=== PATIENT | male | born 1950 | race Caucasian/White ===

== ENCOUNTER 2017-01-24 12:14 | Inpatient (IN) | payer MEDICAID ==
[~2017-01-24] VITALS: Ht 182.9 cm; Wt 86.4 kg
[2017-01-24 13:09] VITALS: Ht 182.9 cm; Wt 86.4 kg
--- NOTE | 2017-01-24 13:58 | ERA ---
ER Documentation Chief Complaint Date/Time DATE: 01/24/17 TIME: 13:50 Chief Complaint HERE FOR ADMIT PER DR. CAROLINA FOR SKIN GRAFTS ON JENNIFER ANKLES HPI Patient is a 66-year-old diabetic male with history of chronic ulcers to bilateral legs who presents to the ER with 2 weeks of gradual onset, constant, progressive increased pain to bilateral legs. He denies fever, vomiting, redness. He describes chronic drainage from the wounds. He has been followed by Dr. Carolina, who saw the patient in clinic today and sent him to the ER for admission for skin graft. The patient has had 2 prior surgeries for skin grafts. Patient denies history of CHF or cirrhosis. ROS All systems reviewed and are negative except as per history of present illness. Allergies Allergies: Coded Allergies: No Known Allergy (Unverified , 01/24/17) PMhx/Soc Past medical history: Diabetes mellitus type 2, chronic leg ulcers Past surgical history: Skin grafts to bilateral ankles 2 Social history: Prior alcohol use, last use 1 month ago, denies to FmHx Noncontributory Physical Exam Vitals Vital Signs Date Time Temp Pulse Resp B/P Pulse Ox O2 Delivery O2 Flow Rate FiO2 01/24/17 13:09 96.7 57 16 119/62 96 Physical Exam Const: Alert, no acute distress Head: Atraumatic Eyes: Normal Conjunctiva, No icterus, mild pallor ENT: Normal External Ears, Nose and Mouth. Mucous membranes moist Neck: Full range of motion..~ No meningismus. No JVD Resp: Clear to auscultation bilaterally, No wheezes, no rales Cardio: Regular rate and rhythm, no murmurs Abd: Soft, non tender, Mild distention, no rebound, no guarding Skin: No petechiae or rashes Back: No midline or flank tenderness Ext: No cyanosis. Pitting edema to upper thighs bilaterally, 3+. Multiple skin ulcers with exudative tissue and serous discharge. No erythema, no foul smell. 2 second cap refill all digits bilaterally. Neur: Awake and alert, , Cranial nerves II through XII intact bilaterally, strength and sensation for 4 extremes Psych: Normal Mood and Affect Result Diagram: 01/24/17 1430 01/24/17 1430 Results 24 hrs Laboratory Tests Test 01/24/17 14:30 01/24/17 15:00 White Blood Count 8.610^3/ul Red Blood Count 2.7810^6/ul Hemoglobin 7.4g/dl Hematocrit 23.7% Mean Corpuscular Volume 85.3fl Mean Corpuscular Hemoglobin 26.6pg Mean Corpuscular Hemoglobin Concent 31.2g/dl Red Cell Distribution Width 18.2% Platelet Count 05327^3/UL Mean Platelet Volume 10.1fl Neutrophils % 72.6% Lymphocytes % 18.3% Monocytes % 6.7% Eosinophils % 1.5% Basophils % 0.5% Nucleated Red Blood Cells % 0.0/100WBC Neutrophils # 6.210^3/ul Lymphocytes # 1.610^3/ul Monocytes # 0.610^3/ul Eosinophils # 0.110^3/ul Basophils # 0.010^3/ul Nucleated Red Blood Cells # 0.010^3/ul Prothrombin Time 14.4Sec Prothrombin Time Ratio 1.1 INR International Normalized Ratio 1.12 Activated Partial Thromboplast Time 39.4Sec Sodium Level 134mmol/L Potassium Level 4.6mmol/L Chloride Level 105mmol/L Carbon Dioxide Level 23mmol/L Anion Gap 11 Blood Urea Nitrogen 30mg/dl Creatinine 1.73mg/dl Glucose Level 251mg/dl Calcium Level 7.8mg/dl Total Bilirubin 0.4mg/dl Direct Bilirubin 0.00mg/dl Indirect Bilirubin 0.4mg/dl Aspartate Amino Transf (AST/SGOT) 16IU/L Alanine Aminotransferase (ALT/SGPT) 28IU/L Alkaline Phosphatase 257IU/L B-Type Natriuretic Peptide 8880PG/ML Total Protein 6.3g/dl Albumin 2.7g/dl Globulin 3.60g/dl Albumin/Globulin Ratio 0.75 Bedside Urine pH (LAB) 6.5 Bedside Urine Protein (LAB) 1+ Bedside Urine Glucose (UA) Negative Bedside Urine Ketones (LAB) Negative Bedside Urine Blood Negative Bedside Urine Nitrite (LAB) Negative Bedside Urine Leukocyte Esterase (L Negative Current Medications Medications (Trade) Dose Ordered Sig/Josy Route PRN Reason Start Time Stop Time Status Last Admin Dose Admin Vancomycin HCl 250 ml @ 125 mls/hr ONCE IVPB 01/24/17 15:00 01/24/17 16:59 Piperacillin Sod/ Tazobactam Sod (Zosyn 3.375gm/ 100 ml (Pmx)) 100 ml @ 200 mls/hr ONCE ONCE IVPB 01/24/17 15:00 01/24/17 15:29 DC 01/24/17 15:20 Acetaminophen/ Hydrocodone Bitart ([place] (10)) 1 tab ONCE ONCE PO 01/24/17 15:00 01/24/17 15:01 DC 01/24/17 15:20 Ondansetron HCl (Zofran Inj) 4 mg BRIDGE ORDER PRN IV NAUSEA AND/OR VOMITING 01/24/17 16:00 01/25/17 15:59 Acetaminophen (Tylenol Tab) 650 mg ER BRIDGE PRN PO MILD PAIN/FEVER 01/24/17 16:00 01/25/17 15:59 Furosemide (Lasix) 20 mg ONCE ONCE IV 01/24/17 16:00 01/24/17 16:01 Procedures/MDM Time 1:57 PM: Discussed with Dr. Carolina, who states that the patient appears to have chronic infection to bilateral legs and has deep ulcers to the left leg extending to the Achilles tendon. These have not been healing adequately. The patient does not have known history of CHF or ascites, but does not have regular medical care. Requests broad-spectrum antibiotics, medical workup, and admission for planned debridement and skin grafts. MDM: Patient is a 66-year-old male with chronic bilateral leg ulcers, left greater than right with extension to Achilles tendon. Patient was seen by Dr. Carolina in clinic today, and there was concern for cellulitis. The patient is diabetic, does not have signs of necrotizing infection or sepsis. The patient does not have a PMD and has not had prior medical workup, but has evidence of anasarca on exam. He has hypoalbuminemia suggestive of underlying cirrhosis, and his exam is suggestive of ascites. He also has an elevated BNP suggestive of CHF, and his chest x-ray shows pleural effusions with cardiomegaly. Patient has not had any chest pain or shortness of breath. He has evidence of anemia, but denies dark or bloody stools and has stable vital signs. He was given broad-spectrum antibiotics and gentle diuresis. He has evidence of underlying renal impairment. He will need admission for further medical workup, and will be scheduled for surgical debridement of wounds and possible skin graft. Departure Diagnosis: Primary Impression: Cellulitis Qualified Code: L03.119 - Cellulitis of lower extremity, unspecified laterality Additional Impressions: Chronic ulcer of leg Qualified Code: L97.909 - Chronic ulcer of lower extremity, unspecified laterality, unspecified ulcer stage Anasarca CHF (congestive heart failure) Qualified Code: I50.9 - Congestive heart failure, unspecified congestive heart failure chronicity, unspecified congestive heart failure type Hypoalbuminemia Anemia Qualified Code: D64.9 - Anemia, unspecified type Condition: BRIDGET Us MD Jan 24, 2017 13:58
[2017-01-24] MEDS ORDERED: HYDROCODONE/APAP (10/325) TAB PO ONE (15:00)
[2017-01-24] MEDS ORDERED: VANCOMYCIN 1 GM (PMX) 250 ML IVPB SCH (15:00)
[2017-01-24] MEDS ORDERED: PIPER-TAZO 3.375 GM IV (PMX) 100 ML IVPB ONE (15:00)
--- NOTE | 2017-01-24 15:39 | RADRPT ---
PROCEDURE: Chest x-ray CLINICAL INDICATION: Shortness of breath TECHNIQUE: Chest single view COMPARISON: None FINDINGS: There is mild cardiomegaly. Mild interstitial vascular congestion is seen with small bilateral pleur al effusions right greater than left. IMPRESSION: Cardiomegaly with mild interstitial CHF and small bilateral pleural effusions right greater than lef t RPTAT: HH .Tin Gudino MD, Date Time Electronically viewed and signed by .Tin Gudino MD, on 01/24/2017 15:39 .W/
[2017-01-24] MEDS ORDERED: ACETAMINOPHEN 325 MG TAB PO PRN (16:00)
[2017-01-24] MEDS ORDERED: FUROSEMIDE 20 MG INJ IV ONE (16:00)
[2017-01-24] MEDS ORDERED: ONDANSETRON 4 MG INJ IV PRN ×2 (16:00→19:00)
[2017-01-24 16:04] VITALS: TEMP 97.7
[2017-01-24 18:00] VITALS: BP 152/66; PULSE 58; RESP 16
[2017-01-24 18:01] VITALS: BP 152/66; RESP 22
--- NOTE | 2017-01-24 18:39 | HP ---
Date/Time of Note Date/Time of Note DATE: 01/24/17 TIME: 18:35 Assessment/Plan VTE Prophylaxis VTE Prophylaxis Intervention: heparin Assessment/Plan Chief Complaint/Hosp Course 1. Chronic skin ulcers Plan is for skin graft with Dr Romero Pain control 2. DM NISS PPx: Heparin Problems: HPI/ROS Admit Date/Time Admit Date/Time Jan 24, 2017 at 15:33 Hx of Present Illness Patient is a 66-year-old diabetic male with history of chronic ulcers to bilateral legs who presents with 2 weeks of increased pain to bilateral legs. He describes chronic drainage from the wounds. He has been followed by Dr. Romero, who saw the patient in clinic today and sent him to the ER for admission for skin graft. The patient has had 2 prior surgeries for skin grafts. Patient denies history of CHF or cirrhosis. ROS Constitutional: improved, no complaints Eyes: no complaints ENT: no complaints Respiratory: no complaints Cardiovascular: no complaints Gastrointestinal: no complaints Genitourinary: no complaints Musculoskeletal: no complaints Skin: skin lesions Neurologic: no complaints Endocrine: no complaints Lymphatic: no complaints Psychological: nl mood/affect, no complaints Immunologic: no complaints PMH/Family/Social Past Medical History Medical History: diabetes, other (Chronic skin ulcers) Past Surgical History Skin grafts to bilateral ankles 2 Family History Significant Family History: no pertinent family hx Social History Alcohol Use: occasionally Smoking Status: Never smoker Exam/Review of Systems Vital Signs Vitals Vital Signs Date Time Temp Pulse Resp B/P Pulse Ox O2 Delivery O2 Flow Rate FiO2 01/24/17 18:01 97.5 60 22 152/66 98 01/24/17 18:00 Room Air Exam Constitutional: alert, oriented Respiratory: clear to auscultation Cardiovascular: regular rate and rhythm Gastrointestinal: soft, No distended Musculoskeletal: No nl extremities to inspection Labs Result Diagram: 01/24/17 1430 01/24/17 1430 SELINA BAINS Jan 24, 2017 18:39
[2017-01-24] MEDS ORDERED: GLUCOSE GEL 15 GRAM TUBE PO PRN ×2 (19:00)
[2017-01-24] MEDS ORDERED: NACL 0.9% 3 ML SYG IV SCH (19:00)
[2017-01-24] MEDS ORDERED: DEXTROSE 50% 50 ML SYRINGE IV PRN ×2 (19:00)
[2017-01-24] MEDS ORDERED: GLUCOSE GEL 15 GRAM TUBE BUCCAL PRN (19:00)
[2017-01-24] MEDS ORDERED: DOCUSATE SODIUM 100 MG CAP PO PRN (19:00)
[2017-01-24] MEDS ORDERED: HYDROCODONE/APAP (5/325) TAB PO PRN (19:00)
[2017-01-24] MEDS ORDERED: GLUCAGON 1 MG INJ IM PRN (19:00)
[2017-01-24 20:05] VITALS: BP 123/73; RESP 18
[2017-01-24 20:06] VITALS: BP 123/73; RESP 20
[2017-01-24] MEDS: HEPARIN 5,000 UNIT/0.5 ML VIAL SC SCH (20:21)
[2017-01-24] MEDS: INSULIN ASPART [NOVOLOG] 3 ML PEN SC SCH (20:52)
--- NOTE | 2017-01-24 21:57 | RADRPT ---
PROCEDURE: US right upper quadrant abdomen. CLINICAL INDICATION: Abnormal liver function tests TECHNIQUE: Multiple real-time images were acquired of the patient's right upper quadrant abdomen utilizing a high resolution transducer. COMPARISON: None FINDINGS: The liver demonstrates slight coarsened echotexture, nodularity, increased echogenicity and increas ed size measuring 20.2 cm without focal lesions. Slight nodular border. Patent portal vein. Normal g allbladder without gallstones, pericholecystic fluid or gallbladder wall thickening. No intrahepatic or extrahepatic biliary dilatation. The common bile duct measures 3.6 mm in maximal dimension. Th e visualized portions of the pancreas are normal. The right kidney is normal size with normal echoge nicity and morphology. The right kidney measures 10.3 cm. No hydronephrosis or perinephric fluid c ollections. There are no areas of increased echogenicity to suggest nephrolithiasis. Normal caliber aorta and IVC. No peritoneal free fluid. IMPRESSION: Enlarged liver with increased echogenicity, coarsened echotexture and slight nodularity consistent w ith hepatocellular disease. RPTAT:AAJJ Physician Jagruti Date Time Electronically viewed and signed by Physician Jagruti on 01/24/2017 21:57 /
[2017-01-24] MEDS: ZOLPIDEM 5 MG TAB PO PRN (23:49)
[2017-01-25] VITALS (8 sets, daily range): BP systolic 125–151; BP diastolic 62–138; PULSE 60–64; RESP 15–20
[2017-01-25] MEDS ORDERED: ACCU-CHEK XX SCH (02:00)
[2017-01-25] MEDS: ACCU-CHEK XX SCH (02:00)
[2017-01-25] MEDS: HYDROCODONE/APAP (5/325) TAB PO PRN ×3 (05:18→21:55)
[2017-01-25] MEDS: INSULIN ASPART [NOVOLOG] 3 ML PEN SC SCH ×7 (07:35→21:00)
[2017-01-25] MEDS: INSULIN GLARGINE [LANtus] 3 ML PEN SC SCH (08:00)
[2017-01-25] MEDS: HEPARIN 5,000 UNIT/0.5 ML VIAL SC SCH ×2 (08:09→20:50)
--- NOTE | 2017-01-25 12:03 | HPN ---
Date/Time of Note Date/Time of Note DATE: 01/25/17 TIME: 12:03 Interval H&P Admission Note Pt. seen H&P reviewed: No system changes ASHLEY CAROLINA MD Jan 25, 2017 12:03
--- NOTE | 2017-01-25 15:36 | PN ---
Date/Time of Note Date/Time of Note DATE: 01/25/17 TIME: 15:35 Assessment/Plan VTE Prophylaxis VTE Prophylaxis Intervention: heparin Lines/Catheters IV C[facility] Type [facility]from [facility] [place] Urinary Cath still in place: No Assessment/Plan Chief Complaint/Hosp Course 1. Chronic skin ulcers Plan is for skin graft with Dr Romero Pain control 2. DM NISS 3. Early cirrhosis Hepatitis panel negative PPx: Heparin Problems: Subjective 24 Hr Interval Summary Constitutional: no complaints Exam/Review of Systems Vital Signs Vitals Vital Signs Date Time Temp Pulse Resp B/P Pulse Ox O2 Delivery O2 Flow Rate FiO2 01/25/17 14:00 98.2 60 18 125/62 95 01/24/17 18:00 Room Air Intake and Output 01/24/17 01/24/17 01/25/17 14:59 22:59 06:59 Intake Total 350 ml 500 ml Output Total 600 ml Balance 350 ml -100 ml Exam Constitutional: alert, oriented Respiratory: clear to auscultation Cardiovascular: regular rate and rhythm Gastrointestinal: soft, No distended Extremities: edema Results Result Diagram: 01/25/17 0454 01/25/17 0454 Results 24 hrs Laboratory Tests Test 01/24/17 20:48 01/25/17 02:06 01/25/17 04:54 01/25/17 07:46 Bedside Glucose 212 228 H 182 White Blood Count 7.1 Red Blood Count 2.66 L Hemoglobin 7.0 L Hematocrit 22.6 L Mean Corpuscular Volume 85.0 Mean Corpuscular Hemoglobin 26.3 L Mean Corpuscular Hemoglobin Concent 31.0 L Red Cell Distribution Width 18.1 H Platelet Count 281 Mean Platelet Volume 10.0 Neutrophils % 66.8 Lymphocytes % 21.6 Monocytes % 7.5 Eosinophils % 3.1 Basophils % 0.7 Nucleated Red Blood Cells % 0.0 Neutrophils # 4.7 Lymphocytes # 1.5 Monocytes # 0.5 Eosinophils # 0.2 Basophils # 0.1 Nucleated Red Blood Cells # 0.0 Sodium Level 133 L Potassium Level 4.2 Chloride Level 107 Carbon Dioxide Level 22 Anion Gap 8 Blood Urea Nitrogen 30 H Creatinine 1.73 H Glucose Level 195 Hemoglobin A1c 8.0 H Calcium Level 8.1 L Phosphorus Level 4.0 Magnesium Level 1.9 Total Bilirubin 0.3 Direct Bilirubin 0.00 Indirect Bilirubin 0.3 Aspartate Amino Transf (AST/SGOT) 16 Alanine Aminotransferase (ALT/SGPT) 26 Alkaline Phosphatase 255 H Total Protein 6.2 Albumin 2.4 L Globulin 3.80 H Albumin/Globulin Ratio 0.63 Hepatitis B Surface Antigen NEGATIVE Hepatitis B Core Total Antibody NEGATIVE Hepatitis C Antibody NEGATIVE Test 01/25/17 11:51 Bedside Glucose 148 Medications Medications Current Medications Ondansetron HCl (Zofran Inj) 4 mg Q6H PRN IV NAUSEA AND/OR VOMITING; Start 01/24/17 at 19:00 Acetaminophen (Tylenol Tab) 650 mg Q6H PRN PO PAIN LEVEL 1-3 OR FEVER; Start 01/24/17 at 19:00 Morphine Sulfate (morphine) 2 mg Q4H PRN IV SEVERE PAIN LEVEL 7-10; Start 01/24 at 19:00 Docusate Sodium (Colace) 100 mg Q12H PRN PO CONSTIPATION; Start 01/24/17 at 19: 00 Zolpidem Tartrate (Ambien) 5 mg QHS PRN PO SLEEP Last administered on 23:49; Admin Dose 5 MG; Start 01/24/17 at 19:00 Heparin Sodium (Porcine) (Heparin (5000 Units/0.5 ml)) 5,000 unit Q12 SC Last administered on 01/24/17 20:21; Admin Dose 5,000 UNIT; Start 01/24/17 at 21:00 Insulin Glargine (Lantus) 17 unit DAILY@08 SC ; Start 01/25/17 at 08:00 Diagnostic Test (Pha) (Accu-Chek) 1 ea 02 XX ; Start 01/25/17 at 02:00 Miscellaneous Information 1 ea NOTE XX ; Start 01/24/17 at 19:00 Glucose (Glutose) 15 gm Q15M PRN PO DECREASED GLUCOSE; Start 01/24/17 at 19:00 Glucose (Glutose) 22.5 gm Q15M PRN PO DECREASED GLUCOSE; Start 01/24/17 at 19: 00 Dextrose (D50w Syringe) 25 ml Q15M PRN IV DECREASED GLUCOSE; Start 01/24/17 at 19:00 Dextrose (D50w Syringe) 50 ml Q15M PRN IV DECREASED GLUCOSE; Start 01/24/17 at 19:00 Glucagon (Glucagen) 1 mg Q15M PRN IM DECREASED GLUCOSE; Start 01/24/17 at 19:00 Glucose (Glutose) 15 gm Q15M PRN BUCCAL DECREASED GLUCOSE; Start 01/24/17 at 19 :00 Acetaminophen/ Hydrocodone Bitart ([place] (5/325)) 1 tab Q4H PRN PO MODERATE PAIN LEVEL 4-6 Last administered on 01/25/17 10:08; Admin Dose 1 TAB; Start 01/24/17 at 23:00 SELINA BAINS Jan 25, 2017 15:36
[2017-01-25] MEDS ORDERED: LIDOCAINE 2% (SDV) 5 ML INJ ONE (16:31)
[2017-01-25] MEDS ORDERED: PROPOFOL 100 ML ONE (16:31)
[2017-01-25] MEDS ORDERED: FENTAnyl 50 MCG/ML VIAL ONE (16:31)
[2017-01-25] MEDS ORDERED: MIDAZOLAM 1 MG/ML 2 ML INJ ONE (16:31)
[2017-01-25] MEDS ORDERED: EPINEPHrine 1 MG/ML 30 ML INJ ONE (16:51)
--- NOTE | 2017-01-25 17:51 | QN ---
Documentation Comment RENAL A/P CKD ANEMIA PVD PLAN PER ORDER ELHAM ANGELES MD Jan 25, 2017 17:51
--- NOTE | 2017-01-25 17:51 | QN ---
Documentation Comment RENAL A/P CKD ANEMIA PVD PLAN PER ORDER ELHAM ANGELES MD Jan 25, 2017 17:51
--- NOTE | 2017-01-25 17:51 | QN ---
Documentation Comment RENAL A/P CKD ANEMIA PVD PLAN PER ORDER ELHAM ANGELES MD Jan 25, 2017 17:51
--- NOTE | 2017-01-25 17:52 | SIPON ---
Date/Time of Note Date/Time of Note DATE: 01/25/17 TIME: 17:50 Operative Report Preoperative Diagnosis BILATERAL LOWER EXTREMITY NECROTIC WOUNDS Postoperative Diagnosis SAME Operation/Procedure Performed BILATERAL LOWER EXTREMITY DEBRIDEMENTS AND APPLICATION OF ACELL GRAFTS Surgeon see signature line physician assistant surgery NONE Anesthesia: moderate sedation Estimated blood loss: 10 - 50 ml's Transfusion Required 1 UNIT PRBC Specimen NONE Grafts/Implants none Complications none ASHLEY CAROLINA MD Jan 25, 2017 17:52
--- NOTE | 2017-01-25 17:52 | SIPON ---
Date/Time of Note Date/Time of Note DATE: 01/25/17 TIME: 17:50 Operative Report Preoperative Diagnosis BILATERAL LOWER EXTREMITY NECROTIC WOUNDS Postoperative Diagnosis SAME Operation/Procedure Performed BILATERAL LOWER EXTREMITY DEBRIDEMENTS AND APPLICATION OF ACELL GRAFTS Surgeon see signature line senior court office assistant NONE Anesthesia: moderate sedation Estimated blood loss: 10 - 50 ml's Transfusion Required 1 UNIT PRBC Specimen NONE Grafts/Implants none Complications none ASHLEY CAROLINA MD Jan 25, 2017 17:52
--- NOTE | 2017-01-25 17:52 | SIPON ---
Date/Time of Note Date/Time of Note DATE: 01/25/17 TIME: 17:50 Operative Report Preoperative Diagnosis BILATERAL LOWER EXTREMITY NECROTIC WOUNDS Postoperative Diagnosis SAME Operation/Procedure Performed BILATERAL LOWER EXTREMITY DEBRIDEMENTS AND APPLICATION OF ACELL GRAFTS Surgeon see signature line assistant manager retail NONE Anesthesia: moderate sedation Estimated blood loss: 10 - 50 ml's Transfusion Required 1 UNIT PRBC Specimen NONE Grafts/Implants none Complications none ASHLEY CAROLINA MD Jan 25, 2017 17:52
[2017-01-25] MEDS ORDERED: OXYCODONE/ACETAMINOPHEN (5/325) TAB PO PRN ×2 (18:30)
[2017-01-25] MEDS ORDERED: HYDROmorphONE (0.2 MG/ML) 10ML SYG IV PRN ×3 (18:30)
[2017-01-25] MEDS ORDERED: INSULIN ASPART [NOVOLOG] 3 ML PEN SC ONE (18:30)
[2017-01-26] MEDS: ACCU-CHEK XX SCH (02:00)
[2017-01-26 02:05] VITALS: BP 157/77; RESP 19
[2017-01-26] MEDS: HYDROCODONE/APAP (5/325) TAB PO PRN ×2 (04:34→15:47)
[2017-01-26] MEDS: INSULIN ASPART [NOVOLOG] 3 ML PEN SC SCH ×7 (08:07→20:58)
[2017-01-26 08:08] VITALS: BP 145/80; RESP 16
[2017-01-26] MEDS: INSULIN GLARGINE [LANtus] 3 ML PEN SC SCH (08:09)
--- NOTE | 2017-01-26 08:25 | OPR ---
Date/Time of Note Date/Time of Note DATE: 01/26/17 TIME: 08:21 Operative Report Free Text/Dictation DATE OF OPERATION: 01/26/2017 SURGEON: Jesus Carolina MD PREOPERATIVE DIAGNOSIS: Left lower extremity gangrene POSTOPERATIVE DIAGNOSIS: Same ANESTHESIA: LOCAL ESTIMATED BLOOD LOSS: Minimal. COMPLICATIONS: None. INDICATIONS: This is a 66-year-old male whom is noncompliant with diabetes and presented with bilateral lower extremity diabetic foot ulcers and infection. The patient had presented to outside hospital with history of 3-4weeks of bilateral lower extremity swelling, redness, pain, maggots and foul smelling odor from bilateral lower legs and left heel. 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 Subsequently, the patient has undergone multiple debridements in order try to preserve her limb. Multiple debridements of muscle, ligament, tendon, bone, skin, and subcutaneous tissue and application ACell grafts in order to enhance granulation tissue development and eventual limb salvage and grafting for wound closure. The patient has been discussed about the risks, benefits, and alternatives including but not limited to bleeding, worsening infection, limb loss, nerve injury, infection, , stroke, myocardial infarction, and multiple debridements in the near future and she has agreed to proceed. OPERATION PERFORMED: 1. Excisional sharp debridement of the left lower extremity involving skin, subcutaneous tissue, muscle, ligament, and tendon. Wound measuring 40 x 28 x 1cm cm in the greatest dimensions. 2. Application of 3 grams of xenograft MicroMatrix powder over the area of the right lower leg. 3. Application of one [id number] two layer xenograft sheets measuring 4. Application of one 7x10cm two layer xenograft sheets measuring DESCRIPTION OF PROCEDURE: The patient was brought into the operating room table , placed in supine position. The normal bony prominences were padded. The anesthesia team had placed appropriate lines and anesthesia was induced. The patient tolerated procedure well and appropriate site was marked and confirmed. The patient's left lower extremity was then prepped and draped in usual standard sterile fashion. Preoperative antibiotics were given prior to skin incision. Using sharp scissors and a curette, excisional debridement of all necrotic tissue involving skin, subcutaneous tissue, ligament, tendon, and muscle was performed. The patient has good surrounding developing on the edges with some necrotic fibrinous tissue which were all removed. The patient's previous MicroMatrix and 2-layer wound sheets of xenografts had been mostly taken appropriately and adequate granulation tissue has developed. We debrided further hypergranulation tissue with VersaJet device. We then applied 1 gram of xenograft MicroMatrix powder to repair and replace lost and damaged tissues. Further debrided the lateral heel area with sharp curette and sharp scissors. Once this aspect was completed, we went ahead and placed two-layer xenograft sheets over all the exposed areas of the lower leg to repair and replace lost and damaged tissues. Adaptic was applied circumferentially followed by Surgilube. This was followed with moist dressing, Telfa, 4 x 4, and Kerlix dressing. The patient tolerated procedure well and was taken to the postanesthesia care unit in stable condition. Our plan will be to revisit the wound again in one two weeks Preoperative Diagnosis bilateral lower extremity gas gangrene Postoperative Diagnosis same Surgeon see signature line Airplane Captain none Anesthesia Type: moderate sedation Estimated Blood Loss: minimal Transfusion none Specimen none Grafts/Implants none Complications none Pt Condition Post Procedure: stable Disposition: PACU Procedure Description as above JESUS CAROLINA MD Jan 26, 2017 08:25
[2017-01-26] MEDS: HEPARIN 5,000 UNIT/0.5 ML VIAL SC SCH ×2 (09:24→21:03)
[2017-01-26 14:00] VITALS: BP 130/75; RESP 18
[2017-01-26] MEDS: FUROSEMIDE 20 MG INJ IV SCH (17:33)
--- NOTE | 2017-01-26 19:13 | PN ---
Date/Time of Note Date/Time of Note DATE: 01/26/17 TIME: 19:12 Assessment/Plan VTE Prophylaxis VTE Prophylaxis Intervention: heparin Lines/Catheters IV Catheter Type (from Nrsg): Peripheral IV Urinary Cath still in place: No Assessment/Plan Chief Complaint/Hosp Course 1. Chronic skin ulcers Plan is for BKA with Dr Romero, preop clearance with Dr. Lagunas of cardiology Pain control 2. DM NISS 3. Early cirrhosis Hepatitis panel negative PPx: Heparin Problems: Subjective 24 Hr Interval Summary Constitutional: no complaints Exam/Review of Systems Vital Signs Vitals Vital Signs Date Time Temp Pulse Resp B/P Pulse Ox O2 Delivery O2 Flow Rate FiO2 01/26/17 14:00 98.5 61 18 130/75 95 01/25/17 18:50 Room Air Intake and Output 01/25/17 01/25/17 01/26/17 15:00 23:00 07:00 Intake Total 300 ml 150 ml Output Total 25 ml 1000 ml Balance 275 ml -850 ml Exam Constitutional: alert Respiratory: clear to auscultation Cardiovascular: regular rate and rhythm Gastrointestinal: soft, No distended Musculoskeletal: No nl extremities to inspection Results Result Diagram: 01/26/17 0450 01/26/17 0450 Results 24 hrs Laboratory Tests Test 01/25/17 20:34 01/26/17 04:50 01/26/17 05:35 01/26/17 08:01 Bedside Glucose 138 153 White Blood Count 7.5 Red Blood Count 2.89 L Hemoglobin 7.6 L Hematocrit 24.6 L Mean Corpuscular Volume 85.1 Mean Corpuscular Hemoglobin 26.3 L Mean Corpuscular Hemoglobin Concent 30.9 L Red Cell Distribution Width 17.8 H Platelet Count 297 Mean Platelet Volume 10.2 Neutrophils % 70.0 Lymphocytes % 17.4 Monocytes % 8.3 Eosinophils % 3.3 Basophils % 0.7 Nucleated Red Blood Cells % 0.0 Neutrophils # 5.3 Lymphocytes # 1.3 Monocytes # 0.6 Eosinophils # 0.3 Basophils # 0.1 Nucleated Red Blood Cells # 0.0 Sodium Level 136 Potassium Level 4.5 Chloride Level 109 Carbon Dioxide Level 23 Anion Gap 9 Blood Urea Nitrogen 27 H Creatinine 1.68 H Glucose Level 154 Calcium Level 7.9 L Lab Scanned Report BLOOD TRANSFUSION Test 01/26/17 12:15 01/26/17 17:31 Bedside Glucose 159 136 Medications Medications Current Medications Ondansetron HCl (Zofran Inj) 4 mg Q6H PRN IV NAUSEA AND/OR VOMITING; Start 01/24/17 at 19:00 Acetaminophen (Tylenol Tab) 650 mg Q6H PRN PO PAIN LEVEL 1-3 OR FEVER; Start 01/24/17 at 19:00 Morphine Sulfate (morphine) 2 mg Q4H PRN IV SEVERE PAIN LEVEL 7-10; Start 01/24 at 19:00 Docusate Sodium (Colace) 100 mg Q12H PRN PO CONSTIPATION; Start 01/24/17 at 19: 00 Zolpidem Tartrate (Ambien) 5 mg QHS PRN PO SLEEP Last administered on 23:49; Admin Dose 5 MG; Start 01/24/17 at 19:00 Heparin Sodium (Porcine) (Heparin (5000 Units/0.5 ml)) 5,000 unit Q12 SC Last administered on 01/26/17 09:24; Admin Dose 5,000 UNIT; Start 01/24/17 at 21:00 Insulin Glargine (Lantus) 17 unit DAILY@08 SC Last administered on 01/26/17 08:09; Admin Dose 17 UNIT; Start 01/25/17 at 08:00 Diagnostic Test (Pha) (Accu-Chek) 1 ea 02 XX ; Start 01/25/17 at 02:00 Miscellaneous Information 1 ea NOTE XX ; Start 01/24/17 at 19:00 Glucose (Glutose) 15 gm Q15M PRN PO DECREASED GLUCOSE; Start 01/24/17 at 19:00 Glucose (Glutose) 22.5 gm Q15M PRN PO DECREASED GLUCOSE; Start 01/24/17 at 19: 00 Dextrose (D50w Syringe) 25 ml Q15M PRN IV DECREASED GLUCOSE; Start 01/24/17 at 19:00 Dextrose (D50w Syringe) 50 ml Q15M PRN IV DECREASED GLUCOSE; Start 01/24/17 at 19:00 Glucagon (Glucagen) 1 mg Q15M PRN IM DECREASED GLUCOSE; Start 01/24/17 at 19:00 Glucose (Glutose) 15 gm Q15M PRN BUCCAL DECREASED GLUCOSE; Start 01/24/17 at 19 :00 Acetaminophen/ Hydrocodone Bitart ([place] (5/325)) 1 tab Q4H PRN PO MODERATE PAIN LEVEL 4-6 Last administered on 01/26/17t 15:47; Admin Dose 1 TAB; Start 01/24/17 at 23:00 SELINA BAINS Jan 26, 2017 19:13
--- NOTE | 2017-01-26 19:52 | RADRPT ---
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 Location: 2237- Ref. Physician: SELINA BAINS Quality: Adequate Procedures: Transthoracic echocardiogram with complete 2D, M-Mode, and doppler examination. Indications: Pre-op. 2D/M Mode Doppler Measurement Value Normal Ranges Measurement Value Normal Ranges LVIDd 2D 5.5 3.5 - 5.6 cm AV Peak Mahamed 1.9 m/sec LVIDs 2D 3.7 2.1 - 4.1 cm AV Peak PG 14.5 mmHg LVPWd 2D 1.3 0.6 - 1.1 cm AI Peak PG 66.8 mmHg IVSd 2D 1.3 0.6 - 1.1 cm AI Peak Mahamed 4.1 m/sec AoR Diam 2D 2.7 2.0 - 3.7 cm AI PHT 705.4 msec EDV 2D 148.7 cm3 LVOT Peak Mahamed 0.9 m/sec ESV 2D 51.9 cm3 LVOT Peak PG 3.6 mmHg LA Dimen 2D 4.9 2.3 - 4.0 cm MV E Peak Mahamed 1.5 m/sec MV A Peak Mahamed 0.7 m/sec MV E/A 2.1 MV Decel Time 126 msec MV Decel [place] 12 MV E/A 2.1 TR Peak Mahamed 3.8 m/sec TR Peak PG 57.0 mmHg RVSP 72.0 mmHg Findings Left Ventricle: Lower limits of normal systolic function. Mild concentric left ventricular hypertrophy. Mild left ventricular systolic dysfunction. Ejection fraction is visually estimated at 50 %. Abnormal Diastolic Function. These segments of the LV are hypokinetic apex. Right Ventricle: Normal right ventricular size. Normal right ventricular systolic function. Left Atrium: There is moderate enlargement of left atrium. Right Atrium: The right atrium is normal in size. Mitral Valve: Mild mitral leaflet calcification. Mild mitral annular calcification. Moderate to severe mitral valve regurgitation. Aortic Valve: Aortic sclerosis without stenosis. Mild aortic valve regurgitation. Tricuspid Valve: Normal appearance of the tricuspid valve. Estimated peak PA systolic pressure 72 mmHg. There is mild to moderate tricuspid regurgitation. Pulmonic Valve: Pulmonic valve not well visualized. There is mild to moderate pulmonic regurgitation. Pericardium: Normal pericardium with no significant pericardial effusion. Aorta: Normal aortic root. IVC: Dilated IVC without respiratory collapse consistent with elevated right atrial pressure. Conclusions 1.Lower limits of normal systolic function. Mild concentric left ventricular hypertrophy. Mild left ventricular systolic dysfunction. Ejection fraction is visually estimated at 50 %. Abnormal Diastolic Function. These segments of the LV are hypokinetic apex. 2.There is moderate enlargement of left atrium. 3.Mild mitral leaflet calcification. Mild mitral annular calcification. Moderate to severe mitral valve regurgitation. 4.Aortic sclerosis without stenosis. Mild aortic valve regurgitation. 5.Normal appearance of the tricuspid valve. Estimated peak PA systolic pressure 72 mmHg. There is mild to moderate tricuspid regurgitation. 6.Pulmonic valve not well visualized. There is mild to moderate pulmonic regurgitation. Electronically Signed By: Claritza Lagunas 26-Jan-2017 19:51:52 -0700 Patient Name: CLARITZA BERNAL Study Date: 26-Jan-2017 [id number]
--- NOTE | 2017-01-26 19:52 | RADRPT ---
Echocardiogram Report Patient Name: CLARITZA BERNAL Gender: Male Date: 1950 Study Date: 26-Jan-2017 Pile Trimmer: Yesica [facility] Location: 2237- Ref. Physician: SELINA BAINS Quality: Adequate Procedures: Transthoracic echocardiogram with complete 2D, M-Mode, and doppler examination. Indications: Pre-op. 2D/M Mode Doppler Measurement Value Normal Ranges Measurement Value Normal Ranges LVIDd 2D 5.5 3.5 - 5.6 cm AV Peak Mahamed 1.9 m/sec LVIDs 2D 3.7 2.1 - 4.1 cm AV Peak PG 14.5 mmHg LVPWd 2D 1.3 0.6 - 1.1 cm AI Peak PG 66.8 mmHg IVSd 2D 1.3 0.6 - 1.1 cm AI Peak Mahamed 4.1 m/sec AoR Diam 2D 2.7 2.0 - 3.7 cm AI PHT 705.4 msec EDV 2D 148.7 cm3 LVOT Peak Mahamed 0.9 m/sec ESV 2D 51.9 cm3 LVOT Peak PG 3.6 mmHg LA Dimen 2D 4.9 2.3 - 4.0 cm MV E Peak Mahamed 1.5 m/sec MV A Peak Mahamed 0.7 m/sec MV E/A 2.1 MV Decel Time 126 msec MV Decel [place] 12 MV E/A 2.1 TR Peak Mahamed 3.8 m/sec TR Peak PG 57.0 mmHg RVSP 72.0 mmHg Findings Left Ventricle: Lower limits of normal systolic function. Mild concentric left ventricular hypertrophy. Mild left ventricular systolic dysfunction. Ejection fraction is visually estimated at 50 %. Abnormal Diastolic Function. These segments of the LV are hypokinetic apex. Right Ventricle: Normal right ventricular size. Normal right ventricular systolic function. Left Atrium: There is moderate enlargement of left atrium. Right Atrium: The right atrium is normal in size. Mitral Valve: Mild mitral leaflet calcification. Mild mitral annular calcification. Moderate to severe mitral valve regurgitation. Aortic Valve: Aortic sclerosis without stenosis. Mild aortic valve regurgitation. Tricuspid Valve: Normal appearance of the tricuspid valve. Estimated peak PA systolic pressure 72 mmHg. There is mild to moderate tricuspid regurgitation. Pulmonic Valve: Pulmonic valve not well visualized. There is mild to moderate pulmonic regurgitation. Pericardium: Normal pericardium with no significant pericardial effusion. Aorta: Normal aortic root. IVC: Dilated IVC without respiratory collapse consistent with elevated right atrial pressure. Conclusions 1.Lower limits of normal systolic function. Mild concentric left ventricular hypertrophy. Mild left ventricular systolic dysfunction. Ejection fraction is visually estimated at 50 %. Abnormal Diastolic Function. These segments of the LV are hypokinetic apex. 2.There is moderate enlargement of left atrium. 3.Mild mitral leaflet calcification. Mild mitral annular calcification. Moderate to severe mitral valve regurgitation. 4.Aortic sclerosis without stenosis. Mild aortic valve regurgitation. 5.Normal appearance of the tricuspid valve. Estimated peak PA systolic pressure 72 mmHg. There is mild to moderate tricuspid regurgitation. 6.Pulmonic valve not well visualized. There is mild to moderate pulmonic regurgitation. Electronically Signed By: Claritza Lagunas 26-Jan-2017 19:51:52 -0700 Patient Name: CLARITZA BERNAL Study Date: 26-Jan-2017 [id number]
--- NOTE | 2017-01-26 19:52 | RADRPT ---
Echocardiogram Report Patient Name: CLARITZA BERNAL Gender: Male Date: 1950 Study Date: 26-Jan-2017 Rail Switchman: Yesica [facility] Location: 2237- Ref. Physician: SELINA BAINS Quality: Adequate Procedures: Transthoracic echocardiogram with complete 2D, M-Mode, and doppler examination. Indications: Pre-op. 2D/M Mode Doppler Measurement Value Normal Ranges Measurement Value Normal Ranges LVIDd 2D 5.5 3.5 - 5.6 cm AV Peak Mahamed 1.9 m/sec LVIDs 2D 3.7 2.1 - 4.1 cm AV Peak PG 14.5 mmHg LVPWd 2D 1.3 0.6 - 1.1 cm AI Peak PG 66.8 mmHg IVSd 2D 1.3 0.6 - 1.1 cm AI Peak Mahamed 4.1 m/sec AoR Diam 2D 2.7 2.0 - 3.7 cm AI PHT 705.4 msec EDV 2D 148.7 cm3 LVOT Peak Mahamed 0.9 m/sec ESV 2D 51.9 cm3 LVOT Peak PG 3.6 mmHg LA Dimen 2D 4.9 2.3 - 4.0 cm MV E Peak Mahamed 1.5 m/sec MV A Peak Mahamed 0.7 m/sec MV E/A 2.1 MV Decel Time 126 msec MV Decel [place] 12 MV E/A 2.1 TR Peak Mahamed 3.8 m/sec TR Peak PG 57.0 mmHg RVSP 72.0 mmHg Findings Left Ventricle: Lower limits of normal systolic function. Mild concentric left ventricular hypertrophy. Mild left ventricular systolic dysfunction. Ejection fraction is visually estimated at 50 %. Abnormal Diastolic Function. These segments of the LV are hypokinetic apex. Right Ventricle: Normal right ventricular size. Normal right ventricular systolic function. Left Atrium: There is moderate enlargement of left atrium. Right Atrium: The right atrium is normal in size. Mitral Valve: Mild mitral leaflet calcification. Mild mitral annular calcification. Moderate to severe mitral valve regurgitation. Aortic Valve: Aortic sclerosis without stenosis. Mild aortic valve regurgitation. Tricuspid Valve: Normal appearance of the tricuspid valve. Estimated peak PA systolic pressure 72 mmHg. There is mild to moderate tricuspid regurgitation. Pulmonic Valve: Pulmonic valve not well visualized. There is mild to moderate pulmonic regurgitation. Pericardium: Normal pericardium with no significant pericardial effusion. Aorta: Normal aortic root. IVC: Dilated IVC without respiratory collapse consistent with elevated right atrial pressure. Conclusions 1.Lower limits of normal systolic function. Mild concentric left ventricular hypertrophy. Mild left ventricular systolic dysfunction. Ejection fraction is visually estimated at 50 %. Abnormal Diastolic Function. These segments of the LV are hypokinetic apex. 2.There is moderate enlargement of left atrium. 3.Mild mitral leaflet calcification. Mild mitral annular calcification. Moderate to severe mitral valve regurgitation. 4.Aortic sclerosis without stenosis. Mild aortic valve regurgitation. 5.Normal appearance of the tricuspid valve. Estimated peak PA systolic pressure 72 mmHg. There is mild to moderate tricuspid regurgitation. 6.Pulmonic valve not well visualized. There is mild to moderate pulmonic regurgitation. Electronically Signed By: Claritza Lagunas 26-Jan-2017 19:51:52 -0700 Patient Name: CLARITZA BERNAL Study Date: 26-Jan-2017 [id number]
--- NOTE | 2017-01-26 20:01 | CONS ---
Date/Time of Note Date/Time of Note DATE: 01/26/17 TIME: 19:59 Assessment/Plan Assessment/Plan Chief Complaint/Hosp Course POSS CKD DM PUL EDEMA LEG EDEMA S/P LEG SURGERY PLAN UR LYTES UR PROTEIN DIURETIC Problems: Consultation Date/Type/Reason Admit Date/Time Jan 24, 2017 at 15:33 Initial Consult Date [id number] HR Interval Summary Constitutional: improved Exam/Review of Systems Vital Signs Vitals Vital Signs Date Time Temp Pulse Resp B/P Pulse Ox O2 Delivery O2 Flow Rate FiO2 01/26/17 14:00 98.5 61 18 130/75 95 01/25/17 18:50 Room Air Intake and Output 01/25/17 01/25/17 01/26/17 15:00 23:00 07:00 Intake Total 300 ml 150 ml Output Total 25 ml 1000 ml Balance 275 ml -850 ml Exam Neck: supple Respiratory: diminished breath sounds Cardiovascular: regular rate and rhythm Gastrointestinal: bowel sounds (+), soft Extremities: edema (+) Results Result Diagram: 01/26/17 0450 01/26/17 0450 Results 24 hrs Laboratory Tests Test 01/25/17 20:34 01/26/17 04:50 01/26/17 05:35 01/26/17 08:01 Bedside Glucose 138 153 White Blood Count 7.5 Red Blood Count 2.89 L Hemoglobin 7.6 L Hematocrit 24.6 L Mean Corpuscular Volume 85.1 Mean Corpuscular Hemoglobin 26.3 L Mean Corpuscular Hemoglobin Concent 30.9 L Red Cell Distribution Width 17.8 H Platelet Count 297 Mean Platelet Volume 10.2 Neutrophils % 70.0 Lymphocytes % 17.4 Monocytes % 8.3 Eosinophils % 3.3 Basophils % 0.7 Nucleated Red Blood Cells % 0.0 Neutrophils # 5.3 Lymphocytes # 1.3 Monocytes # 0.6 Eosinophils # 0.3 Basophils # 0.1 Nucleated Red Blood Cells # 0.0 Sodium Level 136 Potassium Level 4.5 Chloride Level 109 Carbon Dioxide Level 23 Anion Gap 9 Blood Urea Nitrogen 27 H Creatinine 1.68 H Glucose Level 154 Calcium Level 7.9 L Lab Scanned Report BLOOD TRANSFUSION Test 01/26/17 12:15 01/26/17 17:31 01/26/17 18:48 Bedside Glucose 159 136 Troponin I < 0.012 Medications Medications Current Medications Ondansetron HCl (Zofran Inj) 4 mg Q6H PRN IV NAUSEA AND/OR VOMITING; Start 01/24/17 at 19:00 Acetaminophen (Tylenol Tab) 650 mg Q6H PRN PO PAIN LEVEL 1-3 OR FEVER; Start 01/24/17 at 19:00 Morphine Sulfate (morphine) 2 mg Q4H PRN IV SEVERE PAIN LEVEL 7-10; Start 01/24 at 19:00 Docusate Sodium (Colace) 100 mg Q12H PRN PO CONSTIPATION; Start 01/24/17 at 19: 00 Zolpidem Tartrate (Ambien) 5 mg QHS PRN PO SLEEP Last administered on 23:49; Admin Dose 5 MG; Start 01/24/17 at 19:00 Heparin Sodium (Porcine) (Heparin (5000 Units/0.5 ml)) 5,000 unit Q12 SC Last administered on 01/26/17 09:24; Admin Dose 5,000 UNIT; Start 01/24/17 at 21:00 Insulin Glargine (Lantus) 17 unit DAILY@08 SC Last administered on 01/26/17 08:09; Admin Dose 17 UNIT; Start 01/25/17 at 08:00 Diagnostic Test (Pha) (Accu-Chek) 1 ea 02 XX ; Start 01/25/17 at 02:00 Miscellaneous Information 1 ea NOTE XX ; Start 01/24/17 at 19:00 Glucose (Glutose) 15 gm Q15M PRN PO DECREASED GLUCOSE; Start 01/24/17 at 19:00 Glucose (Glutose) 22.5 gm Q15M PRN PO DECREASED GLUCOSE; Start 01/24/17 at 19: 00 Dextrose (D50w Syringe) 25 ml Q15M PRN IV DECREASED GLUCOSE; Start 01/24/17 at 19:00 Dextrose (D50w Syringe) 50 ml Q15M PRN IV DECREASED GLUCOSE; Start 01/24/17 at 19:00 Glucagon (Glucagen) 1 mg Q15M PRN IM DECREASED GLUCOSE; Start 01/24/17 at 19:00 Glucose (Glutose) 15 gm Q15M PRN BUCCAL DECREASED GLUCOSE; Start 01/24/17 at 19 :00 Acetaminophen/ Hydrocodone Bitart ([place] (5/325)) 1 tab Q4H PRN PO MODERATE PAIN LEVEL 4-6 Last administered on 01/26/17t 15:47; Admin Dose 1 TAB; Start 01/24/17 at 23:00 ELHAM ANGELES MD Jan 26, 2017 20:01
[2017-01-26 20:07] VITALS: BP 141/73; RESP 19
[2017-01-27] VITALS (8 sets, daily range): BP systolic 156–177; BP diastolic 61–90; PULSE 75–87; RESP 18–20
[2017-01-27] MEDS: HYDROCODONE/APAP (5/325) TAB PO PRN ×3 (00:12→17:24)
[2017-01-27] MEDS: ZOLPIDEM 5 MG TAB PO PRN (00:13)
[2017-01-27] MEDS: ACCU-CHEK XX SCH (02:00)
[2017-01-27] MEDS: FUROSEMIDE 20 MG INJ IV SCH ×2 (05:31→17:26)
--- NOTE | 2017-01-27 07:42 | CONS ---
DATE OF ADMISSION: 01/24/2017 DATE OF CONSULTATION: 01/26/2017 REASON FOR CONSULTATION: Preoperative evaluation. REQUESTING PHYSICIAN: Dr. Stephen Messer from the hospitalist service. HISTORY OF PRESENT ILLNESS: Mr. Perez is a 66-year-old male with a history of lower extremity nonhealing ulcerations, diabetes mellitus who was initially seen in wound care clinic and then ER for further evaluation. Initially upon arrival, temperature of 96.7, blood pressure 119/60, pulse 57, respirations 16, saturating 96%. The patient's labs revealed a sodium of 134, potassium 4.6, creatinine 1.73, BUN 30, AST 16, ALT 20. BNP of 8880, alkaline phosphatase of 257. INR 1.1. White blood count 7.5, hemoglobin 7.6, platelet count 297. UA negative. The patient underwent a chest x-ray revealing cardiomegaly with interstitial CHF and small bilateral effusions, right greater than left, abdominal ultrasound revealing enlarged liver with increased echogenicity, course echotexture, slight nausea, consistent with hepatobiliary disease. The patient has subsequently been admitted where he has been initiated on insulin and getting local wound care. The patient initially was taken to the OR this morning and underwent excisional debridement of the left lower extremity with the xenograft placed. At this time, the patient denies chest pain, shortness of breath. PAST MEDICAL HISTORY: As above in HPI. MEDICATIONS CURRENTLY IN HOSPITAL: 1. Insulin. 2. Tylenol. 3. Zofran 4. Morphine. ALLERGIES: NO KNOWN DRUG ALLERGIES. SOCIAL HISTORY: No tobacco, social ETOH, occasional marijuana intake. FAMILY HISTORY: No history of sudden cardiac or early CAD. REVIEW OF SYSTEMS: As above in HPI. CONSTITUTIONAL: No fevers, chills. PULMONARY: No current shortness of breath. CARDIOVASCULAR: No current chest pain. GASTROINTESTINAL: No vomiting. GENITOURINARY: Renal failure. PSYCHIATRIC: No documented psychiatric history. NEUROLOGIC: No documented CVA. ENDOCRINE: Diabetes mellitus. PHYSICAL EXAMINATION: VITAL SIGNS: Temperature 98.1, blood pressure most recently 130/75, pulse 60, respirations 18, saturating 95%. GENERAL: The patient is alert, awake, in no acute distress. NECK: JVP approximately 9 cm water. CHEST: Fair air movement throughout. HEART: Regular rate and rhythm. Normal S1, S2, I/ systolic murmur. ABDOMEN: Positive bowel sounds, soft. EXTREMITIES: Covered by dressing, wound is weeping. LABORATORY DATA: As above in HPI, most recently from today, sodium 136, potassium 4.5, creatinine 1.68, BUN 27. White blood cell count 7.5, hemoglobin 7.6, platelet count 297. IMAGING STUDIES: As above in HPI. No further imaging studies for my review at this time. ECG: No electrocardiograms for my review at this time. IMPRESSION: 1. Congestive heart failure by chest x-ray, question systolic and diastolic, likely acute on chronic. 2. Hypertension, under reasonable control. 3. Preoperative. The patient at this time has tolerated lower extremity debridement, unclear whether other surgery may be required. 4. Anemia. 5. Nonhealing lower extremity ulcerations. 6. Diabetes mellitus. RECOMMENDATIONS: 1. At this time, would check serial EKGs, thus an EKG now, EKG in the morning, EKG for any complaints of chest pain. 2. We will send troponins q.6h. x3 3. We will follow the patient's 2D echo in order for assessment of ejection fraction, wall motion and any major abnormalities. 4. Would initiate the patient on gentle Lasix diuresis given has significantly elevated BNP as well as congestive heart failure with chest x-ray and signs of volume overload. 5. Follow the patient's blood pressure closely, currently off of antihypertensives. We will check a fasting lipid panel for general risk stratification and initiate lipid-lowering medication as necessary. 6. Continue the patient's local wound care and ongoing vascular surgery followup and care. Thank you for allowing me to take part in the care of this patient. I will continue to follow along very closely with you. Further recommendations will be made as the patient progresses through his inpatient hospital clinical course. Dictated By: CLARITZA GOEL/RAMON Conf#: [id number] DID#: [id number] REMI
[2017-01-27] MEDS: INSULIN ASPART [NOVOLOG] 3 ML PEN SC SCH ×7 (08:00→20:45)
[2017-01-27] MEDS: INSULIN GLARGINE [LANtus] 3 ML PEN SC SCH (08:13)
[2017-01-27] MEDS: HEPARIN 5,000 UNIT/0.5 ML VIAL SC SCH ×2 (08:14→20:45)
--- NOTE | 2017-01-27 08:54 | CONS ---
DATE OF ADMISSION: 01/24/2017 DATE OF CONSULTATION: Thank you, Dr. Messer, for kindly asking me to see this patient in nephrology consultation. HISTORY OF PRESENT ILLNESS: The patient is a 66-year-old male who has a history of chronic skin [facility] er. The patient admitted also has diabetes mellitus, admitted for skin graft. The patient noted to have electrolyte imbalance and nephrology consultation requested. The patient's hemoglobin of 7.6, BUN of 31.73 noted. PAST MEDICAL HISTORY: Chronic skin ulcer, diabetes mellitus. ALLERGY HISTORY: NEGATIVE. FAMILY HISTORY: Denies. SOCIAL HISTORY: Denies. MEDICATION HISTORY: Listed as: 1. Ambien. 2. Oxycodone. 3. Zofran. 4. The patient is on insulin. The patient is on sliding scale. 4. Heparin. 6. Glucose. 7. Lasix 50 b.i.d. REVIEW OF SYSTEMS: HEENT: Unremarkable. RESPIRATORY: Unremarkable. CARDIOVASCULAR: Unremarkable. ABDOMEN: Unremarkable. EXTREMITIES: No swelling. CENTRAL NERVOUS SYSTEM: Unremarkable. PHYSICAL EXAMINATION: GENERAL: The patient is awake, alert. VITAL SIGNS: Pulse 65, blood pressure 140/79. HEAD: Atraumatic, normocephalic. Pupils equal, reactive to light. NECK: Supple. No JVD. LUNGS: Clear. CARDIOVASCULAR: S1, S2 are normal. ABDOMEN: Soft, nontender. Bowel sounds present. EXTREMITIES: Edema noted and dressing noted in both lower extremities. CENTRAL NERVOUS SYSTEM: The patient is awake, alert, moving both upper and lower extremities. LABORATORY DATA: Chest x-ray: Cardiomegaly, mild interstitial CHF and small bilateral pleural effu sions, right greater than left. Ultrasound of the abdomen shows unremarkable increased echogenicity . The patient has a right kidney normal size and noted to have 10.3 cm. IMPRESSION: 1. Patient has possible underlying chronic kidney disease. 2. Chronic kidney disease, possibly due to chronic lower extremity lymphedema and cellulitis. 3. Other diagnoses include the patient has hypertension, anemia. The patient has underlying possib le diabetic nephropathy. The patient has pulmonary edema and leg edema, abnormal LFT. Skin wound. PLAN: To obtain urine sodium and creatinine, urine albumin creatinine ratio, hemoglobin A1c is not done. The patient will also benefit from diuretic. Orders were done. Dictated By: ELHAM ABAD/RAMON Conf#: [id number] [facility]#: [id number]
[2017-01-27] MEDS: morphine 2 MG INJ IV PRN ×2 (11:51→19:58)
--- NOTE | 2017-01-27 13:29 | PN ---
Date/Time of Note Date/Time of Note DATE: 01/27/17 TIME: 13:17 Assessment/Plan Lines/Catheters IV Catheter Type (from [facility]): Saline Lock Little in Place (from [facility]): No Assessment/Plan Chief Complaint/Hosp Course Bilateral lower extremity atherosclerosis and gangrene: It seems the patients noncompliance of diabetes and poor hygiene presents with bilateral lower extremity diabetic foot ulcers and severe gangrene infection. He had presented to outside hospital with history of 3-4weeks of bilateral lower extremity swelling, redness, pain, maggots and foul smelling odor from bilateral lower legs and left heel. 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 Subsequently, the patient has undergone multiple debridements in order try to preserve her limb. -S/P Multiple debridements of muscle, ligament, tendon, bone, skin, and subcutaneous tissue and application ACell grafts in order to enhance granulation tissue development and eventual limb salvage and grafting for wound closure. -Unfortunately, the patients left achilles tendon was completely necrotic and cannot be preserved. We were able to clean the wounds and preserved the posterior muscle compartments that will serve as a flap coverage as he would require below knee amputation. -Will need to allow time to settle down his lower extremity edema -Also will await cardiac clearance for surgery -Optimize vascular status (BP meds, sugar control, cholesterol, diet, antiplatelets) -Discussed plan, findings and management with the patient and he understands and agreed to proceed -Thank you for allowing us to partake in the care of your patient, please call with any questions Problems: Subjective 24 Hr Interval Summary no new vascular events overnight Exam/Review of Systems Vital Signs Vitals Vital Signs Date Time Temp Pulse Resp B/P Pulse Ox O2 Delivery O2 Flow Rate FiO2 01/27/17 09:15 75 156/72 01/27/17 08:12 98.8 20 94 01/25/17 18:50 Room Air Intake and Output 01/26/17 01/26/17 01/27/17 15:00 23:00 07:00 Intake Total 1260 ml 350 ml Output Total 500 ml Balance 760 ml 350 ml Exam Free Text/Dictation no new vascular events overnight Results Result Diagram: 01/27/17 0549 01/27/17 0549 ASHLEY CAROLINA MD Jan 27, 2017 13:29
--- NOTE | 2017-01-27 15:12 | PN ---
Date/Time of Note Date/Time of Note DATE: 01/27/17 TIME: 15:11 Assessment/Plan VTE Prophylaxis VTE Prophylaxis Intervention: heparin Lines/Catheters IV Catheter Type (from Nrs): Saline Lock Urinary Cath still in place: No Assessment/Plan Chief Complaint/Hosp Course 1. Chronic skin ulcers Plan is for BKA with Dr Romero, preop clearance with Dr. Lagunas of cardiology Echo shows an EF of 50% Pain control 2. DM NISS 3. Early cirrhosis Hepatitis panel negative PPx: Heparin Problems: Subjective 24 Hr Interval Summary Constitutional: no complaints Exam/Review of Systems Vital Signs Vitals Vital Signs Date Time Temp Pulse Resp B/P Pulse Ox O2 Delivery O2 Flow Rate FiO2 01/27/17 09:15 75 156/72 01/27/17 08:12 98.8 20 94 01/25/17 18:50 Room Air Intake and Output 01/26/17 01/26/17 01/27/17 15:00 23:00 07:00 Intake Total 1260 ml 350 ml Output Total 500 ml Balance 760 ml 350 ml Exam Constitutional: alert, oriented Respiratory: clear to auscultation Cardiovascular: regular rate and rhythm Gastrointestinal: soft, No distended Musculoskeletal: No nl extremities to inspection Results Result Diagram: 01/27/17 0549 01/27/17 0549 Results 24 hrs Laboratory Tests Test 01/26/17 17:31 01/26/17 18:48 01/26/17 20:57 01/27/17 00:51 Bedside Glucose 136 150 Troponin I < 0.012 0.013 Test 01/27/17 05:27 01/27/17 05:49 01/27/17 07:55 01/27/17 11:44 Urine Random Creatinine 50.17 Urine Random Sodium 97 H Urine Protein/Creatinine Ratio 0.43 Urine Total Protein 22.0 H White Blood Count 7.7 Red Blood Count 2.98 L Hemoglobin 7.5 L Hematocrit 25.1 L Mean Corpuscular Volume 84.2 Mean Corpuscular Hemoglobin 25.2 L Mean Corpuscular Hemoglobin Concent 29.9 L Red Cell Distribution Width 18.2 H Platelet Count 330 Mean Platelet Volume 10.1 Neutrophils % 59.6 Lymphocytes % 27.3 Monocytes % 9.5 Eosinophils % 2.7 Basophils % 0.5 Nucleated Red Blood Cells % 0.0 Neutrophils # 4.6 Lymphocytes # 2.1 Monocytes # 0.7 Eosinophils # 0.2 Basophils # 0.0 Nucleated Red Blood Cells # 0.0 Sodium Level 136 Potassium Level 4.4 Chloride Level 108 Carbon Dioxide Level 22 Anion Gap 10 Blood Urea Nitrogen 25 H Creatinine 1.59 H Glucose Level 101 # Calcium Level 8.0 L Triglycerides Level 63 Cholesterol Level 129 LDL Cholesterol, Calculated 87 HDL Cholesterol 29 L Cholesterol/HDL Ratio 4.4 Bedside Glucose 109 153 Medications Medications Current Medications Ondansetron HCl (Zofran Inj) 4 mg Q6H PRN IV NAUSEA AND/OR VOMITING; Start 01/24/17 at 19:00 Acetaminophen (Tylenol Tab) 650 mg Q6H PRN PO PAIN LEVEL 1-3 OR FEVER; Start 01/24/17 at 19:00 Morphine Sulfate (morphine) 2 mg Q4H PRN IV SEVERE PAIN LEVEL 7-10 Last administered on 01/27/17 11:51; Admin Dose 2 MG; Start 01/24/17 at 19:00 Docusate Sodium (Colace) 100 mg Q12H PRN PO CONSTIPATION; Start 01/24/17 at 19: 00 Zolpidem Tartrate (Ambien) 5 mg QHS PRN PO SLEEP Last administered on 00:13; Admin Dose 5 MG; Start 01/24/17 at 19:00 Heparin Sodium (Porcine) (Heparin (5000 Units/0.5 ml)) 5,000 unit Q12 SC Last administered on 01/27/17 08:14; Admin Dose 5,000 UNIT; Start 01/24/17 at 21:00 Insulin Glargine (Lantus) 17 unit DAILY@08 SC Last administered on 01/27/17 08:13; Admin Dose 17 UNIT; Start 01/25/17 at 08:00 Diagnostic Test (Pha) (Accu-Chek) 1 ea 02 XX ; Start 01/25/17 at 02:00 Miscellaneous Information 1 ea NOTE XX ; Start 01/24/17 at 19:00 Glucose (Glutose) 15 gm Q15M PRN PO DECREASED GLUCOSE; Start 01/24/17 at 19:00 Glucose (Glutose) 22.5 gm Q15M PRN PO DECREASED GLUCOSE; Start 01/24/17 at 19: 00 Dextrose (D50w Syringe) 25 ml Q15M PRN IV DECREASED GLUCOSE; Start 01/24/17 at 19:00 Dextrose (D50w Syringe) 50 ml Q15M PRN IV DECREASED GLUCOSE; Start 01/24/17 at 19:00 Glucagon (Glucagen) 1 mg Q15M PRN IM DECREASED GLUCOSE; Start 01/24/17 at 19:00 Glucose (Glutose) 15 gm Q15M PRN BUCCAL DECREASED GLUCOSE; Start 01/24/17 at 19 :00 Acetaminophen/ Hydrocodone Bitart ([place] (5/325)) 1 tab Q4H PRN PO MODERATE PAIN LEVEL 4-6 Last administered on 01/27/17 08:15; Admin Dose 1 TAB; Start 01/24/17 at 23:00 SELINA BAINS Jan 27, 2017 15:12
--- NOTE | 2017-01-27 17:58 | CONS ---
Date/Time of Note Date/Time of Note DATE: 01/27/17 TIME: 17:56 Assessment/Plan Assessment/Plan Chief Complaint/Hosp Course 1. Patient has possible underlying chronic kidney disease. 2. Chronic kidney disease, possibly due to chronic lower extremity lymphedema and cellulitis. 3. Other diagnoses include the patient has hypertension, anemia. The patient has underlying possible diabetic nephropathy. The patient has pulmonary edema and leg edema, abnormal LFT. Skin wound. PLAN BP MEDS Problems: Consultation Date/Type/Reason Admit Date/Time Jan 24, 2017 at 15:33 Initial Consult Date [id number] 24 HR Interval Summary Constitutional: no complaints Exam/Review of Systems Vital Signs Vitals Vital Signs Date Time Temp Pulse Resp B/P Pulse Ox O2 Delivery O2 Flow Rate FiO2 01/27/17 14:10 98.7 78 20 159/61 96 01/25/17 18:50 Room Air Intake and Output 01/26/17 01/26/17 01/27/17 15:00 23:00 07:00 Intake Total 1260 ml 350 ml Output Total 500 ml Balance 760 ml 350 ml Exam Cardiovascular: regular rate and rhythm Gastrointestinal: bowel sounds (+), soft Extremities: edema (+) Results Result Diagram: 01/27/17 0549 01/27/17 0549 Results 24 hrs Laboratory Tests Test 01/26/17 18:48 01/26/17 20:57 01/27/17 00:51 01/27/17 05:27 Troponin I < 0.012 0.013 Bedside Glucose 150 Urine Random Creatinine 50.17 Urine Random Sodium 97 H Urine Protein/Creatinine Ratio 0.43 Urine Total Protein 22.0 H Test 01/27/17 05:49 01/27/17 07:55 01/27/17 11:44 01/27/17 17:09 White Blood Count 7.7 Red Blood Count 2.98 L Hemoglobin 7.5 L Hematocrit 25.1 L Mean Corpuscular Volume 84.2 Mean Corpuscular Hemoglobin 25.2 L Mean Corpuscular Hemoglobin Concent 29.9 L Red Cell Distribution Width 18.2 H Platelet Count 330 Mean Platelet Volume 10.1 Neutrophils % 59.6 Lymphocytes % 27.3 Monocytes % 9.5 Eosinophils % 2.7 Basophils % 0.5 Nucleated Red Blood Cells % 0.0 Neutrophils # 4.6 Lymphocytes # 2.1 Monocytes # 0.7 Eosinophils # 0.2 Basophils # 0.0 Nucleated Red Blood Cells # 0.0 Sodium Level 136 Potassium Level 4.4 Chloride Level 108 Carbon Dioxide Level 22 Anion Gap 10 Blood Urea Nitrogen 25 H Creatinine 1.59 H Glucose Level 101 # Calcium Level 8.0 L Triglycerides Level 63 Cholesterol Level 129 LDL Cholesterol, Calculated 87 HDL Cholesterol 29 L Cholesterol/HDL Ratio 4.4 Bedside Glucose 109 153 189 Medications Medications Current Medications Ondansetron HCl (Zofran Inj) 4 mg Q6H PRN IV NAUSEA AND/OR VOMITING; Start 01/24/17 at 19:00 Acetaminophen (Tylenol Tab) 650 mg Q6H PRN PO PAIN LEVEL 1-3 OR FEVER; Start 01/24/17 at 19:00 Morphine Sulfate (morphine) 2 mg Q4H PRN IV SEVERE PAIN LEVEL 7-10 Last administered on 01/27/17 11:51; Admin Dose 2 MG; Start 01/24/17 at 19:00 Docusate Sodium (Colace) 100 mg Q12H PRN PO CONSTIPATION; Start 01/24/17 at 19: 00 Zolpidem Tartrate (Ambien) 5 mg QHS PRN PO SLEEP Last administered on 00:13; Admin Dose 5 MG; Start 01/24/17 at 19:00 Heparin Sodium (Porcine) (Heparin (5000 Units/0.5 ml)) 5,000 unit Q12 SC Last administered on 01/27/17 08:14; Admin Dose 5,000 UNIT; Start 01/24/17 at 21:00 Insulin Glargine (Lantus) 17 unit DAILY@08 SC Last administered on 01/27/17 08:13; Admin Dose 17 UNIT; Start 01/25/17 at 08:00 Diagnostic Test (Pha) (Accu-Chek) 1 ea 02 XX ; Start 01/25/17 at 02:00 Miscellaneous Information 1 ea NOTE XX ; Start 01/24/17 at 19:00 Glucose (Glutose) 15 gm Q15M PRN PO DECREASED GLUCOSE; Start 01/24/17 at 19:00 Glucose (Glutose) 22.5 gm Q15M PRN PO DECREASED GLUCOSE; Start 01/24/17 at 19: 00 Dextrose (D50w Syringe) 25 ml Q15M PRN IV DECREASED GLUCOSE; Start 01/24/17 at 19:00 Dextrose (D50w Syringe) 50 ml Q15M PRN IV DECREASED GLUCOSE; Start 01/24/17 at 19:00 Glucagon (Glucagen) 1 mg Q15M PRN IM DECREASED GLUCOSE; Start 01/24/17 at 19:00 Glucose (Glutose) 15 gm Q15M PRN BUCCAL DECREASED GLUCOSE; Start 01/24/17 at 19 :00 Acetaminophen/ Hydrocodone Bitart ([place] (5/325)) 1 tab Q4H PRN PO MODERATE PAIN LEVEL 4-6 Last administered on 01/27/17t 17:24; Admin Dose 1 TAB; Start 01/24/17 at 23:00 ELHAM ANGELES MD Jan 27, 2017 17:58
--- NOTE | 2017-01-27 17:59 | CONS ---
Date/Time of Note Date/Time of Note DATE: 01/27/17 TIME: 17:54 Assessment/Plan Assessment/Plan Chief Complaint/Hosp Course IMPRESSION: 1. Congestive heart failure by chest x-ray, diastolic, likely acute on chronic by most recent echo 2. Hypertension, under reasonable control. 3. Preoperative. The patient at this time has tolerated lower extremity debridement, unclear whether other surgery may be required. 4. Anemia. 5. Nonhealing lower extremity ulcerations. 6. Diabetes mellitus. 7. 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 Recc: -serial ecg's -start afterload reduction with hydralazine in lieu of acei given renal failure and BB -Lasix diuresis -local wound care -Follow BS clsoely with adjustment of insulin therapy as necessary Problems: Consultation Date/Type/Reason Admit Date/Time Jan 24, 2017 at 15:33 Initial Consult Date 01/26/2017 Type of Consultation: cardiology Reason for Consultation CHF Referring Provider: SELINA BAINS Exam/Review of Systems Vital Signs Vitals Vital Signs Date Time Temp Pulse Resp B/P Pulse Ox O2 Delivery O2 Flow Rate FiO2 01/27/17 14:10 98.7 78 20 159/61 96 01/25/17 18:50 Room Air Intake and Output 01/26/17 01/26/17 01/27/17 15:00 23:00 07:00 Intake Total 1260 ml 350 ml Output Total 500 ml Balance 760 ml 350 ml Exam Review of Systems: CONSTITUTIONAL: No fevers, chills. PULMONARY: No sob CARDIOVASCULAR: No chest pain/palpitations GASTROINTESTINAL: No nausea/vomiting. GENITOURINARY: No hematuria/dysuria. MUSCULOSKELETAL: mild pain in legs PSYCHIATRIC: The patient denies depression. NEUROLOGIC: No weakness Constitutional: alert, oriented Psych: no complaints Head: normocephalic ENMT: mucosa pink and moist Neck: jvd (9 cm water), supple Respiratory: diminished breath sounds (at bases/B) Cardiovascular: regular rate and rhythm Gastrointestinal: non-tender, soft Musculoskeletal: muscle weakness (generalized mild) Extremities: pitting pedal edema (bilateral with Le extremities covered by dressing s/p bilateral surgery) Neurological: other (No focal deficits) Results Result Diagram: 01/27/17 0549 01/27/17 0549 Results 24 hrs Laboratory Tests Test 01/26/17 18:48 01/26/17 20:57 01/27/17 00:51 01/27/17 05:27 Troponin I < 0.012 0.013 Bedside Glucose 150 Urine Random Creatinine 50.17 Urine Random Sodium 97 H Urine Protein/Creatinine Ratio 0.43 Urine Total Protein 22.0 H Test 01/27/17 05:49 01/27/17 07:55 01/27/17 11:44 01/27/17 17:09 White Blood Count 7.7 Red Blood Count 2.98 L Hemoglobin 7.5 L Hematocrit 25.1 L Mean Corpuscular Volume 84.2 Mean Corpuscular Hemoglobin 25.2 L Mean Corpuscular Hemoglobin Concent 29.9 L Red Cell Distribution Width 18.2 H Platelet Count 330 Mean Platelet Volume 10.1 Neutrophils % 59.6 Lymphocytes % 27.3 Monocytes % 9.5 Eosinophils % 2.7 Basophils % 0.5 Nucleated Red Blood Cells % 0.0 Neutrophils # 4.6 Lymphocytes # 2.1 Monocytes # 0.7 Eosinophils # 0.2 Basophils # 0.0 Nucleated Red Blood Cells # 0.0 Sodium Level 136 Potassium Level 4.4 Chloride Level 108 Carbon Dioxide Level 22 Anion Gap 10 Blood Urea Nitrogen 25 H Creatinine 1.59 H Glucose Level 101 # Calcium Level 8.0 L Triglycerides Level 63 Cholesterol Level 129 LDL Cholesterol, Calculated 87 HDL Cholesterol 29 L Cholesterol/HDL Ratio 4.4 Bedside Glucose 109 153 189 Medications Medications Current Medications Ondansetron HCl (Zofran Inj) 4 mg Q6H PRN IV NAUSEA AND/OR VOMITING; Start 01/24/17 at 19:00 Acetaminophen (Tylenol Tab) 650 mg Q6H PRN PO PAIN LEVEL 1-3 OR FEVER; Start 01/24/17 at 19:00 Morphine Sulfate (morphine) 2 mg Q4H PRN IV SEVERE PAIN LEVEL 7-10 Last administered on 01/27/17 11:51; Admin Dose 2 MG; Start 01/24/17 at 19:00 Docusate Sodium (Colace) 100 mg Q12H PRN PO CONSTIPATION; Start 01/24/17 at 19: 00 Zolpidem Tartrate (Ambien) 5 mg QHS PRN PO SLEEP Last administered on 00:13; Admin Dose 5 MG; Start 01/24/17 at 19:00 Heparin Sodium (Porcine) (Heparin (5000 Units/0.5 ml)) 5,000 unit Q12 SC Last administered on 01/27/17 08:14; Admin Dose 5,000 UNIT; Start 01/24/17 at 21:00 Insulin Glargine (Lantus) 17 unit DAILY@08 SC Last administered on 01/27/17 08:13; Admin Dose 17 UNIT; Start 01/25/17 at 08:00 Diagnostic Test (Pha) (Accu-Chek) 1 ea 02 XX ; Start 01/25/17 at 02:00 Miscellaneous Information 1 ea NOTE XX ; Start 01/24/17 at 19:00 Glucose (Glutose) 15 gm Q15M PRN PO DECREASED GLUCOSE; Start 01/24/17 at 19:00 Glucose (Glutose) 22.5 gm Q15M PRN PO DECREASED GLUCOSE; Start 01/24/17 at 19: 00 Dextrose (D50w Syringe) 25 ml Q15M PRN IV DECREASED GLUCOSE; Start 01/24/17 at 19:00 Dextrose (D50w Syringe) 50 ml Q15M PRN IV DECREASED GLUCOSE; Start 01/24/17 at 19:00 Glucagon (Glucagen) 1 mg Q15M PRN IM DECREASED GLUCOSE; Start 01/24/17 at 19:00 Glucose (Glutose) 15 gm Q15M PRN BUCCAL DECREASED GLUCOSE; Start 01/24/17 at 19 :00 Acetaminophen/ Hydrocodone Bitart ([place] (5/325)) 1 tab Q4H PRN PO MODERATE PAIN LEVEL 4-6 Last administered on 01/27/17 17:24; Admin Dose 1 TAB; Start 01/24/17 at 23:00 CLARITZA FLORES Jan 27, 2017 17:59
[2017-01-27] MEDS: ACETAMINOPHEN 325 MG TAB PO PRN (19:59)
[2017-01-27] MEDS: METOPROLOL 25 MG TAB PO SCH (20:50)
[2017-01-28] VITALS (7 sets, daily range): BP systolic 145–181; BP diastolic 80–96; PULSE 82–89; RESP 16–19
[2017-01-28] MEDS: ACCU-CHEK XX SCH (02:00)
[2017-01-28] MEDS: ACETAMINOPHEN 325 MG TAB PO PRN (05:34)
[2017-01-28] MEDS: HYDROCODONE/APAP (5/325) TAB PO PRN ×4 (05:35→20:52)
[2017-01-28] MEDS: FUROSEMIDE 20 MG INJ IV SCH (05:35)
[2017-01-28] MEDS: METOPROLOL 25 MG TAB PO SCH ×2 (08:18→20:41)
[2017-01-28] MEDS: INSULIN GLARGINE [LANtus] 3 ML PEN SC SCH (08:22)
[2017-01-28] MEDS: INSULIN ASPART [NOVOLOG] 3 ML PEN SC SCH ×7 (08:23→20:50)
[2017-01-28] MEDS: HEPARIN 5,000 UNIT/0.5 ML VIAL SC SCH ×2 (08:24→20:48)
[2017-01-28] MEDS ORDERED: VALSARTAN 80 MG TAB PO SCH (09:00)
--- NOTE | 2017-01-28 14:02 | PN ---
Date/Time of Note Date/Time of Note DATE: 01/28/17 TIME: 14:02 Assessment/Plan VTE Prophylaxis VTE Prophylaxis Intervention: heparin Lines/Catheters IV Catheter Type (from Nrsg): Saline Lock Urinary Cath still in place: No Assessment/Plan Chief Complaint/Hosp Course 1. Chronic skin ulcers Plan is for BKA with Dr Romero, preop clearance with Dr. Lagunas of cardiology Echo shows an EF of 50% Pain control 2. DM NISS 3. Early cirrhosis Hepatitis panel negative PPx: Heparin Problems: Subjective 24 Hr Interval Summary Constitutional: no complaints Exam/Review of Systems Vital Signs Vitals Vital Signs Date Time Temp Pulse Resp B/P Pulse Ox O2 Delivery O2 Flow Rate FiO2 01/28/17 07:37 98.8 79 19 150/81 93 01/28/17 05:34 Room Air Intake and Output 01/27/17 01/27/17 01/28/17 15:00 23:00 07:00 Intake Total 930 ml 480 ml Output Total 1820 ml 1050 ml Balance -890 ml -570 ml Exam Constitutional: alert, oriented Respiratory: clear to auscultation Cardiovascular: regular rate and rhythm Gastrointestinal: soft, No distended Musculoskeletal: No nl extremities to inspection Results Result Diagram: 01/27/17 0549 01/28/17 0432 Results 24 hrs Laboratory Tests Test 01/27/17 17:09 01/27/17 20:14 01/28/17 02:08 01/28/17 04:32 Bedside Glucose 189 231 H 169 Sodium Level 135 Potassium Level 4.2 Chloride Level 105 Carbon Dioxide Level 24 Anion Gap 10 Blood Urea Nitrogen 25 H Creatinine 1.57 H Glucose Level 174 Calcium Level 8.5 Test 01/28/17 07:54 01/28/17 11:58 Bedside Glucose 182 146 Medications Medications Current Medications Ondansetron HCl (Zofran Inj) 4 mg Q6H PRN IV NAUSEA AND/OR VOMITING; Start 01/24/17 at 19:00 Acetaminophen (Tylenol Tab) 650 mg Q6H PRN PO PAIN LEVEL 1-3 OR FEVER Last administered on 01/28/17 05:34; Admin Dose 650 MG; Start 01/24/17 at 19:00 Morphine Sulfate (morphine) 2 mg Q4H PRN IV SEVERE PAIN LEVEL 7-10 Last administered on 01/27/17 19:58; Admin Dose 2 MG; Start 01/24/17 at 19:00 Docusate Sodium (Colace) 100 mg Q12H PRN PO CONSTIPATION; Start 01/24/17 at 19: 00 Zolpidem Tartrate (Ambien) 5 mg QHS PRN PO SLEEP Last administered on 00:13; Admin Dose 5 MG; Start 01/24/17 at 19:00 Heparin Sodium (Porcine) (Heparin (5000 Units/0.5 ml)) 5,000 unit Q12 SC Last administered on 01/28/17 08:24; Admin Dose 5,000 UNIT; Start 01/24/17 at 21:00 Insulin Glargine (Lantus) 17 unit DAILY@08 SC Last administered on 01/28/17 08:22; Admin Dose 17 UNIT; Start 01/25/17 at 08:00 Diagnostic Test (Pha) (Accu-Chek) 1 ea 02 XX ; Start 01/25/17 at 02:00 Miscellaneous Information 1 ea NOTE XX ; Start 01/24/17 at 19:00 Glucose (Glutose) 15 gm Q15M PRN PO DECREASED GLUCOSE; Start 01/24/17 at 19:00 Glucose (Glutose) 22.5 gm Q15M PRN PO DECREASED GLUCOSE; Start 01/24/17 at 19: 00 Dextrose (D50w Syringe) 25 ml Q15M PRN IV DECREASED GLUCOSE; Start 01/24/17 at 19:00 Dextrose (D50w Syringe) 50 ml Q15M PRN IV DECREASED GLUCOSE; Start 01/24/17 at 19:00 Glucagon (Glucagen) 1 mg Q15M PRN IM DECREASED GLUCOSE; Start 01/24/17 at 19:00 Glucose (Glutose) 15 gm Q15M PRN BUCCAL DECREASED GLUCOSE; Start 01/24/17 at 19 :00 Acetaminophen/ Hydrocodone Bitart ([place] (5/325)) 1 tab Q4H PRN PO MODERATE PAIN LEVEL 4-6 Last administered on 01/28/17 10:02; Admin Dose 1 TAB; Start 01/24/17 at 23:00 Valsartan (Diovan) 40 mg DAILY PO Last administered on 01/28/17 08:18; Admin Dose 40 MG; Start 01/28/17 at 09:00 Hydralazine HCl (Apresoline) 25 mg TID PO Last administered on 01/28/17 12:38 ; Admin Dose 25 MG; Start 01/27/17 at 21:00 Metoprolol Tartrate (Lopressor) 25 mg BID PO Last administered on 01/28/17 08 :18; Admin Dose 25 MG; Start 01/27/17 at 21:00 Clonidine (Catapres) 0.1 mg Q6H PRN PO SBP>170; Start 01/27/17 at 18:00 SELINA BAINS Jan 28, 2017 14:02
--- NOTE | 2017-01-28 16:03 | RADRPT ---
Vent Rate: 72 bpm RR Interval: 0 msec [place] Interval: 236 msec QRS Duration: 114 msec QT Interval: 428 msec QTC Interval: 468 msec P-R-T [place]: 67 - -16 - 110 degrees Sinus rhythm with 1st degree AV block Possible Anterior infarct , age undetermined nonspeicific ST abnormality Abnormal ECG Electronically Signed By: Bennett Guerrier [id number]
--- NOTE | 2017-01-28 16:03 | RADRPT ---
Vent Rate: 72 bpm RR Interval: 0 msec [place] Interval: 236 msec QRS Duration: 114 msec QT Interval: 428 msec QTC Interval: 468 msec P-R-T [place]: 67 - -16 - 110 degrees Sinus rhythm with 1st degree AV block Possible Anterior infarct , age undetermined nonspeicific ST abnormality Abnormal ECG Electronically Signed By: Bennett Guerrier [id number]
--- NOTE | 2017-01-28 16:03 | RADRPT ---
Vent Rate: 72 bpm RR Interval: 0 msec [place] Interval: 236 msec QRS Duration: 114 msec QT Interval: 428 msec QTC Interval: 468 msec P-R-T [place]: 67 - -16 - 110 degrees Sinus rhythm with 1st degree AV block Possible Anterior infarct , age undetermined nonspeicific ST abnormality Abnormal ECG Electronically Signed By: Bennett Guerrier [id number]
--- NOTE | 2017-01-28 16:04 | CONS ---
Date/Time of Note Date/Time of Note DATE: 01/28/17 TIME: 15:58 Assessment/Plan Assessment/Plan Chief Complaint/Hosp Course 1. Patient has possible underlying chronic kidney disease. 2. Chronic kidney disease, possibly due to chronic lower extremity lymphedema and cellulitis. 3. Other diagnoses include the patient has hypertension, anemia. 4 The patient has underlying possible diabetic nephropathy. 5 The patient has pulmonary edema and leg edema, 6 abnormal LFT. 7 Skin wound. PLAN BP MEDS diuretic Problems: Consultation Date/Type/Reason Admit Date/Time Jan 24, 2017 at 15:33 Initial Consult Date [id number] Referring Provider: SELINA BAINS 24 HR Interval Summary Constitutional: other (resting,no distress) Exam/Review of Systems Vital Signs Vitals Vital Signs Date Time Temp Pulse Resp B/P Pulse Ox O2 Delivery O2 Flow Rate FiO2 01/28/17 14:31 98.3 78 19 159/86 01/28/17 07:37 93 01/28/17 05:34 Room Air Intake and Output 01/27/17 01/27/17 01/28/17 15:00 23:00 07:00 Intake Total 930 ml 480 ml Output Total 1820 ml 1050 ml Balance -890 ml -570 ml Exam Neck: supple Respiratory: clear to auscultation Cardiovascular: regular rate and rhythm Gastrointestinal: bowel sounds (+), soft Extremities: edema (+) Results Result Diagram: 01/27/17 0549 01/28/17 0432 Results 24 hrs Laboratory Tests Test 01/27/17 17:09 01/27/17 20:14 01/28/17 02:08 01/28/17 04:32 Bedside Glucose 189 231 H 169 Sodium Level 135 Potassium Level 4.2 Chloride Level 105 Carbon Dioxide Level 24 Anion Gap 10 Blood Urea Nitrogen 25 H Creatinine 1.57 H Glucose Level 174 Calcium Level 8.5 Test 01/28/17 07:54 01/28/17 11:58 Bedside Glucose 182 146 Medications Medications Current Medications Ondansetron HCl (Zofran Inj) 4 mg Q6H PRN IV NAUSEA AND/OR VOMITING; Start 01/24/17 at 19:00 Acetaminophen (Tylenol Tab) 650 mg Q6H PRN PO PAIN LEVEL 1-3 OR FEVER Last administered on 01/28/17t 05:34; Admin Dose 650 MG; Start 01/24/17 at 19:00 Morphine Sulfate (morphine) 2 mg Q4H PRN IV SEVERE PAIN LEVEL 7-10 Last administered on 01/27/17 19:58; Admin Dose 2 MG; Start 01/24/17 at 19:00 Docusate Sodium (Colace) 100 mg Q12H PRN PO CONSTIPATION; Start 01/24/17 at 19: 00 Zolpidem Tartrate (Ambien) 5 mg QHS PRN PO SLEEP Last administered on 00:13; Admin Dose 5 MG; Start 01/24/17 at 19:00 Heparin Sodium (Porcine) (Heparin (5000 Units/0.5 ml)) 5,000 unit Q12 SC Last administered on 01/28/17 08:24; Admin Dose 5,000 UNIT; Start 01/24/17 at 21:00 Insulin Glargine (Lantus) 17 unit DAILY@08 SC Last administered on 01/28/17 08:22; Admin Dose 17 UNIT; Start 01/25/17 at 08:00 Diagnostic Test (Pha) (Accu-Chek) 1 ea 02 XX ; Start 01/25/17 at 02:00 Miscellaneous Information 1 ea NOTE XX ; Start 01/24/17 at 19:00 Glucose (Glutose) 15 gm Q15M PRN PO DECREASED GLUCOSE; Start 01/24/17 at 19:00 Glucose (Glutose) 22.5 gm Q15M PRN PO DECREASED GLUCOSE; Start 01/24/17 at 19: 00 Dextrose (D50w Syringe) 25 ml Q15M PRN IV DECREASED GLUCOSE; Start 01/24/17 at 19:00 Dextrose (D50w Syringe) 50 ml Q15M PRN IV DECREASED GLUCOSE; Start 01/24/17 at 19:00 Glucagon (Glucagen) 1 mg Q15M PRN IM DECREASED GLUCOSE; Start 01/24/17 at 19:00 Glucose (Glutose) 15 gm Q15M PRN BUCCAL DECREASED GLUCOSE; Start 01/24/17 at 19 :00 Acetaminophen/ Hydrocodone Bitart ([place] (5/325)) 1 tab Q4H PRN PO MODERATE PAIN LEVEL 4-6 Last administered on 01/28/17 14:17; Admin Dose 1 TAB; Start 01/24/17 at 23:00 Hydralazine HCl (Apresoline) 25 mg TID PO Last administered on 01/28/17 12:38 ; Admin Dose 25 MG; Start 01/27/17 at 21:00 Metoprolol Tartrate (Lopressor) 25 mg BID PO Last administered on 01/28/17 08 :18; Admin Dose 25 MG; Start 01/27/17 at 21:00 Clonidine (Catapres) 0.1 mg Q6H PRN PO SBP>170; Start 01/27/17 at 18:00 Valsartan (Diovan) 80 mg DAILY PO ; Start 01/29/17 at 09:00; Status ELHAM CORCORAN MD Jan 28, 2017 16:03
--- NOTE | 2017-01-28 17:38 | CONS ---
Date/Time of Note Date/Time of Note DATE: 01/28/17 TIME: 17:36 Assessment/Plan Assessment/Plan Chief Complaint/Hosp Course IMPRESSION: 1. Congestive heart failure by chest x-ray, diastolic, likely acute on chronic by most recent echo 2. Hypertension, under reasonable control. 3. Preoperative. The patient at this time has tolerated lower extremity debridement, unclear whether other surgery may be required. 4. Anemia. 5. Nonhealing lower extremity ulcerations. 6. Diabetes mellitus. 7. MR-mod-sev Recc: -serial ecg's -INcrease hydralazine afterload reduction in lieu of acei given renal failure and continue BB -Lasix diuresis but jim increse dose -local wound care -Follow BS closely with adjustment of insulin therapy as necessary Problems: Consultation Date/Type/Reason Admit Date/Time Jan 24, 2017 at 15:33 Initial Consult Date 01/26/2017 Type of Consultation: cardiology Reason for Consultation CHF/HTN Referring Provider: SELINA BAINS Exam/Review of Systems Vital Signs Vitals Vital Signs Date Time Temp Pulse Resp B/P Pulse Ox O2 Delivery O2 Flow Rate FiO2 01/28/17 14:31 98.3 78 19 159/86 01/28/17 07:37 93 01/28/17 05:34 Room Air Intake and Output 01/27/17 01/27/17 01/28/17 15:00 23:00 07:00 Intake Total 930 ml 480 ml Output Total 1820 ml 1050 ml Balance -890 ml -570 ml Exam Review of Systems: CONSTITUTIONAL: No fevers, chills. PULMONARY: No sob CARDIOVASCULAR: No chest pain/palpitations GASTROINTESTINAL: No nausea/vomiting. GENITOURINARY: No hematuria/dysuria. MUSCULOSKELETAL: No myagias/arthalgias. PSYCHIATRIC: The patient denies depression. NEUROLOGIC: No weakness Constitutional: alert Psych: no complaints Head: normocephalic ENMT: mucosa pink and moist Neck: jvd (9 cm water), supple Respiratory: diminished breath sounds (at bases) Cardiovascular: regular rate and rhythm Gastrointestinal: non-tender, soft Musculoskeletal: muscle tone (normal) Extremities: pitting pedal edema (BIlateral s/p debridement and skin grafting) Results Result Diagram: 01/27/17 0549 01/28/17 0432 Results 24 hrs Laboratory Tests Test 01/27/17 20:14 01/28/17 02:08 01/28/17 04:32 01/28/17 07:54 Bedside Glucose 231 H 169 182 Sodium Level 135 Potassium Level 4.2 Chloride Level 105 Carbon Dioxide Level 24 Anion Gap 10 Blood Urea Nitrogen 25 H Creatinine 1.57 H Glucose Level 174 Calcium Level 8.5 Test 01/28/17 11:58 01/28/17 16:57 Bedside Glucose 146 107 Medications Medications Current Medications Ondansetron HCl (Zofran Inj) 4 mg Q6H PRN IV NAUSEA AND/OR VOMITING; Start 01/24/17 at 19:00 Acetaminophen (Tylenol Tab) 650 mg Q6H PRN PO PAIN LEVEL 1-3 OR FEVER Last administered on 01/28/17 05:34; Admin Dose 650 MG; Start 01/24/17 at 19:00 Morphine Sulfate (morphine) 2 mg Q4H PRN IV SEVERE PAIN LEVEL 7-10 Last administered on 01/27/17 19:58; Admin Dose 2 MG; Start 01/24/17 at 19:00 Docusate Sodium (Colace) 100 mg Q12H PRN PO CONSTIPATION; Start 01/24/17 at 19: 00 Zolpidem Tartrate (Ambien) 5 mg QHS PRN PO SLEEP Last administered on 00:13; Admin Dose 5 MG; Start 01/24/17 at 19:00 Heparin Sodium (Porcine) (Heparin (5000 Units/0.5 ml)) 5,000 unit Q12 SC Last administered on 01/28/17 08:24; Admin Dose 5,000 UNIT; Start 01/24/17 at 21:00 Insulin Glargine (Lantus) 17 unit DAILY@08 SC Last administered on 01/28/17 08:22; Admin Dose 17 UNIT; Start 01/25/17 at 08:00 Diagnostic Test (Pha) (Accu-Chek) 1 ea 02 XX ; Start 01/25/17 at 02:00 Miscellaneous Information 1 ea NOTE XX ; Start 01/24/17 at 19:00 Glucose (Glutose) 15 gm Q15M PRN PO DECREASED GLUCOSE; Start 01/24/17 at 19:00 Glucose (Glutose) 22.5 gm Q15M PRN PO DECREASED GLUCOSE; Start 01/24/17 at 19: 00 Dextrose (D50w Syringe) 25 ml Q15M PRN IV DECREASED GLUCOSE; Start 01/24/17 at 19:00 Dextrose (D50w Syringe) 50 ml Q15M PRN IV DECREASED GLUCOSE; Start 01/24/17 at 19:00 Glucagon (Glucagen) 1 mg Q15M PRN IM DECREASED GLUCOSE; Start 01/24/17 at 19:00 Glucose (Glutose) 15 gm Q15M PRN BUCCAL DECREASED GLUCOSE; Start 01/24/17 at 19 :00 Acetaminophen/ Hydrocodone Bitart ([place] (5/325)) 1 tab Q4H PRN PO MODERATE PAIN LEVEL 4-6 Last administered on 01/28/17 14:17; Admin Dose 1 TAB; Start 01/24/17 at 23:00 Hydralazine HCl (Apresoline) 25 mg TID PO Last administered on 01/28/17 12:38 ; Admin Dose 25 MG; Start 01/27/17 at 21:00 Metoprolol Tartrate (Lopressor) 25 mg BID PO Last administered on 01/28/17 08 :18; Admin Dose 25 MG; Start 01/27/17 at 21:00 Clonidine (Catapres) 0.1 mg Q6H PRN PO SBP>170; Start 01/27/17 at 18:00 Valsartan (Diovan) 80 mg DAILY PO ; Start 01/29/17 at 09:00 CLARITZA FLORES Jan 28, 2017 17:38
[2017-01-28] MEDS: FUROSEMIDE 40 MG INJ IV SCH (17:54)
[2017-01-29] MEDS: ACETAMINOPHEN 325 MG TAB PO PRN (01:48)
[2017-01-29] MEDS: ACCU-CHEK XX SCH (01:51)
[2017-01-29 01:57] VITALS: BP 152/87; RESP 20
[2017-01-29] MEDS: HYDROCODONE/APAP (5/325) TAB PO PRN ×4 (03:08→17:35)
[2017-01-29] MEDS: FUROSEMIDE 40 MG INJ IV SCH ×2 (05:24→17:15)
[2017-01-29 07:40] VITALS: BP 141/72; RESP 18
[2017-01-29] MEDS: INSULIN ASPART [NOVOLOG] 3 ML PEN SC SCH ×7 (08:00→20:38)
[2017-01-29] MEDS: INSULIN GLARGINE [LANtus] 3 ML PEN SC SCH (08:01)
[2017-01-29] MEDS: METOPROLOL 25 MG TAB PO SCH ×2 (08:02→20:33)
[2017-01-29] MEDS: HEPARIN 5,000 UNIT/0.5 ML VIAL SC SCH ×2 (08:02→20:34)
[2017-01-29] MEDS: VALSARTAN 80 MG TAB PO SCH (08:46)
--- NOTE | 2017-01-29 13:01 | CONS ---
Date/Time of Note Date/Time of Note DATE: 01/29/17 TIME: 12:59 Assessment/Plan Assessment/Plan Additional Assessment/Plan 1. Congestive heart failure by chest x-ray, diastolic, likely acute on chronic by most recent echo - responding well, better now 2. Hypertension, under reasonable control- will adjust Rxas needed 3. Preoperative. The patient at this time has tolerated lower extremity debridement, unclear whether other surgery may be required. Defer to surgical team 4. Anemia- H/H stable -no bleed 5. Nonhealing lower extremity ulcerations. 6. Diabetes mellitus. 7. MR-mod-sev - no intervention planned - keep euvolemic. Consultation Date/Type/Reason Admit Date/Time Jan 24, 2017 at 15:33 Initial Consult Date Type of Consultation: cardiology Referring Provider: SELINA BAINS 24 HR Interval Summary Free Text/Dictation CHF - likely acute on chronic by most recent echo - responding well, better now ROS: No fever, no chills, no nausea, no vomiting, no diarrhea/constipation No recent weight changes No chest pain, no PND, no orthopnea, improved SOB No dizziness, blurred vision No thirst, no heat or cold intolerance Exam/Review of Systems Vital Signs Vitals Vital Signs Date Time Temp Pulse Resp B/P Pulse Ox O2 Delivery O2 Flow Rate FiO2 01/29/17 07:40 98.5 71 18 141/72 93 01/28/17 21:30 Room Air Intake and Output 01/28/17 01/28/17 01/29/17 15:00 23:00 07:00 Intake Total 1400 ml 430 ml Output Total 1100 ml 640 ml Balance 300 ml -210 ml Exam General: WN/WD/NAD, AOx 3 HEENT: Unicetric/atraumatic/EOMI (follow commands) NECK: JVD elevated, no thyromegaly Lymph: no lymphadenopathy HEART: regular with no S3, II/ systolic murmur at apex LUNGS: Coarse sounds ABD: soft, NT, ND, +BS : Intact Neuro: non focal SKIN: chronic changes EXT: trace edema, PAD Results Result Diagram: 01/27/17 0549 01/29/17 0429 Results 24 hrs Laboratory Tests Test 01/28/17 16:57 01/28/17 20:46 01/29/17 04:29 01/29/17 07:57 Bedside Glucose 107 105 129 Sodium Level 135 Potassium Level 3.9 Chloride Level 104 Carbon Dioxide Level 24 Anion Gap 11 Blood Urea Nitrogen 25 H Creatinine 1.61 H Glucose Level 134 # Calcium Level 7.8 L Test 01/29/17 12:06 Bedside Glucose 142 Medications Medications Current Medications Ondansetron HCl (Zofran Inj) 4 mg Q6H PRN IV NAUSEA AND/OR VOMITING; Start 01/24/17 at 19:00 Acetaminophen (Tylenol Tab) 650 mg Q6H PRN PO PAIN LEVEL 1-3 OR FEVER Last administered on 01/29/17 01:48; Admin Dose 650 MG; Start 01/24/17 at 19:00 Morphine Sulfate (morphine) 2 mg Q4H PRN IV SEVERE PAIN LEVEL 7-10 Last administered on 01/27/17 19:58; Admin Dose 2 MG; Start 01/24/17 at 19:00 Docusate Sodium (Colace) 100 mg Q12H PRN PO CONSTIPATION; Start 01/24/17 at 19: 00 Zolpidem Tartrate (Ambien) 5 mg QHS PRN PO SLEEP Last administered on 00:13; Admin Dose 5 MG; Start 01/24/17 at 19:00 Heparin Sodium (Porcine) (Heparin (5000 Units/0.5 ml)) 5,000 unit Q12 SC Last administered on 01/29/17 08:02; Admin Dose 5,000 UNIT; Start 01/24/17 at 21:00 Insulin Glargine (Lantus) 17 unit DAILY@08 SC Last administered on 01/29/17 08:01; Admin Dose 17 UNIT; Start 01/25/17 at 08:00 Diagnostic Test (Pha) (Accu-Chek) 1 ea 02 XX ; Start 01/25/17 at 02:00 Miscellaneous Information 1 ea NOTE XX ; Start 01/24/17 at 19:00 Glucose (Glutose) 15 gm Q15M PRN PO DECREASED GLUCOSE; Start 01/24/17 at 19:00 Glucose (Glutose) 22.5 gm Q15M PRN PO DECREASED GLUCOSE; Start 01/24/17 at 19: 00 Dextrose (D50w Syringe) 25 ml Q15M PRN IV DECREASED GLUCOSE; Start 01/24/17 at 19:00 Dextrose (D50w Syringe) 50 ml Q15M PRN IV DECREASED GLUCOSE; Start 01/24/17 at 19:00 Glucagon (Glucagen) 1 mg Q15M PRN IM DECREASED GLUCOSE; Start 01/24/17 at 19:00 Glucose (Glutose) 15 gm Q15M PRN BUCCAL DECREASED GLUCOSE; Start 01/24/17 at 19 :00 Acetaminophen/ Hydrocodone Bitart ([place] (5/325)) 1 tab Q4H PRN PO MODERATE PAIN LEVEL 4-6 Last administered on 01/29/17 07:58; Admin Dose 1 TAB; Start 01/24/17 at 23:00 Metoprolol Tartrate (Lopressor) 25 mg BID PO Last administered on 01/29/17 08 :02; Admin Dose 25 MG; Start 01/27/17 at 21:00 Clonidine (Catapres) 0.1 mg Q6H PRN PO SBP>170; Start 01/27/17 at 18:00 Valsartan (Diovan) 80 mg DAILY PO Last administered on 01/29/17 08:46; Admin Dose 80 MG; Start 01/29/17 at 09:00 Hydralazine HCl (Apresoline) 50 mg TID PO Last administered on 01/29/17 08:01 ; Admin Dose 50 MG; Start 01/28/17 at 21:00 GISEL WELLS MD Jan 29, 2017 13:01
--- NOTE | 2017-01-29 14:03 | PN ---
Date/Time of Note Date/Time of Note DATE: 01/29/17 TIME: 14:02 Assessment/Plan VTE Prophylaxis VTE Prophylaxis Intervention: heparin Lines/Catheters IV Catheter Type (from Nrsg): Saline Lock Urinary Cath still in place: No Assessment/Plan Chief Complaint/Hosp Course 1. Chronic skin ulcers Plan is for BKA with Dr Romero, preop clearance with Dr. Lagunas of cardiology Echo shows an EF of 50% Pain control 2. DM NISS 3. Early cirrhosis Hepatitis panel negative 4. CKD Nephrology consultation appreciated PPx: Heparin Problems: Subjective 24 Hr Interval Summary Constitutional: no complaints Exam/Review of Systems Vital Signs Vitals Vital Signs Date Time Temp Pulse Resp B/P Pulse Ox O2 Delivery O2 Flow Rate FiO2 01/29/17 07:40 98.5 71 18 141/72 93 01/28/17 21:30 Room Air Intake and Output 01/28/17 01/28/17 01/29/17 15:00 23:00 07:00 Intake Total 1400 ml 430 ml Output Total 1100 ml 640 ml Balance 300 ml -210 ml Exam Constitutional: alert, oriented Respiratory: clear to auscultation Cardiovascular: regular rate and rhythm Gastrointestinal: soft, No distended Musculoskeletal: No nl extremities to inspection Results Result Diagram: 01/27/17 0549 01/29/17 0429 Results 24 hrs Laboratory Tests Test 01/28/17 16:57 01/28/17 20:46 01/29/17 04:29 01/29/17 07:57 Bedside Glucose 107 105 129 Sodium Level 135 Potassium Level 3.9 Chloride Level 104 Carbon Dioxide Level 24 Anion Gap 11 Blood Urea Nitrogen 25 H Creatinine 1.61 H Glucose Level 134 # Calcium Level 7.8 L Test 01/29/17 12:06 Bedside Glucose 142 Medications Medications Current Medications Ondansetron HCl (Zofran Inj) 4 mg Q6H PRN IV NAUSEA AND/OR VOMITING; Start 01/24/17 at 19:00 Acetaminophen (Tylenol Tab) 650 mg Q6H PRN PO PAIN LEVEL 1-3 OR FEVER Last administered on 01/29/17 01:48; Admin Dose 650 MG; Start 01/24/17 at 19:00 Morphine Sulfate (morphine) 2 mg Q4H PRN IV SEVERE PAIN LEVEL 7-10 Last administered on 01/27/17 19:58; Admin Dose 2 MG; Start 01/24/17 at 19:00 Docusate Sodium (Colace) 100 mg Q12H PRN PO CONSTIPATION; Start 01/24/17 at 19: 00 Zolpidem Tartrate (Ambien) 5 mg QHS PRN PO SLEEP Last administered on 00:13; Admin Dose 5 MG; Start 01/24/17 at 19:00 Heparin Sodium (Porcine) (Heparin (5000 Units/0.5 ml)) 5,000 unit Q12 SC Last administered on 01/29/17 08:02; Admin Dose 5,000 UNIT; Start 01/24/17 at 21:00 Insulin Glargine (Lantus) 17 unit DAILY@08 SC Last administered on 01/29/17 08:01; Admin Dose 17 UNIT; Start 01/25/17 at 08:00 Diagnostic Test (Pha) (Accu-Chek) 1 ea 02 XX ; Start 01/25/17 at 02:00 Miscellaneous Information 1 ea NOTE XX ; Start 01/24/17 at 19:00 Glucose (Glutose) 15 gm Q15M PRN PO DECREASED GLUCOSE; Start 01/24/17 at 19:00 Glucose (Glutose) 22.5 gm Q15M PRN PO DECREASED GLUCOSE; Start 01/24/17 at 19: 00 Dextrose (D50w Syringe) 25 ml Q15M PRN IV DECREASED GLUCOSE; Start 01/24/17 at 19:00 Dextrose (D50w Syringe) 50 ml Q15M PRN IV DECREASED GLUCOSE; Start 01/24/17 at 19:00 Glucagon (Glucagen) 1 mg Q15M PRN IM DECREASED GLUCOSE; Start 01/24/17 at 19:00 Glucose (Glutose) 15 gm Q15M PRN BUCCAL DECREASED GLUCOSE; Start 01/24/17 at 19 :00 Acetaminophen/ Hydrocodone Bitart ([place] (5/325)) 1 tab Q4H PRN PO MODERATE PAIN LEVEL 4-6 Last administered on 01/29/17 13:29; Admin Dose 1 TAB; Start 01/24/17 at 23:00 Metoprolol Tartrate (Lopressor) 25 mg BID PO Last administered on 01/29/17 08 :02; Admin Dose 25 MG; Start 01/27/17 at 21:00 Clonidine (Catapres) 0.1 mg Q6H PRN PO SBP>170; Start 01/27/17 at 18:00 Valsartan (Diovan) 80 mg DAILY PO Last administered on 01/29/17 08:46; Admin Dose 80 MG; Start 01/29/17 at 09:00 Hydralazine HCl (Apresoline) 50 mg TID PO Last administered on 01/29/17 13:29 ; Admin Dose 50 MG; Start 01/28/17 at 21:00 SELINA BAINS Jan 29, 2017 14:03
[2017-01-29 14:45] VITALS: BP 150/75; RESP 18
[2017-01-29] MEDS: morphine 2 MG INJ IV PRN ×2 (15:36→20:31)
--- NOTE | 2017-01-29 15:40 | CONS ---
Date/Time of Note Date/Time of Note DATE: 01/29/17 TIME: 15:39 Assessment/Plan Assessment/Plan Chief Complaint/Hosp Course 1. Patient has possible underlying chronic kidney disease. 2. Chronic kidney disease, possibly due to chronic lower extremity lymphedema and cellulitis. 3. Other diagnoses include the patient has hypertension, anemia. 4 The patient has underlying possible diabetic nephropathy. 5 The patient has pulmonary edema and leg edema, 6 abnormal LFT. 7 Skin wound. PLAN BP MEDS diuretic CK LABS Problems: Consultation Date/Type/Reason Admit Date/Time Jan 24, 2017 at 15:33 Initial Consult Date [id number] Referring Provider: SELINA BAINS 24 HR Interval Summary Constitutional: no complaints Exam/Review of Systems Vital Signs Vitals Vital Signs Date Time Temp Pulse Resp B/P Pulse Ox O2 Delivery O2 Flow Rate FiO2 01/29/17 14:45 98.6 75 18 150/75 95 01/28/17 21:30 Room Air Intake and Output 01/28/17 01/28/17 01/29/17 15:00 23:00 07:00 Intake Total 1400 ml 430 ml Output Total 1100 ml 640 ml Balance 300 ml -210 ml Exam Respiratory: clear to auscultation Cardiovascular: regular rate and rhythm Gastrointestinal: soft Extremities: edema (+) Results Result Diagram: 01/27/17 0549 01/29/17 0429 Results 24 hrs Laboratory Tests Test 01/28/17 16:57 01/28/17 20:46 01/29/17 04:29 01/29/17 07:57 Bedside Glucose 107 105 129 Sodium Level 135 Potassium Level 3.9 Chloride Level 104 Carbon Dioxide Level 24 Anion Gap 11 Blood Urea Nitrogen 25 H Creatinine 1.61 H Glucose Level 134 # Calcium Level 7.8 L Test 01/29/17 12:06 Bedside Glucose 142 Medications Medications Current Medications Ondansetron HCl (Zofran Inj) 4 mg Q6H PRN IV NAUSEA AND/OR VOMITING; Start 01/24/17 at 19:00 Acetaminophen (Tylenol Tab) 650 mg Q6H PRN PO PAIN LEVEL 1-3 OR FEVER Last administered on 01/29/17 01:48; Admin Dose 650 MG; Start 01/24/17 at 19:00 Morphine Sulfate (morphine) 2 mg Q4H PRN IV SEVERE PAIN LEVEL 7-10 Last administered on 01/29/17 15:36; Admin Dose 2 MG; Start 01/24/17 at 19:00 Docusate Sodium (Colace) 100 mg Q12H PRN PO CONSTIPATION; Start 01/24/17 at 19: 00 Zolpidem Tartrate (Ambien) 5 mg QHS PRN PO SLEEP Last administered on 00:13; Admin Dose 5 MG; Start 01/24/17 at 19:00 Heparin Sodium (Porcine) (Heparin (5000 Units/0.5 ml)) 5,000 unit Q12 SC Last administered on 01/29/17 08:02; Admin Dose 5,000 UNIT; Start 01/24/17 at 21:00 Insulin Glargine (Lantus) 17 unit DAILY@08 SC Last administered on 01/29/17 08:01; Admin Dose 17 UNIT; Start 01/25/17 at 08:00 Diagnostic Test (Pha) (Accu-Chek) 1 ea 02 XX ; Start 01/25/17 at 02:00 Miscellaneous Information 1 ea NOTE XX ; Start 01/24/17 at 19:00 Glucose (Glutose) 15 gm Q15M PRN PO DECREASED GLUCOSE; Start 01/24/17 at 19:00 Glucose (Glutose) 22.5 gm Q15M PRN PO DECREASED GLUCOSE; Start 01/24/17 at 19: 00 Dextrose (D50w Syringe) 25 ml Q15M PRN IV DECREASED GLUCOSE; Start 01/24/17 at 19:00 Dextrose (D50w Syringe) 50 ml Q15M PRN IV DECREASED GLUCOSE; Start 01/24/17 at 19:00 Glucagon (Glucagen) 1 mg Q15M PRN IM DECREASED GLUCOSE; Start 01/24/17 at 19:00 Glucose (Glutose) 15 gm Q15M PRN BUCCAL DECREASED GLUCOSE; Start 01/24/17 at 19 :00 Acetaminophen/ Hydrocodone Bitart ([place] (5/325)) 1 tab Q4H PRN PO MODERATE PAIN LEVEL 4-6 Last administered on 01/29/17 13:29; Admin Dose 1 TAB; Start 01/24/17 at 23:00 Metoprolol Tartrate (Lopressor) 25 mg BID PO Last administered on 01/29/17 08 :02; Admin Dose 25 MG; Start 01/27/17 at 21:00 Clonidine (Catapres) 0.1 mg Q6H PRN PO SBP>170; Start 01/27/17 at 18:00 Valsartan (Diovan) 80 mg DAILY PO Last administered on 01/29/17 08:46; Admin Dose 80 MG; Start 01/29/17 at 09:00 Hydralazine HCl (Apresoline) 50 mg TID PO Last administered on 01/29/17 13:29 ; Admin Dose 50 MG; Start 01/28/17 at 21:00 ELHAM ANGELES MD Jan 29, 2017 15:40
[2017-01-29 20:27] VITALS: BP 134/68; RESP 19
[2017-01-30] MEDS: ACCU-CHEK XX SCH (02:00)
[2017-01-30] MEDS: HYDROCODONE/APAP (5/325) TAB PO PRN ×5 (02:04→23:03)
[2017-01-30 02:30] VITALS: BP 143/75; RESP 19
[2017-01-30] MEDS: FUROSEMIDE 40 MG INJ IV SCH ×2 (06:01→18:32)
[2017-01-30 07:45] VITALS: BP 147/79; RESP 17
[2017-01-30] MEDS: INSULIN ASPART [NOVOLOG] 3 ML PEN SC SCH ×7 (08:00→20:35)
[2017-01-30] MEDS: INSULIN GLARGINE [LANtus] 3 ML PEN SC SCH (08:20)
[2017-01-30] MEDS: HEPARIN 5,000 UNIT/0.5 ML VIAL SC SCH ×2 (08:21→20:33)
[2017-01-30] MEDS: VALSARTAN 80 MG TAB PO SCH (08:23)
[2017-01-30] MEDS: METOPROLOL 25 MG TAB PO SCH ×2 (08:23→20:27)
[2017-01-30] MEDS: morphine 2 MG INJ IV PRN ×2 (09:47→20:26)
--- NOTE | 2017-01-30 13:23 | CONS ---
Date/Time of Note Date/Time of Note DATE: 01/30/17 TIME: 13:21 Assessment/Plan Assessment/Plan Additional Assessment/Plan 1. Congestive heart failure by chest x-ray, diastolic, likely acute on chronic by most recent echo - responding well, better now - con't to improve now 2. Hypertension, under reasonable control- will adjust Rx as needed - BP improved 3. Preoperative. The patient at this time has tolerated lower extremity debridement, unclear whether other surgery may be required. Defer to surgical team 4. Anemia- H/H stable -no bleed 5. Nonhealing lower extremity ulcerations. 6. Diabetes mellitus. 7. MR-mod-sev - no intervention planned - keep euvolemic. Consultation Date/Type/Reason Admit Date/Time Jan 24, 2017 at 15:33 Referring Provider: SELINA BAINS 24 HR Interval Summary Free Text/Dictation NO acute events - con't gentle diuresis ROS: No fever, no chills, no nausea, no vomiting, no diarrhea/constipation No recent weight changes No chest pain, no PND, no orthopnea No dizziness, blurred vision No thirst, no heat or cold intolerance Exam/Review of Systems Vital Signs Vitals Vital Signs Date Time Temp Pulse Resp B/P Pulse Ox O2 Delivery O2 Flow Rate FiO2 01/30/17 07:45 98.6 85 17 147/79 93 01/28/17 21:30 Room Air Intake and Output 01/29/17 01/29/17 01/30/17 15:00 23:00 07:00 Intake Total 640 ml 950 ml Output Total 1400 ml 1450 ml Balance -760 ml -500 ml Exam General: WN/WD/NAD, AOx 3 HEENT: Unicetric/atraumatic/EOMI (follows commands) NECK: JVD elevated, no thyromegaly Lymph: no lymphadenopathy HEART: regular with no S3, II/ systolic murmur at apex LUNGS: Coarse sounds ABD: soft, NT, ND, +BS : Intact Neuro: non focal SKIN: chronic changes EXT: trace edema Results Result Diagram: 01/27/17 0549 01/29/17 0429 Results 24 hrs Laboratory Tests Test 01/29/17 17:14 01/29/17 20:38 01/30/17 08:16 01/30/17 12:01 Bedside Glucose 141 87 109 119 Medications Medications Current Medications Ondansetron HCl (Zofran Inj) 4 mg Q6H PRN IV NAUSEA AND/OR VOMITING; Start 01/24/17 at 19:00 Acetaminophen (Tylenol Tab) 650 mg Q6H PRN PO PAIN LEVEL 1-3 OR FEVER Last administered on 01/29/17 01:48; Admin Dose 650 MG; Start 01/24/17 at 19:00 Morphine Sulfate (morphine) 2 mg Q4H PRN IV SEVERE PAIN LEVEL 7-10 Last administered on 01/30/17 09:47; Admin Dose 2 MG; Start 01/24/17 at 19:00 Docusate Sodium (Colace) 100 mg Q12H PRN PO CONSTIPATION; Start 01/24/17 at 19: 00 Zolpidem Tartrate (Ambien) 5 mg QHS PRN PO SLEEP Last administered on 00:13; Admin Dose 5 MG; Start 01/24/17 at 19:00 Heparin Sodium (Porcine) (Heparin (5000 Units/0.5 ml)) 5,000 unit Q12 SC Last administered on 01/30/17 08:21; Admin Dose 5,000 UNIT; Start 01/24/17 at 21:00 Insulin Glargine (Lantus) 17 unit DAILY@08 SC Last administered on 01/30/17 08:20; Admin Dose 17 UNIT; Start 01/25/17 at 08:00 Diagnostic Test (Pha) (Accu-Chek) 1 ea 02 XX ; Start 01/25/17 at 02:00 Miscellaneous Information 1 ea NOTE XX ; Start 01/24/17 at 19:00 Glucose (Glutose) 15 gm Q15M PRN PO DECREASED GLUCOSE; Start 01/24/17 at 19:00 Glucose (Glutose) 22.5 gm Q15M PRN PO DECREASED GLUCOSE; Start 01/24/17 at 19: 00 Dextrose (D50w Syringe) 25 ml Q15M PRN IV DECREASED GLUCOSE; Start 01/24/17 at 19:00 Dextrose (D50w Syringe) 50 ml Q15M PRN IV DECREASED GLUCOSE; Start 01/24/17 at 19:00 Glucagon (Glucagen) 1 mg Q15M PRN IM DECREASED GLUCOSE; Start 01/24/17 at 19:00 Glucose (Glutose) 15 gm Q15M PRN BUCCAL DECREASED GLUCOSE; Start 01/24/17 at 19 :00 Acetaminophen/ Hydrocodone Bitart ([place] (5/325)) 1 tab Q4H PRN PO MODERATE PAIN LEVEL 4-6 Last administered on 01/30/17 08:30; Admin Dose 1 TAB; Start 01/24/17 at 23:00 Metoprolol Tartrate (Lopressor) 25 mg BID PO Last administered on 01/30/17 08 :23; Admin Dose 25 MG; Start 01/27/17 at 21:00 Clonidine (Catapres) 0.1 mg Q6H PRN PO SBP>170; Start 01/27/17 at 18:00 Valsartan (Diovan) 80 mg DAILY PO Last administered on 01/30/17 08:23; Admin Dose 80 MG; Start 01/29/17 at 09:00 Hydralazine HCl (Apresoline) 50 mg TID PO Last administered on 01/30/17 08:22 ; Admin Dose 50 MG; Start 01/28/17 at 21:00 GISEL WELLS MD Jan 30, 2017 13:23
[2017-01-30] MEDS ORDERED: FUROSEMIDE 20 MG INJ IV SCH (13:30)
[2017-01-30 14:12] VITALS: BP 136/72; RESP 19
--- NOTE | 2017-01-30 14:57 | PN ---
Date/Time of Note Date/Time of Note DATE: 01/30/17 TIME: 14:55 Assessment/Plan Lines/Catheters IV Catheter Type (from [facility]): Saline Lock Little in Place (from [facility]): No Assessment/Plan Chief Complaint/Hosp Course Bilateral lower extremity atherosclerosis and gangrene: It seems the patients noncompliance of diabetes and poor hygiene presents with bilateral lower extremity diabetic foot ulcers and severe gangrene infection. He had presented to outside hospital with history of 3-4weeks of bilateral lower extremity swelling, redness, pain, maggots and foul smelling odor from bilateral lower legs and left heel. 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 Patient has undergone multiple debridements in order try to preserve his limb. -S/P Multiple debridements of muscle, ligament, tendon, bone, skin, and subcutaneous tissue and application ACell grafts in order to enhance granulation tissue development and eventual limb salvage and grafting for wound closure. -Unfortunately, the patients left achilles tendon was completely necrotic and cannot be preserved. We were able to clean the wounds and preserved the posterior muscle compartments that will serve as a flap coverage as he would require below knee amputation. -Will need to allow time to settle down his lower extremity edema -Cardiac evaluation appreciate -Optimize vascular status (BP meds, sugar control, cholesterol, diet, antiplatelets) -Discussed plan, findings and management with the patient and he understands and agreed to proceed -Thank you for allowing us to partake in the care of your patient, please call with any questions Problems: Subjective 24 Hr Interval Summary Constitutional: BM, flatus, improved, no complaints Exam/Review of Systems Vital Signs Vitals Vital Signs Date Time Temp Pulse Resp B/P Pulse Ox O2 Delivery O2 Flow Rate FiO2 01/30/17 14:12 99.0 73 19 136/72 97 01/28/17 21:30 Room Air Intake and Output 01/29/17 01/29/17 01/30/17 15:00 23:00 07:00 Intake Total 640 ml 950 ml Output Total 1400 ml 1450 ml Balance -760 ml -500 ml Exam Free Text/Dictation A&Ox3 CTAB S1S2 present soft NTND BS+ RLE: palpable femoral pulse, motor/sensory intact, cap refill 3 seconds, dressing intact and dry LLE: palpable femoral pulse, motor/sensory intact, cap refill 3 seconds, dressing intact and dry Results Result Diagram: 01/27/17 0549 01/29/17 0429 ASHLEY CAROLINA MD Jan 30, 2017 14:57
--- NOTE | 2017-01-30 18:33 | PN ---
Date/Time of Note Date/Time of Note DATE: 01/30/17 TIME: 18:33 Assessment/Plan VTE Prophylaxis VTE Prophylaxis Intervention: heparin Lines/Catheters IV Catheter Type (from Nrsg): [place] [facility] Urinary Cath still in place: No Assessment/Plan Chief Complaint/Hosp Course 1. Chronic skin ulcers Plan is for BKA with Dr Romero this coming week, preop clearance with Dr. Lagunas of cardiology appreciated Echo shows an EF of 50% Pain control 2. DM NISS 3. Early cirrhosis Hepatitis panel negative 4. CKD Nephrology consultation appreciated PPx: Heparin Problems: Subjective 24 Hr Interval Summary Constitutional: no complaints Exam/Review of Systems Vital Signs Vitals Vital Signs Date Time Temp Pulse Resp B/P Pulse Ox O2 Delivery O2 Flow Rate FiO2 01/30/17 14:12 99.0 73 19 136/72 97 01/28/17 21:30 Room Air Intake and Output 01/29/17 01/29/17 01/30/17 15:00 23:00 07:00 Intake Total 640 ml 950 ml Output Total 1400 ml 1450 ml Balance -760 ml -500 ml Exam Constitutional: alert Respiratory: clear to auscultation Cardiovascular: regular rate and rhythm Gastrointestinal: soft, No distended Musculoskeletal: No nl extremities to inspection Results Result Diagram: 01/27/17 0549 01/29/17 0429 Results 24 hrs Laboratory Tests Test 01/29/17 20:38 01/30/17 08:16 01/30/17 12:01 01/30/17 17:13 Bedside Glucose 87 109 119 138 Medications Medications Current Medications Ondansetron HCl (Zofran Inj) 4 mg Q6H PRN IV NAUSEA AND/OR VOMITING; Start 01/24/17 at 19:00 Acetaminophen (Tylenol Tab) 650 mg Q6H PRN PO PAIN LEVEL 1-3 OR FEVER Last administered on 01/29/17 01:48; Admin Dose 650 MG; Start 01/24/17 at 19:00 Morphine Sulfate (morphine) 2 mg Q4H PRN IV SEVERE PAIN LEVEL 7-10 Last administered on 01/30/17 09:47; Admin Dose 2 MG; Start 01/24/17 at 19:00 Docusate Sodium (Colace) 100 mg Q12H PRN PO CONSTIPATION; Start 01/24/17 at 19: 00 Zolpidem Tartrate (Ambien) 5 mg QHS PRN PO SLEEP Last administered on 00:13; Admin Dose 5 MG; Start 01/24/17 at 19:00 Heparin Sodium (Porcine) (Heparin (5000 Units/0.5 ml)) 5,000 unit Q12 SC Last administered on 01/30/17 08:21; Admin Dose 5,000 UNIT; Start 01/24/17 at 21:00 Insulin Glargine (Lantus) 17 unit DAILY@08 SC Last administered on 01/30/17 08:20; Admin Dose 17 UNIT; Start 01/25/17 at 08:00 Diagnostic Test (Pha) (Accu-Chek) 1 ea 02 XX ; Start 01/25/17 at 02:00 Miscellaneous Information 1 ea NOTE XX ; Start 01/24/17 at 19:00 Glucose (Glutose) 15 gm Q15M PRN PO DECREASED GLUCOSE; Start 01/24/17 at 19:00 Glucose (Glutose) 22.5 gm Q15M PRN PO DECREASED GLUCOSE; Start 01/24/17 at 19: 00 Dextrose (D50w Syringe) 25 ml Q15M PRN IV DECREASED GLUCOSE; Start 01/24/17 at 19:00 Dextrose (D50w Syringe) 50 ml Q15M PRN IV DECREASED GLUCOSE; Start 01/24/17 at 19:00 Glucagon (Glucagen) 1 mg Q15M PRN IM DECREASED GLUCOSE; Start 01/24/17 at 19:00 Glucose (Glutose) 15 gm Q15M PRN BUCCAL DECREASED GLUCOSE; Start 01/24/17 at 19 :00 Acetaminophen/ Hydrocodone Bitart ([place] (5/325)) 1 tab Q4H PRN PO MODERATE PAIN LEVEL 4-6 Last administered on 01/30/17 18:24; Admin Dose 1 TAB; Start 01/24/17 at 23:00 Metoprolol Tartrate (Lopressor) 25 mg BID PO Last administered on 01/30/17 08 :23; Admin Dose 25 MG; Start 01/27/17 at 21:00 Clonidine (Catapres) 0.1 mg Q6H PRN PO SBP>170; Start 01/27/17 at 18:00 Valsartan (Diovan) 80 mg DAILY PO Last administered on 01/30/17 08:23; Admin Dose 80 MG; Start 01/29/17 at 09:00 Hydralazine HCl (Apresoline) 50 mg TID PO Last administered on 01/30/17t 14:11 ; Admin Dose 50 MG; Start 01/28/17 at 21:00 SELINA BAINS Jan 30, 2017 18:33
--- NOTE | 2017-01-30 19:21 | CONS ---
Date/Time of Note Date/Time of Note DATE: 01/30/17 TIME: 19:20 Assessment/Plan Assessment/Plan Chief Complaint/Hosp Course 1. Patient has possible underlying chronic kidney disease. 2. Chronic kidney disease, possibly due to chronic lower extremity lymphedema and cellulitis. 3. Other diagnoses include the patient has hypertension, anemia. 4 The patient has underlying possible diabetic nephropathy. 5 The patient has pulmonary edema and leg edema, 6 abnormal LFT. 7 Skin wound. PLAN BP MEDS diuretic ELEVATE LEGS Problems: Consultation Date/Type/Reason Admit Date/Time Jan 24, 2017 at 15:33 Initial Consult Date [id number] Referring Provider: SELINA BAINS 24 HR Interval Summary Constitutional: no complaints Exam/Review of Systems Vital Signs Vitals Vital Signs Date Time Temp Pulse Resp B/P Pulse Ox O2 Delivery O2 Flow Rate FiO2 01/30/17 14:12 99.0 73 19 136/72 97 01/28/17 21:30 Room Air Intake and Output 01/29/17 01/29/17 01/30/17 15:00 23:00 07:00 Intake Total 640 ml 950 ml Output Total 1400 ml 1450 ml Balance -760 ml -500 ml Exam Neck: supple Respiratory: clear to auscultation Cardiovascular: regular rate and rhythm Gastrointestinal: soft Extremities: edema (+) Results Result Diagram: 01/27/17 0549 01/29/17 0429 Results 24 hrs Laboratory Tests Test 01/29/17 20:38 01/30/17 08:16 01/30/17 12:01 01/30/17 17:13 Bedside Glucose 87 109 119 138 Medications Medications Current Medications Ondansetron HCl (Zofran Inj) 4 mg Q6H PRN IV NAUSEA AND/OR VOMITING; Start 01/24/17 at 19:00 Acetaminophen (Tylenol Tab) 650 mg Q6H PRN PO PAIN LEVEL 1-3 OR FEVER Last administered on 01/29/17 01:48; Admin Dose 650 MG; Start 01/24/17 at 19:00 Morphine Sulfate (morphine) 2 mg Q4H PRN IV SEVERE PAIN LEVEL 7-10 Last administered on 01/30/17 09:47; Admin Dose 2 MG; Start 01/24/17 at 19:00 Docusate Sodium (Colace) 100 mg Q12H PRN PO CONSTIPATION; Start 01/24/17 at 19: 00 Zolpidem Tartrate (Ambien) 5 mg QHS PRN PO SLEEP Last administered on 00:13; Admin Dose 5 MG; Start 01/24/17 at 19:00 Heparin Sodium (Porcine) (Heparin (5000 Units/0.5 ml)) 5,000 unit Q12 SC Last administered on 01/30/17 08:21; Admin Dose 5,000 UNIT; Start 01/24/17 at 21:00 Insulin Glargine (Lantus) 17 unit DAILY@08 SC Last administered on 01/30/17 08:20; Admin Dose 17 UNIT; Start 01/25/17 at 08:00 Diagnostic Test (Pha) (Accu-Chek) 1 ea 02 XX ; Start 01/25/17 at 02:00 Miscellaneous Information 1 ea NOTE XX ; Start 01/24/17 at 19:00 Glucose (Glutose) 15 gm Q15M PRN PO DECREASED GLUCOSE; Start 01/24/17 at 19:00 Glucose (Glutose) 22.5 gm Q15M PRN PO DECREASED GLUCOSE; Start 01/24/17 at 19: 00 Dextrose (D50w Syringe) 25 ml Q15M PRN IV DECREASED GLUCOSE; Start 01/24/17 at 19:00 Dextrose (D50w Syringe) 50 ml Q15M PRN IV DECREASED GLUCOSE; Start 01/24/17 at 19:00 Glucagon (Glucagen) 1 mg Q15M PRN IM DECREASED GLUCOSE; Start 01/24/17 at 19:00 Glucose (Glutose) 15 gm Q15M PRN BUCCAL DECREASED GLUCOSE; Start 01/24/17 at 19 :00 Acetaminophen/ Hydrocodone Bitart ([place] (5/325)) 1 tab Q4H PRN PO MODERATE PAIN LEVEL 4-6 Last administered on 01/30/17 18:24; Admin Dose 1 TAB; Start 01/24/17 at 23:00 Metoprolol Tartrate (Lopressor) 25 mg BID PO Last administered on 01/30/17 08 :23; Admin Dose 25 MG; Start 01/27/17 at 21:00 Clonidine (Catapres) 0.1 mg Q6H PRN PO SBP>170; Start 01/27/17 at 18:00 Valsartan (Diovan) 80 mg DAILY PO Last administered on 01/30/17 08:23; Admin Dose 80 MG; Start 01/29/17 at 09:00 Hydralazine HCl (Apresoline) 50 mg TID PO Last administered on 01/30/17 14:11 ; Admin Dose 50 MG; Start 01/28/17 at 21:00 ELHAM ANGELES MD Jan 30, 2017 19:21
[2017-01-30 20:39] VITALS: BP 139/73; RESP 18
[2017-01-31] MEDS: morphine 2 MG INJ IV PRN ×2 (01:07→21:03)
[2017-01-31] MEDS: ACCU-CHEK XX SCH (02:00)
[2017-01-31 02:46] VITALS: BP 146/77; RESP 18
[2017-01-31] MEDS: HYDROCODONE/APAP (5/325) TAB PO PRN ×5 (04:54→21:50)
[2017-01-31] MEDS: FUROSEMIDE 40 MG INJ IV SCH (05:25)
[2017-01-31 07:27] VITALS: BP 147/78; RESP 18
[2017-01-31] MEDS: INSULIN ASPART [NOVOLOG] 3 ML PEN SC SCH ×7 (08:00→21:00)
[2017-01-31] MEDS: INSULIN GLARGINE [LANtus] 3 ML PEN SC SCH (08:43)
[2017-01-31] MEDS: HEPARIN 5,000 UNIT/0.5 ML VIAL SC SCH ×2 (08:43→21:08)
[2017-01-31] MEDS: METOPROLOL 25 MG TAB PO SCH ×2 (08:44→21:04)
[2017-01-31] MEDS: VALSARTAN 80 MG TAB PO SCH (08:45)
[2017-01-31 14:19] VITALS: BP 128/66; RESP 18
--- NOTE | 2017-01-31 16:14 | CONS ---
Date/Time of Note Date/Time of Note DATE: 01/31/17 TIME: 16:07 Assessment/Plan Assessment/Plan Chief Complaint/Hosp Course 66 y/o with # Patient has possible underlying chronic kidney disease with mild GAIL # chronic lower extremity lymphedema and cellulitis. # CHF likley diastolic # hypertension, anemia. # DM # Abnormal LFT # Skin wounds # Hypoalbunemia # Bilateral lower extremity atherosclerosis and gangrene Plan - Decrease iv lasix to 40 mg - Reasses Pul edema with Chest Xray - Plan for GAIL tmw - dm management per primary - Fluid restriction to 1.5 L - c/w Valsartan 80 and MTP - Avoid nephrotoxic agents Problems: Consultation Date/Type/Reason Admit Date/Time Jan 24, 2017 at 15:33 Initial Consult Date Referring Provider: SELINA BAINS 24 HR Interval Summary Free Text/Dictation UOP was 3300 yesterday, pt says urinating a lot more. Net negative 1800 ml Denies any chest pain/sob Exam/Review of Systems Vital Signs Vitals Vital Signs Date Time Temp Pulse Resp B/P Pulse Ox O2 Delivery O2 Flow Rate FiO2 01/31/17 14:19 97.9 70 18 128/66 98 01/28/17 21:30 Room Air Intake and Output 01/30/17 01/30/17 01/31/17 15:00 23:00 07:00 Intake Total 860 ml 560 ml Output Total 2200 ml 1100 ml Balance -1340 ml -540 ml Exam A&Ox3 CTAB S1S2 present soft NTND BS+ RLE: palpable femoral pulse, motor/sensory intact, cap refill 3 seconds, dressing intact and dry LLE: palpable femoral pulse, motor/sensory intact, cap refill 3 seconds, dressing intact and dry Results Result Diagram: 01/27/17 0549 01/31/17 0530 Results 24 hrs Laboratory Tests Test 01/30/17 17:13 01/30/17 20:23 01/31/17 05:30 01/31/17 08:30 Bedside Glucose 138 137 110 Sodium Level 134 L Potassium Level 3.5 Chloride Level 99 Carbon Dioxide Level 27 Anion Gap 12 Blood Urea Nitrogen 29 H Creatinine 1.81 H Glucose Level 92 Calcium Level 8.3 L Test 01/31/17 12:16 Bedside Glucose 151 Medications Medications Current Medications Ondansetron HCl (Zofran Inj) 4 mg Q6H PRN IV NAUSEA AND/OR VOMITING; Start 01/24/17 at 19:00 Acetaminophen (Tylenol Tab) 650 mg Q6H PRN PO PAIN LEVEL 1-3 OR FEVER Last administered on 01/29/17 01:48; Admin Dose 650 MG; Start 01/24/17 at 19:00 Morphine Sulfate (morphine) 2 mg Q4H PRN IV SEVERE PAIN LEVEL 7-10 Last administered on 01/31/17 01:07; Admin Dose 2 MG; Start 01/24/17 at 19:00 Docusate Sodium (Colace) 100 mg Q12H PRN PO CONSTIPATION; Start 01/24/17 at 19: 00 Zolpidem Tartrate (Ambien) 5 mg QHS PRN PO SLEEP Last administered on 00:13; Admin Dose 5 MG; Start 01/24/17 at 19:00 Heparin Sodium (Porcine) (Heparin (5000 Units/0.5 ml)) 5,000 unit Q12 SC Last administered on 01/31/17 08:43; Admin Dose 5,000 UNIT; Start 01/24/17 at 21:00 Insulin Glargine (Lantus) 17 unit DAILY@08 SC Last administered on 01/31/17 08:43; Admin Dose 17 UNIT; Start 01/25/17 at 08:00 Diagnostic Test (Pha) (Accu-Chek) 1 ea 02 XX ; Start 01/25/17 at 02:00 Miscellaneous Information 1 ea NOTE XX ; Start 01/24/17 at 19:00 Glucose (Glutose) 15 gm Q15M PRN PO DECREASED GLUCOSE; Start 01/24/17 at 19:00 Glucose (Glutose) 22.5 gm Q15M PRN PO DECREASED GLUCOSE; Start 01/24/17 at 19: 00 Dextrose (D50w Syringe) 25 ml Q15M PRN IV DECREASED GLUCOSE; Start 01/24/17 at 19:00 Dextrose (D50w Syringe) 50 ml Q15M PRN IV DECREASED GLUCOSE; Start 01/24/17 at 19:00 Glucagon (Glucagen) 1 mg Q15M PRN IM DECREASED GLUCOSE; Start 01/24/17 at 19:00 Glucose (Glutose) 15 gm Q15M PRN BUCCAL DECREASED GLUCOSE; Start 01/24/17 at 19 :00 Acetaminophen/ Hydrocodone Bitart ([place] (5/325)) 1 tab Q4H PRN PO MODERATE PAIN LEVEL 4-6 Last administered on 01/31/17 13:00; Admin Dose 1 TAB; Start 01/24/17 at 23:00 Metoprolol Tartrate (Lopressor) 25 mg BID PO Last administered on 01/31/17 08 :44; Admin Dose 25 MG; Start 01/27/17 at 21:00 Clonidine (Catapres) 0.1 mg Q6H PRN PO SBP>170; Start 01/27/17 at 18:00 Valsartan (Diovan) 80 mg DAILY PO Last administered on 01/31/17 08:45; Admin Dose 80 MG; Start 01/29/17 at 09:00 Hydralazine HCl (Apresoline) 50 mg TID PO Last administered on 01/31/17 13:54 ; Admin Dose 50 MG; Start 01/28/17 at 21:00 Furosemide (Lasix) 40 mg DAILY IV ; Start 02/01/17 at 09:00 LUIS ANTONIO WHITLOCK MD Jan 31, 2017 16:14
--- NOTE | 2017-01-31 17:03 | CONS ---
Date/Time of Note Date/Time of Note DATE: 01/31/17 TIME: 16:58 Assessment/Plan Assessment/Plan Chief Complaint/Hosp Course IMPRESSION: 1. Congestive heart failure by chest x-ray, diastolic, likely acute on chronic by most recent echo. EF 50% 2. Hypertension, under reasonable control. 3. Preoperative. The patient at this time has tolerated lower extremity debridement, unclear whether other surgery may be required.-negative trop x 3 4. Anemia. 5. Nonhealing lower extremity ulcerations. 6. Diabetes mellitus. 7. MR-mod-sev by echo this admit Recc: -serial ecg's -Continue current hydralazine/BB/diovan with reasonable BP control. -Continue Lasix diuresis which was decreased to daily/fluid restriction -local wound care -Follow BS closely with adjustment of insulin therapy as necessary Problems: Consultation Date/Type/Reason Admit Date/Time Jan 24, 2017 at 15:33 Initial Consult Date 01/26/2017 Type of Consultation: Cardiology Reason for Consultation CHF Referring Provider: ESLINA BAINS Exam/Review of Systems Vital Signs Vitals Vital Signs Date Time Temp Pulse Resp B/P Pulse Ox O2 Delivery O2 Flow Rate FiO2 01/31/17 14:19 97.9 70 18 128/66 98 01/28/17 21:30 Room Air Intake and Output 01/30/17 01/30/17 01/31/17 15:00 23:00 07:00 Intake Total 860 ml 560 ml Output Total 2200 ml 1100 ml Balance -1340 ml -540 ml Exam Review of Systems: CONSTITUTIONAL: No fevers, chills. PULMONARY: No sob CARDIOVASCULAR: No chest pain/palpitations GASTROINTESTINAL: No nausea/vomiting. GENITOURINARY: No hematuria/dysuria. MUSCULOSKELETAL: No myagias/arthalgias. PSYCHIATRIC: The patient denies depression. NEUROLOGIC: No weakness Constitutional: alert, oriented Psych: no complaints Head: normocephalic ENMT: mucosa pink and moist Neck: jvd (9-10 cm water), supple Respiratory: diminished breath sounds (at bases/B) Cardiovascular: regular rate and rhythm Gastrointestinal: non-tender, soft Musculoskeletal: muscle tone (normal) Extremities: pitting pedal edema (BIlateral with legs covered by dcressing s/p debridenment/skin graft) Neurological: other (No focal deficits) Results Result Diagram: 01/27/17 0549 01/31/17 0530 Results 24 hrs Laboratory Tests Test 01/30/17 17:13 01/30/17 20:23 01/31/17 05:30 01/31/17 08:30 Bedside Glucose 138 137 110 Sodium Level 134 L Potassium Level 3.5 Chloride Level 99 Carbon Dioxide Level 27 Anion Gap 12 Blood Urea Nitrogen 29 H Creatinine 1.81 H Glucose Level 92 Calcium Level 8.3 L Test 01/31/17 12:16 Bedside Glucose 151 Medications Medications Current Medications Ondansetron HCl (Zofran Inj) 4 mg Q6H PRN IV NAUSEA AND/OR VOMITING; Start 01/24/17 at 19:00 Acetaminophen (Tylenol Tab) 650 mg Q6H PRN PO PAIN LEVEL 1-3 OR FEVER Last administered on 01/29/17 01:48; Admin Dose 650 MG; Start 01/24/17 at 19:00 Morphine Sulfate (morphine) 2 mg Q4H PRN IV SEVERE PAIN LEVEL 7-10 Last administered on 01/31/17 01:07; Admin Dose 2 MG; Start 01/24/17 at 19:00 Docusate Sodium (Colace) 100 mg Q12H PRN PO CONSTIPATION; Start 01/24/17 at 19: 00 Zolpidem Tartrate (Ambien) 5 mg QHS PRN PO SLEEP Last administered on 00:13; Admin Dose 5 MG; Start 01/24/17 at 19:00 Heparin Sodium (Porcine) (Heparin (5000 Units/0.5 ml)) 5,000 unit Q12 SC Last administered on 01/31/17 08:43; Admin Dose 5,000 UNIT; Start 01/24/17 at 21:00 Insulin Glargine (Lantus) 17 unit DAILY@08 SC Last administered on 01/31/17 08:43; Admin Dose 17 UNIT; Start 01/25/17 at 08:00 Diagnostic Test (Pha) (Accu-Chek) 1 ea 02 XX ; Start 01/25/17 at 02:00 Miscellaneous Information 1 ea NOTE XX ; Start 01/24/17 at 19:00 Glucose (Glutose) 15 gm Q15M PRN PO DECREASED GLUCOSE; Start 01/24/17 at 19:00 Glucose (Glutose) 22.5 gm Q15M PRN PO DECREASED GLUCOSE; Start 01/24/17 at 19: 00 Dextrose (D50w Syringe) 25 ml Q15M PRN IV DECREASED GLUCOSE; Start 01/24/17 at 19:00 Dextrose (D50w Syringe) 50 ml Q15M PRN IV DECREASED GLUCOSE; Start 01/24/17 at 19:00 Glucagon (Glucagen) 1 mg Q15M PRN IM DECREASED GLUCOSE; Start 01/24/17 at 19:00 Glucose (Glutose) 15 gm Q15M PRN BUCCAL DECREASED GLUCOSE; Start 01/24/17 at 19 :00 Acetaminophen/ Hydrocodone Bitart ([place] (5/325)) 1 tab Q4H PRN PO MODERATE PAIN LEVEL 4-6 Last administered on 01/31/17 13:00; Admin Dose 1 TAB; Start 01/24/17 at 23:00 Metoprolol Tartrate (Lopressor) 25 mg BID PO Last administered on 01/31/17 08 :44; Admin Dose 25 MG; Start 01/27/17 at 21:00 Clonidine (Catapres) 0.1 mg Q6H PRN PO SBP>170; Start 01/27/17 at 18:00 Valsartan (Diovan) 80 mg DAILY PO Last administered on 01/31/17 08:45; Admin Dose 80 MG; Start 01/29/17 at 09:00 Hydralazine HCl (Apresoline) 50 mg TID PO Last administered on 01/31/17 13:54 ; Admin Dose 50 MG; Start 01/28/17 at 21:00 Furosemide (Lasix) 40 mg DAILY IV ; Start 02/01/17 at 09:00 CLARITZA FLORES Jan 31, 2017 17:03
[2017-01-31 20:37] VITALS: BP 147/80; RESP 18
[2017-01-31] MEDS: ZOLPIDEM 5 MG TAB PO PRN (21:17)
--- NOTE | 2017-01-31 23:23 | RADRPT ---
PROCEDURE: XR Chest. CLINICAL INDICATION: Shortness of breath TECHNIQUE: Single portable view of the chest was obtained COMPARISON: January 24, 2017 FINDINGS: The trachea is midline. The cardiac silhouette and pulmonary lady are mildly prominent. The lungs ar e clear. There are small bilateral pleural effusions. IMPRESSION: 1. Cardiomegaly and borderline central pulmonary vascular congestion. Small bilateral pleural effusi ons. No change since prior exam. RPTAT: AAPP Physician Ambrocio Date Time Electronically viewed and signed by Physician Ambrocio on 01/31/2017 23:23 IMMANUEL/
[2017-02-01] MEDS: ACCU-CHEK XX SCH (02:00)
[2017-02-01 02:23] VITALS: BP 157/86; RESP 18
[2017-02-01 07:20] VITALS: BP 148/71; RESP 18
[2017-02-01] MEDS: VALSARTAN 80 MG TAB PO SCH (08:08)
[2017-02-01] MEDS: HEPARIN 5,000 UNIT/0.5 ML VIAL SC SCH ×2 (08:08→21:48)
[2017-02-01] MEDS: METOPROLOL 25 MG TAB PO SCH ×2 (08:08→21:47)
[2017-02-01] MEDS: FUROSEMIDE 40 MG INJ IV SCH (08:10)
[2017-02-01] MEDS: INSULIN GLARGINE [LANtus] 3 ML PEN SC SCH (08:11)
[2017-02-01] MEDS: INSULIN ASPART [NOVOLOG] 3 ML PEN SC SCH ×7 (08:12→21:00)
[2017-02-01] MEDS ORDERED: DEXTROSE 5%-0.45% NACL 1,000 ML IV ONE (09:00)
--- NOTE | 2017-02-01 09:40 | CONS ---
Date/Time of Note Date/Time of Note DATE: 02/01/17 TIME: 09:39 Assessment/Plan Assessment/Plan Additional Assessment/Plan 1. Congestive heart failure by chest x-ray, diastolic, likely acute on chronic by most recent echo. EF 50% - con't to keep euvolemic. 2. Hypertension, under reasonable control - modest rx, will monitor. 3. Preoperative. The patient at this time has tolerated lower extremity debridement, unclear whether other surgery may be required.-negative trop x 3 4. Anemia- H/h stable, no bleeding noted. 5. Nonhealing lower extremity ulcerations - s/p debridement. 6. Diabetes mellitus. 7. MR-mod-sev by echo this admit Consultation Date/Type/Reason Admit Date/Time Jan 24, 2017 at 15:33 Type of Consultation: Cardiology Referring Provider: SELINA BAINS 24 HR Interval Summary Free Text/Dictation NO acute events - BP in good range. NO CP now. ROS: No fever, no chills, no nausea, no vomiting, no diarrhea/constipation No recent weight changes No chest pain, no PND, no orthopnea No dizziness, blurred vision No thirst, no heat or cold intolerance Exam/Review of Systems Vital Signs Vitals Vital Signs Date Time Temp Pulse Resp B/P Pulse Ox O2 Delivery O2 Flow Rate FiO2 02/01/17 07:20 99.4 63 18 148/71 97 01/28/17 21:30 Room Air Intake and Output 01/31/17 01/31/17 02/01/17 15:00 23:00 07:00 Intake Total 1200 ml 750 ml Output Total 1300 ml 450 ml Balance -100 ml 300 ml Exam General: WN/WD/NAD, AOx 3 HEENT: Unicetric/atraumatic/EOMI (follow commands) NECK: JVD elevated, no thyromegaly Lymph: no lymphadenopathy HEART: regular with no S3, II/ systolic murmur at apex LUNGS: Coarse sounds ABD: soft, NT, ND, +BS : Intact Neuro: non focal SKIN: chronic changes EXT: trace edema, pAD Results Result Diagram: 01/31/17 0530 Results 24 hrs Laboratory Tests Test 01/31/17 12:16 01/31/17 17:28 01/31/17 21:01 02/01/17 08:03 Bedside Glucose 151 137 101 164 Medications Medications Current Medications Ondansetron HCl (Zofran Inj) 4 mg Q6H PRN IV NAUSEA AND/OR VOMITING; Start 01/24/17 at 19:00 Acetaminophen (Tylenol Tab) 650 mg Q6H PRN PO PAIN LEVEL 1-3 OR FEVER Last administered on 01/29/17 01:48; Admin Dose 650 MG; Start 01/24/17 at 19:00 Morphine Sulfate (morphine) 2 mg Q4H PRN IV SEVERE PAIN LEVEL 7-10 Last administered on 01/31/17 21:03; Admin Dose 2 MG; Start 01/24/17 at 19:00 Docusate Sodium (Colace) 100 mg Q12H PRN PO CONSTIPATION; Start 01/24/17 at 19: 00 Zolpidem Tartrate (Ambien) 5 mg QHS PRN PO SLEEP Last administered on 21:17; Admin Dose 5 MG; Start 01/24/17 at 19:00 Heparin Sodium (Porcine) (Heparin (5000 Units/0.5 ml)) 5,000 unit Q12 SC Last administered on 01/31/17 21:08; Admin Dose 5,000 UNIT; Start 01/24/17 at 21:00 Insulin Glargine (Lantus) 17 unit DAILY@08 SC Last administered on 02/01/17 08:11; Admin Dose 17 UNIT; Start 01/25/17 at 08:00 Diagnostic Test (Pha) (Accu-Chek) 1 ea 02 XX ; Start 01/25/17 at 02:00 Miscellaneous Information 1 ea NOTE XX ; Start 01/24/17 at 19:00 Glucose (Glutose) 15 gm Q15M PRN PO DECREASED GLUCOSE; Start 01/24/17 at 19:00 Glucose (Glutose) 22.5 gm Q15M PRN PO DECREASED GLUCOSE; Start 01/24/17 at 19: 00 Dextrose (D50w Syringe) 25 ml Q15M PRN IV DECREASED GLUCOSE; Start 01/24/17 at 19:00 Dextrose (D50w Syringe) 50 ml Q15M PRN IV DECREASED GLUCOSE; Start 01/24/17 at 19:00 Glucagon (Glucagen) 1 mg Q15M PRN IM DECREASED GLUCOSE; Start 01/24/17 at 19:00 Glucose (Glutose) 15 gm Q15M PRN BUCCAL DECREASED GLUCOSE; Start 01/24/17 at 19 :00 Acetaminophen/ Hydrocodone Bitart ([place] (5/325)) 1 tab Q4H PRN PO MODERATE PAIN LEVEL 4-6 Last administered on 01/31/17 21:50; Admin Dose 1 TAB; Start 01/24/17 at 23:00 Metoprolol Tartrate (Lopressor) 25 mg BID PO Last administered on 02/01/17 08 :08; Admin Dose 25 MG; Start 01/27/17 at 21:00 Clonidine (Catapres) 0.1 mg Q6H PRN PO SBP>170; Start 01/27/17 at 18:00 Valsartan (Diovan) 80 mg DAILY PO Last administered on 02/01/17 08:08; Admin Dose 80 MG; Start 01/29/17 at 09:00 Hydralazine HCl (Apresoline) 50 mg TID PO Last administered on 02/01/17 08:08 ; Admin Dose 50 MG; Start 01/28/17 at 21:00 Furosemide 40 mg 40 mg DAILY IV Last administered on 02/01/17 08:10; Admin Dose 40 MG; Start 02/01/17 at 09:00 Dextrose/Sodium Chloride (D5-1/2ns) 1,000 ml @ 60 mls/hr [id number] ONCE IV Last administered on 02/01/17 08:10; Admin Dose 60 MLS/HR; Start 02/01/17 at 09:00 ; Stop 02/02/17 at 01:39 GISEL WELLS MD Feb 01, 2017 09:40
--- NOTE | 2017-02-01 12:01 | CONS ---
Date/Time of Note Date/Time of Note DATE: 02/01/17 TIME: 11:58 Assessment/Plan Assessment/Plan Chief Complaint/Hosp Course 66 y/o with # Patient has possible underlying chronic kidney disease with mild GAIL # chronic lower extremity lymphedema and cellulitis. # CHF likley diastolic # hypertension, anemia. # DM # Abnormal LFT # Skin wounds # Hypoalbunemia # Bilateral lower extremity atherosclerosis and gangrene Plan - c/w iv lasix to 40 mg, repeat Xray unchanged - Recheck labs today - Plan for GAIL today - dm management per primary - Fluid restriction to 1.5 L - c/w Valsartan 80 and MTP - Avoid nephrotoxic agents Problems: Consultation Date/Type/Reason Admit Date/Time Jan 24, 2017 at 15:33 Type of Consultation: Renal Referring Provider: SELINA BAINS 24 HR Interval Summary Free Text/Dictation AKA planned today Exam/Review of Systems Vital Signs Vitals Vital Signs Date Time Temp Pulse Resp B/P Pulse Ox O2 Delivery O2 Flow Rate FiO2 02/01/17 07:20 99.4 63 18 148/71 97 01/28/17 21:30 Room Air Intake and Output 01/31/17 01/31/17 02/01/17 15:00 23:00 07:00 Intake Total 1200 ml 750 ml Output Total 1300 ml 450 ml Balance -100 ml 300 ml Exam A&Ox3 CTAB S1S2 present soft NTND BS+ Extremities: pitting pedal edema (BIlateral with legs covered by dcressing s/p debridenment/skin graft) Neurological: other (No focal deficits) Results Result Diagram: 01/31/17 0530 Results 24 hrs Laboratory Tests Test 01/31/17 12:16 01/31/17 17:28 01/31/17 21:01 02/01/17 08:03 Bedside Glucose 151 137 101 164 Medications Medications Current Medications Ondansetron HCl (Zofran Inj) 4 mg Q6H PRN IV NAUSEA AND/OR VOMITING; Start 01/24/17 at 19:00 Acetaminophen (Tylenol Tab) 650 mg Q6H PRN PO PAIN LEVEL 1-3 OR FEVER Last administered on 01/29/17t 01:48; Admin Dose 650 MG; Start 01/24/17 at 19:00 Morphine Sulfate (morphine) 2 mg Q4H PRN IV SEVERE PAIN LEVEL 7-10 Last administered on 01/31/17 21:03; Admin Dose 2 MG; Start 01/24/17 at 19:00 Docusate Sodium (Colace) 100 mg Q12H PRN PO CONSTIPATION; Start 01/24/17 at 19: 00 Zolpidem Tartrate (Ambien) 5 mg QHS PRN PO SLEEP Last administered on 21:17; Admin Dose 5 MG; Start 01/24/17 at 19:00 Heparin Sodium (Porcine) (Heparin (5000 Units/0.5 ml)) 5,000 unit Q12 SC Last administered on 01/31/17 21:08; Admin Dose 5,000 UNIT; Start 01/24/17 at 21:00 Insulin Glargine (Lantus) 17 unit DAILY@08 SC Last administered on 02/01/17 08:11; Admin Dose 17 UNIT; Start 01/25/17 at 08:00 Diagnostic Test (Pha) (Accu-Chek) 1 ea 02 XX ; Start 01/25/17 at 02:00 Miscellaneous Information 1 ea NOTE XX ; Start 01/24/17 at 19:00 Glucose (Glutose) 15 gm Q15M PRN PO DECREASED GLUCOSE; Start 01/24/17 at 19:00 Glucose (Glutose) 22.5 gm Q15M PRN PO DECREASED GLUCOSE; Start 01/24/17 at 19: 00 Dextrose (D50w Syringe) 25 ml Q15M PRN IV DECREASED GLUCOSE; Start 01/24/17 at 19:00 Dextrose (D50w Syringe) 50 ml Q15M PRN IV DECREASED GLUCOSE; Start 01/24/17 at 19:00 Glucagon (Glucagen) 1 mg Q15M PRN IM DECREASED GLUCOSE; Start 01/24/17 at 19:00 Glucose (Glutose) 15 gm Q15M PRN BUCCAL DECREASED GLUCOSE; Start 01/24/17 at 19 :00 Acetaminophen/ Hydrocodone Bitart ([place] (5/325)) 1 tab Q4H PRN PO MODERATE PAIN LEVEL 4-6 Last administered on 01/31/17 21:50; Admin Dose 1 TAB; Start 01/24/17 at 23:00 Metoprolol Tartrate (Lopressor) 25 mg BID PO Last administered on 02/01/17 08 :08; Admin Dose 25 MG; Start 01/27/17 at 21:00 Clonidine (Catapres) 0.1 mg Q6H PRN PO SBP>170; Start 01/27/17 at 18:00 Valsartan (Diovan) 80 mg DAILY PO Last administered on 02/01/17 08:08; Admin Dose 80 MG; Start 01/29/17 at 09:00 Hydralazine HCl (Apresoline) 50 mg TID PO Last administered on 02/01/17 08:08 ; Admin Dose 50 MG; Start 01/28/17 at 21:00 Furosemide 40 mg 40 mg DAILY IV Last administered on 02/01/17 08:10; Admin Dose 40 MG; Start 02/01/17 at 09:00 Dextrose/Sodium Chloride (D5-1/2ns) 1,000 ml @ 60 mls/hr [id number] ONCE IV Last administered on 02/01/17 08:10; Admin Dose 60 MLS/HR; Start 02/01/17 at 09:00 ; Stop 02/02/17 at 01:39 LUIS ANTONIO WHITLOCK MD Feb 01, 2017 12:01
[2017-02-01] MEDS: morphine 2 MG INJ IV PRN ×2 (12:18→21:49)
[2017-02-01 14:05] VITALS: BP 143/86; RESP 18
--- NOTE | 2017-02-01 18:14 | PN ---
Date/Time of Note Date/Time of Note DATE: 02/01/17 TIME: 18:10 Assessment/Plan VTE Prophylaxis VTE Prophylaxis Intervention: LMWH Lines/Catheters IV Catheter Type (from Nrsg): Peripheral IV Urinary Cath still in place: No Assessment/Plan Chief Complaint/Hosp Course 66 yo male with CKD II, DMII, venous stasis, PVD who presetns with nonhealing foot ulcers and lymphedema Foot ulcers: - Plan for BKA per Dr Lee this week - Wound vac to R leg Acute decompensated diastolic CHF: - Diuretics per renal GAIL: - Trend creatinine, consider holding ARB DM - NISS - Basal bolus insulin Problems: Subjective 24 Hr Interval Summary Free Text/Dictation Still having a lot of pain in legs Awaiting OR Exam/Review of Systems Vital Signs Vitals Vital Signs Date Time Temp Pulse Resp B/P Pulse Ox O2 Delivery O2 Flow Rate FiO2 02/01/17 14:05 98.6 77 18 143/86 96 01/28/17 21:30 Room Air Intake and Output 01/31/17 01/31/17 02/01/17 15:00 23:00 07:00 Intake Total 1200 ml 750 ml Output Total 1300 ml 450 ml Balance -100 ml 300 ml Exam Constitutional: alert, oriented, well developed Psych: nl mood/affect, no complaints Head: atraumatic, normocephalic Eyes: EOMI, PERRL, nl conjunctiva, nl lids, nl sclera ENMT: nl external ears & nose, nl lips & teeth, nl nasal mucosa & septum Neck: non-tender, supple Respiratory: clear to auscultation, normal air movement Cardiovascular: nl pulses, regular rate and rhythm Gastrointestinal: nl liver, spleen, non-tender, soft Musculoskeletal: nl extremities to inspection, nl gait and stance Extremities: normal pulses Neurological: [employer]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 intact, nl mental status, nl speech, nl strength Skin: nl turgor, No rash or lesions Lymph: nl lymph nodes Results Result Diagram: 01/31/17 0530 Results 24 hrs Laboratory Tests Test 01/31/17 21:01 02/01/17 08:03 02/01/17 12:04 02/01/17 16:26 Bedside Glucose 101 164 220 129 Medications Medications Current Medications Ondansetron HCl (Zofran Inj) 4 mg Q6H PRN IV NAUSEA AND/OR VOMITING; Start 01/24/17 at 19:00 Acetaminophen (Tylenol Tab) 650 mg Q6H PRN PO PAIN LEVEL 1-3 OR FEVER Last administered on 01/29/17 01:48; Admin Dose 650 MG; Start 01/24/17 at 19:00 Morphine Sulfate (morphine) 2 mg Q4H PRN IV SEVERE PAIN LEVEL 7-10 Last administered on 02/01/17 12:18; Admin Dose 2 MG; Start 01/24/17 at 19:00 Docusate Sodium (Colace) 100 mg Q12H PRN PO CONSTIPATION; Start 01/24/17 at 19: 00 Zolpidem Tartrate (Ambien) 5 mg QHS PRN PO SLEEP Last administered on 21:17; Admin Dose 5 MG; Start 01/24/17 at 19:00 Heparin Sodium (Porcine) (Heparin (5000 Units/0.5 ml)) 5,000 unit Q12 SC Last administered on 01/31/17 21:08; Admin Dose 5,000 UNIT; Start 01/24/17 at 21:00 Insulin Glargine (Lantus) 17 unit DAILY@08 SC Last administered on 02/01/17 08:11; Admin Dose 17 UNIT; Start 01/25/17 at 08:00 Diagnostic Test (Pha) (Accu-Chek) 1 ea 02 XX ; Start 01/25/17 at 02:00 Miscellaneous Information 1 ea NOTE XX ; Start 01/24/17 at 19:00 Glucose (Glutose) 15 gm Q15M PRN PO DECREASED GLUCOSE; Start 01/24/17 at 19:00 Glucose (Glutose) 22.5 gm Q15M PRN PO DECREASED GLUCOSE; Start 01/24/17 at 19: 00 Dextrose (D50w Syringe) 25 ml Q15M PRN IV DECREASED GLUCOSE; Start 01/24/17 at 19:00 Dextrose (D50w Syringe) 50 ml Q15M PRN IV DECREASED GLUCOSE; Start 01/24/17 at 19:00 Glucagon (Glucagen) 1 mg Q15M PRN IM DECREASED GLUCOSE; Start 01/24/17 at 19:00 Glucose (Glutose) 15 gm Q15M PRN BUCCAL DECREASED GLUCOSE; Start 01/24/17 at 19 :00 Acetaminophen/ Hydrocodone Bitart ([place] (5/325)) 1 tab Q4H PRN PO MODERATE PAIN LEVEL 4-6 Last administered on 01/31/17 21:50; Admin Dose 1 TAB; Start 01/24/17 at 23:00 Metoprolol Tartrate (Lopressor) 25 mg BID PO Last administered on 02/01/17 08 :08; Admin Dose 25 MG; Start 01/27/17 at 21:00 Clonidine (Catapres) 0.1 mg Q6H PRN PO SBP>170; Start 01/27/17 at 18:00 Valsartan (Diovan) 80 mg DAILY PO Last administered on 02/01/17 08:08; Admin Dose 80 MG; Start 01/29/17 at 09:00 Hydralazine HCl (Apresoline) 50 mg TID PO Last administered on 02/01/17 08:08 ; Admin Dose 50 MG; Start 01/28/17 at 21:00 Furosemide (Lasix) 40 mg DAILY IV Last administered on 02/01/17 08:10; Admin Dose 40 MG; Start 02/01/17 at 09:00 BRIDGET STEPHENS MD Feb 01, 2017 18:14
[2017-02-01] MEDS: HYDROCODONE/APAP (5/325) TAB PO PRN (19:36)
--- NOTE | 2017-02-01 20:10 | PN ---
Date/Time of Note Date/Time of Note DATE: 02/01/17 TIME: 20:01 Assessment/Plan Lines/Catheters IV Catheter Type (from [facility]): Peripheral IV Little in Place (from [facility]): No Assessment/Plan Chief Complaint/Hosp Course -Bilateral lower extremity atherosclerosis and gangrene: It seems the patients noncompliance of diabetes and poor hygiene presents with bilateral lower extremity diabetic foot ulcers and severe gangrene infection. He had presented to outside hospital with history of 3-4weeks of bilateral lower extremity swelling, redness, pain, maggots and foul smelling odor from bilateral lower legs and left heel. 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 Patient has undergone multiple debridements in order try to preserve his limb. -S/P Multiple debridements of muscle, ligament, tendon, bone, skin, and subcutaneous tissue and application ACell grafts in order to enhance granulation tissue development and eventual limb salvage and grafting for wound closure. -Unfortunately, the patients left achilles tendon was completely necrotic and cannot be preserved. We were able to clean the wounds and preserved the posterior muscle compartments that will serve as a flap coverage as he would require below knee amputation. -Will need to allow time to settle down his lower extremity edema -Cardiac evaluation appreciate -Optimize vascular status (BP meds, sugar control, cholesterol, diet, antiplatelets) -Discussed plan, findings and management with the patient and he understands and agreed to proceed -Thank you for allowing us to partake in the care of your patient, please call with any questions Problems: Subjective 24 Hr Interval Summary no new events overnight Exam/Review of Systems Vital Signs Vitals Vital Signs Date Time Temp Pulse Resp B/P Pulse Ox O2 Delivery O2 Flow Rate FiO2 02/01/17 14:05 98.6 77 18 143/86 96 01/28/17 21:30 Room Air Intake and Output 01/31/17 01/31/17 02/01/17 15:00 23:00 07:00 Intake Total 1200 ml 750 ml Output Total 1300 ml 450 ml Balance -100 ml 300 ml Exam Free Text/Dictation A&Ox3 CTAB S1S2 present soft NTND BS+ RLE: palpable femoral pulse, motor/sensory intact, cap refill 3 seconds, dressing intact and dry, edema LLE: palpable femoral pulse, motor/sensory intact, cap refill 3 seconds, dressing intact and dry, edema Results Result Diagram: 01/31/17 0530 ASHLEY CAROLINA MD Feb 01, 2017 20:10
[2017-02-01 20:42] VITALS: BP 165/84; RESP 18
[2017-02-01] MEDS: ATORVASTATIN 20 MG TAB PO SCH (21:48)
--- NOTE | 2017-02-01 23:59 | CONS ---
Date/Time of Note Date/Time of Note DATE: 02/01/17 TIME: 23:59 Assessment/Plan Assessment/Plan Problems: (1) Chronic pain syndrome Status: Chronic (2) Chronic kidney disease, stage III (moderate) Status: Chronic (3) Essential hypertension Status: Chronic (4) Acute congestive heart failure with left ventricular diastolic dysfunction Status: Acute (5) Diabetes mellitus type 2 in nonobese Status: Chronic Additional Assessment/Plan Pending vascular surgery intervention; no foot surgery recommended at this time. Thank you again for involving me in the care of this patient. If you have any questions regarding this case, please feel free to contact me at pager : [phone] or reach me at mobile: [phone]. Consultation Date/Type/Reason Admit Date/Time Jan 24, 2017 at 15:33 Date of Consultation: Feb 01, 2017 Type of Consultation: Foot and ankle surgery Hx of Present Illness Thank you very much for your kind consultation. As you very well know, this is a 66 male patient with mult med problems such as DM, PVD, HTN and blateral lower extremity atherosclerosis and gangrene. I was contacted to evaluate. Constitutional: no complaints Eyes: no complaints ENT: no complaints Respiratory: no complaints Cardiovascular: no complaints Gastrointestinal: no complaints Genitourinary: no complaints Musculoskeletal: no complaints Skin: skin lesions Neurologic: no complaints Lymphatic: no complaints Psychological: nl mood/affect, no complaints Immunologic: no complaints Past Medical History Medical History: diabetes, other (Chronic skin ulcers) Social History Alcohol Use: occasionally Smoking Status: Never smoker Exam/Review of Systems Vital Signs Vitals Vital Signs Date Time Temp Pulse Resp B/P Pulse Ox O2 Delivery O2 Flow Rate FiO2 02/01/17 20:42 99.0 83 18 165/84 93 01/28/17 21:30 Room Air Intake and Output 01/31/17 01/31/17 02/01/17 15:00 23:00 07:00 Intake Total 1200 ml 750 ml Output Total 1300 ml 450 ml Balance -100 ml 300 ml Exam Bilateral lower extremity gangrene with bilateral lower extremity diabetic foot ulcers and infection; bilateral lower extremity swelling, redness, pain to palpation and foul smelling odor from bilateral lower legs and left heel. Results Result Diagram: 01/31/17 0530 Results 24 hrs Laboratory Tests Test 02/01/17 08:03 02/01/17 12:04 02/01/17 16:26 02/01/17 21:44 Bedside Glucose 164 220 129 157 Medications Medications Current Medications Ondansetron HCl (Zofran Inj) 4 mg Q6H PRN IV NAUSEA AND/OR VOMITING; Start 01/24/17 at 19:00 Acetaminophen (Tylenol Tab) 650 mg Q6H PRN PO PAIN LEVEL 1-3 OR FEVER Last administered on 01/29/17 01:48; Admin Dose 650 MG; Start 01/24/17 at 19:00 Morphine Sulfate (morphine) 2 mg Q4H PRN IV SEVERE PAIN LEVEL 7-10 Last administered on 02/01/17 21:49; Admin Dose 2 MG; Start 01/24/17 at 19:00 Docusate Sodium (Colace) 100 mg Q12H PRN PO CONSTIPATION; Start 01/24/17 at 19: 00 Zolpidem Tartrate (Ambien) 5 mg QHS PRN PO SLEEP Last administered on 21:17; Admin Dose 5 MG; Start 01/24/17 at 19:00 Heparin Sodium (Porcine) (Heparin (5000 Units/0.5 ml)) 5,000 unit Q12 SC Last administered on 02/01/17 21:48; Admin Dose 5,000 UNIT; Start 01/24/17 at 21:00 Insulin Glargine (Lantus) 17 unit DAILY@08 SC Last administered on 02/01/17 08:11; Admin Dose 17 UNIT; Start 01/25/17 at 08:00 Diagnostic Test (Pha) (Accu-Chek) 1 ea 02 XX ; Start 01/25/17 at 02:00 Miscellaneous Information 1 ea NOTE XX ; Start 01/24/17 at 19:00 Glucose (Glutose) 15 gm Q15M PRN PO DECREASED GLUCOSE; Start 01/24/17 at 19:00 Glucose (Glutose) 22.5 gm Q15M PRN PO DECREASED GLUCOSE; Start 01/24/17 at 19: 00 Dextrose (D50w Syringe) 25 ml Q15M PRN IV DECREASED GLUCOSE; Start 01/24/17 at 19:00 Dextrose (D50w Syringe) 50 ml Q15M PRN IV DECREASED GLUCOSE; Start 01/24/17 at 19:00 Glucagon (Glucagen) 1 mg Q15M PRN IM DECREASED GLUCOSE; Start 01/24/17 at 19:00 Glucose (Glutose) 15 gm Q15M PRN BUCCAL DECREASED GLUCOSE; Start 01/24/17 at 19 :00 Acetaminophen/ Hydrocodone Bitart ([place] (5/325)) 1 tab Q4H PRN PO MODERATE PAIN LEVEL 4-6 Last administered on 02/01/17 19:36; Admin Dose 1 TAB; Start 01/24/17 at 23:00 Metoprolol Tartrate (Lopressor) 25 mg BID PO Last administered on 02/01/17 21 :47; Admin Dose 25 MG; Start 01/27/17 at 21:00 Clonidine (Catapres) 0.1 mg Q6H PRN PO SBP>170; Start 01/27/17 at 18:00 Valsartan (Diovan) 80 mg DAILY PO Last administered on 02/01/17 08:08; Admin Dose 80 MG; Start 01/29/17 at 09:00 Hydralazine HCl (Apresoline) 50 mg TID PO Last administered on 02/01/17 21:47 ; Admin Dose 50 MG; Start 01/28/17 at 21:00 Furosemide (Lasix) 40 mg DAILY IV Last administered on 02/01/17 08:10; Admin Dose 40 MG; Start 02/01/17 at 09:00 Atorvastatin Calcium (Lipitor) 20 mg HS PO Last administered on 02/01/17 21: 48; Admin Dose 20 MG; Start 02/01/17 at 21:00 THADDEUS VALDES DPM Feb 01, 2017 23:59
[2017-02-02] VITALS (9 sets, daily range): BP systolic 150–160; BP diastolic 80–87; PULSE 60–66; RESP 14–20
[2017-02-02] MEDS: ACCU-CHEK XX SCH (02:00)
[2017-02-02] MEDS: morphine 2 MG INJ IV PRN ×2 (06:29→21:27)
[2017-02-02] MEDS: INSULIN ASPART [NOVOLOG] 3 ML PEN SC SCH ×7 (07:35→21:00)
[2017-02-02] MEDS: HEPARIN 5,000 UNIT/0.5 ML VIAL SC SCH ×2 (07:57→21:24)
[2017-02-02] MEDS: ACETAMINOPHEN 325 MG TAB PO PRN (08:09)
[2017-02-02] MEDS: VALSARTAN 80 MG TAB PO SCH (08:10)
[2017-02-02] MEDS: FUROSEMIDE 40 MG INJ IV SCH (08:10)
[2017-02-02] MEDS: METOPROLOL 25 MG TAB PO SCH ×2 (08:10→21:22)
[2017-02-02] MEDS: INSULIN GLARGINE [LANtus] 3 ML PEN SC SCH (08:12)
[2017-02-02] MEDS ORDERED: BUPIVACAINE 0.5% (SDV) 30 ML INJ ONE (11:48)
[2017-02-02] MEDS ORDERED: ROPIVACAINE 0.5 % 30 ML VIAL ONE (11:48)
[2017-02-02] MEDS ORDERED: THROMBIN 5000 UNIT VIAL ONE (11:51)
[2017-02-02] MEDS ORDERED: POLYMYXIN/BACITRACIN 1L IRRIG ONE (11:52)
--- NOTE | 2017-02-02 11:58 | HPN ---
Date/Time of Note Date/Time of Note DATE: 02/02/17 TIME: 11:58 Interval H&P Admission Note Pt. seen H&P reviewed: No system changes ASHLEY CAROLINA MD Feb 02, 2017 11:58
[2017-02-02] MEDS ORDERED: LIDOCAINE 1% (MPF) 30 ML INJ INJ ONE (12:00)
--- NOTE | 2017-02-02 12:01 | SIPON ---
Date/Time of Note Date/Time of Note DATE: 02/02/17 TIME: 12:00 Operative Report Preoperative Diagnosis LLE GANGRENE Postoperative Diagnosis SAME Operation/Procedure Performed LEFT BELOW KNEE AMPUTATION AND WOUND VAC PLACEMENT Surgeon see signature line school health assistant NONE Anesthesia: other (REGIONAL BLOCK) Estimated blood loss: 50 - 100 ml's Transfusion Required none Specimen GANGRENE LEFT LOWER LEG Grafts/Implants none Complications none ASHLEY CAROLINA MD Feb 02, 2017 12:01
--- NOTE | 2017-02-02 12:01 | SIPON ---
Date/Time of Note Date/Time of Note DATE: 02/02/17 TIME: 12:00 Operative Report Preoperative Diagnosis LLE GANGRENE Postoperative Diagnosis SAME Operation/Procedure Performed LEFT BELOW KNEE AMPUTATION AND WOUND VAC PLACEMENT Surgeon see signature line senior it assistant NONE Anesthesia: other (REGIONAL BLOCK) Estimated blood loss: 50 - 100 ml's Transfusion Required none Specimen GANGRENE LEFT LOWER LEG Grafts/Implants none Complications none ASHLEY CAROLINA MD Feb 02, 2017 12:01
--- NOTE | 2017-02-02 12:01 | SIPON ---
Date/Time of Note Date/Time of Note DATE: 02/02/17 TIME: 12:00 Operative Report Preoperative Diagnosis LLE GANGRENE Postoperative Diagnosis SAME Operation/Procedure Performed LEFT BELOW KNEE AMPUTATION AND WOUND VAC PLACEMENT Surgeon see signature line pastrycook's assistant NONE Anesthesia: other (REGIONAL BLOCK) Estimated blood loss: 50 - 100 ml's Transfusion Required none Specimen GANGRENE LEFT LOWER LEG Grafts/Implants none Complications none ASHLEY CAROLINA MD Feb 02, 2017 12:01
[2017-02-02] MEDS ORDERED: POLYMYXIN/BACITRACIN 1L IRRIG IRR ONE (12:15)
[2017-02-02] MEDS ORDERED: MIDAZOLAM 1 MG/ML 2 ML INJ ONE ×2 (12:20→12:54)
[2017-02-02] MEDS ORDERED: FENTAnyl 50 MCG/ML VIAL ONE (12:20)
[2017-02-02] MEDS ORDERED: PROPOFOL 20 ML ONE (12:20)
[2017-02-02] MEDS ORDERED: KETAMINE 500 MG INJ ONE (12:27)
[2017-02-02] MEDS ORDERED: LIDOCAINE 1% (MPF) 30 ML INJ ONE (12:30)
[2017-02-02] MEDS ORDERED: CEFAZOLIN 1 GM INJ ONE (12:35)
--- NOTE | 2017-02-02 13:29 | CONS ---
Date/Time of Note Date/Time of Note DATE: 02/02/17 TIME: 13:27 Assessment/Plan Assessment/Plan Chief Complaint/Hosp Course IMPRESSION: 1. Congestive heart failure by chest x-ray, diastolic, likely acute on chronic by most recent echo. EF 50% 2. Hypertension, under reasonable control. 3. Preoperative. The patient at this time has tolerated lower extremity debridement, unclear whether other surgery may be required.-negative trop x 3 4. Anemia. 5. Nonhealing lower extremity ulcerations. 6. Diabetes mellitus. 7. MR-mod-sev by echo this admit Recc: -serial ecg's -Continue current hydralazine with increase to improve BP control -Continue BB and diovan -Continue Lasix diuresis/fluid restriction -local wound care -Follow BS closely with adjustment of insulin therapy as necessary Problems: Consultation Date/Type/Reason Admit Date/Time Jan 24, 2017 at 15:33 Initial Consult Date 01/26/2017 Type of Consultation: CARDIOLOGY Reason for Consultation chf Referring Provider: SELINA BAINS Exam/Review of Systems Vital Signs Vitals Vital Signs Date Time Temp Pulse Resp B/P Pulse Ox O2 Delivery O2 Flow Rate FiO2 02/02/17 08:00 99.6 87 18 159/80 98 Intake and Output 02/01/17 02/01/17 02/02/17 15:00 23:00 07:00 Intake Total 1170 ml 0 ml Output Total 800 ml 700 ml Balance 370 ml -700 ml Exam Review of Systems: CONSTITUTIONAL: No fevers, chills. PULMONARY: No sob CARDIOVASCULAR: No chest pain/palpitations GASTROINTESTINAL: No nausea/vomiting. GENITOURINARY: No hematuria/dysuria. MUSCULOSKELETAL: No myagias/arthalgias. PSYCHIATRIC: The patient denies depression. NEUROLOGIC: No weakness Constitutional: alert Psych: no complaints Head: normocephalic ENMT: mucosa pink and moist Neck: jvd, supple Respiratory: diminished breath sounds Cardiovascular: regular rate and rhythm Gastrointestinal: non-tender, soft Musculoskeletal: muscle tone (normal) Extremities: pitting pedal edema (edema/B) Neurological: other (No focal deficits) Results Result Diagram: 02/02/1762002/02/17620 Results 24 hrs Laboratory Tests Test 02/01/17 16:26 02/01/17 21:44 02/02/17 06:21 02/02/17 07:51 Bedside Glucose 129 157 172 White Blood Count 14.1 #H Red Blood Count 3.30 L Hemoglobin 8.4 L Hematocrit 27.9 L Mean Corpuscular Volume 84.5 Mean Corpuscular Hemoglobin 25.5 L Mean Corpuscular Hemoglobin Concent 30.1 L Red Cell Distribution Width 17.5 H Platelet Count 427 #H Mean Platelet Volume 9.2 Neutrophils % 77.5 H Lymphocytes % 13.5 L Monocytes % 6.2 Eosinophils % 1.6 Basophils % 0.4 Nucleated Red Blood Cells % 0.0 Neutrophils # 11.0 H Lymphocytes # 1.9 Monocytes # 0.9 Eosinophils # 0.2 Basophils # 0.1 Nucleated Red Blood Cells # 0.0 Sodium Level 136 Potassium Level 4.2 Chloride Level 101 Carbon Dioxide Level 26 Anion Gap 13 Blood Urea Nitrogen 28 H Creatinine 1.93 H Glucose Level 140 Calcium Level 8.1 L Iron Level 19 L Total Iron Binding Capacity 250 Percent Iron Saturation 8 L Ferritin 234.0 Total Bilirubin 0.4 Direct Bilirubin 0.00 Indirect Bilirubin 0.4 Aspartate Amino Transf (AST/SGOT) 21 Alanine Aminotransferase (ALT/SGPT) 23 Alkaline Phosphatase 234 H Total Protein 6.3 Albumin 2.8 L Globulin 3.50 H Albumin/Globulin Ratio 0.80 Medications Medications Current Medications Ondansetron HCl (Zofran Inj) 4 mg Q6H PRN IV NAUSEA AND/OR VOMITING; Start 01/24/17 at 19:00 Acetaminophen (Tylenol Tab) 650 mg Q6H PRN PO PAIN LEVEL 1-3 OR FEVER Last administered on 02/02/17 08:09; Admin Dose 650 MG; Start 01/24/17 at 19:00 Morphine Sulfate (morphine) 2 mg Q4H PRN IV SEVERE PAIN LEVEL 7-10 Last administered on 02/02/17 06:29; Admin Dose 2 MG; Start 01/24/17 at 19:00 Docusate Sodium (Colace) 100 mg Q12H PRN PO CONSTIPATION; Start 01/24/17 at 19: 00 Zolpidem Tartrate (Ambien) 5 mg QHS PRN PO SLEEP Last administered on 21:17; Admin Dose 5 MG; Start 01/24/17 at 19:00 Heparin Sodium (Porcine) (Heparin (5000 Units/0.5 ml)) 5,000 unit Q12 SC Last administered on 02/01/17 21:48; Admin Dose 5,000 UNIT; Start 01/24/17 at 21:00 Insulin Glargine (Lantus) 17 unit DAILY@08 SC Last administered on 02/02/17 08:12; Admin Dose 17 UNIT; Start 01/25/17 at 08:00 Diagnostic Test (Pha) (Accu-Chek) 1 ea 02 XX ; Start 01/25/17 at 02:00 Miscellaneous Information 1 ea NOTE XX ; Start 01/24/17 at 19:00 Glucose (Glutose) 15 gm Q15M PRN PO DECREASED GLUCOSE; Start 01/24/17 at 19:00 Glucose (Glutose) 22.5 gm Q15M PRN PO DECREASED GLUCOSE; Start 01/24/17 at 19: 00 Dextrose (D50w Syringe) 25 ml Q15M PRN IV DECREASED GLUCOSE; Start 01/24/17 at 19:00 Dextrose (D50w Syringe) 50 ml Q15M PRN IV DECREASED GLUCOSE; Start 01/24/17 at 19:00 Glucagon (Glucagen) 1 mg Q15M PRN IM DECREASED GLUCOSE; Start 01/24/17 at 19:00 Glucose (Glutose) 15 gm Q15M PRN BUCCAL DECREASED GLUCOSE; Start 01/24/17 at 19 :00 Acetaminophen/ Hydrocodone Bitart ([place] (5/325)) 1 tab Q4H PRN PO MODERATE PAIN LEVEL 4-6 Last administered on 02/01/17 19:36; Admin Dose 1 TAB; Start 01/24/17 at 23:00 Metoprolol Tartrate (Lopressor) 25 mg BID PO Last administered on 02/02/17 08 :10; Admin Dose 25 MG; Start 01/27/17 at 21:00 Clonidine (Catapres) 0.1 mg Q6H PRN PO SBP>170; Start 01/27/17 at 18:00 Valsartan (Diovan) 80 mg DAILY PO Last administered on 02/02/17 08:10; Admin Dose 80 MG; Start 01/29/17 at 09:00 Hydralazine HCl (Apresoline) 50 mg TID PO Last administered on 02/02/17 08:10 ; Admin Dose 50 MG; Start 01/28/17 at 21:00 Furosemide (Lasix) 40 mg DAILY IV Last administered on 02/02/17 08:10; Admin Dose 40 MG; Start 02/01/17 at 09:00 Atorvastatin Calcium (Lipitor) 20 mg HS PO Last administered on 02/01/17 21: 48; Admin Dose 20 MG; Start 02/01/17 at 21:00 CLARITZA FLORES Feb 02, 2017 13:29
[2017-02-02] MEDS ORDERED: ONDANSETRON 4 MG INJ IV PRN (14:30)
[2017-02-02] MEDS ORDERED: MIDAZOLAM 1 MG/ML 2 ML INJ IV PRN (14:30)
[2017-02-02] MEDS ORDERED: MEPERIDINE 25 MG INJ IV PRN (14:30)
[2017-02-02] MEDS ORDERED: DIPHENHYDRAMINE 50 MG INJ IV PRN (14:30)
[2017-02-02] MEDS ORDERED: METOCLOPRAMIDE 10 MG INJ IV PRN (14:30)
[2017-02-02] MEDS ORDERED: HYDROmorphONE (0.2 MG/ML) 10ML SYG IV PRN ×3 (14:30)
[2017-02-02] MEDS ORDERED: EPHEDrine SULFATE 50 MG/5 ML SYG IV PRN (14:30)
[2017-02-02] MEDS ORDERED: hydrALAzine 20 MG INJ IV PRN ×2 (14:30→18:00)
[2017-02-02] MEDS ORDERED: LABETALOL HCL 20MG INJ IV PRN (14:30)
[2017-02-02] MEDS ORDERED: OXYCODONE/ACETAMINOPHEN (5/325) TAB PO PRN ×2 (14:30)
[2017-02-02] MEDS ORDERED: FENTAnyl 50 MCG/ML VIAL IV PRN ×3 (14:30)
--- NOTE | 2017-02-02 16:31 | PN ---
Date/Time of Note Date/Time of Note DATE: 02/02/17 TIME: 16:30 Assessment/Plan VTE Prophylaxis VTE Prophylaxis Intervention: LMWH Lines/Catheters [facility] Saline Lock Urinary Cath still in place: No Assessment/Plan Chief Complaint/Hosp Course 66 yo male with CKD II, DMII, venous stasis, PVD who presetns with nonhealing foot ulcers and lymphedema Foot ulcers: - Today BKA per Dr Lee - Wound vac to R leg wound Acute decompensated diastolic CHF: - Diuretics per renal GAIL: - Trend creatinine, consider holding ARB DM - NISS - Basal bolus insulin Problems: Subjective 24 Hr Interval Summary Free Text/Dictation Patient not seen today, off the floor in the OR for amputation Exam/Review of Systems Vital Signs Vitals Vital Signs Date Time Temp Pulse Resp B/P Pulse Ox O2 Delivery O2 Flow Rate FiO2 02/02/17 14:52 60 19 154/84 98 Nasal Cannula 3.0 02/02/17 14:37 98.9 Intake and Output 02/01/17 02/01/17 02/02/17 15:00 23:00 07:00 Intake Total 1170 ml 0 ml Output Total 800 ml 700 ml Balance 370 ml -700 ml Results Result Diagram: 02/02/17 0621 02/02/17 0621 Results 24 hrs Laboratory Tests Test 02/01/17 21:44 02/02/17 06:21 02/02/17 07:51 Bedside Glucose 157 172 White Blood Count 14.1 #H Red Blood Count 3.30 L Hemoglobin 8.4 L Hematocrit 27.9 L Mean Corpuscular Volume 84.5 Mean Corpuscular Hemoglobin 25.5 L Mean Corpuscular Hemoglobin Concent 30.1 L Red Cell Distribution Width 17.5 H Platelet Count 427 #H Mean Platelet Volume 9.2 Neutrophils % 77.5 H Lymphocytes % 13.5 L Monocytes % 6.2 Eosinophils % 1.6 Basophils % 0.4 Nucleated Red Blood Cells % 0.0 Neutrophils # 11.0 H Lymphocytes # 1.9 Monocytes # 0.9 Eosinophils # 0.2 Basophils # 0.1 Nucleated Red Blood Cells # 0.0 Sodium Level 136 Potassium Level 4.2 Chloride Level 101 Carbon Dioxide Level 26 Anion Gap 13 Blood Urea Nitrogen 28 H Creatinine 1.93 H Glucose Level 140 Calcium Level 8.1 L Iron Level 19 L Total Iron Binding Capacity 250 Percent Iron Saturation 8 L Ferritin 234.0 Total Bilirubin 0.4 Direct Bilirubin 0.00 Indirect Bilirubin 0.4 Aspartate Amino Transf (AST/SGOT) 21 Alanine Aminotransferase (ALT/SGPT) 23 Alkaline Phosphatase 234 H Total Protein 6.3 Albumin 2.8 L Globulin 3.50 H Albumin/Globulin Ratio 0.80 Medications Medications Current Medications Ondansetron HCl (Zofran Inj) 4 mg Q6H PRN IV NAUSEA AND/OR VOMITING; Start 01/24/17 at 19:00 Acetaminophen (Tylenol Tab) 650 mg Q6H PRN PO PAIN LEVEL 1-3 OR FEVER Last administered on 02/02/17 08:09; Admin Dose 650 MG; Start 01/24/17 at 19:00 Morphine Sulfate (morphine) 2 mg Q4H PRN IV SEVERE PAIN LEVEL 7-10 Last administered on 02/02/17 06:29; Admin Dose 2 MG; Start 01/24/17 at 19:00 Docusate Sodium (Colace) 100 mg Q12H PRN PO CONSTIPATION; Start 01/24/17 at 19: 00 Zolpidem Tartrate (Ambien) 5 mg QHS PRN PO SLEEP Last administered on 21:17; Admin Dose 5 MG; Start 01/24/17 at 19:00 Heparin Sodium (Porcine) (Heparin (5000 Units/0.5 ml)) 5,000 unit Q12 SC Last administered on 02/01/17 21:48; Admin Dose 5,000 UNIT; Start 01/24/17 at 21:00 Insulin Glargine (Lantus) 17 unit DAILY@08 SC Last administered on 02/02/17 08:12; Admin Dose 17 UNIT; Start 01/25/17 at 08:00 Diagnostic Test (Pha) (Accu-Chek) 1 ea 02 XX ; Start 01/25/17 at 02:00 Miscellaneous Information 1 ea NOTE XX ; Start 01/24/17 at 19:00 Glucose (Glutose) 15 gm Q15M PRN PO DECREASED GLUCOSE; Start 01/24/17 at 19:00 Glucose (Glutose) 22.5 gm Q15M PRN PO DECREASED GLUCOSE; Start 01/24/17 at 19: 00 Dextrose (D50w Syringe) 25 ml Q15M PRN IV DECREASED GLUCOSE; Start 01/24/17 at 19:00 Dextrose (D50w Syringe) 50 ml Q15M PRN IV DECREASED GLUCOSE; Start 01/24/17 at 19:00 Glucagon (Glucagen) 1 mg Q15M PRN IM DECREASED GLUCOSE; Start 01/24/17 at 19:00 Glucose (Glutose) 15 gm Q15M PRN BUCCAL DECREASED GLUCOSE; Start 01/24/17 at 19 :00 Acetaminophen/ Hydrocodone Bitart ([place] (5/325)) 1 tab Q4H PRN PO MODERATE PAIN LEVEL 4-6 Last administered on 02/01/17 19:36; Admin Dose 1 TAB; Start 01/24/17 at 23:00 Metoprolol Tartrate (Lopressor) 25 mg BID PO Last administered on 02/02/17 08 :10; Admin Dose 25 MG; Start 01/27/17 at 21:00 Clonidine (Catapres) 0.1 mg Q6H PRN PO SBP>170; Start 01/27/17 at 18:00 Valsartan (Diovan) 80 mg DAILY PO Last administered on 02/02/17 08:10; Admin Dose 80 MG; Start 01/29/17 at 09:00 Furosemide (Lasix) 40 mg DAILY IV Last administered on 02/02/17 08:10; Admin Dose 40 MG; Start 02/01/17 at 09:00 Atorvastatin Calcium (Lipitor) 20 mg HS PO Last administered on 02/01/17 21: 48; Admin Dose 20 MG; Start 02/01/17 at 21:00 Hydralazine HCl (Apresoline) 25 mg TID PO ; Start 02/02/17 at 21:00 BRIDGET STEPHENS MD Feb 02, 2017 16:31
--- NOTE | 2017-02-02 18:01 | CONS ---
Date/Time of Note Date/Time of Note DATE: 02/02/17 TIME: 17:59 Assessment/Plan Assessment/Plan Chief Complaint/Hosp Course 66 y/o with # Patient has possible underlying chronic kidney disease with mild GAIL Cr trending up? hemodynamic s/p AKA # chronic lower extremity lymphedema and cellulitis. # CHF likley diastolic # hypertension, anemia. # DM # Abnormal LFT # Skin wounds # Hypoalbunemia # Bilateral lower extremity atherosclerosis and gangrene Plan - c/w iv lasix to 40 mg - Hold valsartan for GAIL - Plan for GAIL today - dm management per primary - Fluid restriction to 1.5 L - Avoid nephrotoxic agents Problems: Consultation Date/Type/Reason Admit Date/Time Jan 24, 2017 at 15:33 Type of Consultation: Renal Referring Provider: SELINA BAINS 24 HR Interval Summary Free Text/Dictation s/p AKA today Exam/Review of Systems Vital Signs Vitals Vital Signs Date Time Temp Pulse Resp B/P Pulse Ox O2 Delivery O2 Flow Rate FiO2 02/02/17 14:52 60 19 154/84 98 Nasal Cannula 3.0 02/02/17 14:37 98.9 Intake and Output 02/01/17 02/01/17 02/02/17 15:00 23:00 07:00 Intake Total 1170 ml 0 ml Output Total 800 ml 700 ml Balance 370 ml -700 ml Exam &Ox3 CTAB S1S2 present soft NTND BS+ Extremities: left AKA Neurological: other (No focal defic Results Result Diagram: 02/02/17 0602/02/17 0621 Results 24 hrs Laboratory Tests Test 02/01/17 21:44 02/02/17 06:21 02/02/17 07:51 02/02/17 17:26 Bedside Glucose 157 172 161 White Blood Count 14.1 #H Red Blood Count 3.30 L Hemoglobin 8.4 L Hematocrit 27.9 L Mean Corpuscular Volume 84.5 Mean Corpuscular Hemoglobin 25.5 L Mean Corpuscular Hemoglobin Concent 30.1 L Red Cell Distribution Width 17.5 H Platelet Count 427 #H Mean Platelet Volume 9.2 Neutrophils % 77.5 H Lymphocytes % 13.5 L Monocytes % 6.2 Eosinophils % 1.6 Basophils % 0.4 Nucleated Red Blood Cells % 0.0 Neutrophils # 11.0 H Lymphocytes # 1.9 Monocytes # 0.9 Eosinophils # 0.2 Basophils # 0.1 Nucleated Red Blood Cells # 0.0 Sodium Level 136 Potassium Level 4.2 Chloride Level 101 Carbon Dioxide Level 26 Anion Gap 13 Blood Urea Nitrogen 28 H Creatinine 1.93 H Glucose Level 140 Calcium Level 8.1 L Iron Level 19 L Total Iron Binding Capacity 250 Percent Iron Saturation 8 L Ferritin 234.0 Total Bilirubin 0.4 Direct Bilirubin 0.00 Indirect Bilirubin 0.4 Aspartate Amino Transf (AST/SGOT) 21 Alanine Aminotransferase (ALT/SGPT) 23 Alkaline Phosphatase 234 H Total Protein 6.3 Albumin 2.8 L Globulin 3.50 H Albumin/Globulin Ratio 0.80 Medications Medications Current Medications Ondansetron HCl (Zofran Inj) 4 mg Q6H PRN IV NAUSEA AND/OR VOMITING; Start 01/24/17 at 19:00 Acetaminophen (Tylenol Tab) 650 mg Q6H PRN PO PAIN LEVEL 1-3 OR FEVER Last administered on 02/02/17 08:09; Admin Dose 650 MG; Start 01/24/17 at 19:00 Morphine Sulfate (morphine) 2 mg Q4H PRN IV SEVERE PAIN LEVEL 7-10 Last administered on 02/02/17 06:29; Admin Dose 2 MG; Start 01/24/17 at 19:00 Docusate Sodium (Colace) 100 mg Q12H PRN PO CONSTIPATION; Start 01/24/17 at 19: 00 Zolpidem Tartrate (Ambien) 5 mg QHS PRN PO SLEEP Last administered on 21:17; Admin Dose 5 MG; Start 01/24/17 at 19:00 Heparin Sodium (Porcine) (Heparin (5000 Units/0.5 ml)) 5,000 unit Q12 SC Last administered on 02/01/17 21:48; Admin Dose 5,000 UNIT; Start 01/24/17 at 21:00 Insulin Glargine (Lantus) 17 unit DAILY@08 SC Last administered on 02/02/17 08:12; Admin Dose 17 UNIT; Start 01/25/17 at 08:00 Diagnostic Test (Pha) (Accu-Chek) 1 ea 02 XX ; Start 01/25/17 at 02:00 Miscellaneous Information 1 ea NOTE XX ; Start 01/24/17 at 19:00 Glucose (Glutose) 15 gm Q15M PRN PO DECREASED GLUCOSE; Start 01/24/17 at 19:00 Glucose (Glutose) 22.5 gm Q15M PRN PO DECREASED GLUCOSE; Start 01/24/17 at 19: 00 Dextrose (D50w Syringe) 25 ml Q15M PRN IV DECREASED GLUCOSE; Start 01/24/17 at 19:00 Dextrose (D50w Syringe) 50 ml Q15M PRN IV DECREASED GLUCOSE; Start 01/24/17 at 19:00 Glucagon (Glucagen) 1 mg Q15M PRN IM DECREASED GLUCOSE; Start 01/24/17 at 19:00 Glucose (Glutose) 15 gm Q15M PRN BUCCAL DECREASED GLUCOSE; Start 01/24/17 at 19 :00 Acetaminophen/ Hydrocodone Bitart ([place] (5/325)) 1 tab Q4H PRN PO MODERATE PAIN LEVEL 4-6 Last administered on 02/01/17 19:36; Admin Dose 1 TAB; Start 01/24/17 at 23:00 Metoprolol Tartrate (Lopressor) 25 mg BID PO Last administered on 02/02/17 08 :10; Admin Dose 25 MG; Start 01/27/17 at 21:00 Clonidine (Catapres) 0.1 mg Q6H PRN PO SBP>170; Start 01/27/17 at 18:00 Valsartan (Diovan) 80 mg DAILY PO Last administered on 02/02/17 08:10; Admin Dose 80 MG; Start 01/29/17 at 09:00 Furosemide (Lasix) 40 mg DAILY IV Last administered on 02/02/17 08:10; Admin Dose 40 MG; Start 02/01/17 at 09:00 Atorvastatin Calcium (Lipitor) 20 mg HS PO Last administered on 02/01/17 21: 48; Admin Dose 20 MG; Start 02/01/17 at 21:00 Hydralazine HCl (Apresoline) 25 mg TID PO ; Start 02/02/17 at 21:00 LUIS ANTONIO WHITLOCK MD Feb 02, 2017 18:01
[2017-02-02] MEDS: HYDROCODONE/APAP (5/325) TAB PO PRN (18:22)
[2017-02-02] MEDS: ATORVASTATIN 20 MG TAB PO SCH (21:22)
[2017-02-03] MEDS: ACCU-CHEK XX SCH (02:00)
[2017-02-03 02:15] VITALS: BP 164/87; RESP 18
[2017-02-03] MEDS: HYDROCODONE/APAP (5/325) TAB PO PRN ×3 (04:05→17:27)
[2017-02-03 08:00] VITALS: BP 154/62; RESP 20
[2017-02-03] MEDS: FUROSEMIDE 40 MG INJ IV SCH (08:21)
[2017-02-03] MEDS: METOPROLOL 25 MG TAB PO SCH ×2 (08:21→20:41)
[2017-02-03] MEDS: HEPARIN 5,000 UNIT/0.5 ML VIAL SC SCH ×2 (08:23→20:45)
[2017-02-03] MEDS: INSULIN ASPART [NOVOLOG] 3 ML PEN SC SCH ×7 (08:24→20:41)
[2017-02-03] MEDS: INSULIN GLARGINE [LANtus] 3 ML PEN SC SCH (08:26)
[2017-02-03] MEDS: morphine 2 MG INJ IV PRN ×2 (12:22→20:39)
[2017-02-03 14:00] VITALS: BP 154/62; RESP 20
--- NOTE | 2017-02-03 15:10 | PN ---
Date/Time of Note Date/Time of Note DATE: 02/03/17 TIME: 15:09 Assessment/Plan VTE Prophylaxis VTE Prophylaxis Intervention: LMWH Lines/Catheters IV Catheter Type (from Nrs): Saline Lock Urinary Cath still in place: No Assessment/Plan Chief Complaint/Hosp Course 66 yo male with CKD II, DMII, venous stasis, PVD who presetns with nonhealing foot ulcers and lymphedema Foot ulcers: - s/p L BKA yesterday per Dr Lee - Wound vac to R leg wound Acute decompensated diastolic CHF: - Diuretics per renal GAIL: - Trend creatinine, consider holding ARB DM - NISS - Basal bolus insulin Anemia of chronic CKD and chronic inflammation Problems: Subjective 24 Hr Interval Summary Free Text/Dictation underwent BKA yesterday Doing well wound vac still on R leg No complaints Exam/Review of Systems Vital Signs Vitals Vital Signs Date Time Temp Pulse Resp B/P Pulse Ox O2 Delivery O2 Flow Rate FiO2 02/03/17 14:00 98.8 90 20 154/62 98 02/03/17 10:03 Nasal Cannula 2.0 Intake and Output 02/02/17 02/02/17 02/03/17 15:00 23:00 07:00 Intake Total 1050 ml 150 ml 960 ml Output Total 100 ml 30 ml 840 ml Balance 950 ml 120 ml 120 ml Exam Constitutional: alert, oriented, well developed Psych: nl mood/affect, no complaints Head: atraumatic, normocephalic Eyes: EOMI, PERRL, nl conjunctiva, nl lids, nl sclera ENMT: nl external ears & nose, nl lips & teeth, nl nasal mucosa & septum Neck: non-tender, supple Respiratory: clear to auscultation, normal air movement Cardiovascular: nl pulses, regular rate and rhythm Gastrointestinal: nl liver, spleen, non-tender, soft Musculoskeletal: nl extremities to inspection, nl gait and stance Extremities: normal pulses Neurological: [employer] II-XII intact, nl mental status, nl speech, nl strength Skin: nl turgor, No rash or lesions Lymph: nl lymph nodes Results Result Diagram: 02/03/17 0444 02/03/17 0424 Results 24 hrs Laboratory Tests Test 02/02/17 17:26 02/02/17 21:18 02/03/17 04:24 02/03/17 04:44 Bedside Glucose 161 146 Sodium Level 135 Potassium Level 3.9 Chloride Level 102 Carbon Dioxide Level 25 Anion Gap 12 Blood Urea Nitrogen 26 H Creatinine 1.60 H Glucose Level 119 Calcium Level 8.3 L White Blood Count 22.7 #H Red Blood Count 3.48 L Hemoglobin 9.1 L Hematocrit 29.0 L Mean Corpuscular Volume 83.3 Mean Corpuscular Hemoglobin 26.1 L Mean Corpuscular Hemoglobin Concent 31.4 L Red Cell Distribution Width 16.9 H Platelet Count 478 H Mean Platelet Volume 9.2 Neutrophils % 84.1 H Lymphocytes % 9.2 L Monocytes % 5.3 Eosinophils % 0.1 Basophils % 0.3 Nucleated Red Blood Cells % 0.0 Neutrophils # 19.1 H Lymphocytes # 2.1 Monocytes # 1.2 H Eosinophils # 0.0 Basophils # 0.1 Nucleated Red Blood Cells # 0.0 Test 02/03/17 07:55 02/03/17 12:01 Bedside Glucose 152 152 Medications Medications Current Medications Ondansetron HCl (Zofran Inj) 4 mg Q6H PRN IV NAUSEA AND/OR VOMITING; Start 01/24/17 at 19:00 Acetaminophen (Tylenol Tab) 650 mg Q6H PRN PO PAIN LEVEL 1-3 OR FEVER Last administered on 02/02/17 08:09; Admin Dose 650 MG; Start 01/24/17 at 19:00 Morphine Sulfate (morphine) 2 mg Q4H PRN IV SEVERE PAIN LEVEL 7-10 Last administered on 02/03/17 12:22; Admin Dose 2 MG; Start 01/24/17 at 19:00 Docusate Sodium (Colace) 100 mg Q12H PRN PO CONSTIPATION; Start 01/24/17 at 19: 00 Zolpidem Tartrate (Ambien) 5 mg QHS PRN PO SLEEP Last administered on 21:17; Admin Dose 5 MG; Start 01/24/17 at 19:00 Heparin Sodium (Porcine) (Heparin (5000 Units/0.5 ml)) 5,000 unit Q12 SC Last administered on 02/03/17 08:23; Admin Dose 5,000 UNIT; Start 01/24/17 at 21:00 Insulin Glargine (Lantus) 17 unit DAILY@08 SC Last administered on 02/03/17 08:26; Admin Dose 17 UNIT; Start 01/25/17 at 08:00 Diagnostic Test (Pha) (Accu-Chek) 1 ea 02 XX ; Start 01/25/17 at 02:00 Miscellaneous Information 1 ea NOTE XX ; Start 01/24/17 at 19:00 Glucose (Glutose) 15 gm Q15M PRN PO DECREASED GLUCOSE; Start 01/24/17 at 19:00 Glucose (Glutose) 22.5 gm Q15M PRN PO DECREASED GLUCOSE; Start 01/24/17 at 19: 00 Dextrose (D50w Syringe) 25 ml Q15M PRN IV DECREASED GLUCOSE; Start 01/24/17 at 19:00 Dextrose (D50w Syringe) 50 ml Q15M PRN IV DECREASED GLUCOSE; Start 01/24/17 at 19:00 Glucagon (Glucagen) 1 mg Q15M PRN IM DECREASED GLUCOSE; Start 01/24/17 at 19:00 Glucose (Glutose) 15 gm Q15M PRN BUCCAL DECREASED GLUCOSE; Start 01/24/17 at 19 :00 Acetaminophen/ Hydrocodone Bitart ([place] (5/325)) 1 tab Q4H PRN PO MODERATE PAIN LEVEL 4-6 Last administered on 02/03/17 08:43; Admin Dose 1 TAB; Start 01/24/17 at 23:00 Metoprolol Tartrate (Lopressor) 25 mg BID PO Last administered on 02/03/17 08 :21; Admin Dose 25 MG; Start 01/27/17 at 21:00 Clonidine (Catapres) 0.1 mg Q6H PRN PO SBP>170; Start 01/27/17 at 18:00 Furosemide (Lasix) 40 mg DAILY IV Last administered on 02/03/17 08:21; Admin Dose 40 MG; Start 02/01/17 at 09:00 Atorvastatin Calcium (Lipitor) 20 mg HS PO Last administered on 02/02/17 21: 22; Admin Dose 20 MG; Start 02/01/17 at 21:00 Hydralazine HCl (Apresoline) 25 mg TID PO Last administered on 02/03/17 12:19 ; Admin Dose 25 MG; Start 02/02/17 at 21:00 Hydralazine HCl (Apresoline) 5 mg Q6H PRN IV sbp>170; Start 02/02/17 at 18:00 BRIDGET STEHPENS MD Feb 03, 2017 15:10
--- NOTE | 2017-02-03 15:20 | CONS ---
Date/Time of Note Date/Time of Note DATE: 02/03/17 TIME: 15:19 Assessment/Plan Assessment/Plan Chief Complaint/Hosp Course 66 y/o with # Patient has possible underlying chronic kidney disease with mild GAIL Cr trending up? hemodynamic s/p AKA # chronic lower extremity lymphedema and cellulitis. # CHF likley diastolic # hypertension, anemia. # DM # Abnormal LFT # Skin wounds # Hypoalbunemia # Bilateral lower extremity atherosclerosis and gangrene Plan - c/w iv lasix to 40 mg - Hold valsartan for GAIL - Cr improved - dm management per primary - Fluid restriction to 1.5 L - Avoid nephrotoxic agents Problems: Consultation Date/Type/Reason Admit Date/Time Jan 24, 2017 at 15:33 Type of Consultation: Renal Referring Provider: SELINA BAINS 24 HR Interval Summary Free Text/Dictation Pt complaining of pain at surgical site Exam/Review of Systems Vital Signs Vitals Vital Signs Date Time Temp Pulse Resp B/P Pulse Ox O2 Delivery O2 Flow Rate FiO2 02/03/17 14:00 98.8 90 20 154/62 98 02/03/17 10:03 Nasal Cannula 2.0 Intake and Output 02/02/17 02/02/17 02/03/17 15:00 23:00 07:00 Intake Total 1050 ml 150 ml 960 ml Output Total 100 ml 30 ml 840 ml Balance 950 ml 120 ml 120 ml Results A&Ox3 CTAB S1S2 present soft NTND BS+ Extremities: left AKA Neurological: other (No focal defic Result Diagram: 02/03/17 0444 02/03/17 0424 Results 24 hrs Laboratory Tests Test 02/02/17 17:26 02/02/17 21:18 02/03/17 04:24 02/03/17 04:44 Bedside Glucose 161 146 Sodium Level 135 Potassium Level 3.9 Chloride Level 102 Carbon Dioxide Level 25 Anion Gap 12 Blood Urea Nitrogen 26 H Creatinine 1.60 H Glucose Level 119 Calcium Level 8.3 L White Blood Count 22.7 #H Red Blood Count 3.48 L Hemoglobin 9.1 L Hematocrit 29.0 L Mean Corpuscular Volume 83.3 Mean Corpuscular Hemoglobin 26.1 L Mean Corpuscular Hemoglobin Concent 31.4 L Red Cell Distribution Width 16.9 H Platelet Count 478 H Mean Platelet Volume 9.2 Neutrophils % 84.1 H Lymphocytes % 9.2 L Monocytes % 5.3 Eosinophils % 0.1 Basophils % 0.3 Nucleated Red Blood Cells % 0.0 Neutrophils # 19.1 H Lymphocytes # 2.1 Monocytes # 1.2 H Eosinophils # 0.0 Basophils # 0.1 Nucleated Red Blood Cells # 0.0 Test 02/03/17 07:55 02/03/17 12:01 Bedside Glucose 152 152 Medications Medications Current Medications Ondansetron HCl (Zofran Inj) 4 mg Q6H PRN IV NAUSEA AND/OR VOMITING; Start 01/24/17 at 19:00 Acetaminophen (Tylenol Tab) 650 mg Q6H PRN PO PAIN LEVEL 1-3 OR FEVER Last administered on 02/02/17 08:09; Admin Dose 650 MG; Start 01/24/17 at 19:00 Morphine Sulfate (morphine) 2 mg Q4H PRN IV SEVERE PAIN LEVEL 7-10 Last administered on 02/03/17 12:22; Admin Dose 2 MG; Start 01/24/17 at 19:00 Docusate Sodium (Colace) 100 mg Q12H PRN PO CONSTIPATION; Start 01/24/17 at 19: 00 Zolpidem Tartrate (Ambien) 5 mg QHS PRN PO SLEEP Last administered on 21:17; Admin Dose 5 MG; Start 01/24/17 at 19:00 Heparin Sodium (Porcine) (Heparin (5000 Units/0.5 ml)) 5,000 unit Q12 SC Last administered on 02/03/17 08:23; Admin Dose 5,000 UNIT; Start 01/24/17 at 21:00 Insulin Glargine (Lantus) 17 unit DAILY@08 SC Last administered on 02/03/17 08:26; Admin Dose 17 UNIT; Start 01/25/17 at 08:00 Diagnostic Test (Pha) (Accu-Chek) 1 ea 02 XX ; Start 01/25/17 at 02:00 Miscellaneous Information 1 ea NOTE XX ; Start 01/24/17 at 19:00 Glucose (Glutose) 15 gm Q15M PRN PO DECREASED GLUCOSE; Start 01/24/17 at 19:00 Glucose (Glutose) 22.5 gm Q15M PRN PO DECREASED GLUCOSE; Start 01/24/17 at 19: 00 Dextrose (D50w Syringe) 25 ml Q15M PRN IV DECREASED GLUCOSE; Start 01/24/17 at 19:00 Dextrose (D50w Syringe) 50 ml Q15M PRN IV DECREASED GLUCOSE; Start 01/24/17 at 19:00 Glucagon (Glucagen) 1 mg Q15M PRN IM DECREASED GLUCOSE; Start 01/24/17 at 19:00 Glucose (Glutose) 15 gm Q15M PRN BUCCAL DECREASED GLUCOSE; Start 01/24/17 at 19 :00 Acetaminophen/ Hydrocodone Bitart ([place] (5/325)) 1 tab Q4H PRN PO MODERATE PAIN LEVEL 4-6 Last administered on 02/03/17 08:43; Admin Dose 1 TAB; Start 01/24/17 at 23:00 Metoprolol Tartrate (Lopressor) 25 mg BID PO Last administered on 02/03/17 08 :21; Admin Dose 25 MG; Start 01/27/17 at 21:00 Clonidine (Catapres) 0.1 mg Q6H PRN PO SBP>170; Start 01/27/17 at 18:00 Furosemide (Lasix) 40 mg DAILY IV Last administered on 02/03/17 08:21; Admin Dose 40 MG; Start 02/01/17 at 09:00 Atorvastatin Calcium (Lipitor) 20 mg HS PO Last administered on 02/02/17 21: 22; Admin Dose 20 MG; Start 02/01/17 at 21:00 Hydralazine HCl (Apresoline) 25 mg TID PO Last administered on 02/03/17 12:19 ; Admin Dose 25 MG; Start 02/02/17 at 21:00 Hydralazine HCl (Apresoline) 5 mg Q6H PRN IV sbp>170; Start 02/02/17 at 18:00 LUIS ANTONIO WHITLOCK MD Feb 03, 2017 15:20
--- NOTE | 2017-02-03 15:21 | PN ---
Date/Time of Note Date/Time of Note DATE: 02/03/17 TIME: 15:19 Assessment/Plan Lines/Catheters IV Catheter Type (from [email or web address] Saline Lock Little in Place (from [facility] [[email or web address] No Assessment/Plan Chief Complaint/Hosp Course -Bilateral lower extremity atherosclerosis and gangrene: It seems the patients noncompliance of diabetes and poor hygiene presents with bilateral lower extremity diabetic foot ulcers and severe gangrene infection. He had presented to outside hospital with history of 3-4weeks of bilateral lower extremity swelling, redness, pain, maggots and foul smelling odor from bilateral lower legs and left heel. 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 Patient has undergone multiple debridements in order try to preserve his limb. -S/P Multiple debridements of muscle, ligament, tendon, bone, skin, and subcutaneous tissue and application ACell grafts in order to enhance granulation tissue development and eventual limb salvage and grafting for wound closure. -S/P Left BKA-with wound vac placement -Will have vac changed with our wound care team tomorrow -Will schedule patient for a new RLE debridement in the next few days -Cardiac evaluation appreciate -Optimize vascular status (BP meds, sugar control, cholesterol, diet, antiplatelets) -Discussed plan, findings and management with the patient and he understands and agreed to proceed -Thank you for allowing us to partake in the care of your patient, please call with any questions Problems: Subjective 24 Hr Interval Summary no new vascular events overnight Exam/Review of Systems Vital Signs Vitals Vital Signs Date Time Temp Pulse Resp B/P Pulse Ox O2 Delivery O2 Flow Rate FiO2 02/03/17 14:00 98.8 90 20 154/62 98 02/03/17 10:03 Nasal Cannula 2.0 Intake and Output 02/02/17 02/02/17 02/03/17 15:00 23:00 07:00 Intake Total 1050 ml 150 ml 960 ml Output Total 100 ml 30 ml 840 ml Balance 950 ml 120 ml 120 ml Exam Free Text/Dictation A&Ox3 CTAB S1S2 present soft NTND BS+ RLE: palpable femoral pulse, motor/sensory intact, cap refill 3 seconds, dressing intact and dry, edema LLE: palpable femoral pulse, BKA-stump with wound vac intact Results Result Diagram: 02/03/17 0444 02/03/17 0424 ASHLEY CAROLINA MD Feb 03, 2017 15:21
--- NOTE | 2017-02-03 15:56 | OPR ---
DATE OF OPERATION: 02/03/2017 SURGEON: Ashley Romero MD. PREOPERATIVE DIAGNOSIS: Left lower extremity gangrene. POSTOPERATIVE DIAGNOSIS: Left lower extremity gangrene. ANESTHESIA: Regional block with moderate sedation. ESTIMATED BLOOD LOSS: 100 mL. COMPLICATIONS: None. PROCEDURE: 1. Left below knee amputation. 2. Rotational flap formation of myocutaneous layer. INDICATIONS: This is a 66-year-old gentleman who had presented to outside hospital with bilateral l ower extremity gas gangrene in which he had sustained significant large circumferential wounds of th e bilateral lower extremity, left worse than right involving the left heel and the Achilles tendon. The patient underwent multiple debridements in order to salvage his lower extremities. Upon his ri ght lower extremity, salvage was somewhat achievable, however, the left lower extremity there was a significant amount of tissue loss involving the Achilles tendon which had to be excised and involvin g the heel and the muscle layers in the distal aspect of the ankle. Upon discussion with the patien t, as the limb would not be salvageable and discussing the risks and benefits of the quality of life , patient decided to proceed with a below knee amputation. Although this was still a very challengi ng process, the patient has significant tissue loss and has no skin on the posterior flap. We were able to develop enough granulation tissue with our debridements and local wound care in order to be able to create the BKA instead of an above knee amputation. We discussed alternative risks and bene fits with the patient. The risks including but not limited to bleeding, myocardial infarction, deat h, stroke, infection, revision of BKA extensive wound care that will be required post-our interventi on in order to provide him enough flap to cover his below knee amputation stump and patient has agre ed to proceed, understanding all that is involved. DESCRIPTION OF PROCEDURE: The patient was brought in to the operating room and placed in supine pos ition. The left lower extremity was then prepped and draped in usual standard sterile fashion. Pre operative antibiotics were given. The anesthesia team had provided the appropriate left lower extre mity regional block and moderate sedation was provided without any issues. An occlusive dressing wa s then applied to the foot up to the level of the ankle. At this point, anterior and posterior skin incisions were outlined with a marking pen. This was a bit challenging as the patient has very tomlin ited amount of skin on the posterior flap as significant from his previous gas gangrene. However, michelle tillman did have some anterior flap that would provide some skin that would be able to salvage in use with closing of BKA flap. At this point, the anterior skin incision was made 16 cm below the tibial tub erosity and extended medially and laterally towards the edges of the gastrocnemius muscle. The ante rior skin incision was made lower, specifically in order to be able to salvage the skin in this segm ent in order to be able to cover our BKA stump. At this point, the skin incision was then extended distally on either side parallel to the tibia for about 12 to 15 cm creating a posterior flap. This was achievable as we had provided adequate local wound care and provided that the granulation tissu e that developed over the areas we had debrided in the past. Therefore, the subcutaneous tissues we re then incised down to the fascia. The greater and shorter saphenous veins on the medial and poste rior aspect of the leg, respectively were ligated and divided. The fascia and the muscle were then divided with electrocautery at the same level of the anterior skin incision. The muscles of the ant erior and lateral compartments were divided exposing the anterior tibial vessels, which were ligated and divided. The interosseous membrane was then incised, the tibial periosteum was then used circu mferentially with electrocautery at the same level of the skin and the muscle division. Using a per iosteal elevator, the tibial periosteum was then stripped proximally for about 3-4 cm. The tibia wa s then transected with an electric saw 2 cm proximal to the skin incision and a bit more with an ant erior bevel. This was performed in order to prevent any protrusion at a later time. The fibula was then exposed and dissected circumferentially and transected with a bone cutter 2 cm proximal to the tibial division. The amputation was then completed with careful dissection transecting the soleus muscle obliquely and gastrocnemius muscle at the same level as the posterior flap. This was perform ed in order to create enough flap coverage over the bone, but also be able to preserve the skin on t he anterior aspect of his flap in order to cover the areas where skin was not available for us from his previous gas gangrene. At this point, the bleeding soleal vein in the posterior tibial and marielena eula vessels were clamped and oversewn with a 3-0 Vicryl suture. Sharp bony edges were then filed a nd eliminating any bony prominences over the anterior aspect of the tibia. The fascia of the anteri or and posterior muscle flaps were approximated with interrupted absorbable sutures. Prior to this, we made sure that we create a myocutaneous flap by making extra incisions and then this was rotated to create a rotational flap to cover the bone on the anterior aspect, especially and medial aspect because our limited posterior loss of tissue from his previous gangrene. At this point, the fascial layer was continued to be reapproximated using 2-0 Vicryl sutures. Multiple sutures were placed ac ross from medial to lateral side of the stump. At this point, we ended up using dermal layers that were approximated as best as possible with 2-0 Vicryl sutures. At this point, skin zain were dif ficult to be applied as the patient did not have enough skin for the posterior flap to be covered fr om his previous tissue loss, therefore, a wound VAC was placed on the posterior flap with settings of 150 mmHg, continuous high intensity in order to create further granulation tissue and eventually create enough surface for either a skin graft or a collagen based dressing in order to heal the woun ds. At this point, patient was taken to postanesthesia care unit in stable condition. Sterile dres sings were applied. Patient tolerated the procedure well. All instruments, sponge and needle count s were correct x2. Dictated By: ASHLEY WATSON/RAMON Conf#: [id number] DID#: [id number]
--- NOTE | 2017-02-03 17:00 | CONS ---
Date/Time of Note Date/Time of Note DATE: 02/03/17 TIME: 16:59 Assessment/Plan Assessment/Plan Chief Complaint/Hosp Course IMPRESSION: 1. Congestive heart failure by chest x-ray, diastolic, likely acute on chronic by most recent echo. EF 50% 2. Hypertension, under reasonable control. 3. Preoperative. The patient at this time has tolerated lower extremity debridement, unclear whether other surgery may be required.-negative trop x 3 4. Anemia. 5. Nonhealing lower extremity ulcerations. 6. Diabetes mellitus. 7. MR-mod-sev by echo this admit Recc: -serial ecg's -Continue current hydralazine with increase to improve BP control -Continue BB and diovan -Continue Lasix diuresis/fluid restriction -local wound care -Follow BS closely with adjustment of insulin therapy as necessary Problems: Consultation Date/Type/Reason Admit Date/Time Jan 24, 2017 at 15:33 Initial Consult Date 01/26/2017 Type of Consultation: cardiology Reason for Consultation CHF Referring Provider: SELINA BAINS Exam/Review of Systems Vital Signs Vitals Vital Signs Date Time Temp Pulse Resp B/P Pulse Ox O2 Delivery O2 Flow Rate FiO2 02/03/17 14:00 98.8 90 20 154/62 98 02/03/17 10:03 Nasal Cannula 2.0 Intake and Output 02/02/17 02/02/17 02/03/17 15:00 23:00 07:00 Intake Total 1050 ml 150 ml 960 ml Output Total 100 ml 30 ml 840 ml Balance 950 ml 120 ml 120 ml Exam Review of Systems: CONSTITUTIONAL: No fevers, chills. PULMONARY: No sob CARDIOVASCULAR: No chest pain/palpitations GASTROINTESTINAL: No nausea/vomiting. GENITOURINARY: No hematuria/dysuria. MUSCULOSKELETAL: No myagias/arthalgias. PSYCHIATRIC: The patient denies depression. NEUROLOGIC: No weakness Constitutional: alert Psych: no complaints Head: normocephalic ENMT: mucosa pink and moist Neck: jvd (9 cm water), supple Respiratory: diminished breath sounds (at bases/B) Cardiovascular: regular rate and rhythm Gastrointestinal: non-tender, soft Musculoskeletal: muscle weakness (generalized) Extremities: other (RLE s/p BKA with wound vac in place), pitting pedal edema ( LLE covered by dressing) Neurological: lethargic Results Result Diagram: 02/03/17 0444 02/03/17 0424 Results 24 hrs Laboratory Tests Test 02/02/17 17:26 02/02/17 21:18 02/03/17 04:24 02/03/17 04:44 Bedside Glucose 161 146 Sodium Level 135 Potassium Level 3.9 Chloride Level 102 Carbon Dioxide Level 25 Anion Gap 12 Blood Urea Nitrogen 26 H Creatinine 1.60 H Glucose Level 119 Calcium Level 8.3 L White Blood Count 22.7 #H Red Blood Count 3.48 L Hemoglobin 9.1 L Hematocrit 29.0 L Mean Corpuscular Volume 83.3 Mean Corpuscular Hemoglobin 26.1 L Mean Corpuscular Hemoglobin Concent 31.4 L Red Cell Distribution Width 16.9 H Platelet Count 478 H Mean Platelet Volume 9.2 Neutrophils % 84.1 H Lymphocytes % 9.2 L Monocytes % 5.3 Eosinophils % 0.1 Basophils % 0.3 Nucleated Red Blood Cells % 0.0 Neutrophils # 19.1 H Lymphocytes # 2.1 Monocytes # 1.2 H Eosinophils # 0.0 Basophils # 0.1 Nucleated Red Blood Cells # 0.0 Test 02/03/17 07:55 02/03/17 12:01 Bedside Glucose 152 152 Medications Medications Current Medications Ondansetron HCl (Zofran Inj) 4 mg Q6H PRN IV NAUSEA AND/OR VOMITING; Start 01/24/17 at 19:00 Acetaminophen (Tylenol Tab) 650 mg Q6H PRN PO PAIN LEVEL 1-3 OR FEVER Last administered on 02/02/17 08:09; Admin Dose 650 MG; Start 01/24/17 at 19:00 Morphine Sulfate (morphine) 2 mg Q4H PRN IV SEVERE PAIN LEVEL 7-10 Last administered on 02/03/17 12:22; Admin Dose 2 MG; Start 01/24/17 at 19:00 Docusate Sodium (Colace) 100 mg Q12H PRN PO CONSTIPATION; Start 01/24/17 at 19: 00 Zolpidem Tartrate (Ambien) 5 mg QHS PRN PO SLEEP Last administered on 21:17; Admin Dose 5 MG; Start 01/24/17 at 19:00 Heparin Sodium (Porcine) (Heparin (5000 Units/0.5 ml)) 5,000 unit Q12 SC Last administered on 02/03/17 08:23; Admin Dose 5,000 UNIT; Start 01/24/17 at 21:00 Insulin Glargine (Lantus) 17 unit DAILY@08 SC Last administered on 02/03/17 08:26; Admin Dose 17 UNIT; Start 01/25/17 at 08:00 Diagnostic Test (Pha) (Accu-Chek) 1 ea 02 XX ; Start 01/25/17 at 02:00 Miscellaneous Information 1 ea NOTE XX ; Start 01/24/17 at 19:00 Glucose (Glutose) 15 gm Q15M PRN PO DECREASED GLUCOSE; Start 01/24/17 at 19:00 Glucose (Glutose) 22.5 gm Q15M PRN PO DECREASED GLUCOSE; Start 01/24/17 at 19: 00 Dextrose (D50w Syringe) 25 ml Q15M PRN IV DECREASED GLUCOSE; Start 01/24/17 at 19:00 Dextrose (D50w Syringe) 50 ml Q15M PRN IV DECREASED GLUCOSE; Start 01/24/17 at 19:00 Glucagon (Glucagen) 1 mg Q15M PRN IM DECREASED GLUCOSE; Start 01/24/17 at 19:00 Glucose (Glutose) 15 gm Q15M PRN BUCCAL DECREASED GLUCOSE; Start 01/24/17 at 19 :00 Acetaminophen/ Hydrocodone Bitart ([place] (5/325)) 1 tab Q4H PRN PO MODERATE PAIN LEVEL 4-6 Last administered on 02/03/17 08:43; Admin Dose 1 TAB; Start 01/24/17 at 23:00 Metoprolol Tartrate (Lopressor) 25 mg BID PO Last administered on 02/03/17 08 :21; Admin Dose 25 MG; Start 01/27/17 at 21:00 Clonidine (Catapres) 0.1 mg Q6H PRN PO SBP>170; Start 01/27/17 at 18:00 Furosemide (Lasix) 40 mg DAILY IV Last administered on 02/03/17 08:21; Admin Dose 40 MG; Start 02/01/17 at 09:00 Atorvastatin Calcium (Lipitor) 20 mg HS PO Last administered on 02/02/17 21: 22; Admin Dose 20 MG; Start 02/01/17 at 21:00 Hydralazine HCl (Apresoline) 25 mg TID PO Last administered on 10/19/17at 12:19 ; Admin Dose 25 MG; Start 02/02/17 at 21:00 Hydralazine HCl (Apresoline) 5 mg Q6H PRN IV sbp>170; Start 02/02/17 at 18:00 CLARITZA FLORES Feb 03, 2017 17:00
[2017-02-03 20:00] VITALS: BP 155/81; RESP 17
[2017-02-03] MEDS: ATORVASTATIN 20 MG TAB PO SCH (20:41)
[2017-02-04] MEDS: ACCU-CHEK XX SCH (02:00)
[2017-02-04 02:50] VITALS: BP 156/82; RESP 17
[2017-02-04] MEDS: HYDROCODONE/APAP (5/325) TAB PO PRN ×2 (03:16→08:28)
[2017-02-04 07:41] VITALS: BP 161/89; RESP 18
[2017-02-04] MEDS: METOPROLOL 25 MG TAB PO SCH ×2 (08:13→21:36)
[2017-02-04] MEDS: FUROSEMIDE 40 MG INJ IV SCH (08:14)
[2017-02-04] MEDS: INSULIN ASPART [NOVOLOG] 3 ML PEN SC SCH ×7 (08:15→21:00)
[2017-02-04] MEDS: INSULIN GLARGINE [LANtus] 3 ML PEN SC SCH (08:16)
[2017-02-04] MEDS: HEPARIN 5,000 UNIT/0.5 ML VIAL SC SCH ×2 (08:17→21:38)
[2017-02-04] MEDS: morphine 2 MG INJ IV PRN (09:51)
[2017-02-04] MEDS ORDERED: HYDROmorphONE 2 MG/ML SYG IV PRN (10:30)
[2017-02-04] MEDS ORDERED: OXYCODONE/ACETAMINOPHEN (5/325) TAB PO ONE (11:00)
[2017-02-04] MEDS: HYDROmorphONE 2 MG/ML SYG IV PRN (13:12)
[2017-02-04 13:47] VITALS: BP 132/73; RESP 18
--- NOTE | 2017-02-04 14:28 | CONS ---
Date/Time of Note Date/Time of Note DATE: 02/04/17 TIME: 14:26 Assessment/Plan Assessment/Plan Chief Complaint/Hosp Course IMPRESSION: 1. Congestive heart failure by chest x-ray, diastolic, likely acute on chronic by most recent echo. EF 50% 2. Hypertension, under reasonable control. 3. Preoperative. The patient at this time has tolerated lower extremity debridement, unclear whether other surgery may be required.-negative trop x 3 4. Anemia. 5. Nonhealing lower extremity ulcerations. 6. Diabetes mellitus. 7. MR-mod-sev by echo this admit Recc: -serial ecg's -Continue current hydralazine and follow BP closely with possible need to make further increase -Continue BB and diovan -Continue Lasix diuresis/fluid restriction -local wound care -Follow BS closely with adjustment of insulin therapy as necessary Problems: Consultation Date/Type/Reason Admit Date/Time Jan 24, 2017 at 15:33 Initial Consult Date 01/26/2017 Type of Consultation: cardiology Reason for Consultation CHF Referring Provider: SELINA BAINS Exam/Review of Systems Vital Signs Vitals Vital Signs Date Time Temp Pulse Resp B/P Pulse Ox O2 Delivery O2 Flow Rate FiO2 02/04/17 13:47 99.6 72 18 132/73 97 02/04/17 11:53 Nasal Cannula 2.0 Intake and Output 02/03/17 02/03/17 02/04/17 15:00 23:00 07:00 Intake Total 700 ml 450 ml Output Total 500 ml 850 ml Balance 200 ml -400 ml Exam Review of Systems: CONSTITUTIONAL: No fevers, chills. PULMONARY: No sob CARDIOVASCULAR: No chest pain/palpitations GASTROINTESTINAL: No nausea/vomiting. GENITOURINARY: No hematuria/dysuria. MUSCULOSKELETAL: No myagias/arthalgias. PSYCHIATRIC: The patient denies depression. NEUROLOGIC: No weakness Constitutional: alert Psych: no complaints Head: normocephalic ENMT: mucosa pink and moist Neck: jvd (9 cm water), supple Respiratory: diminished breath sounds (at bases/B) Cardiovascular: regular rate and rhythm Gastrointestinal: non-tender, soft Musculoskeletal: muscle tone (normal) Extremities: other (s/p LE amputtaion with wound vac in place), pitting pedal edema (bilateral and covered by dressing) Neurological: other (No focal deficits) Results Result Diagram: 02/04/17 0427 02/04/17 0427 Results 24 hrs Laboratory Tests Test 02/03/17 17:31 02/03/17 20:35 02/04/17 04:27 02/04/17 08:07 Bedside Glucose 98 138 148 White Blood Count 21.7 H Red Blood Count 3.40 L Hemoglobin 8.8 L Hematocrit 27.8 L Mean Corpuscular Volume 81.8 L Mean Corpuscular Hemoglobin 25.9 L Mean Corpuscular Hemoglobin Concent 31.7 L Red Cell Distribution Width 16.8 H Platelet Count 444 H Mean Platelet Volume 9.2 Neutrophils % 81.4 H Lymphocytes % 9.2 L Monocytes % 7.7 Eosinophils % 0.3 Basophils % 0.3 Nucleated Red Blood Cells % 0.0 Neutrophils # 17.7 H Lymphocytes # 2.0 Monocytes # 1.7 H Eosinophils # 0.1 Basophils # 0.1 Nucleated Red Blood Cells # 0.0 Sodium Level 132 L Potassium Level 3.8 Chloride Level 99 Carbon Dioxide Level 24 Anion Gap 13 Blood Urea Nitrogen 23 H Creatinine 1.47 H Glucose Level 96 Calcium Level 8.1 L Total Bilirubin 0.5 Direct Bilirubin 0.00 Indirect Bilirubin 0.5 Aspartate Amino Transf (AST/SGOT) 26 Alanine Aminotransferase (ALT/SGPT) 22 Alkaline Phosphatase 239 H Total Protein 6.2 Albumin 2.7 L Globulin 3.50 H Albumin/Globulin Ratio 0.77 Test 02/04/17 12:08 Bedside Glucose 178 Medications Medications Current Medications Ondansetron HCl (Zofran Inj) 4 mg Q6H PRN IV NAUSEA AND/OR VOMITING; Start 01/24/17 at 19:00 Acetaminophen (Tylenol Tab) 650 mg Q6H PRN PO PAIN LEVEL 1-3 OR FEVER Last administered on 02/02/17 08:09; Admin Dose 650 MG; Start 01/24/17 at 19:00 Morphine Sulfate (morphine) 2 mg Q4H PRN IV SEVERE PAIN LEVEL 7-10 Last administered on 02/04/17 09:51; Admin Dose 2 MG; Start 01/24/17 at 19:00 Docusate Sodium (Colace) 100 mg Q12H PRN PO CONSTIPATION; Start 01/24/17 at 19: 00 Zolpidem Tartrate (Ambien) 5 mg QHS PRN PO SLEEP Last administered on 21:17; Admin Dose 5 MG; Start 01/24/17 at 19:00 Heparin Sodium (Porcine) (Heparin (5000 Units/0.5 ml)) 5,000 unit Q12 SC Last administered on 02/04/17 08:17; Admin Dose 5,000 UNIT; Start 01/24/17 at 21:00 Insulin Glargine (Lantus) 17 unit DAILY@08 SC Last administered on 02/04/17 08:16; Admin Dose 17 UNIT; Start 01/25/17 at 08:00 Diagnostic Test (Pha) (Accu-Chek) 1 ea 02 XX ; Start 01/25/17 at 02:00 Miscellaneous Information 1 ea NOTE XX ; Start 01/24/17 at 19:00 Glucose (Glutose) 15 gm Q15M PRN PO DECREASED GLUCOSE; Start 01/24/17 at 19:00 Glucose (Glutose) 22.5 gm Q15M PRN PO DECREASED GLUCOSE; Start 01/24/17 at 19: 00 Dextrose (D50w Syringe) 25 ml Q15M PRN IV DECREASED GLUCOSE; Start 01/24/17 at 19:00 Dextrose (D50w Syringe) 50 ml Q15M PRN IV DECREASED GLUCOSE; Start 01/24/17 at 19:00 Glucagon (Glucagen) 1 mg Q15M PRN IM DECREASED GLUCOSE; Start 01/24/17 at 19:00 Glucose (Glutose) 15 gm Q15M PRN BUCCAL DECREASED GLUCOSE; Start 01/24/17 at 19 :00 Acetaminophen/ Hydrocodone Bitart ([place] (5/325)) 1 tab Q4H PRN PO MODERATE PAIN LEVEL 4-6 Last administered on 02/04/17 08:28; Admin Dose 1 TAB; Start 01/24/17 at 23:00 Metoprolol Tartrate (Lopressor) 25 mg BID PO Last administered on 02/04/17 08 :13; Admin Dose 25 MG; Start 01/27/17 at 21:00 Clonidine (Catapres) 0.1 mg Q6H PRN PO SBP>170; Start 01/27/17 at 18:00 Furosemide (Lasix) 40 mg DAILY IV Last administered on 02/04/17 08:14; Admin Dose 40 MG; Start 02/01/17 at 09:00 Atorvastatin Calcium (Lipitor) 20 mg HS PO Last administered on 02/03/17 20: 41; Admin Dose 20 MG; Start 02/01/17 at 21:00 Hydralazine HCl (Apresoline) 5 mg Q6H PRN IV sbp>170; Start 02/02/17 at 18:00 Hydralazine HCl (Apresoline) 50 mg TID PO Last administered on 02/04/17 12:14 ; Admin Dose 50 MG; Start 02/03/17 at 21:00 Oxycodone/ Acetaminophen (Percocet (5/ 325)) 2 tab Q6H PRN PO PAIN SCALE 5-7; Start 02/04/17 at 10:30 Hydromorphone HCl (Dilaudid) 2 mg ONCE PRN IV with left BKA dressing change Last administered on 02/04/17 13:12; Admin Dose 2 MG; Start 02/04/17 at 10:30 CLARITZA FLORES Feb 04, 2017 14:28
--- NOTE | 2017-02-04 15:29 | PN ---
Date/Time of Note Date/Time of Note DATE: 02/04/17 TIME: 15:27 Assessment/Plan VTE Prophylaxis VTE Prophylaxis Intervention: heparin Lines/Catheters IV C[facility]ter Type [facility]from [facility] [place] [facility] Urinary Cath still in place: No Assessment/Plan Chief Complaint/Hosp Course 66 yo male with CKD II, DMII, venous stasis, PVD who presetns with nonhealing foot ulcers and lymphedema Foot ulcers: - s/p L BKA yesterday per Dr Lee - Wound vac to R leg wound, debridement in coming days per Dr Lee Acute decompensated diastolic CHF: - Diuretics per renal GAIL: - Trend creatinine, consider holding ARB DM - NISS - Basal bolus insulin PAD: - Aspirin and statin BP controlled Anemia of chronic CKD and chronic inflammation Problems: Subjective 24 Hr Interval Summary Free Text/Dictation Patient comfortable s/p BKA Woudn vac to R leg Awaiting debridement from Dr Lee Exam/Review of Systems Vital Signs Vitals Vital Signs Date Time Temp Pulse Resp B/P Pulse Ox O2 Delivery O2 Flow Rate FiO2 02/04/17 13:47 99.6 72 18 132/73 97 02/04/17 11:53 Nasal Cannula 2.0 Intake and Output 02/03/17 02/03/17 02/04/17 15:00 23:00 07:00 Intake Total 700 ml 450 ml Output Total 500 ml 850 ml Balance 200 ml -400 ml Exam Constitutional: alert, oriented, well developed Psych: nl mood/affect, no complaints Head: atraumatic, normocephalic Eyes: EOMI, PERRL, nl conjunctiva, nl lids, nl sclera ENMT: nl external ears & nose, nl lips & teeth, nl nasal mucosa & septum Neck: non-tender, supple Respiratory: clear to auscultation, normal air movement Cardiovascular: nl pulses, regular rate and rhythm Gastrointestinal: nl liver, spleen, non-tender, soft Musculoskeletal: nl extremities to inspection, nl gait and stance Extremities: normal pulses Neurological: 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 FOLDER II-XII intact, nl mental status, nl speech, nl strength Skin: nl turgor, No rash or lesions Lymph: nl lymph nodes Results Result Diagram: 02/04/17 0427 02/04/17426 Results 24 hrs Laboratory Tests Test 02/03/17 17:31 02/03/17 20:35 02/04/17 04:27 02/04/17 08:07 Bedside Glucose 98 138 148 White Blood Count 21.7 H Red Blood Count 3.40 L Hemoglobin 8.8 L Hematocrit 27.8 L Mean Corpuscular Volume 81.8 L Mean Corpuscular Hemoglobin 25.9 L Mean Corpuscular Hemoglobin Concent 31.7 L Red Cell Distribution Width 16.8 H Platelet Count 444 H Mean Platelet Volume 9.2 Neutrophils % 81.4 H Lymphocytes % 9.2 L Monocytes % 7.7 Eosinophils % 0.3 Basophils % 0.3 Nucleated Red Blood Cells % 0.0 Neutrophils # 17.7 H Lymphocytes # 2.0 Monocytes # 1.7 H Eosinophils # 0.1 Basophils # 0.1 Nucleated Red Blood Cells # 0.0 Sodium Level 132 L Potassium Level 3.8 Chloride Level 99 Carbon Dioxide Level 24 Anion Gap 13 Blood Urea Nitrogen 23 H Creatinine 1.47 H Glucose Level 96 Calcium Level 8.1 L Total Bilirubin 0.5 Direct Bilirubin 0.00 Indirect Bilirubin 0.5 Aspartate Amino Transf (AST/SGOT) 26 Alanine Aminotransferase (ALT/SGPT) 22 Alkaline Phosphatase 239 H Total Protein 6.2 Albumin 2.7 L Globulin 3.50 H Albumin/Globulin Ratio 0.77 Test 02/04/17 12:08 Bedside Glucose 178 Medications Medications Current Medications Ondansetron HCl (Zofran Inj) 4 mg Q6H PRN IV NAUSEA AND/OR VOMITING; Start 01/24/17 at 19:00 Acetaminophen (Tylenol Tab) 650 mg Q6H PRN PO PAIN LEVEL 1-3 OR FEVER Last administered on 02/02/17 08:09; Admin Dose 650 MG; Start 01/24/17 at 19:00 Morphine Sulfate (morphine) 2 mg Q4H PRN IV SEVERE PAIN LEVEL 7-10 Last administered on 02/04/17 09:51; Admin Dose 2 MG; Start 01/24/17 at 19:00 Docusate Sodium (Colace) 100 mg Q12H PRN PO CONSTIPATION; Start 01/24/17 at 19: 00 Zolpidem Tartrate (Ambien) 5 mg QHS PRN PO SLEEP Last administered on 21:17; Admin Dose 5 MG; Start 01/24/17 at 19:00 Heparin Sodium (Porcine) (Heparin (5000 Units/0.5 ml)) 5,000 unit Q12 SC Last administered on 02/04/17 08:17; Admin Dose 5,000 UNIT; Start 01/24/17 at 21:00 Insulin Glargine (Lantus) 17 unit DAILY@08 SC Last administered on 02/04/17 08:16; Admin Dose 17 UNIT; Start 01/25/17 at 08:00 Diagnostic Test (Pha) (Accu-Chek) 1 ea 02 XX ; Start 01/25/17 at 02:00 Miscellaneous Information 1 ea NOTE XX ; Start 01/24/17 at 19:00 Glucose (Glutose) 15 gm Q15M PRN PO DECREASED GLUCOSE; Start 01/24/17 at 19:00 Glucose (Glutose) 22.5 gm Q15M PRN PO DECREASED GLUCOSE; Start 01/24/17 at 19: 00 Dextrose (D50w Syringe) 25 ml Q15M PRN IV DECREASED GLUCOSE; Start 01/24/17 at 19:00 Dextrose (D50w Syringe) 50 ml Q15M PRN IV DECREASED GLUCOSE; Start 01/24/17 at 19:00 Glucagon (Glucagen) 1 mg Q15M PRN IM DECREASED GLUCOSE; Start 01/24/17 at 19:00 Glucose (Glutose) 15 gm Q15M PRN BUCCAL DECREASED GLUCOSE; Start 01/24/17 at 19 :00 Acetaminophen/ Hydrocodone Bitart ([place] (5/325)) 1 tab Q4H PRN PO MODERATE PAIN LEVEL 4-6 Last administered on 02/04/17 08:28; Admin Dose 1 TAB; Start 01/24/17 at 23:00 Metoprolol Tartrate (Lopressor) 25 mg BID PO Last administered on 02/04/17 08 :13; Admin Dose 25 MG; Start 01/27/17 at 21:00 Clonidine (Catapres) 0.1 mg Q6H PRN PO SBP>170; Start 01/27/17 at 18:00 Furosemide (Lasix) 40 mg DAILY IV Last administered on 02/04/17 08:14; Admin Dose 40 MG; Start 02/01/17 at 09:00 Atorvastatin Calcium (Lipitor) 20 mg HS PO Last administered on 02/03/17 20: 41; Admin Dose 20 MG; Start 02/01/17 at 21:00 Hydralazine HCl (Apresoline) 5 mg Q6H PRN IV sbp>170; Start 02/02/17 at 18:00 Hydralazine HCl (Apresoline) 50 mg TID PO Last administered on 02/04/17 12:14 ; Admin Dose 50 MG; Start 02/03/17 at 21:00 Oxycodone/ Acetaminophen (Percocet (5/ 325)) 2 tab Q6H PRN PO PAIN SCALE 5-7; Start 02/04/17 at 10:30 Hydromorphone HCl (Dilaudid) 2 mg ONCE PRN IV with left BKA dressing change Last administered on 02/04/17 13:12; Admin Dose 2 MG; Start 02/04/17 at 10:30 BRIDGET STEPHENS MD Feb 04, 2017 15:29
--- NOTE | 2017-02-04 17:53 | CONS ---
Date/Time of Note Date/Time of Note DATE: 02/04/17 TIME: 17:51 Assessment/Plan Assessment/Plan Chief Complaint/Hosp Course 66 y/o with # Patient has possible underlying chronic kidney disease with mild GAIL Cr trending up? hemodynamic s/p AKA # chronic lower extremity lymphedema and cellulitis. # CHF likley diastolic # hypertension, anemia. # DM # Abnormal LFT # Skin wounds # Hypoalbunemia # Bilateral lower extremity atherosclerosis and gangrene Plan - c/w iv lasix to 40 mg - Hold valsartan for GAIL - Cr improved - dm management per primary - Fluid restriction - Avoid nephrotoxic agents Problems: Consultation Date/Type/Reason Admit Date/Time Jan 24, 2017 at 15:33 Type of Consultation: Renal Referring Provider: SELINA BAINS 24 HR Interval Summary Free Text/Dictation No new complains Exam/Review of Systems Vital Signs Vitals Vital Signs Date Time Temp Pulse Resp B/P Pulse Ox O2 Delivery O2 Flow Rate FiO2 02/04/17 13:47 99.6 72 18 132/73 97 02/04/17 11:53 Nasal Cannula 2.0 Intake and Output 02/03/17 02/03/17 02/04/17 15:00 23:00 07:00 Intake Total 700 ml 450 ml Output Total 500 ml 850 ml Balance 200 ml -400 ml Exam a&Ox3 CTAB S1S2 present soft NTND BS+ Extremities: left AKA Neurological: other (No focal defic Results Result Diagram: 02/04/17 0427 02/04/17 0427 Results 24 hrs Laboratory Tests Test 02/03/17 20:35 02/04/17 04:27 02/04/17 08:07 02/04/17 12:08 Bedside Glucose 138 148 178 White Blood Count 21.7 H Red Blood Count 3.40 L Hemoglobin 8.8 L Hematocrit 27.8 L Mean Corpuscular Volume 81.8 L Mean Corpuscular Hemoglobin 25.9 L Mean Corpuscular Hemoglobin Concent 31.7 L Red Cell Distribution Width 16.8 H Platelet Count 444 H Mean Platelet Volume 9.2 Neutrophils % 81.4 H Lymphocytes % 9.2 L Monocytes % 7.7 Eosinophils % 0.3 Basophils % 0.3 Nucleated Red Blood Cells % 0.0 Neutrophils # 17.7 H Lymphocytes # 2.0 Monocytes # 1.7 H Eosinophils # 0.1 Basophils # 0.1 Nucleated Red Blood Cells # 0.0 Sodium Level 132 L Potassium Level 3.8 Chloride Level 99 Carbon Dioxide Level 24 Anion Gap 13 Blood Urea Nitrogen 23 H Creatinine 1.47 H Glucose Level 96 Calcium Level 8.1 L Total Bilirubin 0.5 Direct Bilirubin 0.00 Indirect Bilirubin 0.5 Aspartate Amino Transf (AST/SGOT) 26 Alanine Aminotransferase (ALT/SGPT) 22 Alkaline Phosphatase 239 H Total Protein 6.2 Albumin 2.7 L Globulin 3.50 H Albumin/Globulin Ratio 0.77 Test 02/04/17 16:57 Bedside Glucose 93 Medications Medications Current Medications Ondansetron HCl (Zofran Inj) 4 mg Q6H PRN IV NAUSEA AND/OR VOMITING; Start 01/24/17 at 19:00 Acetaminophen (Tylenol Tab) 650 mg Q6H PRN PO PAIN LEVEL 1-3 OR FEVER Last administered on 02/02/17 08:09; Admin Dose 650 MG; Start 01/24/17 at 19:00 Morphine Sulfate (morphine) 2 mg Q4H PRN IV SEVERE PAIN LEVEL 7-10 Last administered on 02/04/17 09:51; Admin Dose 2 MG; Start 01/24/17 at 19:00 Docusate Sodium (Colace) 100 mg Q12H PRN PO CONSTIPATION; Start 01/24/17 at 19: 00 Zolpidem Tartrate (Ambien) 5 mg QHS PRN PO SLEEP Last administered on 21:17; Admin Dose 5 MG; Start 01/24/17 at 19:00 Heparin Sodium (Porcine) (Heparin (5000 Units/0.5 ml)) 5,000 unit Q12 SC Last administered on 02/04/17 08:17; Admin Dose 5,000 UNIT; Start 01/24/17 at 21:00 Insulin Glargine (Lantus) 17 unit DAILY@08 SC Last administered on 02/04/17 08:16; Admin Dose 17 UNIT; Start 01/25/17 at 08:00 Diagnostic Test (Pha) (Accu-Chek) 1 ea 02 XX ; Start 01/25/17 at 02:00 Miscellaneous Information 1 ea NOTE XX ; Start 01/24/17 at 19:00 Glucose (Glutose) 15 gm Q15M PRN PO DECREASED GLUCOSE; Start 01/24/17 at 19:00 Glucose (Glutose) 22.5 gm Q15M PRN PO DECREASED GLUCOSE; Start 01/24/17 at 19: 00 Dextrose (D50w Syringe) 25 ml Q15M PRN IV DECREASED GLUCOSE; Start 01/24/17 at 19:00 Dextrose (D50w Syringe) 50 ml Q15M PRN IV DECREASED GLUCOSE; Start 01/24/17 at 19:00 Glucagon (Glucagen) 1 mg Q15M PRN IM DECREASED GLUCOSE; Start 01/24/17 at 19:00 Glucose (Glutose) 15 gm Q15M PRN BUCCAL DECREASED GLUCOSE; Start 01/24/17 at 19 :00 Acetaminophen/ Hydrocodone Bitart ([place] (5/325)) 1 tab Q4H PRN PO MODERATE PAIN LEVEL 4-6 Last administered on 02/04/17 08:28; Admin Dose 1 TAB; Start 01/24/17 at 23:00 Metoprolol Tartrate (Lopressor) 25 mg BID PO Last administered on 02/04/17 08 :13; Admin Dose 25 MG; Start 01/27/17 at 21:00 Clonidine (Catapres) 0.1 mg Q6H PRN PO SBP>170; Start 01/27/17 at 18:00 Furosemide (Lasix) 40 mg DAILY IV Last administered on 02/04/17 08:14; Admin Dose 40 MG; Start 02/01/17 at 09:00 Atorvastatin Calcium (Lipitor) 20 mg HS PO Last administered on 02/03/17 20: 41; Admin Dose 20 MG; Start 02/01/17 at 21:00 Hydralazine HCl (Apresoline) 5 mg Q6H PRN IV sbp>170; Start 02/02/17 at 18:00 Hydralazine HCl (Apresoline) 50 mg TID PO Last administered on 02/04/17 12:14 ; Admin Dose 50 MG; Start 02/03/17 at 21:00 Oxycodone/ Acetaminophen (Percocet (5/ 325)) 2 tab Q6H PRN PO PAIN SCALE 5-7; Start 02/04/17 at 10:30 Hydromorphone HCl (Dilaudid) 2 mg ONCE PRN IV with left BKA dressing change Last administered on 02/04/17 13:12; Admin Dose 2 MG; Start 02/04/17 at 10:30 LUIS ANTONIO WHITLOCK MD Feb 04, 2017 17:53
[2017-02-04 20:11] VITALS: BP 165/87; RESP 19
[2017-02-04] MEDS: ATORVASTATIN 20 MG TAB PO SCH (21:32)
[2017-02-04 22:00] VITALS: BP 145/72
[2017-02-05 02:00] VITALS: BP 145/74; RESP 19
[2017-02-05] MEDS: ACCU-CHEK XX SCH (02:00)
[2017-02-05] MEDS: HYDROCODONE/APAP (5/325) TAB PO PRN ×4 (02:55→17:53)
[2017-02-05 07:23] VITALS: BP 157/86; RESP 20
[2017-02-05] MEDS: INSULIN ASPART [NOVOLOG] 3 ML PEN SC SCH ×7 (08:00→20:17)
[2017-02-05] MEDS: INSULIN GLARGINE [LANtus] 3 ML PEN SC SCH ×2 (08:31→20:17)
[2017-02-05] MEDS: HEPARIN 5,000 UNIT/0.5 ML VIAL SC SCH ×2 (08:31→20:16)
[2017-02-05] MEDS: FUROSEMIDE 40 MG INJ IV SCH (08:41)
[2017-02-05] MEDS: METOPROLOL 25 MG TAB PO SCH ×2 (08:42→20:13)
--- NOTE | 2017-02-05 14:15 | CONS ---
Date/Time of Note Date/Time of Note DATE: 02/05/17 TIME: 14:09 Assessment/Plan Assessment/Plan Chief Complaint/Hosp Course 1. Mild GAIL 2. chronic right lower extremity lymphedema and cellulitis. 3. CHF, diastolic 4. hypertension, controlled 5. Anemia chronic disease. 6. DM type II, uncontrolled 7. Abnormal LFT 8. Skin wounds 9. Hypoalbuminemia. 10. s/p left BKA Problems: Additional Assessment/Plan 1. Optimization kidney function 2. continue current regime 3. Better DM control Consultation Date/Type/Reason Admit Date/Time Jan 24, 2017 at 15:33 Initial Consult Date 01/27/2017 Type of Consultation: Renal Reason for Consultation nephrology Referring Provider: SELINA BAINS 24 HR Interval Summary Constitutional: improved Exam/Review of Systems Vital Signs Vitals Vital Signs Date Time Temp Pulse Resp B/P Pulse Ox O2 Delivery O2 Flow Rate FiO2 02/05/17 08:00 Nasal Cannula 02/05/17 07:23 98.6 84 20 157/86 97 02/04/17 20:00 2.0 Intake and Output 02/04/17 02/04/17 02/05/17 15:00 23:00 07:00 Intake Total 700 ml 360 ml Output Total 50 ml 650 ml 800 ml Balance -50 ml 50 ml -440 ml Exam Constitutional: alert, oriented Cardiovascular: regular rate and rhythm Gastrointestinal: soft Musculoskeletal: swelling (right leg with wound vac) Results Result Diagram: 02/04/17 0427 02/04/17 0427 Results 24 hrs Laboratory Tests Test 02/04/17 16:57 02/04/17 21:22 02/05/17 08:08 02/05/17 12:10 Bedside Glucose 93 75 139 158 Medications Medications Current Medications Ondansetron HCl (Zofran Inj) 4 mg Q6H PRN IV NAUSEA AND/OR VOMITING; Start 01/24/17 at 19:00 Acetaminophen (Tylenol Tab) 650 mg Q6H PRN PO PAIN LEVEL 1-3 OR FEVER Last administered on 02/02/17 08:09; Admin Dose 650 MG; Start 01/24/17 at 19:00 Morphine Sulfate (morphine) 2 mg Q4H PRN IV SEVERE PAIN LEVEL 7-10 Last administered on 02/04/17 09:51; Admin Dose 2 MG; Start 01/24/17 at 19:00 Docusate Sodium (Colace) 100 mg Q12H PRN PO CONSTIPATION; Start 01/24/17 at 19: 00 Zolpidem Tartrate (Ambien) 5 mg QHS PRN PO SLEEP Last administered on 21:17; Admin Dose 5 MG; Start 01/24/17 at 19:00 Heparin Sodium (Porcine) (Heparin (5000 Units/0.5 ml)) 5,000 unit Q12 SC Last administered on 02/05/17 08:31; Admin Dose 5,000 UNIT; Start 01/24/17 at 21:00 Insulin Glargine (Lantus) 17 unit DAILY@08 SC Last administered on 02/05/17 08:31; Admin Dose 17 UNIT; Start 01/25/17 at 08:00 Diagnostic Test (Pha) (Accu-Chek) 1 ea 02 XX ; Start 01/25/17 at 02:00 Miscellaneous Information 1 ea NOTE XX ; Start 01/24/17 at 19:00 Glucose (Glutose) 15 gm Q15M PRN PO DECREASED GLUCOSE; Start 01/24/17 at 19:00 Glucose (Glutose) 22.5 gm Q15M PRN PO DECREASED GLUCOSE; Start 01/24/17 at 19: 00 Dextrose (D50w Syringe) 25 ml Q15M PRN IV DECREASED GLUCOSE; Start 01/24/17 at 19:00 Dextrose (D50w Syringe) 50 ml Q15M PRN IV DECREASED GLUCOSE; Start 01/24/17 at 19:00 Glucagon (Glucagen) 1 mg Q15M PRN IM DECREASED GLUCOSE; Start 01/24/17 at 19:00 Glucose (Glutose) 15 gm Q15M PRN BUCCAL DECREASED GLUCOSE; Start 01/24/17 at 19 :00 Acetaminophen/ Hydrocodone Bitart ([place] (5/325)) 1 tab Q4H PRN PO MODERATE PAIN LEVEL 4-6 Last administered on 02/05/17 12:47; Admin Dose 1 TAB; Start 01/24/17 at 23:00 Metoprolol Tartrate (Lopressor) 25 mg BID PO Last administered on 02/05/17 08 :42; Admin Dose 25 MG; Start 01/27/17 at 21:00 Clonidine (Catapres) 0.1 mg Q6H PRN PO SBP>170; Start 01/27/17 at 18:00 Furosemide (Lasix) 40 mg DAILY IV Last administered on 02/05/17 08:41; Admin Dose 40 MG; Start 02/01/17 at 09:00 Atorvastatin Calcium (Lipitor) 20 mg HS PO Last administered on 02/04/17 21: 32; Admin Dose 20 MG; Start 02/01/17 at 21:00 Hydralazine HCl (Apresoline) 5 mg Q6H PRN IV sbp>170; Start 02/02/17 at 18:00 Hydralazine HCl (Apresoline) 50 mg TID PO Last administered on 02/05/17 12:24 ; Admin Dose 50 MG; Start 02/03/17 at 21:00 Oxycodone/ Acetaminophen (Percocet (5/ 325)) 2 tab Q6H PRN PO PAIN SCALE 5-7; Start 02/04/17 at 10:30 Hydromorphone HCl (Dilaudid) 2 mg ONCE PRN IV with left BKA dressing change Last administered on 02/04/17 13:12; Admin Dose 2 MG; Start 02/04/17 at 10:30 LAINE PERRY Feb 05, 2017 14:15
[2017-02-05] MEDS: morphine 2 MG INJ IV PRN ×2 (14:30→19:01)
[2017-02-05 14:34] VITALS: BP 146/78; RESP 18
--- NOTE | 2017-02-05 16:34 | CONS ---
Date/Time of Note Date/Time of Note DATE: 02/05/17 TIME: 16:29 Assessment/Plan Assessment/Plan Chief Complaint/Hosp Course IMPRESSION: 1. Congestive heart failure by chest x-ray, diastolic, likely acute on chronic by most recent echo. EF 50% 2. Hypertension, under reasonable control. 3. Preoperative. The patient at this time has tolerated lower extremity debridement, unclear whether other surgery may be required.-negative trop x 3 4. Anemia. 5. Nonhealing lower extremity ulcerations. 6. Diabetes mellitus. 7. MR-mod-sev by echo this admit Recc: -serial ecg's -Continue current hydralazine with slight increase to improve BP -Continue BB and diovan -Continue Lasix diuresis/fluid restriction -local wound care -Follow BS closely with adjustment of insulin therapy as necessary Problems: Consultation Date/Type/Reason Admit Date/Time Jan 24, 2017 at 15:33 Initial Consult Date 01/26/2017 Type of Consultation: cardiology Reason for Consultation CHF Referring Provider: SELINA BAINS Exam/Review of Systems Vital Signs Vitals Vital Signs Date Time Temp Pulse Resp B/P Pulse Ox O2 Delivery O2 Flow Rate FiO2 02/05/17 14:34 98.2 84 18 146/78 98 02/05/17 08:00 Nasal Cannula 02/04/17 20:00 2.0 Intake and Output 02/04/17 02/04/17 02/05/17 14:59 22:59 06:59 Intake Total 700 ml 360 ml Output Total 50 ml 650 ml 800 ml Balance -50 ml 50 ml -440 ml Exam Review of Systems: CONSTITUTIONAL: No fevers, chills. PULMONARY: No sob CARDIOVASCULAR: No chest pain/palpitations GASTROINTESTINAL: No nausea/vomiting. GENITOURINARY: No hematuria/dysuria. MUSCULOSKELETAL: No myagias/arthalgias. PSYCHIATRIC: The patient denies depression. NEUROLOGIC: No weakness Constitutional: alert Psych: no complaints Head: normocephalic ENMT: mucosa pink and moist Neck: jvd (9 cm water), supple Respiratory: diminished breath sounds Cardiovascular: regular rate and rhythm Gastrointestinal: non-tender, soft Musculoskeletal: muscle tone Extremities: edema Neurological: other (No focal deficits) Results Result Diagram: 02/04/17 0427 02/04/17 0427 Results 24 hrs Laboratory Tests Test 02/04/17 16:57 02/04/17 21:22 02/05/17 08:08 02/05/17 12:10 Bedside Glucose 93 75 139 158 Test 02/05/17 14:32 02/05/17 16:19 Bedside Glucose 167 174 Medications Medications Current Medications Ondansetron HCl (Zofran Inj) 4 mg Q6H PRN IV NAUSEA AND/OR VOMITING; Start 01/24/17 at 19:00 Acetaminophen (Tylenol Tab) 650 mg Q6H PRN PO PAIN LEVEL 1-3 OR FEVER Last administered on 02/02/17 08:09; Admin Dose 650 MG; Start 01/24/17 at 19:00 Morphine Sulfate (morphine) 2 mg Q4H PRN IV SEVERE PAIN LEVEL 7-10 Last administered on 02/05/17 14:30; Admin Dose 2 MG; Start 01/24/17 at 19:00 Docusate Sodium (Colace) 100 mg Q12H PRN PO CONSTIPATION; Start 01/24/17 at 19: 00 Zolpidem Tartrate (Ambien) 5 mg QHS PRN PO SLEEP Last administered on 21:17; Admin Dose 5 MG; Start 01/24/17 at 19:00 Heparin Sodium (Porcine) (Heparin (5000 Units/0.5 ml)) 5,000 unit Q12 SC Last administered on 02/05/17 08:31; Admin Dose 5,000 UNIT; Start 01/24/17 at 21:00 Diagnostic Test (Pha) (Accu-Chek) 1 ea 02 XX ; Start 01/25/17 at 02:00 Miscellaneous Information 1 ea NOTE XX ; Start 01/24/17 at 19:00 Glucose (Glutose) 15 gm Q15M PRN PO DECREASED GLUCOSE; Start 01/24/17 at 19:00 Glucose (Glutose) 22.5 gm Q15M PRN PO DECREASED GLUCOSE; Start 01/24/17 at 19: 00 Dextrose (D50w Syringe) 25 ml Q15M PRN IV DECREASED GLUCOSE; Start 01/24/17 at 19:00 Dextrose (D50w Syringe) 50 ml Q15M PRN IV DECREASED GLUCOSE; Start 01/24/17 at 19:00 Glucagon (Glucagen) 1 mg Q15M PRN IM DECREASED GLUCOSE; Start 01/24/17 at 19:00 Glucose (Glutose) 15 gm Q15M PRN BUCCAL DECREASED GLUCOSE; Start 01/24/17 at 19 :00 Acetaminophen/ Hydrocodone Bitart ([place] (5/325)) 1 tab Q4H PRN PO MODERATE PAIN LEVEL 4-6 Last administered on 02/05/17 12:47; Admin Dose 1 TAB; Start 01/24/17 at 23:00 Metoprolol Tartrate (Lopressor) 25 mg BID PO Last administered on 02/05/17 08 :42; Admin Dose 25 MG; Start 01/27/17 at 21:00 Clonidine (Catapres) 0.1 mg Q6H PRN PO SBP>170; Start 01/27/17 at 18:00 Furosemide (Lasix) 40 mg DAILY IV Last administered on 02/05/17 08:41; Admin Dose 40 MG; Start 02/01/17 at 09:00 Atorvastatin Calcium (Lipitor) 20 mg HS PO Last administered on 02/04/17 21: 32; Admin Dose 20 MG; Start 02/01/17 at 21:00 Hydralazine HCl (Apresoline) 5 mg Q6H PRN IV sbp>170; Start 02/02/17 at 18:00 Hydralazine HCl (Apresoline) 50 mg TID PO Last administered on 02/05/17 12:24 ; Admin Dose 50 MG; Start 02/03/17 at 21:00 Oxycodone/ Acetaminophen (Percocet (5/ 325)) 2 tab Q6H PRN PO PAIN SCALE 5-7; Start 02/04/17 at 10:30 Hydromorphone HCl (Dilaudid) 2 mg ONCE PRN IV with left BKA dressing change Last administered on 02/04/17 13:12; Admin Dose 2 MG; Start 02/04/17 at 10:30 Insulin Glargine (Lantus) 17 unit QHS SC ; Start 02/05/17 at 21:00 CLARITZA FLORES Feb 05, 2017 16:34
--- NOTE | 2017-02-05 18:17 | PN ---
Date/Time of Note Date/Time of Note DATE: 02/05/17 TIME: 18:17 Assessment/Plan VTE Prophylaxis VTE Prophylaxis Intervention: heparin Lines/Catheters IV [facility] [place] [facility] Urinary Cath still in place: No Assessment/Plan Chief Complaint/Hosp Course 66 yo male with CKD II, DMII, venous stasis, PVD who presetns with nonhealing foot ulcers and lymphedema Foot ulcers: - s/p L BKA yesterday per Dr Lee - Wound vac to R leg wound, debridement in coming days per Dr Lee Acute decompensated diastolic CHF: - Diuretics per renal GAIL: - Trend creatinine, holding ARB DM - NISS - Basal bolus insulin PAD: - Aspirin and statin BP controlled Anemia of chronic CKD and chronic inflammation Problems: Subjective 24 Hr Interval Summary Free Text/Dictation No acute events Pending debridement Exam/Review of Systems Vital Signs Vitals Vital Signs Date Time Temp Pulse Resp B/P Pulse Ox O2 Delivery O2 Flow Rate FiO2 02/05/17 14:34 98.2 84 18 146/78 98 02/05/17 08:00 Nasal Cannula 02/04/17 20:00 2.0 Intake and Output 02/04/17 02/04/17 02/05/17 15:00 23:00 07:00 Intake Total 700 ml 360 ml Output Total 50 ml 650 ml 800 ml Balance -50 ml 50 ml -440 ml Exam Constitutional: alert, oriented, well developed Psych: nl mood/affect, no complaints Head: atraumatic, normocephalic Eyes: EOMI, PERRL, nl conjunctiva, nl lids, nl sclera ENMT: nl external ears & nose, nl lips & teeth, nl nasal mucosa & septum Neck: non-tender, supple Respiratory: clear to auscultation, normal air movement Cardiovascular: nl pulses, regular rate and rhythm Gastrointestinal: nl liver, spleen, non-tender, soft Musculoskeletal: nl extremities to inspection, nl gait and stance Extremities: normal pulses Neurological: [employer] II-XII intact, nl mental status, nl speech, nl strength Skin: nl turgor, No rash or lesions Lymph: nl lymph nodes Results Result Diagram: 02/04/17 0427 02/04/177 Results 24 hrs Laboratory Tests Test 02/04/17 21:22 02/05/17 08:08 02/05/17 12:10 02/05/17 14:32 Bedside Glucose 75 139 158 167 Test 02/05/17 16:19 02/05/17 17:22 Bedside Glucose 174 210 Medications Medications Current Medications Ondansetron HCl (Zofran Inj) 4 mg Q6H PRN IV NAUSEA AND/OR VOMITING; Start 01/24/17 at 19:00 Acetaminophen (Tylenol Tab) 650 mg Q6H PRN PO PAIN LEVEL 1-3 OR FEVER Last administered on 02/02/17 08:09; Admin Dose 650 MG; Start 01/24/17 at 19:00 Morphine Sulfate (morphine) 2 mg Q4H PRN IV SEVERE PAIN LEVEL 7-10 Last administered on 02/05/17 14:30; Admin Dose 2 MG; Start 01/24/17 at 19:00 Docusate Sodium (Colace) 100 mg Q12H PRN PO CONSTIPATION; Start 01/24/17 at 19: 00 Zolpidem Tartrate (Ambien) 5 mg QHS PRN PO SLEEP Last administered on 21:17; Admin Dose 5 MG; Start 01/24/17 at 19:00 Heparin Sodium (Porcine) (Heparin (5000 Units/0.5 ml)) 5,000 unit Q12 SC Last administered on 02/05/17 08:31; Admin Dose 5,000 UNIT; Start 01/24/17 at 21:00 Diagnostic Test (Pha) (Accu-Chek) 1 ea 02 XX ; Start 01/25/17 at 02:00 Miscellaneous Information 1 ea NOTE XX ; Start 01/24/17 at 19:00 Glucose (Glutose) 15 gm Q15M PRN PO DECREASED GLUCOSE; Start 01/24/17 at 19:00 Glucose (Glutose) 22.5 gm Q15M PRN PO DECREASED GLUCOSE; Start 01/24/17 at 19: 00 Dextrose (D50w Syringe) 25 ml Q15M PRN IV DECREASED GLUCOSE; Start 01/24/17 at 19:00 Dextrose (D50w Syringe) 50 ml Q15M PRN IV DECREASED GLUCOSE; Start 01/24/17 at 19:00 Glucagon (Glucagen) 1 mg Q15M PRN IM DECREASED GLUCOSE; Start 01/24/17 at 19:00 Glucose (Glutose) 15 gm Q15M PRN BUCCAL DECREASED GLUCOSE; Start 01/24/17 at 19 :00 Acetaminophen/ Hydrocodone Bitart ([place] (5/325)) 1 tab Q4H PRN PO MODERATE PAIN LEVEL 4-6 Last administered on 02/05/17 17:53; Admin Dose 1 TAB; Start 01/24/17 at 23:00 Metoprolol Tartrate (Lopressor) 25 mg BID PO Last administered on 02/05/17 08 :42; Admin Dose 25 MG; Start 01/27/17 at 21:00 Clonidine (Catapres) 0.1 mg Q6H PRN PO SBP>170; Start 01/27/17 at 18:00 Furosemide (Lasix) 40 mg DAILY IV Last administered on 02/05/17 08:41; Admin Dose 40 MG; Start 02/01/17 at 09:00 Atorvastatin Calcium (Lipitor) 20 mg HS PO Last administered on 02/04/17 21: 32; Admin Dose 20 MG; Start 02/01/17 at 21:00 Hydralazine HCl (Apresoline) 5 mg Q6H PRN IV sbp>170; Start 02/02/17 at 18:00 Oxycodone/ Acetaminophen (Percocet (5/ 325)) 2 tab Q6H PRN PO PAIN SCALE 5-7; Start 02/04/17 at 10:30 Hydromorphone HCl (Dilaudid) 2 mg ONCE PRN IV with left BKA dressing change Last administered on 02/04/17 13:12; Admin Dose 2 MG; Start 02/04/17 at 10:30 Insulin Glargine (Lantus) 17 unit QHS SC ; Start 02/05/17 at 21:00 Hydralazine HCl (Apresoline) 75 mg TID PO ; Start 02/05/17 at 21:00 BRIDGET STEPHENS MD Feb 05, 2017 18:17
[2017-02-05] MEDS: ATORVASTATIN 20 MG TAB PO SCH (20:13)
[2017-02-05 20:36] VITALS: BP 149/72; RESP 18
[2017-02-06] MEDS: ACCU-CHEK XX SCH (02:00)
[2017-02-06 02:54] VITALS: BP 158/86; RESP 18
[2017-02-06] MEDS: HYDROCODONE/APAP (5/325) TAB PO PRN (04:54)
[2017-02-06] MEDS: INSULIN ASPART [NOVOLOG] 3 ML PEN SC SCH ×7 (08:00→20:44)
[2017-02-06] MEDS: morphine 2 MG INJ IV PRN ×2 (08:06→14:26)
[2017-02-06] MEDS: HEPARIN 5,000 UNIT/0.5 ML VIAL SC SCH ×2 (08:22→20:56)
[2017-02-06] MEDS: METOPROLOL 25 MG TAB PO SCH ×2 (08:23→20:57)
[2017-02-06] MEDS: FUROSEMIDE 40 MG INJ IV SCH (08:23)
[2017-02-06 08:35] VITALS: BP 160/80; PULSE 84; RESP 20
[2017-02-06] MEDS: OXYCODONE/ACETAMINOPHEN (5/325) TAB PO PRN ×2 (09:47→17:27)
--- NOTE | 2017-02-06 11:18 | CONS ---
Date/Time of Note Date/Time of Note DATE: 02/06/17 TIME: 11:16 Assessment/Plan Assessment/Plan Chief Complaint/Hosp Course 1. Mild GAIL 2. chronic right lower extremity lymphedema and cellulitis. 3. CHF, diastolic 4. hypertension, controlled 5. Anemia chronic disease. 6. DM type II, better 7. Abnormal LFT 8. Skin wounds 9. Hypoalbuminemia. 10. s/p left BKA Problems: Additional Assessment/Plan 1. Optimization kidney function 2. better DM type II control 3. Fluid restriction to control hyponatremia Consultation Date/Type/Reason Admit Date/Time Jan 24, 2017 at 15:33 Initial Consult Date 01/27/2017 Type of Consultation: nephrology Reason for Consultation Dr Jackson Referring Provider: SELINA BAINS 24 HR Interval Summary Constitutional: improved Exam/Review of Systems Vital Signs Vitals Vital Signs Date Time Temp Pulse Resp B/P Pulse Ox O2 Delivery O2 Flow Rate FiO2 02/06/17 08:35 100.2 84 20 160/80 98 Room Air 02/05/17 20:15 2.0 Intake and Output 02/05/17 02/05/17 02/06/17 15:00 23:00 07:00 Intake Total 1660 ml 460 ml Output Total 951 ml 900 ml Balance 709 ml -440 ml Exam Eyes: nl conjunctiva Neck: supple Respiratory: diminished breath sounds Cardiovascular: regular rate and rhythm Gastrointestinal: soft Musculoskeletal: swelling (right leg) Results Result Diagram: 02/06/17 0434 02/06/17 0429 Results 24 hrs Laboratory Tests Test 02/05/17 12:10 02/05/17 14:32 02/05/17 16:19 02/05/17 17:22 Bedside Glucose 158 167 174 210 Test 02/05/17 20:10 02/06/17 04:29 02/06/17 04:34 02/06/17 08:15 Bedside Glucose 172 90 Sodium Level 132 L Potassium Level 4.5 Chloride Level 99 Carbon Dioxide Level 27 Anion Gap 11 Blood Urea Nitrogen 27 H Creatinine 1.72 H Glucose Level 87 Calcium Level 8.3 L Total Bilirubin 0.4 Direct Bilirubin 0.00 Indirect Bilirubin 0.4 Aspartate Amino Transf (AST/SGOT) 37 Alanine Aminotransferase (ALT/SGPT) 22 Alkaline Phosphatase 288 H Total Protein 6.5 Albumin 2.6 L Globulin 3.90 H Albumin/Globulin Ratio 0.66 White Blood Count 22.1 H Red Blood Count 3.40 L Hemoglobin 8.5 L Hematocrit 28.0 L Mean Corpuscular Volume 82.4 Mean Corpuscular Hemoglobin 25.0 L Mean Corpuscular Hemoglobin Concent 30.4 L Red Cell Distribution Width 17.0 H Platelet Count 446 H Mean Platelet Volume 9.1 Neutrophils % 82.0 H Lymphocytes % 10.2 L Monocytes % 5.7 Eosinophils % 1.0 Basophils % 0.4 Nucleated Red Blood Cells % 0.0 Neutrophils # 18.1 H Lymphocytes # 2.3 Monocytes # 1.3 H Eosinophils # 0.2 Basophils # 0.1 Nucleated Red Blood Cells # 0.0 Medications Medications Current Medications Ondansetron HCl (Zofran Inj) 4 mg Q6H PRN IV NAUSEA AND/OR VOMITING; Start 01/24/17 at 19:00 Acetaminophen (Tylenol Tab) 650 mg Q6H PRN PO PAIN LEVEL 1-3 OR FEVER Last administered on 02/02/17 08:09; Admin Dose 650 MG; Start 01/24/17 at 19:00 Morphine Sulfate (morphine) 2 mg Q4H PRN IV SEVERE PAIN LEVEL 7-10 Last administered on 02/06/17 08:06; Admin Dose 2 MG; Start 01/24/17 at 19:00 Docusate Sodium (Colace) 100 mg Q12H PRN PO CONSTIPATION; Start 01/24/17 at 19: 00 Zolpidem Tartrate (Ambien) 5 mg QHS PRN PO SLEEP Last administered on 21:17; Admin Dose 5 MG; Start 01/24/17 at 19:00 Heparin Sodium (Porcine) (Heparin (5000 Units/0.5 ml)) 5,000 unit Q12 SC Last administered on 02/06/17 08:22; Admin Dose 5,000 UNIT; Start 01/24/17 at 21:00 Diagnostic Test (Pha) (Accu-Chek) 1 ea 02 XX ; Start 01/25/17 at 02:00 Miscellaneous Information 1 ea NOTE XX ; Start 01/24/17 at 19:00 Glucose (Glutose) 15 gm Q15M PRN PO DECREASED GLUCOSE; Start 01/24/17 at 19:00 Glucose (Glutose) 22.5 gm Q15M PRN PO DECREASED GLUCOSE; Start 01/24/17 at 19: 00 Dextrose (D50w Syringe) 25 ml Q15M PRN IV DECREASED GLUCOSE; Start 01/24/17 at 19:00 Dextrose (D50w Syringe) 50 ml Q15M PRN IV DECREASED GLUCOSE; Start 01/24/17 at 19:00 Glucagon (Glucagen) 1 mg Q15M PRN IM DECREASED GLUCOSE; Start 01/24/17 at 19:00 Glucose (Glutose) 15 gm Q15M PRN BUCCAL DECREASED GLUCOSE; Start 01/24/17 at 19 :00 Acetaminophen/ Hydrocodone Bitart ([place] (5/325)) 1 tab Q4H PRN PO MODERATE PAIN LEVEL 4-6 Last administered on 02/06/17 04:54; Admin Dose 1 TAB; Start 01/24/17 at 23:00 Metoprolol Tartrate (Lopressor) 25 mg BID PO Last administered on 02/06/17 08 :23; Admin Dose 25 MG; Start 01/27/17 at 21:00 Clonidine (Catapres) 0.1 mg Q6H PRN PO SBP>170; Start 01/27/17 at 18:00 Furosemide (Lasix) 40 mg DAILY IV Last administered on 02/06/17 08:23; Admin Dose 40 MG; Start 02/01/17 at 09:00 Atorvastatin Calcium (Lipitor) 20 mg HS PO Last administered on 02/05/17 20: 13; Admin Dose 20 MG; Start 02/01/17 at 21:00 Hydralazine HCl (Apresoline) 5 mg Q6H PRN IV sbp>170; Start 02/02/17 at 18:00 Oxycodone/ Acetaminophen (Percocet (5/ 325)) 2 tab Q6H PRN PO PAIN SCALE 5-7 Last administered on 02/06/17 09:47; Admin Dose 2 TAB; Start 02/04/17 at 10: 30 Hydromorphone HCl (Dilaudid) 2 mg ONCE PRN IV with left BKA dressing change Last administered on 02/04/17 13:12; Admin Dose 2 MG; Start 02/04/17 at 10:30 Insulin Glargine (Lantus) 17 unit QHS SC Last administered on 02/05/17 20:17 ; Admin Dose 17 UNIT; Start 02/05/17 at 21:00 Hydralazine HCl (Apresoline) 75 mg TID PO Last administered on 02/06/17t 08:22 ; Admin Dose 75 MG; Start 02/05/17 at 21:00 LAINE PERRY Feb 06, 2017 11:17
--- NOTE | 2017-02-06 12:45 | PN ---
Date/Time of Note Date/Time of Note DATE: 02/06/17 TIME: 12:43 Assessment/Plan Lines/Catheters IV Catheter Type (from [facility]): Saline Lock Little in Place (from [facility]): No Assessment/Plan Chief Complaint/Hosp Course -Bilateral lower extremity atherosclerosis and gangrene: It seems the patients noncompliance of diabetes and poor hygiene presents with bilateral lower extremity diabetic foot ulcers and severe gangrene infection. He had presented to outside hospital with history of 3-4weeks of bilateral lower extremity swelling, redness, pain, maggots and foul smelling odor from bilateral lower legs and left heel. 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 Patient has undergone multiple debridements in order try to preserve his limb. -S/P Multiple debridements of muscle, ligament, tendon, bone, skin, and subcutaneous tissue and application ACell grafts in order to enhance granulation tissue development and eventual limb salvage and grafting for wound closure. -S/P Left BKA-with wound vac placement -Will change VAC on MWF with our wound care team -Will schedule patient for a RLE debridement tomorrow as he will require serial debridements and Acell graft application -Cardiac evaluation appreciate -Optimize vascular status (BP meds, sugar control, cholesterol, diet, antiplatelets) -Discussed plan, findings and management with the patient and he understands and agreed to proceed -Thank you for allowing us to partake in the care of your patient, please call with any questions Problems: Subjective 24 Hr Interval Summary no new vascular events overnight Exam/Review of Systems Vital Signs Vitals Vital Signs Date Time Temp Pulse Resp B/P Pulse Ox O2 Delivery O2 Flow Rate FiO2 02/06/17 12:05 98.7 02/06/17 08:35 84 20 160/80 98 Room Air 02/05/17 20:15 2.0 Intake and Output 02/05/17 02/05/17 02/06/17 15:00 23:00 07:00 Intake Total 1660 ml 460 ml Output Total 951 ml 900 ml Balance 709 ml -440 ml Exam Free Text/Dictation A&Ox3 CTAB S1S2 present soft NTND BS+ RLE: palpable femoral pulse, motor/sensory intact, cap refill 3 seconds, dressing intact and dry, edema LLE: palpable femoral pulse, BKA-stump with wound vac intact Results Result Diagram: 02/06/17 0434 02/06/17 0429 ASHLEY CAROLINA MD Feb 06, 2017 12:45
[2017-02-06 14:00] VITALS: BP 135/70; RESP 19
--- NOTE | 2017-02-06 15:23 | CONS ---
Date/Time of Note Date/Time of Note DATE: 02/06/17 TIME: 15:21 Assessment/Plan Assessment/Plan Chief Complaint/Hosp Course IMPRESSION: 1. Congestive heart failure by chest x-ray, diastolic, likely acute on chronic by most recent echo. EF 50% 2. Hypertension-uncontrolled 3. Preoperative. The patient at this time has tolerated lower extremity debridement, unclear whether other surgery may be required.-negative trop x 3 4. Anemia. 5. Nonhealing lower extremity ulcerations. 6. Diabetes mellitus. 7. MR-mod-sev by echo this admit Recc: -serial ecg's -Continue current hydralazine with further increase to improve BP -Continue BB and diovan -Continue Lasix diuresis/fluid restriction -local wound care -Follow BS closely with adjustment of insulin therapy as necessary Problems: Consultation Date/Type/Reason Admit Date/Time Jan 24, 2017 at 15:33 Initial Consult Date 01/26/2017 Type of Consultation: cardiology Reason for Consultation CHF Referring Provider: SELINA BAINS Exam/Review of Systems Vital Signs Vitals Vital Signs Date Time Temp Pulse Resp B/P Pulse Ox O2 Delivery O2 Flow Rate FiO2 02/06/17 12:05 98.7 02/06/17 08:35 84 20 160/80 98 Room Air 02/06/17 08:00 2.0 Intake and Output 02/05/17 02/05/17 02/06/17 15:00 23:00 07:00 Intake Total 1660 ml 460 ml Output Total 951 ml 900 ml Balance 709 ml -440 ml Exam Review of Systems: CONSTITUTIONAL: No fevers, chills. PULMONARY: No sob CARDIOVASCULAR: No chest pain/palpitations GASTROINTESTINAL: No nausea/vomiting. GENITOURINARY: No hematuria/dysuria. MUSCULOSKELETAL: C/O pain in legs bilateraly PSYCHIATRIC: The patient denies depression. NEUROLOGIC: No weakness Constitutional: alert Psych: no complaints Head: normocephalic ENMT: mucosa pink and moist Neck: jvd (9 cm water), supple Respiratory: diminished breath sounds (at bases/B) Cardiovascular: regular rate and rhythm Gastrointestinal: non-tender, soft Musculoskeletal: muscle tone (normal) Extremities: other (s/p LLE amputation with wound vac in place), pitting pedal edema Neurological: other (No focal deficits) Results Result Diagram: 02/06/17 0434 02/06/17 0429 Results 24 hrs Laboratory Tests Test 02/05/17 16:19 02/05/17 17:22 02/05/17 20:10 02/06/17 04:29 Bedside Glucose 174 210 172 Sodium Level 132 L Potassium Level 4.5 Chloride Level 99 Carbon Dioxide Level 27 Anion Gap 11 Blood Urea Nitrogen 27 H Creatinine 1.72 H Glucose Level 87 Calcium Level 8.3 L Total Bilirubin 0.4 Direct Bilirubin 0.00 Indirect Bilirubin 0.4 Aspartate Amino Transf (AST/SGOT) 37 Alanine Aminotransferase (ALT/SGPT) 22 Alkaline Phosphatase 288 H Total Protein 6.5 Albumin 2.6 L Globulin 3.90 H Albumin/Globulin Ratio 0.66 Test 02/06/17 04:34 02/06/17 08:15 02/06/17 11:58 White Blood Count 22.1 H Red Blood Count 3.40 L Hemoglobin 8.5 L Hematocrit 28.0 L Mean Corpuscular Volume 82.4 Mean Corpuscular Hemoglobin 25.0 L Mean Corpuscular Hemoglobin Concent 30.4 L Red Cell Distribution Width 17.0 H Platelet Count 446 H Mean Platelet Volume 9.1 Neutrophils % 82.0 H Lymphocytes % 10.2 L Monocytes % 5.7 Eosinophils % 1.0 Basophils % 0.4 Nucleated Red Blood Cells % 0.0 Neutrophils # 18.1 H Lymphocytes # 2.3 Monocytes # 1.3 H Eosinophils # 0.2 Basophils # 0.1 Nucleated Red Blood Cells # 0.0 Bedside Glucose 90 152 Medications Medications Current Medications Ondansetron HCl (Zofran Inj) 4 mg Q6H PRN IV NAUSEA AND/OR VOMITING; Start 01/24/17 at 19:00 Acetaminophen (Tylenol Tab) 650 mg Q6H PRN PO PAIN LEVEL 1-3 OR FEVER Last administered on 02/02/17 08:09; Admin Dose 650 MG; Start 01/24/17 at 19:00 Morphine Sulfate (morphine) 2 mg Q4H PRN IV SEVERE PAIN LEVEL 7-10 Last administered on 02/06/17 14:26; Admin Dose 2 MG; Start 01/24/17 at 19:00 Docusate Sodium (Colace) 100 mg Q12H PRN PO CONSTIPATION; Start 01/24/17 at 19: 00 Zolpidem Tartrate (Ambien) 5 mg QHS PRN PO SLEEP Last administered on 21:17; Admin Dose 5 MG; Start 01/24/17 at 19:00 Heparin Sodium (Porcine) (Heparin (5000 Units/0.5 ml)) 5,000 unit Q12 SC Last administered on 02/06/17 08:22; Admin Dose 5,000 UNIT; Start 01/24/17 at 21:00 Diagnostic Test (Pha) (Accu-Chek) 1 ea 02 XX ; Start 01/25/17 at 02:00 Miscellaneous Information 1 ea NOTE XX ; Start 01/24/17 at 19:00 Glucose (Glutose) 15 gm Q15M PRN PO DECREASED GLUCOSE; Start 01/24/17 at 19:00 Glucose (Glutose) 22.5 gm Q15M PRN PO DECREASED GLUCOSE; Start 01/24/17 at 19: 00 Dextrose (D50w Syringe) 25 ml Q15M PRN IV DECREASED GLUCOSE; Start 01/24/17 at 19:00 Dextrose (D50w Syringe) 50 ml Q15M PRN IV DECREASED GLUCOSE; Start 01/24/17 at 19:00 Glucagon (Glucagen) 1 mg Q15M PRN IM DECREASED GLUCOSE; Start 01/24/17 at 19:00 Glucose (Glutose) 15 gm Q15M PRN BUCCAL DECREASED GLUCOSE; Start 01/24/17 at 19 :00 Acetaminophen/ Hydrocodone Bitart ([place] (5/325)) 1 tab Q4H PRN PO MODERATE PAIN LEVEL 4-6 Last administered on 02/06/17 04:54; Admin Dose 1 TAB; Start 01/24/17 at 23:00 Metoprolol Tartrate (Lopressor) 25 mg BID PO Last administered on 02/06/17 08 :23; Admin Dose 25 MG; Start 01/27/17 at 21:00 Clonidine (Catapres) 0.1 mg Q6H PRN PO SBP>170; Start 01/27/17 at 18:00 Furosemide (Lasix) 40 mg DAILY IV Last administered on 02/06/17 08:23; Admin Dose 40 MG; Start 02/01/17 at 09:00 Atorvastatin Calcium (Lipitor) 20 mg HS PO Last administered on 02/05/17 20: 13; Admin Dose 20 MG; Start 02/01/17 at 21:00 Hydralazine HCl (Apresoline) 5 mg Q6H PRN IV sbp>170; Start 02/02/17 at 18:00 Oxycodone/ Acetaminophen (Percocet (5/ 325)) 2 tab Q6H PRN PO PAIN SCALE 5-7 Last administered on 02/06/17 09:47; Admin Dose 2 TAB; Start 02/04/17 at 10: 30 Hydromorphone HCl (Dilaudid) 2 mg ONCE PRN IV with left BKA dressing change Last administered on 02/04/17 13:12; Admin Dose 2 MG; Start 02/04/17 at 10:30 Insulin Glargine (Lantus) 17 unit QHS SC Last administered on 02/05/17 20:17 ; Admin Dose 17 UNIT; Start 02/05/17 at 21:00 Hydralazine HCl (Apresoline) 75 mg TID PO Last administered on 02/06/17 14:21 ; Admin Dose 75 MG; Start 02/05/17 at 21:00 CLARITZA FLORES Feb 06, 2017 15:23
--- NOTE | 2017-02-06 15:54 | PN ---
Date/Time of Note Date/Time of Note DATE: 02/06/17 TIME: 15:52 Assessment/Plan VTE Prophylaxis VTE Prophylaxis Intervention: heparin Lines/Catheters IV Catheter Type (from Nrs): Saline Lock Urinary Cath still in place: No Assessment/Plan Chief Complaint/Hosp Course 66 yo male with CKD II, DMII, venous stasis, PVD who presetns with nonhealing foot ulcers and lymphedema Foot ulcers: - s/p L BKA 02/[address] Lee - Wound vac to R leg wound, debridement in coming days per Dr Lee Acute decompensated diastolic CHF: - Diuretics per renal GAIL: - Trend creatinine, holding ARB DM - NISS - Basal bolus insulin PAD: - Aspirin and statin BP controlled Anemia of chronic CKD and chronic inflammation Pain control Patient needs placement, nurse case management consulted PT/OT Problems: Subjective 24 Hr Interval Summary Free Text/Dictation Stable complaint of pain in legs Exam/Review of Systems Vital Signs Vitals Vital Signs Date Time Temp Pulse Resp B/P Pulse Ox O2 Delivery O2 Flow Rate FiO2 02/06/17 14:00 98.6 69 19 135/70 99 02/06/17 08:35 Room Air 02/06/17 08:00 2.0 Intake and Output 02/05/17 02/05/17 02/06/17 15:00 23:00 07:00 Intake Total 1660 ml 460 ml Output Total 951 ml 900 ml Balance 709 ml -440 ml Results Result Diagram: 02/06/17 0434 02/06/17 0429 Results 24 hrs Laboratory Tests Test 02/05/17 16:19 02/05/17 17:22 02/05/17 20:10 02/06/17 04:29 Bedside Glucose 174 210 172 Sodium Level 132 L Potassium Level 4.5 Chloride Level 99 Carbon Dioxide Level 27 Anion Gap 11 Blood Urea Nitrogen 27 H Creatinine 1.72 H Glucose Level 87 Calcium Level 8.3 L Total Bilirubin 0.4 Direct Bilirubin 0.00 Indirect Bilirubin 0.4 Aspartate Amino Transf (AST/SGOT) 37 Alanine Aminotransferase (ALT/SGPT) 22 Alkaline Phosphatase 288 H Total Protein 6.5 Albumin 2.6 L Globulin 3.90 H Albumin/Globulin Ratio 0.66 Test 02/06/17 04:34 02/06/17 08:15 02/06/17 11:58 White Blood Count 22.1 H Red Blood Count 3.40 L Hemoglobin 8.5 L Hematocrit 28.0 L Mean Corpuscular Volume 82.4 Mean Corpuscular Hemoglobin 25.0 L Mean Corpuscular Hemoglobin Concent 30.4 L Red Cell Distribution Width 17.0 H Platelet Count 446 H Mean Platelet Volume 9.1 Neutrophils % 82.0 H Lymphocytes % 10.2 L Monocytes % 5.7 Eosinophils % 1.0 Basophils % 0.4 Nucleated Red Blood Cells % 0.0 Neutrophils # 18.1 H Lymphocytes # 2.3 Monocytes # 1.3 H Eosinophils # 0.2 Basophils # 0.1 Nucleated Red Blood Cells # 0.0 Bedside Glucose 90 152 Medications Medications Current Medications Ondansetron HCl (Zofran Inj) 4 mg Q6H PRN IV NAUSEA AND/OR VOMITING; Start 01/24/17 at 19:00 Acetaminophen (Tylenol Tab) 650 mg Q6H PRN PO PAIN LEVEL 1-3 OR FEVER Last administered on 02/02/17 08:09; Admin Dose 650 MG; Start 01/24/17 at 19:00 Morphine Sulfate (morphine) 2 mg Q4H PRN IV SEVERE PAIN LEVEL 7-10 Last administered on 02/06/17 14:26; Admin Dose 2 MG; Start 01/24/17 at 19:00 Docusate Sodium (Colace) 100 mg Q12H PRN PO CONSTIPATION; Start 01/24/17 at 19: 00 Zolpidem Tartrate (Ambien) 5 mg QHS PRN PO SLEEP Last administered on 21:17; Admin Dose 5 MG; Start 01/24/17 at 19:00 Heparin Sodium (Porcine) (Heparin (5000 Units/0.5 ml)) 5,000 unit Q12 SC Last administered on 02/06/17 08:22; Admin Dose 5,000 UNIT; Start 01/24/17 at 21:00 Diagnostic Test (Pha) (Accu-Chek) 1 ea 02 XX ; Start 01/25/17 at 02:00 Miscellaneous Information 1 ea NOTE XX ; Start 01/24/17 at 19:00 Glucose (Glutose) 15 gm Q15M PRN PO DECREASED GLUCOSE; Start 01/24/17 at 19:00 Glucose (Glutose) 22.5 gm Q15M PRN PO DECREASED GLUCOSE; Start 01/24/17 at 19: 00 Dextrose (D50w Syringe) 25 ml Q15M PRN IV DECREASED GLUCOSE; Start 01/24/17 at 19:00 Dextrose (D50w Syringe) 50 ml Q15M PRN IV DECREASED GLUCOSE; Start 01/24/17 at 19:00 Glucagon (Glucagen) 1 mg Q15M PRN IM DECREASED GLUCOSE; Start 01/24/17 at 19:00 Glucose (Glutose) 15 gm Q15M PRN BUCCAL DECREASED GLUCOSE; Start 01/24/17 at 19 :00 Acetaminophen/ Hydrocodone Bitart ([place] (5/325)) 1 tab Q4H PRN PO MODERATE PAIN LEVEL 4-6 Last administered on 02/06/17 04:54; Admin Dose 1 TAB; Start 01/24/17 at 23:00 Metoprolol Tartrate (Lopressor) 25 mg BID PO Last administered on 02/06/17 08 :23; Admin Dose 25 MG; Start 01/27/17 at 21:00 Clonidine (Catapres) 0.1 mg Q6H PRN PO SBP>170; Start 01/27/17 at 18:00 Furosemide (Lasix) 40 mg DAILY IV Last administered on 02/06/17 08:23; Admin Dose 40 MG; Start 02/01/17 at 09:00 Atorvastatin Calcium (Lipitor) 20 mg HS PO Last administered on 02/05/17 20: 13; Admin Dose 20 MG; Start 02/01/17 at 21:00 Hydralazine HCl (Apresoline) 5 mg Q6H PRN IV sbp>170; Start 02/02/17 at 18:00 Oxycodone/ Acetaminophen (Percocet (5/ 325)) 2 tab Q6H PRN PO PAIN SCALE 5-7 Last administered on 02/06/17 09:47; Admin Dose 2 TAB; Start 02/04/17 at 10: 30 Hydromorphone HCl (Dilaudid) 2 mg ONCE PRN IV with left BKA dressing change Last administered on 02/04/17 13:12; Admin Dose 2 MG; Start 02/04/17 at 10:30 Insulin Glargine (Lantus) 17 unit QHS SC Last administered on 02/05/17 20:17 ; Admin Dose 17 UNIT; Start 02/05/17 at 21:00 Hydralazine HCl (Apresoline) 100 mg TID PO ; Start 02/06/17 at 21:00 BRIDGET STEPHENS MD Feb 06, 2017 15:53
[2017-02-06 20:00] VITALS: BP 112/60; RESP 18
[2017-02-06] MEDS: INSULIN GLARGINE [LANtus] 3 ML PEN SC SCH (20:43)
[2017-02-06] MEDS: ATORVASTATIN 20 MG TAB PO SCH (20:57)
[2017-02-06] MEDS: morphine (ER) 15 MG TAB PO SCH (20:58)
[2017-02-06] MEDS ORDERED: INSULIN GLARGINE [LANtus] 3 ML PEN SC ONE (21:00)
[2017-02-06 21:03] VITALS: BP 131/71; PULSE 72
[2017-02-07] VITALS (11 sets, daily range): BP systolic 118–165; BP diastolic 58–93; PULSE 69–88; RESP 18–19
[2017-02-07] MEDS: DEXTROSE 5%-0.45% NACL 1,000 ML IV SCH (00:11)
[2017-02-07] MEDS: ACCU-CHEK XX SCH (01:36)
[2017-02-07] MEDS: OXYCODONE/ACETAMINOPHEN (5/325) TAB PO PRN ×3 (01:44→19:31)
[2017-02-07] MEDS: INSULIN ASPART [NOVOLOG] 3 ML PEN SC SCH ×7 (07:35→20:38)
[2017-02-07] MEDS: METOPROLOL 25 MG TAB PO SCH ×2 (09:00→20:35)
[2017-02-07] MEDS: HEPARIN 5,000 UNIT/0.5 ML VIAL SC SCH ×2 (09:00→20:36)
[2017-02-07] MEDS: morphine (ER) 15 MG TAB PO SCH ×2 (09:00→20:42)
[2017-02-07] MEDS: FUROSEMIDE 40 MG INJ IV SCH (09:38)
[2017-02-07] MEDS: HYDROmorphONE 2 MG/ML SYG IV PRN (10:23)
[2017-02-07] MEDS ORDERED: FENTAnyl 50 MCG/ML VIAL ONE (13:29)
[2017-02-07] MEDS ORDERED: hydrALAzine 20 MG INJ IV PRN (13:30)
[2017-02-07] MEDS ORDERED: ONDANSETRON 4 MG INJ IV PRN (13:30)
[2017-02-07] MEDS ORDERED: LABETALOL HCL 20MG INJ IV PRN (13:30)
[2017-02-07] MEDS ORDERED: FENTAnyl 50 MCG/ML VIAL IV PRN ×2 (13:30)
[2017-02-07] MEDS ORDERED: HYDROmorphONE (0.2 MG/ML) 10ML SYG IV PRN ×3 (13:30)
[2017-02-07] MEDS ORDERED: MEPERIDINE 25 MG INJ IV PRN (13:30)
[2017-02-07] MEDS ORDERED: MIDAZOLAM 1 MG/ML 2 ML INJ ONE (13:37)
--- NOTE | 2017-02-07 14:43 | HPN ---
Date/Time of Note Date/Time of Note DATE: 02/07/17 TIME: 14:42 Interval H&P Admission Note Pt. seen H&P reviewed: No system changes ASHLEY CAROLINA MD Feb 07, 2017 14:43
--- NOTE | 2017-02-07 14:48 | OPR ---
Date/Time of Note Date/Time of Note DATE: 02/07/17 TIME: 14:43 Operative Report Procedure Date: Feb 07, 2017 Preoperative Diagnosis RLE GANGRENE Postoperative Diagnosis SAME Surgeon see signature line Director Pharmacy Services NONE Anesthesia Type: moderate sedation Estimated Blood Loss: minimal Transfusion none Specimen NONE Grafts/Implants ACELL Complications none Pt Condition Post Procedure: stable Disposition: other (FLOOR) Procedure Description DATE OF OPERATION: 02/07/2017 SURGEON: Jesus Carolina MD PREOPERATIVE DIAGNOSIS: Right lower extremity gangrene POSTOPERATIVE DIAGNOSIS: Same ANESTHESIA: LOCAL, MODERATE SEDATION ESTIMATED BLOOD LOSS: Minimal. COMPLICATIONS: None. INDICATIONS: This is a 66-year-old male whom is noncompliant with diabetes and presented with bilateral lower extremity diabetic foot ulcers and infection. The patient had presented to outside hospital with history of 3-4weeks of bilateral lower extremity swelling, redness, pain, maggots and foul smelling odor from bilateral lower legs and left heel. 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 Subsequently, the patient has undergone multiple debridements in order try to preserve his limb. Multiple debridements of muscle, ligament, tendon, skin, and subcutaneous tissue with application of ACell grafts in order to enhance granulation tissue development, cover large wound defect and eventual limb salvage with possible grafting for wound closure. The patient has been discussed about the risks, benefits, and alternatives including but not limited to bleeding, worsening infection, limb loss, nerve injury, infection, , stroke, myocardial infarction, and multiple debridements in the near future and she has agreed to proceed. OPERATION PERFORMED: 1. Excisional sharp debridement of the right lower extremity involving skin, subcutaneous tissue, muscle, ligament, and tendon. Wound measuring 35 x 30 x 0.5cm cm in the greatest dimensions. 2. Application of 2 grams of xenograft MicroMatrix powder over the area of the right lower leg. 3. Application of one [id number] one layer xenograft sheet 4. Application of one 7x10cm one layer xenograft sheet DESCRIPTION OF PROCEDURE: The patient was brought into the operating room table , placed in supine position. The normal bony prominences were padded. The anesthesia team had placed appropriate lines and anesthesia was induced. The patient tolerated procedure well and appropriate site was marked and confirmed. The patient's left lower extremity was then prepped and draped in usual standard sterile fashion. Preoperative antibiotics were given prior to skin incision. Using sharp scissors and a curette, excisional debridement of all necrotic tissue involving skin, subcutaneous tissue, ligament, tendon, and muscle was performed. The patient has good surrounding developing on the edges with some necrotic fibrinous tissue which were all removed. The patient's previous MicroMatrix and wound sheets of xenografts had been mostly taken appropriately and adequate granulation tissue has developed. We debrided further hypergranulation tissue with excisional sharp debridement. We then applied 1 gram of xenograft MicroMatrix powder to repair and replace lost and damaged tissues. Once this aspect was completed, we went ahead and placed one-layer xenograft sheets over all the exposed areas of the lower leg to repair and replace lost and damaged tissues and wound defect. Adaptic was applied circumferentially followed by Surgilube. This was followed with moist dressing, Telfa, 4 x 4, and Kerlix dressing. The patient tolerated procedure well and was taken to the postanesthesia care unit in stable condition. Our plan will be to revisit the wound again in one two weeks JESUS CAROLINA MD Feb 07, 2017 14:48
--- NOTE | 2017-02-07 15:39 | PN ---
Date/Time of Note Date/Time of Note DATE: 02/07/17 TIME: 15:31 Assessment/Plan VTE Prophylaxis VTE Prophylaxis Intervention: heparin Lines/Catheters IV Catheter Type (from Nrs): Peripheral IV Urinary Cath still in place: No Assessment/Plan Assessment/Plan 1. Right foot ulcer, s/p surgical debridement 02/07/2017, wound care, follow up with surgery 2. 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 PVD, on aspirin and statin 4. DM, lantus and ISS 5. Hypertension, controlled 6. CKD, stage 3, follow up with BMP 7. Normocytic anemia, CKD related, follow up with CBC 8. DNY prophylaxis: heparin Subjective 24 Hr Interval Summary Free Text/Dictation just back from surgery. alert and oriented without distress Exam/Review of Systems Vital Signs Vitals Vital Signs Date Time Temp Pulse Resp B/P Pulse Ox O2 Delivery O2 Flow Rate FiO2 02/07/17 14:50 84 93 02/07/17 14:48 127/66 02/07/17 08:00 Nasal Cannula 2.0 02/07/17 07:24 99.0 18 Intake and Output 02/06/17 02/06/17 02/07/17 15:00 23:00 07:00 Intake Total 1000 ml 500 ml Output Total 1790 ml 1100 ml Balance -790 ml -600 ml Exam Constitutional: alert, oriented, well developed Head: atraumatic, normocephalic Eyes: EOMI, nl conjunctiva, nl lids ENMT: nl external ears & nose, nl lips & teeth, nl nasal mucosa & septum Neck: non-tender, supple Respiratory: clear to auscultation, normal air movement, No congested cough, No crackles/rales, No diminished breath sounds, No intercostal retraction, No labored breathing, No other, No respirations, No tactile fremitus, No wheezing Cardiovascular: nl pulses, regular rate and rhythm, No S3, No S4, No bruits, No diastolic murmur, No edema, No gallop, No irregular rhythm, No jugular venous distention (JVD), No murmurs/extra sounds, No other, No rub, No systolic murmur Gastrointestinal: nl liver, spleen, non-tender, soft Musculoskeletal: other (right foot wound, left BKA) Neurological: PATHOLOGY LABORATORY TECHNOLOGIST II-XII intact, nl mental status, nl speech, nl strength Results Result Diagram: 02/06/17 0434 02/06/17 0429 Results 24 hrs Laboratory Tests Test 02/06/17 17:25 02/06/17 20:27 02/07/17 08:14 02/07/17 12:27 Bedside Glucose 102 141 120 127 Medications Medications Current Medications Ondansetron HCl (Zofran Inj) 4 mg Q6H PRN IV NAUSEA AND/OR VOMITING; Start 01/24/17 at 19:00 Acetaminophen (Tylenol Tab) 650 mg Q6H PRN PO PAIN LEVEL 1-3 OR FEVER Last administered on 02/02/17 08:09; Admin Dose 650 MG; Start 01/24/17 at 19:00 Morphine Sulfate (morphine) 2 mg Q4H PRN IV SEVERE PAIN LEVEL 7-10 Last administered on 02/06/17 14:26; Admin Dose 2 MG; Start 01/24/17 at 19:00 Docusate Sodium (Colace) 100 mg Q12H PRN PO CONSTIPATION; Start 01/24/17 at 19: 00 Zolpidem Tartrate (Ambien) 5 mg QHS PRN PO SLEEP Last administered on 21:17; Admin Dose 5 MG; Start 01/24/17 at 19:00 Heparin Sodium (Porcine) (Heparin (5000 Units/0.5 ml)) 5,000 unit Q12 SC Last administered on 02/06/17 08:22; Admin Dose 5,000 UNIT; Start 01/24/17 at 21:00 Diagnostic Test (Pha) (Accu-Chek) 1 ea 02 XX ; Start 01/25/17 at 02:00 Miscellaneous Information 1 ea NOTE XX ; Start 01/24/17 at 19:00 Glucose (Glutose) 15 gm Q15M PRN PO DECREASED GLUCOSE; Start 01/24/17 at 19:00 Glucose (Glutose) 22.5 gm Q15M PRN PO DECREASED GLUCOSE; Start 01/24/17 at 19: 00 Dextrose (D50w Syringe) 25 ml Q15M PRN IV DECREASED GLUCOSE; Start 01/24/17 at 19:00 Dextrose (D50w Syringe) 50 ml Q15M PRN IV DECREASED GLUCOSE; Start 01/24/17 at 19:00 Glucagon (Glucagen) 1 mg Q15M PRN IM DECREASED GLUCOSE; Start 01/24/17 at 19:00 Glucose (Glutose) 15 gm Q15M PRN BUCCAL DECREASED GLUCOSE; Start 01/24/17 at 19 :00 Acetaminophen/ Hydrocodone Bitart ([place] (5/325)) 1 tab Q4H PRN PO MODERATE PAIN LEVEL 4-6 Last administered on 02/06/17 04:54; Admin Dose 1 TAB; Start 01/24/17 at 23:00 Metoprolol Tartrate (Lopressor) 25 mg BID PO Last administered on 02/06/17 20 :57; Admin Dose 25 MG; Start 01/27/17 at 21:00 Clonidine (Catapres) 0.1 mg Q6H PRN PO SBP>170; Start 01/27/17 at 18:00 Furosemide (Lasix) 40 mg DAILY IV Last administered on 02/07/17 09:38; Admin Dose 40 MG; Start 02/01/17 at 09:00 Atorvastatin Calcium (Lipitor) 20 mg HS PO Last administered on 02/06/17 20: 57; Admin Dose 20 MG; Start 02/01/17 at 21:00 Hydralazine HCl (Apresoline) 5 mg Q6H PRN IV sbp>170; Start 02/02/17 at 18:00 Oxycodone/ Acetaminophen (Percocet (5/ 325)) 2 tab Q6H PRN PO PAIN SCALE 5-7 Last administered on 02/07/17 01:44; Admin Dose 2 TAB; Start 02/04/17 at 10: 30 Hydromorphone HCl (Dilaudid) 2 mg ONCE PRN IV with left BKA dressing change Last administered on 02/07/17 10:23; Admin Dose 2 MG; Start 02/04/17 at 10:30 Insulin Glargine (Lantus) 17 unit QHS SC Last administered on 02/05/17 20:17 ; Admin Dose 17 UNIT; Start 02/05/17 at 21:00 Hydralazine HCl (Apresoline) 100 mg TID PO Last administered on 02/06/17 20: 58; Admin Dose 100 MG; Start 02/06/17 at 21:00 Morphine Sulfate 15 mg 15 mg BID PO Last administered on 02/06/17 20:58; Admin Dose 15 MG; Start 02/06/17 at 21:00 Dextrose/Sodium Chloride (D5-1/2ns) 1,000 ml @ 40 mls/hr Q24H IV Last administered on 02/07/17 00:11; Admin Dose 40 MLS/HR; Start 02/07/17 at 00:00 CARMEL SMART MD Feb 07, 2017 15:39
--- NOTE | 2017-02-07 16:17 | CONS ---
Date/Time of Note Date/Time of Note DATE: 02/07/17 TIME: 16:14 Assessment/Plan Assessment/Plan Chief Complaint/Hosp Course 66 y/o with # Patient has possible underlying chronic kidney disease with mild GAIL Cr trending up? hemodynamic s/p AKA. Cr stable fluctating # Rt foot ulcer s/p debridement on 02/07 # chronic lower extremity lymphedema and cellulitis. # CHF likley diastolic # hypertension, anemia. # DM # Abnormal LFT # Skin wounds # Hypoalbunemia # Bilateral lower extremity atherosclerosis and gangrene Plan - c/w iv lasix to 40 mg - Hold valsartan for GAIL - dm management per primary - Fluid restriction - Avoid nephrotoxic agents Problems: Consultation Date/Type/Reason Admit Date/Time Jan 24, 2017 at 15:33 Type of Consultation: Renal Referring Provider: SELINA BAINS 24 HR Interval Summary Free Text/Dictation s/p Rt foot surgical debridement Exam/Review of Systems Vital Signs Vitals Vital Signs Date Time Temp Pulse Resp B/P Pulse Ox O2 Delivery O2 Flow Rate FiO2 02/07/17 14:50 84 93 02/07/17 14:48 127/66 02/07/17 08:00 Nasal Cannula 2.0 02/07/17 07:24 99.0 18 Intake and Output 02/06/17 02/06/17 02/07/17 15:00 23:00 07:00 Intake Total 1000 ml 500 ml Output Total 1790 ml 1100 ml Balance -790 ml -600 ml Exam A&Ox3 CTAB S1S2 present soft NTND BS+ Extremities: left AKA, rt foot ulce s/p debridement Neurological: other (No focal deficIT) Results Result Diagram: 02/06/17 0434 02/06/17 0429 Results 24 hrs Laboratory Tests Test 02/06/17 17:25 02/06/17 20:27 02/07/17 08:14 02/07/17 12:27 Bedside Glucose 102 141 120 127 Medications Medications Current Medications Ondansetron HCl (Zofran Inj) 4 mg Q6H PRN IV NAUSEA AND/OR VOMITING; Start 01/24/17 at 19:00 Acetaminophen (Tylenol Tab) 650 mg Q6H PRN PO PAIN LEVEL 1-3 OR FEVER Last administered on 02/02/17t 08:09; Admin Dose 650 MG; Start 01/24/17 at 19:00 Morphine Sulfate (morphine) 2 mg Q4H PRN IV SEVERE PAIN LEVEL 7-10 Last administered on 02/06/17 14:26; Admin Dose 2 MG; Start 01/24/17 at 19:00 Docusate Sodium (Colace) 100 mg Q12H PRN PO CONSTIPATION; Start 01/24/17 at 19: 00 Zolpidem Tartrate (Ambien) 5 mg QHS PRN PO SLEEP Last administered on 21:17; Admin Dose 5 MG; Start 01/24/17 at 19:00 Heparin Sodium (Porcine) (Heparin (5000 Units/0.5 ml)) 5,000 unit Q12 SC Last administered on 02/06/17 08:22; Admin Dose 5,000 UNIT; Start 01/24/17 at 21:00 Diagnostic Test (Pha) (Accu-Chek) 1 ea 02 XX ; Start 01/25/17 at 02:00 Miscellaneous Information 1 ea NOTE XX ; Start 01/24/17 at 19:00 Glucose (Glutose) 15 gm Q15M PRN PO DECREASED GLUCOSE; Start 01/24/17 at 19:00 Glucose (Glutose) 22.5 gm Q15M PRN PO DECREASED GLUCOSE; Start 01/24/17 at 19: 00 Dextrose (D50w Syringe) 25 ml Q15M PRN IV DECREASED GLUCOSE; Start 01/24/17 at 19:00 Dextrose (D50w Syringe) 50 ml Q15M PRN IV DECREASED GLUCOSE; Start 01/24/17 at 19:00 Glucagon (Glucagen) 1 mg Q15M PRN IM DECREASED GLUCOSE; Start 01/24/17 at 19:00 Glucose (Glutose) 15 gm Q15M PRN BUCCAL DECREASED GLUCOSE; Start 01/24/17 at 19 :00 Acetaminophen/ Hydrocodone Bitart ([place] (5/325)) 1 tab Q4H PRN PO MODERATE PAIN LEVEL 4-6 Last administered on 02/06/17 04:54; Admin Dose 1 TAB; Start 01/24/17 at 23:00 Metoprolol Tartrate (Lopressor) 25 mg BID PO Last administered on 02/06/17 20 :57; Admin Dose 25 MG; Start 01/27/17 at 21:00 Clonidine (Catapres) 0.1 mg Q6H PRN PO SBP>170; Start 01/27/17 at 18:00 Furosemide (Lasix) 40 mg DAILY IV Last administered on 02/07/17 09:38; Admin Dose 40 MG; Start 02/01/17 at 09:00 Atorvastatin Calcium (Lipitor) 20 mg HS PO Last administered on 02/06/17 20: 57; Admin Dose 20 MG; Start 02/01/17 at 21:00 Hydralazine HCl (Apresoline) 5 mg Q6H PRN IV sbp>170; Start 02/02/17 at 18:00 Oxycodone/ Acetaminophen (Percocet (5/ 325)) 2 tab Q6H PRN PO PAIN SCALE 5-7 Last administered on 02/07/17 01:44; Admin Dose 2 TAB; Start 02/04/17 at 10: 30 Hydromorphone HCl (Dilaudid) 2 mg ONCE PRN IV with left BKA dressing change Last administered on 02/07/17 10:23; Admin Dose 2 MG; Start 02/04/17 at 10:30 Insulin Glargine (Lantus) 17 unit QHS SC Last administered on 02/05/17 20:17 ; Admin Dose 17 UNIT; Start 02/05/17 at 21:00 Hydralazine HCl (Apresoline) 100 mg TID PO Last administered on 02/06/17 20: 58; Admin Dose 100 MG; Start 02/06/17 at 21:00 Morphine Sulfate 15 mg 15 mg BID PO Last administered on 02/06/17 20:58; Admin Dose 15 MG; Start 02/06/17 at 21:00 Dextrose/Sodium Chloride (D5-1/2ns) 1,000 ml @ 40 mls/hr Q24H IV Last administered on 02/07/17 00:11; Admin Dose 40 MLS/HR; Start 02/07/17 at 00:00 LUIS ANTONIO WHITLOCK MD Feb 07, 2017 16:17
--- NOTE | 2017-02-07 19:08 | CONS ---
Date/Time of Note Date/Time of Note DATE: 02/07/17 TIME: 19:05 Assessment/Plan Assessment/Plan Chief Complaint/Hosp Course IMPRESSION: 1. Congestive heart failure by chest x-ray, diastolic, likely acute on chronic by most recent echo. EF 50% 2. Hypertension-uncontrolled 3. Preoperative. -negative trop x 3/no cp/NL EF by echo. s/p debirdement repeat today 4. Anemia. 5. Nonhealing lower extremity ulcerations. 6. Diabetes mellitus. 7. MR-mod-sev by echo this admit Recc: -Check post-op ecg -Resume hydralazine/BB post-op -Diovan d/c'd in setting of ? renal failure -Continue Lasix diuresis/fluid restriction -local wound care s/p debridement today -Follow BS closely with adjustment of insulin therapy as necessary Problems: Consultation Date/Type/Reason Admit Date/Time Jan 24, 2017 at 15:33 Initial Consult Date 01/26/2017 Type of Consultation: cardiology Reason for Consultation HTN Referring Provider: SELINA BAINS Exam/Review of Systems Vital Signs Vitals Vital Signs Date Time Temp Pulse Resp B/P Pulse Ox O2 Delivery O2 Flow Rate FiO2 02/07/17 16:00 98.0 80 18 141/67 93 Room Air 02/07/17 08:00 2.0 Intake and Output 02/06/17 02/06/17 02/07/17 15:00 23:00 07:00 Intake Total 1000 ml 500 ml Output Total 1790 ml 1100 ml Balance -790 ml -600 ml Exam Review of Systems: CONSTITUTIONAL: No fevers, chills. PULMONARY: No sob CARDIOVASCULAR: No chest pain/palpitations GASTROINTESTINAL: No nausea/vomiting. GENITOURINARY: No hematuria/dysuria. MUSCULOSKELETAL: No myagias/arthalgias. PSYCHIATRIC: The patient denies depression. NEUROLOGIC: No weakness Constitutional: alert Psych: no complaints Head: normocephalic ENMT: mucosa pink and moist Neck: jvd (9 cm water), supple Respiratory: diminished breath sounds (at bases/B) Cardiovascular: regular rate and rhythm Gastrointestinal: soft Musculoskeletal: muscle weakness (generalized mild) Extremities: other (covered by dressing) Neurological: other (No focal deficits) Results Result Diagram: 02/06/17 0434 02/06/17 0429 Results 24 hrs Laboratory Tests Test 02/06/17 20:27 02/07/17 08:14 02/07/17 12:27 02/07/17 17:38 Bedside Glucose 141 120 127 126 Medications Medications Current Medications Ondansetron HCl (Zofran Inj) 4 mg Q6H PRN IV NAUSEA AND/OR VOMITING; Start 01/24/17 at 19:00 Acetaminophen (Tylenol Tab) 650 mg Q6H PRN PO PAIN LEVEL 1-3 OR FEVER Last administered on 02/02/17 08:09; Admin Dose 650 MG; Start 01/24/17 at 19:00 Morphine Sulfate (morphine) 2 mg Q4H PRN IV SEVERE PAIN LEVEL 7-10 Last administered on 02/06/17 14:26; Admin Dose 2 MG; Start 01/24/17 at 19:00 Docusate Sodium (Colace) 100 mg Q12H PRN PO CONSTIPATION; Start 01/24/17 at 19: 00 Zolpidem Tartrate (Ambien) 5 mg QHS PRN PO SLEEP Last administered on 21:17; Admin Dose 5 MG; Start 01/24/17 at 19:00 Heparin Sodium (Porcine) (Heparin (5000 Units/0.5 ml)) 5,000 unit Q12 SC Last administered on 02/06/17 08:22; Admin Dose 5,000 UNIT; Start 01/24/17 at 21:00 Diagnostic Test (Pha) (Accu-Chek) 1 ea 02 XX ; Start 01/25/17 at 02:00 Miscellaneous Information 1 ea NOTE XX ; Start 01/24/17 at 19:00 Glucose (Glutose) 15 gm Q15M PRN PO DECREASED GLUCOSE; Start 01/24/17 at 19:00 Glucose (Glutose) 22.5 gm Q15M PRN PO DECREASED GLUCOSE; Start 01/24/17 at 19: 00 Dextrose (D50w Syringe) 25 ml Q15M PRN IV DECREASED GLUCOSE; Start 01/24/17 at 19:00 Dextrose (D50w Syringe) 50 ml Q15M PRN IV DECREASED GLUCOSE; Start 01/24/17 at 19:00 Glucagon (Glucagen) 1 mg Q15M PRN IM DECREASED GLUCOSE; Start 01/24/17 at 19:00 Glucose (Glutose) 15 gm Q15M PRN BUCCAL DECREASED GLUCOSE; Start 01/24/17 at 19 :00 Acetaminophen/ Hydrocodone Bitart ([place] (5/325)) 1 tab Q4H PRN PO MODERATE PAIN LEVEL 4-6 Last administered on 02/06/17 04:54; Admin Dose 1 TAB; Start 01/24/17 at 23:00 Metoprolol Tartrate (Lopressor) 25 mg BID PO Last administered on 02/06/17 20 :57; Admin Dose 25 MG; Start 01/27/17 at 21:00 Clonidine (Catapres) 0.1 mg Q6H PRN PO SBP>170; Start 01/27/17 at 18:00 Furosemide (Lasix) 40 mg DAILY IV Last administered on 02/07/17 09:38; Admin Dose 40 MG; Start 02/01/17 at 09:00 Atorvastatin Calcium (Lipitor) 20 mg HS PO Last administered on 02/06/17 20: 57; Admin Dose 20 MG; Start 02/01/17 at 21:00 Hydralazine HCl (Apresoline) 5 mg Q6H PRN IV sbp>170; Start 02/02/17 at 18:00 Oxycodone/ Acetaminophen (Percocet (5/ 325)) 2 tab Q6H PRN PO PAIN SCALE 5-7 Last administered on 02/07/17 18:37; Admin Dose 2 TAB; Start 02/04/17 at 10: 30 Hydromorphone HCl (Dilaudid) 2 mg ONCE PRN IV with left BKA dressing change Last administered on 02/07/17 10:23; Admin Dose 2 MG; Start 02/04/17 at 10:30 Insulin Glargine (Lantus) 17 unit QHS SC Last administered on 02/05/17 20:17 ; Admin Dose 17 UNIT; Start 02/05/17 at 21:00 Hydralazine HCl (Apresoline) 100 mg TID PO Last administered on 02/06/17 20: 58; Admin Dose 100 MG; Start 02/06/17 at 21:00 Morphine Sulfate 15 mg 15 mg BID PO Last administered on 02/06/17 20:58; Admin Dose 15 MG; Start 02/06/17 at 21:00 Dextrose/Sodium Chloride (D5-1/2ns) 1,000 ml @ 40 mls/hr Q24H IV Last administered on 02/07/17t 00:11; Admin Dose 40 MLS/HR; Start 02/07/17 at 00:00 CLARITZA FLORES Feb 07, 2017 19:08
[2017-02-07] MEDS: ATORVASTATIN 20 MG TAB PO SCH (20:35)
[2017-02-07] MEDS: INSULIN GLARGINE [LANtus] 3 ML PEN SC SCH (20:37)
[2017-02-08 02:00] VITALS: BP 146/77; RESP 18
[2017-02-08] MEDS: ACCU-CHEK XX SCH (02:00)
[2017-02-08] MEDS: DEXTROSE 5%-0.45% NACL 1,000 ML IV SCH ×2 (05:59)
[2017-02-08] MEDS: OXYCODONE/ACETAMINOPHEN (5/325) TAB PO PRN (06:00)
[2017-02-08 07:15] VITALS: BP 136/66; RESP 18
[2017-02-08] MEDS: INSULIN ASPART [NOVOLOG] 3 ML PEN SC SCH ×7 (08:00→21:00)
[2017-02-08] MEDS: HEPARIN 5,000 UNIT/0.5 ML VIAL SC SCH ×2 (09:12→20:19)
[2017-02-08] MEDS: FUROSEMIDE 40 MG INJ IV SCH (09:13)
[2017-02-08] MEDS: METOPROLOL 25 MG TAB PO SCH ×2 (09:14→20:21)
[2017-02-08] MEDS: morphine (ER) 15 MG TAB PO SCH ×2 (09:15→20:21)
--- NOTE | 2017-02-08 10:04 | CONS ---
Date/Time of Note Date/Time of Note DATE: 02/08/17 TIME: 10:03 Assessment/Plan Assessment/Plan Additional Assessment/Plan 1. Congestive heart failure by chest x-ray, diastolic, likely acute on chronic by most recent echo. EF 50% - stable fluid status now. 2. Hypertension-uncontrolled- well Rx now. 3. Preoperative -negative trop x 3/no cp/NL EF by echo. s/p debridement repeat per surgery - stable 4. Anemia. 5. Nonhealing lower extremity ulcerations. 6. Diabetes mellitus. 7. MR-mod-sev by echo this admit Consultation Date/Type/Reason Admit Date/Time Jan 24, 2017 at 15:33 Type of Consultation: cardiology Referring Provider: SELINA BAINS 24 HR Interval Summary Free Text/Dictation NO acute events - BP in good range - no CP now, will monitor clinically now. \ ROS: No fever, no chills, no nausea, no vomiting, no diarrhea/constipation No recent weight changes No chest pain, no PND, no orthopnea No dizziness, blurred vision No thirst, no heat or cold intolerance Exam/Review of Systems Vital Signs Vitals Vital Signs Date Time Temp Pulse Resp B/P Pulse Ox O2 Delivery O2 Flow Rate FiO2 02/08/17 07:15 98.3 79 18 136/66 92 02/07/17 22:27 Room Air 02/07/17 08:00 2.0 Intake and Output 02/07/17 02/07/17 02/08/17 15:00 23:00 07:00 Intake Total 550 ml 760 ml Output Total 700 ml Balance 550 ml 60 ml Exam General: WN/WD/NAD, AOx 3 HEENT: Unicetric/atraumatic/EOMI (follows commands) NECK: JVD elevated, no thyromegaly Lymph: no lymphadenopathy HEART: regular with no S3, II/ systolic murmur at apex LUNGS: Coarse sounds ABD: soft, NT, ND, +BS : Intact Neuro: non focal SKIN: chronic changes EXT: trace edema Results Result Diagram: 02/08/1742202/08/17422 Results 24 hrs Laboratory Tests Test 02/07/17 12:27 02/07/17 17:38 02/07/17 20:34 02/08/17 04:23 Bedside Glucose 127 126 137 White Blood Count 23.6 H Red Blood Count 3.81 L Hemoglobin 9.9 L Hematocrit 32.3 L Mean Corpuscular Volume 84.8 Mean Corpuscular Hemoglobin 26.0 L Mean Corpuscular Hemoglobin Concent 30.7 L Red Cell Distribution Width 16.4 H Platelet Count 528 H Mean Platelet Volume 9.7 Neutrophils % 80.0 H Lymphocytes % 11.6 L Monocytes % 6.0 Eosinophils % 1.1 Basophils % 0.4 Nucleated Red Blood Cells % 0.0 Neutrophils # 18.9 H Lymphocytes # 2.7 Monocytes # 1.4 H Eosinophils # 0.3 Basophils # 0.1 Nucleated Red Blood Cells # 0.0 Sodium Level 133 L Potassium Level 4.6 Chloride Level 97 Carbon Dioxide Level 26 Anion Gap 15 Blood Urea Nitrogen 31 H Creatinine 1.69 H Glucose Level 80 Calcium Level 8.9 Test 02/08/17 08:06 02/08/17 09:09 Bedside Glucose 89 118 Medications Medications Current Medications Ondansetron HCl (Zofran Inj) 4 mg Q6H PRN IV NAUSEA AND/OR VOMITING; Start 01/24/17 at 19:00 Acetaminophen (Tylenol Tab) 650 mg Q6H PRN PO PAIN LEVEL 1-3 OR FEVER Last administered on 02/02/17 08:09; Admin Dose 650 MG; Start 01/24/17 at 19:00 Morphine Sulfate (morphine) 2 mg Q4H PRN IV SEVERE PAIN LEVEL 7-10 Last administered on 02/06/17 14:26; Admin Dose 2 MG; Start 01/24/17 at 19:00 Docusate Sodium (Colace) 100 mg Q12H PRN PO CONSTIPATION; Start 01/24/17 at 19: 00 Zolpidem Tartrate (Ambien) 5 mg QHS PRN PO SLEEP Last administered on 21:17; Admin Dose 5 MG; Start 01/24/17 at 19:00 Heparin Sodium (Porcine) (Heparin (5000 Units/0.5 ml)) 5,000 unit Q12 SC Last administered on 02/08/17 09:12; Admin Dose 5,000 UNIT; Start 01/24/17 at 21:00 Diagnostic Test (Pha) (Accu-Chek) 1 ea 02 XX ; Start 01/25/17 at 02:00 Miscellaneous Information 1 ea NOTE XX ; Start 01/24/17 at 19:00 Glucose (Glutose) 15 gm Q15M PRN PO DECREASED GLUCOSE; Start 01/24/17 at 19:00 Glucose (Glutose) 22.5 gm Q15M PRN PO DECREASED GLUCOSE; Start 01/24/17 at 19: 00 Dextrose (D50w Syringe) 25 ml Q15M PRN IV DECREASED GLUCOSE; Start 01/24/17 at 19:00 Dextrose (D50w Syringe) 50 ml Q15M PRN IV DECREASED GLUCOSE; Start 01/24/17 at 19:00 Glucagon (Glucagen) 1 mg Q15M PRN IM DECREASED GLUCOSE; Start 01/24/17 at 19:00 Glucose (Glutose) 15 gm Q15M PRN BUCCAL DECREASED GLUCOSE; Start 01/24/17 at 19 :00 Acetaminophen/ Hydrocodone Bitart ([place] (5/325)) 1 tab Q4H PRN PO MODERATE PAIN LEVEL 4-6 Last administered on 02/06/17 04:54; Admin Dose 1 TAB; Start 01/24/17 at 23:00 Metoprolol Tartrate (Lopressor) 25 mg BID PO Last administered on 02/08/17 09 :14; Admin Dose 25 MG; Start 01/27/17 at 21:00 Clonidine (Catapres) 0.1 mg Q6H PRN PO SBP>170; Start 01/27/17 at 18:00 Furosemide (Lasix) 40 mg DAILY IV Last administered on 02/08/17 09:13; Admin Dose 40 MG; Start 02/01/17 at 09:00 Atorvastatin Calcium (Lipitor) 20 mg HS PO Last administered on 02/07/17 20: 35; Admin Dose 20 MG; Start 02/01/17 at 21:00 Hydralazine HCl (Apresoline) 5 mg Q6H PRN IV sbp>170; Start 02/02/17 at 18:00 Oxycodone/ Acetaminophen (Percocet (5/ 325)) 2 tab Q6H PRN PO PAIN SCALE 5-7 Last administered on 02/08/17 06:00; Admin Dose 2 TAB; Start 02/04/17 at 10: 30 Hydromorphone HCl (Dilaudid) 2 mg ONCE PRN IV with left BKA dressing change Last administered on 02/07/17 10:23; Admin Dose 2 MG; Start 02/04/17 at 10:30 Insulin Glargine (Lantus) 17 unit QHS SC Last administered on 02/07/17 20:37 ; Admin Dose 17 UNIT; Start 02/05/17 at 21:00 Hydralazine HCl (Apresoline) 100 mg TID PO Last administered on 02/08/17 09: 14; Admin Dose 100 MG; Start 02/06/17 at 21:00 Morphine Sulfate 15 mg 15 mg BID PO Last administered on 02/08/17 09:15; Admin Dose 15 MG; Start 02/06/17 at 21:00 Dextrose/Sodium Chloride (D5-1/2ns) 1,000 ml @ 40 mls/hr Q24H IV Last administered on 02/08/17 05:59; Admin Dose 40 MLS/HR; Start 02/07/17 at 00:00 GISEL WELLS MD Feb 08, 2017 10:04
[2017-02-08 12:50] VITALS: BP 140/70; PULSE 74; RESP 18
--- NOTE | 2017-02-08 13:47 | PN ---
Date/Time of Note Date/Time of Note DATE: 02/08/17 TIME: 13:44 Assessment/Plan VTE Prophylaxis VTE Prophylaxis Intervention: heparin Lines/Catheters IV Catheter Type (from Nrs): Peripheral IV Urinary Cath still in place: No Assessment/Plan Assessment/Plan 1. Right foot ulcer, s/p surgical debridement 02/07/2017, wound care, follow up with surgery 2. 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 PVD, on aspirin and statin 4. DM, lantus and ISS 5. Hypertension, controlled 6. CKD, stage 3, follow up with BMP 7. Normocytic anemia, CKD related, follow up with CBC 8. DNY prophylaxis: heparin Subjective 24 Hr Interval Summary Free Text/Dictation afebrile Exam/Review of Systems Vital Signs Vitals Vital Signs Date Time Temp Pulse Resp B/P Pulse Ox O2 Delivery O2 Flow Rate FiO2 02/08/17 12:50 98.7 74 18 140/70 98 Room Air 02/07/17 08:00 2.0 Intake and Output 02/07/17 02/07/17 02/08/17 15:00 23:00 07:00 Intake Total 550 ml 760 ml Output Total 700 ml Balance 550 ml 60 ml Exam Constitutional: alert, oriented, well developed Psych: nl mood/affect, no complaints Head: atraumatic, normocephalic Eyes: EOMI, nl conjunctiva, nl lids ENMT: nl external ears & nose, nl lips & teeth, nl nasal mucosa & septum Neck: non-tender, supple Respiratory: clear to auscultation, normal air movement, No congested cough, No crackles/rales, No diminished breath sounds, No intercostal retraction, No labored breathing, No other, No respirations, No tactile fremitus, No wheezing Cardiovascular: nl pulses, regular rate and rhythm, No S3, No S4, No bruits, No diastolic murmur, No edema, No gallop, No irregular rhythm, No jugular venous distention (JVD), No murmurs/extra sounds, No other, No rub, No systolic murmur Gastrointestinal: nl liver, spleen, non-tender, soft, No ascites, No bowel sounds, No distended, No firm, No hepatomegaly, No mass , No other, No rebound or guarding, No splenomegaly, No surgical scars, No tender Extremities: other (left BKA with wound VAC, right foot wound) Neurological: [employer] II-XII intact, nl mental status, nl speech, nl strength Results Result Diagram: 02/08/1742202/08/17422 Results 24 hrs Laboratory Tests Test 02/07/17 17:38 02/07/17 20:34 02/08/17 04:23 02/08/17 08:06 Bedside Glucose 126 137 89 White Blood Count 23.6 H Red Blood Count 3.81 L Hemoglobin 9.9 L Hematocrit 32.3 L Mean Corpuscular Volume 84.8 Mean Corpuscular Hemoglobin 26.0 L Mean Corpuscular Hemoglobin Concent 30.7 L Red Cell Distribution Width 16.4 H Platelet Count 528 H Mean Platelet Volume 9.7 Neutrophils % 80.0 H Lymphocytes % 11.6 L Monocytes % 6.0 Eosinophils % 1.1 Basophils % 0.4 Nucleated Red Blood Cells % 0.0 Neutrophils # 18.9 H Lymphocytes # 2.7 Monocytes # 1.4 H Eosinophils # 0.3 Basophils # 0.1 Nucleated Red Blood Cells # 0.0 Sodium Level 133 L Potassium Level 4.6 Chloride Level 97 Carbon Dioxide Level 26 Anion Gap 15 Blood Urea Nitrogen 31 H Creatinine 1.69 H Glucose Level 80 Calcium Level 8.9 Test 02/08/17 09:09 02/08/17 12:16 Bedside Glucose 118 108 Medications Medications Current Medications Ondansetron HCl (Zofran Inj) 4 mg Q6H PRN IV NAUSEA AND/OR VOMITING; Start 01/24/17 at 19:00 Acetaminophen (Tylenol Tab) 650 mg Q6H PRN PO PAIN LEVEL 1-3 OR FEVER Last administered on 02/02/17 08:09; Admin Dose 650 MG; Start 01/24/17 at 19:00 Morphine Sulfate (morphine) 2 mg Q4H PRN IV SEVERE PAIN LEVEL 7-10 Last administered on 02/06/17 14:26; Admin Dose 2 MG; Start 01/24/17 at 19:00 Docusate Sodium (Colace) 100 mg Q12H PRN PO CONSTIPATION; Start 01/24/17 at 19: 00 Zolpidem Tartrate (Ambien) 5 mg QHS PRN PO SLEEP Last administered on 21:17; Admin Dose 5 MG; Start 01/24/17 at 19:00 Heparin Sodium (Porcine) (Heparin (5000 Units/0.5 ml)) 5,000 unit Q12 SC Last administered on 02/08/17 09:12; Admin Dose 5,000 UNIT; Start 01/24/17 at 21:00 Diagnostic Test (Pha) (Accu-Chek) 1 ea 02 XX ; Start 01/25/17 at 02:00 Miscellaneous Information 1 ea NOTE XX ; Start 01/24/17 at 19:00 Glucose (Glutose) 15 gm Q15M PRN PO DECREASED GLUCOSE; Start 01/24/17 at 19:00 Glucose (Glutose) 22.5 gm Q15M PRN PO DECREASED GLUCOSE; Start 01/24/17 at 19: 00 Dextrose (D50w Syringe) 25 ml Q15M PRN IV DECREASED GLUCOSE; Start 01/24/17 at 19:00 Dextrose (D50w Syringe) 50 ml Q15M PRN IV DECREASED GLUCOSE; Start 01/24/17 at 19:00 Glucagon (Glucagen) 1 mg Q15M PRN IM DECREASED GLUCOSE; Start 01/24/17 at 19:00 Glucose (Glutose) 15 gm Q15M PRN BUCCAL DECREASED GLUCOSE; Start 01/24/17 at 19 :00 Acetaminophen/ Hydrocodone Bitart ([place] (5/325)) 1 tab Q4H PRN PO MODERATE PAIN LEVEL 4-6 Last administered on 02/06/17 04:54; Admin Dose 1 TAB; Start 01/24/17 at 23:00 Metoprolol Tartrate (Lopressor) 25 mg BID PO Last administered on 02/08/17 09 :14; Admin Dose 25 MG; Start 01/27/17 at 21:00 Clonidine (Catapres) 0.1 mg Q6H PRN PO SBP>170; Start 01/27/17 at 18:00 Furosemide (Lasix) 40 mg DAILY IV Last administered on 02/08/17 09:13; Admin Dose 40 MG; Start 02/01/17 at 09:00 Atorvastatin Calcium (Lipitor) 20 mg HS PO Last administered on 02/07/17 20: 35; Admin Dose 20 MG; Start 02/01/17 at 21:00 Hydralazine HCl (Apresoline) 5 mg Q6H PRN IV sbp>170; Start 02/02/17 at 18:00 Oxycodone/ Acetaminophen (Percocet (5/ 325)) 2 tab Q6H PRN PO PAIN SCALE 5-7 Last administered on 02/08/17 06:00; Admin Dose 2 TAB; Start 02/04/17 at 10: 30 Hydromorphone HCl (Dilaudid) 2 mg ONCE PRN IV with left BKA dressing change Last administered on 02/07/17 10:23; Admin Dose 2 MG; Start 02/04/17 at 10:30 Insulin Glargine (Lantus) 17 unit QHS SC Last administered on 02/07/17 20:37 ; Admin Dose 17 UNIT; Start 02/05/17 at 21:00 Hydralazine HCl (Apresoline) 100 mg TID PO Last administered on 02/08/17 12: 53; Admin Dose 100 MG; Start 02/06/17 at 21:00 Morphine Sulfate 15 mg 15 mg BID PO Last administered on 02/08/17 09:15; Admin Dose 15 MG; Start 02/06/17 at 21:00 Dextrose/Sodium Chloride (D5-1/2ns) 1,000 ml @ 40 mls/hr Q24H IV Last administered on 02/08/17 05:59; Admin Dose 40 MLS/HR; Start 02/07/17 at 00:00 CARMEL SMART MD Feb 08, 2017 13:47
[2017-02-08 14:00] VITALS: BP 137/69; RESP 16
--- NOTE | 2017-02-08 19:05 | CONS ---
Date/Time of Note Date/Time of Note DATE: 02/08/17 TIME: 19:04 Assessment/Plan Assessment/Plan Chief Complaint/Hosp Course 66 y/o with # Patient has possible underlying chronic kidney disease with mild GAIL Cr trending up? hemodynamic s/p AKA. Cr stable fluctating CKD III # Rt foot ulcer s/p debridement on 02/07 # chronic lower extremity lymphedema and cellulitis. # CHF likley diastolic # hypertension, anemia. # DM # Abnormal LFT # Skin wounds # Hypoalbunemia # Bilateral lower extremity atherosclerosis and gangrene Plan - Cr stable - c/w iv lasix to 40 mg - Hold valsartan for GAIL - dm management per primary - Fluid restriction - Avoid nephrotoxic agents Problems: Consultation Date/Type/Reason Admit Date/Time Jan 24, 2017 at 15:33 Type of Consultation: Renal Referring Provider: SELINA BAINS 24 HR Interval Summary Free Text/Dictation No new complains Exam/Review of Systems Vital Signs Vitals Vital Signs Date Time Temp Pulse Resp B/P Pulse Ox O2 Delivery O2 Flow Rate FiO2 02/08/17 14:00 98.3 74 16 137/69 97 02/08/17 12:50 Room Air 02/07/17 08:00 2.0 Intake and Output 02/07/17 02/07/17 02/08/17 14:59 22:59 06:59 Intake Total 550 ml 760 ml Output Total 700 ml Balance 550 ml 60 ml Exam a&Ox3 CTAB S1S2 present soft NTND BS+ Extremities: left AKA, rt foot ulce s/p debridement Neurological: other (No focal deficIT) Results Result Diagram: 02/08/17 0423 02/08/17 1415 Results 24 hrs Laboratory Tests Test 02/07/17 20:34 02/08/17 04:23 02/08/17 08:06 02/08/17 09:09 Bedside Glucose 137 89 118 White Blood Count 23.6 H Red Blood Count 3.81 L Hemoglobin 9.9 L Hematocrit 32.3 L Mean Corpuscular Volume 84.8 Mean Corpuscular Hemoglobin 26.0 L Mean Corpuscular Hemoglobin Concent 30.7 L Red Cell Distribution Width 16.4 H Platelet Count 528 H Mean Platelet Volume 9.7 Neutrophils % 80.0 H Lymphocytes % 11.6 L Monocytes % 6.0 Eosinophils % 1.1 Basophils % 0.4 Nucleated Red Blood Cells % 0.0 Neutrophils # 18.9 H Lymphocytes # 2.7 Monocytes # 1.4 H Eosinophils # 0.3 Basophils # 0.1 Nucleated Red Blood Cells # 0.0 Sodium Level 133 L Potassium Level 4.6 Chloride Level 97 Carbon Dioxide Level 26 Anion Gap 15 Blood Urea Nitrogen 31 H Creatinine 1.69 H Glucose Level 80 Calcium Level 8.9 Test 02/08/17 12:16 02/08/17 14:15 02/08/17 17:49 Bedside Glucose 108 98 Sodium Level 132 L Potassium Level 3.8 Chloride Level 96 L Carbon Dioxide Level 27 Anion Gap 13 Blood Urea Nitrogen 30 H Creatinine 1.73 H Glucose Level 75 Calcium Level 8.5 Medications Medications Current Medications Ondansetron HCl (Zofran Inj) 4 mg Q6H PRN IV NAUSEA AND/OR VOMITING; Start 01/24/17 at 19:00 Acetaminophen (Tylenol Tab) 650 mg Q6H PRN PO PAIN LEVEL 1-3 OR FEVER Last administered on 02/02/17 08:09; Admin Dose 650 MG; Start 01/24/17 at 19:00 Morphine Sulfate (morphine) 2 mg Q4H PRN IV SEVERE PAIN LEVEL 7-10 Last administered on 02/06/17 14:26; Admin Dose 2 MG; Start 01/24/17 at 19:00 Docusate Sodium (Colace) 100 mg Q12H PRN PO CONSTIPATION; Start 01/24/17 at 19: 00 Zolpidem Tartrate (Ambien) 5 mg QHS PRN PO SLEEP Last administered on 21:17; Admin Dose 5 MG; Start 01/24/17 at 19:00 Heparin Sodium (Porcine) (Heparin (5000 Units/0.5 ml)) 5,000 unit Q12 SC Last administered on 02/08/17 09:12; Admin Dose 5,000 UNIT; Start 01/24/17 at 21:00 Diagnostic Test (Pha) (Accu-Chek) 1 ea 02 XX ; Start 01/25/17 at 02:00 Miscellaneous Information 1 ea NOTE XX ; Start 01/24/17 at 19:00 Glucose (Glutose) 15 gm Q15M PRN PO DECREASED GLUCOSE; Start 01/24/17 at 19:00 Glucose (Glutose) 22.5 gm Q15M PRN PO DECREASED GLUCOSE; Start 01/24/17 at 19: 00 Dextrose (D50w Syringe) 25 ml Q15M PRN IV DECREASED GLUCOSE; Start 01/24/17 at 19:00 Dextrose (D50w Syringe) 50 ml Q15M PRN IV DECREASED GLUCOSE; Start 01/24/17 at 19:00 Glucagon (Glucagen) 1 mg Q15M PRN IM DECREASED GLUCOSE; Start 01/24/17 at 19:00 Glucose (Glutose) 15 gm Q15M PRN BUCCAL DECREASED GLUCOSE; Start 01/24/17 at 19 :00 Acetaminophen/ Hydrocodone Bitart ([place] (5/325)) 1 tab Q4H PRN PO MODERATE PAIN LEVEL 4-6 Last administered on 02/06/17 04:54; Admin Dose 1 TAB; Start 01/24/17 at 23:00 Metoprolol Tartrate (Lopressor) 25 mg BID PO Last administered on 02/08/17 09 :14; Admin Dose 25 MG; Start 01/27/17 at 21:00 Clonidine (Catapres) 0.1 mg Q6H PRN PO SBP>170; Start 01/27/17 at 18:00 Furosemide (Lasix) 40 mg DAILY IV Last administered on 02/08/17 09:13; Admin Dose 40 MG; Start 02/01/17 at 09:00 Atorvastatin Calcium (Lipitor) 20 mg HS PO Last administered on 02/07/17 20: 35; Admin Dose 20 MG; Start 02/01/17 at 21:00 Hydralazine HCl (Apresoline) 5 mg Q6H PRN IV sbp>170; Start 02/02/17 at 18:00 Oxycodone/ Acetaminophen (Percocet (5/ 325)) 2 tab Q6H PRN PO PAIN SCALE 5-7 Last administered on 02/08/17 06:00; Admin Dose 2 TAB; Start 02/04/17 at 10: 30 Hydromorphone HCl (Dilaudid) 2 mg ONCE PRN IV with left BKA dressing change Last administered on 02/07/17 10:23; Admin Dose 2 MG; Start 02/04/17 at 10:30 Hydralazine HCl (Apresoline) 100 mg TID PO Last administered on 02/08/17 12: 53; Admin Dose 100 MG; Start 02/06/17 at 21:00 Morphine Sulfate 15 mg 15 mg BID PO Last administered on 02/08/17 09:15; Admin Dose 15 MG; Start 02/06/17 at 21:00 Dextrose/Sodium Chloride (D5-1/2ns) 1,000 ml @ 40 mls/hr Q24H IV Last administered on 02/08/17 05:59; Admin Dose 40 MLS/HR; Start 02/07/17 at 00:00 Insulin Glargine (Lantus) 15 unit QHS SC ; Start 02/08/17 at 21:00 LUIS ANTONIO WHITLOCK MD Feb 08, 2017 19:05
[2017-02-08 20:17] VITALS: BP 133/64; RESP 18
[2017-02-08] MEDS: INSULIN GLARGINE [LANtus] 3 ML PEN SC SCH (20:18)
[2017-02-08] MEDS: ATORVASTATIN 20 MG TAB PO SCH (20:20)
[2017-02-08] MEDS: morphine 2 MG INJ IV PRN (23:17)
[2017-02-09] MEDS: ACCU-CHEK XX SCH (02:00)
[2017-02-09 02:24] VITALS: BP 143/70; RESP 18
[2017-02-09] MEDS: DEXTROSE 5%-0.45% NACL 1,000 ML IV SCH (06:08)
[2017-02-09] MEDS: HYDROCODONE/APAP (5/325) TAB PO PRN ×2 (06:59→11:24)
[2017-02-09] MEDS: INSULIN ASPART [NOVOLOG] 3 ML PEN SC SCH ×7 (07:59→21:00)
[2017-02-09 08:00] VITALS: BP 137/68; RESP 18
[2017-02-09] MEDS: HEPARIN 5,000 UNIT/0.5 ML VIAL SC SCH ×2 (08:12→21:06)
[2017-02-09] MEDS: morphine (ER) 15 MG TAB PO SCH ×2 (08:13→20:59)
[2017-02-09] MEDS: FUROSEMIDE 40 MG INJ IV SCH (08:13)
[2017-02-09] MEDS: METOPROLOL 25 MG TAB PO SCH ×2 (08:13→20:59)
[2017-02-09] MEDS: OXYCODONE/ACETAMINOPHEN (5/325) TAB PO PRN (13:02)
[2017-02-09] MEDS: HYDROmorphONE 2 MG/ML SYG IV PRN (13:36)
[2017-02-09 14:00] VITALS: BP_SYST 136; RESP 20
--- NOTE | 2017-02-09 14:55 | PN ---
Date/Time of Note Date/Time of Note DATE: 02/09/17 TIME: 14:53 Assessment/Plan VTE Prophylaxis VTE Prophylaxis Intervention: heparin Lines/Catheters IV Catheter Type (from Nrs): Peripheral IV Urinary Cath still in place: No Assessment/Plan Assessment/Plan 1. Right foot ulcer, s/p surgical debridement 02/07/2017, wound care, follow up with surgery 2. 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 PVD, on aspirin and statin 4. DM, lantus and ISS 5. Hypertension, controlled 6. CKD, stage 3, follow up with BMP 7. Normocytic anemia, CKD related, follow up with CBC 8. DVT prophylaxis: heparin 9. Awaiting for wound VAC arrangement Subjective 24 Hr Interval Summary Free Text/Dictation afebrile, pain is controlled Exam/Review of Systems Vital Signs Vitals Vital Signs Date Time Temp Pulse Resp B/P Pulse Ox O2 Delivery O2 Flow Rate FiO2 02/09/17 08:00 97.8 137 18 137/68 96 02/08/17 12:50 Room Air 02/07/17 08:00 2.0 Intake and Output 02/08/17 02/08/17 02/09/17 15:00 23:00 07:00 Intake Total 1300 ml 1080 ml Output Total 1580 ml 30 ml Balance -280 ml 1050 ml Exam Constitutional: alert, oriented, well developed Psych: nl mood/affect, no complaints Head: atraumatic, normocephalic Eyes: EOMI, PERRL, nl conjunctiva, nl lids, nl sclera ENMT: nl external ears & nose, nl lips & teeth, nl nasal mucosa & septum Neck: non-tender, supple Respiratory: clear to auscultation, normal air movement, No congested cough, No crackles/rales, No diminished breath sounds, No intercostal retraction, No labored breathing, No other, No respirations, No tactile fremitus, No wheezing Cardiovascular: nl pulses, regular rate and rhythm, No S3, No S4, No bruits, No diastolic murmur, No edema, No gallop, No irregular rhythm, No jugular venous distention (JVD), No murmurs/extra sounds, No other, No rub, No systolic murmur Gastrointestinal: nl liver, spleen, non-tender, soft Extremities: other (right foot wound, left BKA) Neurological: [employer] II-XII intact, nl mental status, nl speech, nl strength Results Result Diagram: 02/08/17 0423 02/08/17 1415 Results 24 hrs Laboratory Tests Test 02/08/17 17:49 02/08/17 20:11 02/09/17 07:54 02/09/17 12:15 Bedside Glucose 98 83 102 119 Medications Medications Current Medications Ondansetron HCl (Zofran Inj) 4 mg Q6H PRN IV NAUSEA AND/OR VOMITING; Start 01/24/17 at 19:00 Acetaminophen (Tylenol Tab) 650 mg Q6H PRN PO PAIN LEVEL 1-3 OR FEVER Last administered on 02/02/17 08:09; Admin Dose 650 MG; Start 01/24/17 at 19:00 Morphine Sulfate (morphine) 2 mg Q4H PRN IV SEVERE PAIN LEVEL 7-10 Last administered on 02/08/17 23:17; Admin Dose 2 MG; Start 01/24/17 at 19:00 Docusate Sodium (Colace) 100 mg Q12H PRN PO CONSTIPATION Last administered on 02/09/17 06:59; Admin Dose 100 MG; Start 01/24/17 at 19:00 Zolpidem Tartrate (Ambien) 5 mg QHS PRN PO SLEEP Last administered on 21:17; Admin Dose 5 MG; Start 01/24/17 at 19:00 Heparin Sodium (Porcine) (Heparin (5000 Units/0.5 ml)) 5,000 unit Q12 SC Last administered on 02/09/17 08:12; Admin Dose 5,000 UNIT; Start 01/24/17 at 21:00 Diagnostic Test (Pha) (Accu-Chek) 1 ea 02 XX ; Start 01/25/17 at 02:00 Miscellaneous Information 1 ea NOTE XX ; Start 01/24/17 at 19:00 Glucose (Glutose) 15 gm Q15M PRN PO DECREASED GLUCOSE; Start 01/24/17 at 19:00 Glucose (Glutose) 22.5 gm Q15M PRN PO DECREASED GLUCOSE; Start 01/24/17 at 19: 00 Dextrose (D50w Syringe) 25 ml Q15M PRN IV DECREASED GLUCOSE; Start 01/24/17 at 19:00 Dextrose (D50w Syringe) 50 ml Q15M PRN IV DECREASED GLUCOSE; Start 01/24/17 at 19:00 Glucagon (Glucagen) 1 mg Q15M PRN IM DECREASED GLUCOSE; Start 01/24/17 at 19:00 Glucose (Glutose) 15 gm Q15M PRN BUCCAL DECREASED GLUCOSE; Start 01/24/17 at 19 :00 Acetaminophen/ Hydrocodone Bitart ([place] (5/325)) 1 tab Q4H PRN PO MODERATE PAIN LEVEL 4-6 Last administered on 02/09/17 11:24; Admin Dose 1 TAB; Start 01/24/17 at 23:00 Metoprolol Tartrate (Lopressor) 25 mg BID PO Last administered on 02/09/17 08 :13; Admin Dose 25 MG; Start 01/27/17 at 21:00 Clonidine (Catapres) 0.1 mg Q6H PRN PO SBP>170; Start 01/27/17 at 18:00 Furosemide (Lasix) 40 mg DAILY IV Last administered on 02/09/17 08:13; Admin Dose 40 MG; Start 02/01/17 at 09:00 Atorvastatin Calcium (Lipitor) 20 mg HS PO Last administered on 02/08/17 20: 20; Admin Dose 20 MG; Start 02/01/17 at 21:00 Hydralazine HCl (Apresoline) 5 mg Q6H PRN IV sbp>170; Start 02/02/17 at 18:00 Oxycodone/ Acetaminophen (Percocet (5/ 325)) 2 tab Q6H PRN PO PAIN SCALE 5-7 Last administered on 02/09/17 13:02; Admin Dose 2 TAB; Start 02/04/17 at 10: 30 Hydromorphone HCl (Dilaudid) 2 mg ONCE PRN IV with left BKA dressing change Last administered on 02/09/17 13:36; Admin Dose 2 MG; Start 02/04/17 at 10:30 Hydralazine HCl (Apresoline) 100 mg TID PO Last administered on 02/09/17 14: 52; Admin Dose 100 MG; Start 02/06/17 at 21:00 Morphine Sulfate 15 mg 15 mg BID PO Last administered on 02/09/17 08:13; Admin Dose 15 MG; Start 02/06/17 at 21:00 Dextrose/Sodium Chloride (D5-1/2ns) 1,000 ml @ 40 mls/hr Q24H IV Last administered on 02/09/17 06:08; Admin Dose 40 MLS/HR; Start 02/07/17 at 00:00 Insulin Glargine (Lantus) 15 unit QHS SC Last administered on 02/08/17 20:18 ; Admin Dose 15 UNIT; Start 02/08/17 at 21:00 CARMEL SMART MD Feb 09, 2017 14:55
--- NOTE | 2017-02-09 16:41 | CONS ---
Date/Time of Note Date/Time of Note DATE: 02/09/17 TIME: 16:37 Assessment/Plan Assessment/Plan Chief Complaint/Hosp Course IMPRESSION: 1. Congestive heart failure by chest x-ray, diastolic, likely acute on chronic by most recent echo. EF 50% 2. Hypertension-uncontrolled 3. Preoperative. -negative trop x 3/no cp/NL EF by echo. s/p debirdement repeat today 4. Anemia. 5. Nonhealing lower extremity ulcerations. 6. Diabetes mellitus. 7. MR-mod-sev by echo this admit Recc: -Continue hydralazine/BB post-op -Continue Lasix diuresis/fluid restriction -local wound care s/p debridement today -Follow BS closely with adjustment of insulin therapy as necessary Problems: Consultation Date/Type/Reason Admit Date/Time Jan 24, 2017 at 15:33 Initial Consult Date 01/26/2017 Type of Consultation: cardiology Reason for Consultation chf Referring Provider: SELINA BAINS Exam/Review of Systems Vital Signs Vitals Vital Signs Date Time Temp Pulse Resp B/P Pulse Ox O2 Delivery O2 Flow Rate FiO2 02/09/17 14:00 98.8 80 20 136/ 96 02/08/17 12:50 Room Air 02/07/17 08:00 2.0 Intake and Output 02/08/17 02/08/17 02/09/17 15:00 23:00 07:00 Intake Total 1300 ml 1080 ml Output Total 1580 ml 30 ml Balance -280 ml 1050 ml Exam Review of Systems: CONSTITUTIONAL: No fevers, chills. PULMONARY: No sob CARDIOVASCULAR: No chest pain/palpitations GASTROINTESTINAL: No nausea/vomiting. GENITOURINARY: No hematuria/dysuria. MUSCULOSKELETAL: No myagias/arthalgias. PSYCHIATRIC: The patient denies depression. NEUROLOGIC: No weakness Constitutional: alert, oriented Psych: no complaints ENMT: mucosa pink and moist Neck: jvd (9 cm water), supple Respiratory: clear to auscultation Cardiovascular: regular rate and rhythm Gastrointestinal: non-tender, soft Musculoskeletal: muscle weakness (generalized) Extremities: other (s/p LE amputation), pitting pedal edema (le) Neurological: other (No focal deficts) Results Result Diagram: 02/08/17 0423 02/08/17 1415 Results 24 hrs Laboratory Tests Test 02/08/17 17:49 10/24/17 20:11 02/09/17 07:54 02/09/17 12:15 Bedside Glucose 98 83 102 119 Medications Medications Current Medications Ondansetron HCl (Zofran Inj) 4 mg Q6H PRN IV NAUSEA AND/OR VOMITING; Start 01/24/17 at 19:00 Acetaminophen (Tylenol Tab) 650 mg Q6H PRN PO PAIN LEVEL 1-3 OR FEVER Last administered on 02/02/17 08:09; Admin Dose 650 MG; Start 01/24/17 at 19:00 Morphine Sulfate (morphine) 2 mg Q4H PRN IV SEVERE PAIN LEVEL 7-10 Last administered on 02/08/17 23:17; Admin Dose 2 MG; Start 01/24/17 at 19:00 Docusate Sodium (Colace) 100 mg Q12H PRN PO CONSTIPATION Last administered on 02/09/17 06:59; Admin Dose 100 MG; Start 01/24/17 at 19:00 Zolpidem Tartrate (Ambien) 5 mg QHS PRN PO SLEEP Last administered on 21:17; Admin Dose 5 MG; Start 01/24/17 at 19:00 Heparin Sodium (Porcine) (Heparin (5000 Units/0.5 ml)) 5,000 unit Q12 SC Last administered on 02/09/17 08:12; Admin Dose 5,000 UNIT; Start 01/24/17 at 21:00 Diagnostic Test (Pha) (Accu-Chek) 1 ea 02 XX ; Start 01/25/17 at 02:00 Miscellaneous Information 1 ea NOTE XX ; Start 01/24/17 at 19:00 Glucose (Glutose) 15 gm Q15M PRN PO DECREASED GLUCOSE; Start 01/24/17 at 19:00 Glucose (Glutose) 22.5 gm Q15M PRN PO DECREASED GLUCOSE; Start 01/24/17 at 19: 00 Dextrose (D50w Syringe) 25 ml Q15M PRN IV DECREASED GLUCOSE; Start 01/24/17 at 19:00 Dextrose (D50w Syringe) 50 ml Q15M PRN IV DECREASED GLUCOSE; Start 01/24/17 at 19:00 Glucagon (Glucagen) 1 mg Q15M PRN IM DECREASED GLUCOSE; Start 01/24/17 at 19:00 Glucose (Glutose) 15 gm Q15M PRN BUCCAL DECREASED GLUCOSE; Start 01/24/17 at 19 :00 Acetaminophen/ Hydrocodone Bitart ([place] (5/325)) 1 tab Q4H PRN PO MODERATE PAIN LEVEL 4-6 Last administered on 02/09/17 11:24; Admin Dose 1 TAB; Start 01/24/17 at 23:00 Metoprolol Tartrate (Lopressor) 25 mg BID PO Last administered on 02/09/17 08 :13; Admin Dose 25 MG; Start 01/27/17 at 21:00 Clonidine (Catapres) 0.1 mg Q6H PRN PO SBP>170; Start 01/27/17 at 18:00 Furosemide (Lasix) 40 mg DAILY IV Last administered on 02/09/17 08:13; Admin Dose 40 MG; Start 02/01/17 at 09:00 Atorvastatin Calcium (Lipitor) 20 mg HS PO Last administered on 02/08/17 20: 20; Admin Dose 20 MG; Start 02/01/17 at 21:00 Hydralazine HCl (Apresoline) 5 mg Q6H PRN IV sbp>170; Start 02/02/17 at 18:00 Oxycodone/ Acetaminophen (Percocet (5/ 325)) 2 tab Q6H PRN PO PAIN SCALE 5-7 Last administered on 02/09/17 13:02; Admin Dose 2 TAB; Start 02/04/17 at 10: 30 Hydromorphone HCl (Dilaudid) 2 mg ONCE PRN IV with left BKA dressing change Last administered on 02/09/17 13:36; Admin Dose 2 MG; Start 02/04/17 at 10:30 Hydralazine HCl (Apresoline) 100 mg TID PO Last administered on 02/09/17 14: 52; Admin Dose 100 MG; Start 02/06/17 at 21:00 Morphine Sulfate 15 mg 15 mg BID PO Last administered on 02/09/17 08:13; Admin Dose 15 MG; Start 02/06/17 at 21:00 Dextrose/Sodium Chloride (D5-1/2ns) 1,000 ml @ 40 mls/hr Q24H IV Last administered on 02/09/17 06:08; Admin Dose 40 MLS/HR; Start 02/07/17 at 00:00 Insulin Glargine (Lantus) 15 unit QHS SC Last administered on 02/08/17t 20:18 ; Admin Dose 15 UNIT; Start 02/08/17 at 21:00 CLARITZA FLORES Feb 09, 2017 16:41
--- NOTE | 2017-02-09 16:46 | CONS ---
Date/Time of Note Date/Time of Note DATE: 02/09/17 TIME: 16:45 Assessment/Plan Assessment/Plan Chief Complaint/Hosp Course 66 y/o with # Patient has possible underlying chronic kidney disease with mild GAIL Cr trending up? hemodynamic s/p AKA. Cr stable fluctating CKD III # Rt foot ulcer s/p debridement on 02/07 # chronic lower extremity lymphedema and cellulitis. # CHF likley diastolic # hypertension, anemia. # DM # Abnormal LFT # Skin wounds # Hypoalbunemia # Bilateral lower extremity atherosclerosis and gangrene Plan - Cr stable 1.6-1.7 - c/w iv lasix to 40 mg - Hold valsartan for GAIL - dm management per primary - Fluid restriction - Avoid nephrotoxic agents Problems: Consultation Date/Type/Reason Admit Date/Time Jan 24, 2017 at 15:33 Type of Consultation: Renal Referring Provider: SELINA BAINS 24 HR Interval Summary Free Text/Dictation Denies any complains Pain controlled Exam/Review of Systems Vital Signs Vitals Vital Signs Date Time Temp Pulse Resp B/P Pulse Ox O2 Delivery O2 Flow Rate FiO2 02/09/17 14:00 98.8 80 20 136/ 96 02/08/17 12:50 Room Air 02/07/17 08:00 2.0 Intake and Output 02/08/17 02/08/17 02/09/17 15:00 23:00 07:00 Intake Total 1300 ml 1080 ml Output Total 1580 ml 30 ml Balance -280 ml 1050 ml Exam a&Ox3 CTAB S1S2 present soft NTND BS+ Extremities: left AKA, rt foot ulce s/p debridement Neurological: other (No focal deficIT) Results Result Diagram: 02/08/17 0423 02/08/17 1415 Results 24 hrs Laboratory Tests Test 02/08/17 17:49 02/08/17 20:11 02/09/17 07:54 02/09/17 12:15 Bedside Glucose 98 83 102 119 Medications Medications Current Medications Ondansetron HCl (Zofran Inj) 4 mg Q6H PRN IV NAUSEA AND/OR VOMITING; Start 01/24/17 at 19:00 Acetaminophen (Tylenol Tab) 650 mg Q6H PRN PO PAIN LEVEL 1-3 OR FEVER Last administered on 02/02/17t 08:09; Admin Dose 650 MG; Start 01/24/17 at 19:00 Morphine Sulfate (morphine) 2 mg Q4H PRN IV SEVERE PAIN LEVEL 7-10 Last administered on 02/08/17 23:17; Admin Dose 2 MG; Start 01/24/17 at 19:00 Docusate Sodium (Colace) 100 mg Q12H PRN PO CONSTIPATION Last administered on 02/09/17 06:59; Admin Dose 100 MG; Start 01/24/17 at 19:00 Zolpidem Tartrate (Ambien) 5 mg QHS PRN PO SLEEP Last administered on 21:17; Admin Dose 5 MG; Start 01/24/17 at 19:00 Heparin Sodium (Porcine) (Heparin (5000 Units/0.5 ml)) 5,000 unit Q12 SC Last administered on 02/09/17 08:12; Admin Dose 5,000 UNIT; Start 01/24/17 at 21:00 Diagnostic Test (Pha) (Accu-Chek) 1 ea 02 XX ; Start 01/25/17 at 02:00 Miscellaneous Information 1 ea NOTE XX ; Start 01/24/17 at 19:00 Glucose (Glutose) 15 gm Q15M PRN PO DECREASED GLUCOSE; Start 01/24/17 at 19:00 Glucose (Glutose) 22.5 gm Q15M PRN PO DECREASED GLUCOSE; Start 01/24/17 at 19: 00 Dextrose (D50w Syringe) 25 ml Q15M PRN IV DECREASED GLUCOSE; Start 01/24/17 at 19:00 Dextrose (D50w Syringe) 50 ml Q15M PRN IV DECREASED GLUCOSE; Start 01/24/17 at 19:00 Glucagon (Glucagen) 1 mg Q15M PRN IM DECREASED GLUCOSE; Start 01/24/17 at 19:00 Glucose (Glutose) 15 gm Q15M PRN BUCCAL DECREASED GLUCOSE; Start 01/24/17 at 19 :00 Acetaminophen/ Hydrocodone Bitart ([place] (5/325)) 1 tab Q4H PRN PO MODERATE PAIN LEVEL 4-6 Last administered on 02/09/17 11:24; Admin Dose 1 TAB; Start 01/24/17 at 23:00 Metoprolol Tartrate (Lopressor) 25 mg BID PO Last administered on 02/09/17 08 :13; Admin Dose 25 MG; Start 01/27/17 at 21:00 Clonidine (Catapres) 0.1 mg Q6H PRN PO SBP>170; Start 01/27/17 at 18:00 Furosemide (Lasix) 40 mg DAILY IV Last administered on 02/09/17 08:13; Admin Dose 40 MG; Start 02/01/17 at 09:00 Atorvastatin Calcium (Lipitor) 20 mg HS PO Last administered on 02/08/17 20: 20; Admin Dose 20 MG; Start 02/01/17 at 21:00 Hydralazine HCl (Apresoline) 5 mg Q6H PRN IV sbp>170; Start 02/02/17 at 18:00 Oxycodone/ Acetaminophen (Percocet (5/ 325)) 2 tab Q6H PRN PO PAIN SCALE 5-7 Last administered on 02/09/17 13:02; Admin Dose 2 TAB; Start 02/04/17 at 10: 30 Hydromorphone HCl (Dilaudid) 2 mg ONCE PRN IV with left BKA dressing change Last administered on 02/09/17 13:36; Admin Dose 2 MG; Start 02/04/17 at 10:30 Hydralazine HCl (Apresoline) 100 mg TID PO Last administered on 02/09/17 14: 52; Admin Dose 100 MG; Start 02/06/17 at 21:00 Morphine Sulfate 15 mg 15 mg BID PO Last administered on 02/09/17 08:13; Admin Dose 15 MG; Start 02/06/17 at 21:00 Dextrose/Sodium Chloride (D5-1/2ns) 1,000 ml @ 40 mls/hr Q24H IV Last administered on 02/09/17 06:08; Admin Dose 40 MLS/HR; Start 02/07/17 at 00:00 Insulin Glargine (Lantus) 15 unit QHS SC Last administered on 02/08/17 20:18 ; Admin Dose 15 UNIT; Start 02/08/17 at 21:00 LUIS ANTONIO WHITLOCK MD Feb 09, 2017 16:46
[2017-02-09 20:29] VITALS: BP 141/65; RESP 18
[2017-02-09] MEDS: ATORVASTATIN 20 MG TAB PO SCH (20:59)
[2017-02-09] MEDS: INSULIN GLARGINE [LANtus] 3 ML PEN SC SCH (21:05)
[2017-02-10] MEDS: ACCU-CHEK XX SCH (02:00)
[2017-02-10 02:34] VITALS: BP 140/73; RESP 18
[2017-02-10] MEDS: DEXTROSE 5%-0.45% NACL 1,000 ML IV SCH (06:24)
[2017-02-10 07:32] VITALS: BP 152/77; RESP 20
[2017-02-10] MEDS: INSULIN ASPART [NOVOLOG] 3 ML PEN SC SCH ×7 (08:00→21:00)
[2017-02-10] MEDS: morphine (ER) 15 MG TAB PO SCH ×2 (08:24→21:01)
[2017-02-10] MEDS: METOPROLOL 25 MG TAB PO SCH ×2 (08:25→21:01)
[2017-02-10] MEDS: FUROSEMIDE 40 MG INJ IV SCH (08:25)
[2017-02-10] MEDS: HEPARIN 5,000 UNIT/0.5 ML VIAL SC SCH ×2 (08:27→21:09)
[2017-02-10 13:37] VITALS: BP 128/65; RESP 18
[2017-02-10] MEDS: HYDROCODONE/APAP (5/325) TAB PO PRN (14:30)
[2017-02-10] MEDS: OXYCODONE/ACETAMINOPHEN (5/325) TAB PO PRN (15:13)
--- NOTE | 2017-02-10 15:50 | PN ---
Date/Time of Note Date/Time of Note DATE: 02/10/17 TIME: 15:46 Assessment/Plan VTE Prophylaxis VTE Prophylaxis Intervention: heparin Lines/Catheters IV Catheter Type (from Nrs): Peripheral IV Urinary Cath still in place: No Assessment/Plan Assessment/Plan 1. Right foot ulcer, s/p surgical debridement 02/07/2017, wound care, levaquin/ vanco 2. 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 PVD, on aspirin and statin 4. DM, lantus and ISS 5. Hypertension, controlled 6. CKD, stage 3, follow up with BMP 7. Normocytic anemia, CKD related, follow up with CBC 8. DVT prophylaxis: heparin 9. Awaiting for wound VAC arrangement Exam/Review of Systems Vital Signs Vitals Vital Signs Date Time Temp Pulse Resp B/P Pulse Ox O2 Delivery O2 Flow Rate FiO2 02/10/17 13:37 99.0 71 18 128/65 98 02/08/17 12:50 Room Air 02/07/17 08:00 2.0 Intake and Output 02/09/17 02/09/17 02/10/17 15:00 23:00 07:00 Intake Total 980 ml 980 ml Output Total 940 ml 300 ml Balance 40 ml 680 ml Exam pain, ask for more pain meds Constitutional: alert, oriented, well developed Psych: nl mood/affect, no complaints Head: atraumatic, normocephalic Eyes: EOMI, PERRL, nl conjunctiva, nl lids, nl sclera ENMT: nl external ears & nose, nl lips & teeth, nl nasal mucosa & septum Neck: non-tender, supple Respiratory: clear to auscultation, normal air movement, No congested cough, No crackles/rales, No diminished breath sounds, No intercostal retraction, No labored breathing, No other, No respirations, No tactile fremitus, No wheezing Cardiovascular: nl pulses, regular rate and rhythm, No S3, No S4, No bruits, No diastolic murmur, No edema, No gallop, No irregular rhythm, No jugular venous distention (JVD), No murmurs/extra sounds, No other, No rub, No systolic murmur Gastrointestinal: nl liver, spleen, non-tender, soft Extremities: other (right foot wound, left BKA) Neurological: [employer] INTERN II-XII intact, nl mental status, nl speech, nl strength Results Result Diagram: 02/08/17 0423 02/08/17 1415 Results 24 hrs Laboratory Tests Test 02/09/17 17:07 02/09/17 21:02 02/10/17 08:06 02/10/17 12:18 Bedside Glucose 134 122 94 138 Medications Medications Current Medications Ondansetron HCl (Zofran Inj) 4 mg Q6H PRN IV NAUSEA AND/OR VOMITING; Start 01/24/17 at 19:00 Acetaminophen (Tylenol Tab) 650 mg Q6H PRN PO PAIN LEVEL 1-3 OR FEVER Last administered on 02/02/17 08:09; Admin Dose 650 MG; Start 01/24/17 at 19:00 Morphine Sulfate (morphine) 2 mg Q4H PRN IV SEVERE PAIN LEVEL 7-10 Last administered on 02/08/17 23:17; Admin Dose 2 MG; Start 01/24/17 at 19:00 Docusate Sodium (Colace) 100 mg Q12H PRN PO CONSTIPATION Last administered on 02/09/17 06:59; Admin Dose 100 MG; Start 01/24/17 at 19:00 Zolpidem Tartrate (Ambien) 5 mg QHS PRN PO SLEEP Last administered on 21:17; Admin Dose 5 MG; Start 01/24/17 at 19:00 Heparin Sodium (Porcine) (Heparin (5000 Units/0.5 ml)) 5,000 unit Q12 SC Last administered on 02/10/17 08:27; Admin Dose 5,000 UNIT; Start 01/24/17 at 21:00 Diagnostic Test (Pha) (Accu-Chek) 1 ea 02 XX ; Start 01/25/17 at 02:00 Miscellaneous Information 1 ea NOTE XX ; Start 01/24/17 at 19:00 Glucose (Glutose) 15 gm Q15M PRN PO DECREASED GLUCOSE; Start 01/24/17 at 19:00 Glucose (Glutose) 22.5 gm Q15M PRN PO DECREASED GLUCOSE; Start 01/24/17 at 19: 00 Dextrose (D50w Syringe) 25 ml Q15M PRN IV DECREASED GLUCOSE; Start 01/24/17 at 19:00 Dextrose (D50w Syringe) 50 ml Q15M PRN IV DECREASED GLUCOSE; Start 01/24/17 at 19:00 Glucagon (Glucagen) 1 mg Q15M PRN IM DECREASED GLUCOSE; Start 01/24/17 at 19:00 Glucose (Glutose) 15 gm Q15M PRN BUCCAL DECREASED GLUCOSE; Start 01/24/17 at 19 :00 Acetaminophen/ Hydrocodone Bitart ([place] (5/325)) 1 tab Q4H PRN PO MODERATE PAIN LEVEL 4-6 Last administered on 02/10/17 14:30; Admin Dose 1 TAB; Start 01/24/17 at 23:00 Metoprolol Tartrate (Lopressor) 25 mg BID PO Last administered on 02/10/17 08 :25; Admin Dose 25 MG; Start 01/27/17 at 21:00 Clonidine (Catapres) 0.1 mg Q6H PRN PO SBP>170; Start 01/27/17 at 18:00 Furosemide (Lasix) 40 mg DAILY IV Last administered on 02/10/17 08:25; Admin Dose 40 MG; Start 02/01/17 at 09:00 Atorvastatin Calcium (Lipitor) 20 mg HS PO Last administered on 02/09/17 20: 59; Admin Dose 20 MG; Start 02/01/17 at 21:00 Hydralazine HCl (Apresoline) 5 mg Q6H PRN IV sbp>170; Start 02/02/17 at 18:00 Oxycodone/ Acetaminophen (Percocet (5/ 325)) 2 tab Q6H PRN PO PAIN SCALE 5-7 Last administered on 02/10/17 15:13; Admin Dose 2 TAB; Start 02/04/17 at 10: 30 Hydromorphone HCl (Dilaudid) 2 mg ONCE PRN IV with left BKA dressing change Last administered on 02/09/17 13:36; Admin Dose 2 MG; Start 02/04/17 at 10:30 Hydralazine HCl (Apresoline) 100 mg TID PO Last administered on 02/10/17 14: 01; Admin Dose 100 MG; Start 02/06/17 at 21:00 Morphine Sulfate 15 mg 15 mg BID PO Last administered on 02/10/17 08:24; Admin Dose 15 MG; Start 02/06/17 at 21:00 Dextrose/Sodium Chloride (D5-1/2ns) 1,000 ml @ 40 mls/hr Q24H IV Last administered on 02/10/17 06:24; Admin Dose 40 MLS/HR; Start 02/07/17 at 00:00 Insulin Glargine (Lantus) 15 unit QHS SC Last administered on 02/09/17 21:05 ; Admin Dose 15 UNIT; Start 02/08/17 at 21:00 CARMEL SMART MD Feb 10, 2017 15:50
[2017-02-10] MEDS ORDERED: VANCOMYCIN IV PER PHARMACY XX SCH (16:00)
--- NOTE | 2017-02-10 17:24 | CONS ---
Date/Time of Note Date/Time of Note DATE: 02/10/17 TIME: 17:22 Assessment/Plan Assessment/Plan Chief Complaint/Hosp Course 66 y/o with # Patient has possible underlying chronic kidney disease with mild GAIL Cr trending up? hemodynamic s/p AKA. Cr stable fluctating CKD III # Rt foot ulcer s/p debridement on 02/07 # chronic lower extremity lymphedema and cellulitis. # CHF likley diastolic # hypertension, anemia. # DM # Abnormal LFT # Skin wounds # Hypoalbunemia # Bilateral lower extremity atherosclerosis and gangrene Plan - Cr stable 1.6-1.7, no new labs - c/w iv lasix to 40 mg - Hold valsartan for GAIL - dm management per primary - Fluid restriction - Avoid nephrotoxic agents Problems: Consultation Date/Type/Reason Admit Date/Time Jan 24, 2017 at 15:33 Type of Consultation: Renal Referring Provider: SELINA BAINS 24 HR Interval Summary Free Text/Dictation Patient asking for more pain meds; dilaudid added Exam/Review of Systems Vital Signs Vitals Vital Signs Date Time Temp Pulse Resp B/P Pulse Ox O2 Delivery O2 Flow Rate FiO2 02/10/17 13:37 99.0 71 18 128/65 98 02/08/17 12:50 Room Air 02/07/17 08:00 2.0 Intake and Output 02/09/17 02/09/17 02/10/17 15:00 23:00 07:00 Intake Total 980 ml 980 ml Output Total 940 ml 300 ml Balance 40 ml 680 ml Exam &Ox3 CTAB S1S2 present soft NTND BS+ Extremities: left AKA, rt foot ulce s/p debridement Neurological: other (No focal deficIT) Results Result Diagram: 02/08/17 0423 02/08/17 1415 Results 24 hrs Laboratory Tests Test 02/09/17 21:02 02/10/17 08:06 02/10/17 12:18 Bedside Glucose 122 94 138 Medications Medications Current Medications Ondansetron HCl (Zofran Inj) 4 mg Q6H PRN IV NAUSEA AND/OR VOMITING; Start 01/24/17 at 19:00 Acetaminophen (Tylenol Tab) 650 mg Q6H PRN PO PAIN LEVEL 1-3 OR FEVER Last administered on 02/02/17t 08:09; Admin Dose 650 MG; Start 01/24/17 at 19:00 Docusate Sodium (Colace) 100 mg Q12H PRN PO CONSTIPATION Last administered on 02/09/17 06:59; Admin Dose 100 MG; Start 01/24/17 at 19:00 Zolpidem Tartrate (Ambien) 5 mg QHS PRN PO SLEEP Last administered on 21:17; Admin Dose 5 MG; Start 01/24/17 at 19:00 Heparin Sodium (Porcine) (Heparin (5000 Units/0.5 ml)) 5,000 unit Q12 SC Last administered on 02/10/17 08:27; Admin Dose 5,000 UNIT; Start 01/24/17 at 21:00 Diagnostic Test (Pha) (Accu-Chek) 1 ea 02 XX ; Start 01/25/17 at 02:00 Miscellaneous Information 1 ea NOTE XX ; Start 01/24/17 at 19:00 Glucose (Glutose) 15 gm Q15M PRN PO DECREASED GLUCOSE; Start 01/24/17 at 19:00 Glucose (Glutose) 22.5 gm Q15M PRN PO DECREASED GLUCOSE; Start 01/24/17 at 19: 00 Dextrose (D50w Syringe) 25 ml Q15M PRN IV DECREASED GLUCOSE; Start 01/24/17 at 19:00 Dextrose (D50w Syringe) 50 ml Q15M PRN IV DECREASED GLUCOSE; Start 01/24/17 at 19:00 Glucagon (Glucagen) 1 mg Q15M PRN IM DECREASED GLUCOSE; Start 01/24/17 at 19:00 Glucose (Glutose) 15 gm Q15M PRN BUCCAL DECREASED GLUCOSE; Start 01/24/17 at 19 :00 Acetaminophen/ Hydrocodone Bitart ([place] (5/325)) 1 tab Q4H PRN PO MODERATE PAIN LEVEL 4-6 Last administered on 02/10/17 14:30; Admin Dose 1 TAB; Start 01/24/17 at 23:00 Metoprolol Tartrate (Lopressor) 25 mg BID PO Last administered on 02/10/17 08 :25; Admin Dose 25 MG; Start 01/27/17 at 21:00 Clonidine (Catapres) 0.1 mg Q6H PRN PO SBP>170; Start 01/27/17 at 18:00 Furosemide (Lasix) 40 mg DAILY IV Last administered on 02/10/17 08:25; Admin Dose 40 MG; Start 02/01/17 at 09:00 Atorvastatin Calcium (Lipitor) 20 mg HS PO Last administered on 02/09/17 20: 59; Admin Dose 20 MG; Start 02/01/17 at 21:00 Hydralazine HCl (Apresoline) 5 mg Q6H PRN IV sbp>170; Start 02/02/17 at 18:00 Oxycodone/ Acetaminophen (Percocet (5/ 325)) 2 tab Q6H PRN PO PAIN SCALE 5-7 Last administered on 02/10/17 15:13; Admin Dose 2 TAB; Start 02/04/17 at 10: 30 Hydromorphone HCl (Dilaudid) 2 mg ONCE PRN IV with left BKA dressing change Last administered on 02/09/17 13:36; Admin Dose 2 MG; Start 02/04/17 at 10:30 Hydralazine HCl (Apresoline) 100 mg TID PO Last administered on 02/10/17 14: 01; Admin Dose 100 MG; Start 02/06/17 at 21:00 Morphine Sulfate 15 mg 15 mg BID PO Last administered on 02/10/17 08:24; Admin Dose 15 MG; Start 02/06/17 at 21:00 Dextrose/Sodium Chloride (D5-1/2ns) 1,000 ml @ 40 mls/hr Q24H IV Last administered on 02/10/17 06:24; Admin Dose 40 MLS/HR; Start 02/07/17 at 00:00 Insulin Glargine (Lantus) 15 unit QHS SC Last administered on 02/09/17 21:05 ; Admin Dose 15 UNIT; Start 02/08/17 at 21:00 Hydromorphone HCl (Dilaudid) 1 mg Q3H PRN IV pain; Start 02/10/17 at 16:00 Levofloxacin 500 mg 500 mg DAILY@06 NGT ; Start 02/10/17 at 18:00 Vancomycin HCl 2 gm/Sodium Chloride 500 ml @ 125 mls/hr ONCE IVPB ; Start at 18:00; Stop 02/10/17 at 21:59 Vancomycin HCl/ Sodium Chloride (Vancocin/NS) 250 ml @ 83.333 mls/ hr Q24H IVPB ; Start 02/11/17 at 18:00 LUIS ANTONIO WHITLOCK MD Feb 10, 2017 17:24
[2017-02-10] MEDS: HYDROmorphONE 0.5 MG/0.5 ML SYG IV PRN (17:43)
[2017-02-10] MEDS ORDERED: LEVOFLOXACIN 500 MG TAB NGT SCH (18:00)
[2017-02-10] MEDS ORDERED: VANCOMYCIN 2 GM in SOD CHLORIDE 0.9% 500 ML IVPB SCH (18:00)
[2017-02-10] MEDS: ERTAPENEM SODIUM 1 GM in SOD CHLORIDE 0.9% 100 ML IVPB SCH (18:31)
--- NOTE | 2017-02-10 19:57 | CONS ---
Date/Time of Note Date/Time of Note DATE: 02/10/17 TIME: 19:56 Assessment/Plan Assessment/Plan Chief Complaint/Hosp Course IMPRESSION: 1. Congestive heart failure by chest x-ray, diastolic, likely acute on chronic by most recent echo. EF 50% 2. Hypertension-uncontrolled 3. Preoperative. -negative trop x 3/no cp/NL EF by echo. s/p debirdement repeat today 4. Anemia. 5. Nonhealing lower extremity ulcerations. 6. Diabetes mellitus. 7. MR-mod-sev by echo this admit Recc: -Continue hydralazine/BB post-op -Continue Lasix diuresis/fluid restriction -local wound care -Follow BS closely with adjustment of insulin therapy as necessary -Pain control Problems: Consultation Date/Type/Reason Admit Date/Time Jan 24, 2017 at 15:33 Initial Consult Date 01/26/2017 Type of Consultation: cardiology Reason for Consultation HTN Referring Provider: SELINA BAINS Exam/Review of Systems Vital Signs Vitals Vital Signs Date Time Temp Pulse Resp B/P Pulse Ox O2 Delivery O2 Flow Rate FiO2 02/10/17 13:37 99.0 71 18 128/65 98 02/08/17 12:50 Room Air 02/07/17 08:00 2.0 Intake and Output 02/09/17 02/09/17 02/10/17 15:00 23:00 07:00 Intake Total 980 ml 980 ml Output Total 940 ml 300 ml Balance 40 ml 680 ml Exam Review of Systems: CONSTITUTIONAL: No fevers, chills. PULMONARY: No sob CARDIOVASCULAR: No chest pain/palpitations GASTROINTESTINAL: No nausea/vomiting. GENITOURINARY: No hematuria/dysuria. MUSCULOSKELETAL: No myagias/arthalgias. PSYCHIATRIC: The patient denies depression. NEUROLOGIC: No weakness Constitutional: alert, oriented Psych: no complaints Head: normocephalic ENMT: mucosa pink and moist Neck: jvd (9 cm water), supple Respiratory: diminished breath sounds (at bases/B) Cardiovascular: regular rate and rhythm Gastrointestinal: non-tender, soft Musculoskeletal: muscle weakness (mild generalized) Extremities: other (s/p LE amputation and deridement) Results Result Diagram: 02/08/17 0423 02/08/17 1415 Results 24 hrs Laboratory Tests Test 02/09/17 21:02 02/10/17 08:06 02/10/17 12:18 02/10/17 17:36 Bedside Glucose 122 94 138 163 Medications Medications Current Medications Ondansetron HCl (Zofran Inj) 4 mg Q6H PRN IV NAUSEA AND/OR VOMITING; Start 01/24/17 at 19:00 Acetaminophen (Tylenol Tab) 650 mg Q6H PRN PO PAIN LEVEL 1-3 OR FEVER Last administered on 02/02/17 08:09; Admin Dose 650 MG; Start 01/24/17 at 19:00 Docusate Sodium (Colace) 100 mg Q12H PRN PO CONSTIPATION Last administered on 02/09/17 06:59; Admin Dose 100 MG; Start 01/24/17 at 19:00 Zolpidem Tartrate (Ambien) 5 mg QHS PRN PO SLEEP Last administered on 21:17; Admin Dose 5 MG; Start 01/24/17 at 19:00 Heparin Sodium (Porcine) (Heparin (5000 Units/0.5 ml)) 5,000 unit Q12 SC Last administered on 02/10/17 08:27; Admin Dose 5,000 UNIT; Start 01/24/17 at 21:00 Diagnostic Test (Pha) (Accu-Chek) 1 ea 02 XX ; Start 01/25/17 at 02:00 Miscellaneous Information 1 ea NOTE XX ; Start 01/24/17 at 19:00 Glucose (Glutose) 15 gm Q15M PRN PO DECREASED GLUCOSE; Start 01/24/17 at 19:00 Glucose (Glutose) 22.5 gm Q15M PRN PO DECREASED GLUCOSE; Start 01/24/17 at 19: 00 Dextrose (D50w Syringe) 25 ml Q15M PRN IV DECREASED GLUCOSE; Start 01/24/17 at 19:00 Dextrose (D50w Syringe) 50 ml Q15M PRN IV DECREASED GLUCOSE; Start 01/24/17 at 19:00 Glucagon (Glucagen) 1 mg Q15M PRN IM DECREASED GLUCOSE; Start 01/24/17 at 19:00 Glucose (Glutose) 15 gm Q15M PRN BUCCAL DECREASED GLUCOSE; Start 01/24/17 at 19 :00 Acetaminophen/ Hydrocodone Bitart ([place] (5/325)) 1 tab Q4H PRN PO MODERATE PAIN LEVEL 4-6 Last administered on 02/10/17 14:30; Admin Dose 1 TAB; Start 01/24/17 at 23:00 Metoprolol Tartrate (Lopressor) 25 mg BID PO Last administered on 02/10/17 08 :25; Admin Dose 25 MG; Start 01/27/17 at 21:00 Clonidine (Catapres) 0.1 mg Q6H PRN PO SBP>170; Start 01/27/17 at 18:00 Furosemide (Lasix) 40 mg DAILY IV Last administered on 02/10/17 08:25; Admin Dose 40 MG; Start 02/01/17 at 09:00 Atorvastatin Calcium (Lipitor) 20 mg HS PO Last administered on 02/09/17 20: 59; Admin Dose 20 MG; Start 02/01/17 at 21:00 Hydralazine HCl (Apresoline) 5 mg Q6H PRN IV sbp>170; Start 02/02/17 at 18:00 Oxycodone/ Acetaminophen (Percocet (5/ 325)) 2 tab Q6H PRN PO PAIN SCALE 5-7 Last administered on 02/10/17 15:13; Admin Dose 2 TAB; Start 02/04/17 at 10: 30 Hydromorphone HCl (Dilaudid) 2 mg ONCE PRN IV with left BKA dressing change Last administered on 02/09/17 13:36; Admin Dose 2 MG; Start 02/04/17 at 10:30 Hydralazine HCl (Apresoline) 100 mg TID PO Last administered on 02/10/17 14: 01; Admin Dose 100 MG; Start 02/06/17 at 21:00 Morphine Sulfate 15 mg 15 mg BID PO Last administered on 02/10/17 08:24; Admin Dose 15 MG; Start 02/06/17 at 21:00 Dextrose/Sodium Chloride (D5-1/2ns) 1,000 ml @ 40 mls/hr Q24H IV Last administered on 02/10/17 06:24; Admin Dose 40 MLS/HR; Start 02/07/17 at 00:00 Insulin Glargine (Lantus) 15 unit QHS SC Last administered on 02/09/17 21:05 ; Admin Dose 15 UNIT; Start 02/08/17 at 21:00 Hydromorphone HCl 1 mg 1 mg Q3H PRN IV pain Last administered on 02/10/17 17: 43; Admin Dose 1 MG; Start 02/10/17 at 16:00 Vancomycin HCl 2 gm/Sodium Chloride 500 ml @ 125 mls/hr ONCE IVPB Last administered on 02/10/17 19:28; Admin Dose 125 MLS/HR; Start 02/10/17 at 18: 00; Stop 02/10/17 at 21:59 Vancomycin HCl 1.5 gm/Sodium Chloride 250 ml @ 83.333 mls/ hr Q24H IVPB ; Start 02/11/17 at 18:00 Ertapenem/Sodium Chloride (Invanz/NS) 100 ml @ 200 mls/hr Q24H IVPB Last administered on 02/10/17 18:31; Admin Dose 200 MLS/HR; Start 02/10/17 at 18: 30 CLARITZA FLORES Feb 10, 2017 19:57
[2017-02-10 20:00] VITALS: BP 124/68; RESP 19
[2017-02-10] MEDS: ATORVASTATIN 20 MG TAB PO SCH (21:00)
[2017-02-10] MEDS: INSULIN GLARGINE [LANtus] 3 ML PEN SC SCH (21:49)
--- NOTE | 2017-02-11 00:25 | CONS ---
DATE OF ADMISSION: 01/24/2017 DATE OF CONSULTATION: 02/10/2017 TYPE OF CONSULTATION: Infectious disease. REASON FOR CONSULTATION: Antibiotic management. HISTORY OF PRESENT ILLNESS: Gonzalez Perez is a 66-year-old white male with numerous problems who comes in for skin graft for chronic skin ulcers and is being seen almost 3 weeks later for infectio us disease to rule out infection. His past problems include: 1. Adult-onset diabetes mellitus. 2. Chronic ulcerations to bilateral legs. 3. Application of one 10 x 15 cm 2 layer xenograft sheet and one 7 x 10 cm 2 layer xenograft sheet. The attempt was to salvage his lower extremities. He has undergone multiple debridements accordin g to Dr. Romero. HOSPITAL COURSE: He complained of 2 weeks of increased pain to his legs with chronic drainage from his wounds. He has been followed by Dr. Romero, vascular surgery, and he was admitted for skin g rafts. He has had 2 prior surgeries of his skin grafts. On admission, his white count was 8.6, H a nd H of 7.4 and 23.7, platelet count 273,000. BUN and creatinine 30/1.7. The patient was seen by Bibi Romero. He had surgery on the for left lower extremity gangrene. He had excisional raimundo p debridement of the left lower extremity involving skin, subcutaneous tissue, muscle, ligament and tendon. Wound measuring 40 x 28 x 1 cm in the greatest dimension. Application of 3 grams of xenogr aft, Micro[employer] powder over the area of the right lower leg. As noted, he has diabetes mellitus. He has early cirrhosis. On the , his white count was 7.5. He was seen in renal consultation by Dr. Jackson for BUN and creatinine 27/1.68. On the , he was seen by Dr. Romero again with bilateral lower extremity atherosclerosis and gangrene. He was id entified to have gas gangrene and underwent debridements in the past. According to Dr. Romero, t he left Achilles tendon was completely necrotic and could not be preserved. He was able to clean th e wounds and he preserved the posterior muscle compartments that will serve as a flap coverage as he would require below-knee amputation. On 02/07, the patient had surgery for right lower extremity g angrene, a similar procedure to the left lower extremity, with sharp debridement of the right lower extremity involving skin, subcutaneous tissue, muscle, ligament and tendon. On the , he was see n by who noted right foot ulcer status post surgical debridement. On 02/07, wound care. The patient on vancomycin and Levaquin status post left BKA on 02/04/2017, on wound care and wound V AC. Peripheral vascular disease on aspirin and statin, diabetes mellitus, hypertension, chronic gil al disease stage III, normocytic anemia, DVT prophylaxis and awaiting for wound VAC arrangement. On the , his white count was 23.6. The patient is negative for hepatitis. Chest x-ray shows card iomegaly, small bilateral pleural effusions. Currently, the patient is on vancomycin and Levaquin. I have no clear-cut cultures. PAST MEDICAL HISTORY: Operations as outlined. FAMILY HISTORY: Noncontributory. SOCIAL HISTORY: He does not smoke, drink or abuse drugs. ALLERGIES: NONE TO PENICILLIN, SULFA OR FOODS. MEDICATIONS: Per chart. REVIEW OF SYSTEMS: As per HPI. PHYSICAL EXAMINATION: GENERAL: The patient is a well-developed, well-nourished, elderly male who is alert, responsive, in no acute distress. VITAL SIGNS: Stable. He is afebrile. SKIN: Without generalized rash. HEENT: Within normal limits. NECK: Supple. LYMPH NODES: None palpable. CHEST: Decreased breath sounds at the bases. HEART: Without murmur, rub or gallop. ABDOMEN: Soft, nontender, without organosplenomegaly or masses. EXTREMITIES: He has a left BKA with a wound VAC and it is totally bandaged. His right lower extrem ity is also totally bandaged and only the surgeon can disrupt it or redo it. NEUROLOGIC: No focal neurological abnormalities at the present time. IMPRESSION AND PLAN: At this point, I would continue him on his current regimen. If his white coun t does not come down, we may change his Levaquin to more broad spectrum such as ertapenem. In fact, I think we are going to do that anyhow. I will dictate my findings to the hospitalist, Dr. Josselin blanc, Dr. Harris and all of the consultants. Dictated By: SADAF NICHOLE MD, JD/RAMON Conf#: [id number] [facility]#: [id number]
[2017-02-11 02:00] VITALS: BP 165/86; RESP 18
[2017-02-11] MEDS: ACCU-CHEK XX SCH (02:00)
[2017-02-11 04:00] VITALS: BP 158/76; PULSE 78
[2017-02-11 07:58] VITALS: BP 145/75; RESP 18
[2017-02-11] MEDS: INSULIN ASPART [NOVOLOG] 3 ML PEN SC SCH ×7 (08:00→20:35)
[2017-02-11] MEDS: FUROSEMIDE 40 MG INJ IV SCH (08:52)
[2017-02-11] MEDS: HEPARIN 5,000 UNIT/0.5 ML VIAL SC SCH ×2 (08:53→20:33)
[2017-02-11] MEDS: morphine (ER) 15 MG TAB PO SCH ×2 (08:56→20:32)
[2017-02-11] MEDS: METOPROLOL 25 MG TAB PO SCH ×2 (08:56→20:31)
[2017-02-11] MEDS: OXYCODONE/ACETAMINOPHEN (5/325) TAB PO PRN (09:50)
--- NOTE | 2017-02-11 10:58 | CONS ---
Date/Time of Note Date/Time of Note DATE: 02/11/17 TIME: 10:56 Assessment/Plan Assessment/Plan Chief Complaint/Hosp Course 1. Mild GAIL 2. chronic right lower extremity lymphedema and cellulitis. 3. CHF, diastolic 4. hypertension, controlled 5. Anemia chronic disease. 6. DM type II, better 7. Abnormal LFT 8. Skin wounds 9. Hypoalbuminemia. 10. s/p left BKA Problems: Additional Assessment/Plan 1. Optimization of kidney function 2. continue current regime Consultation Date/Type/Reason Admit Date/Time Jan 24, 2017 at 15:33 Initial Consult Date 01/27/2017 Type of Consultation: nephrology Reason for Consultation Sr Jackson Referring Provider: SELINA BAINS Exam/Review of Systems Vital Signs Vitals Vital Signs Date Time Temp Pulse Resp B/P Pulse Ox O2 Delivery O2 Flow Rate FiO2 02/11/17 07:58 98.6 83 18 145/75 97 02/08/17 12:50 Room Air 02/07/17 08:00 2.0 Intake and Output 02/10/17 02/10/17 02/11/17 15:00 23:00 07:00 Intake Total 1620 ml 1180 ml Output Total 750 ml 350 ml Balance 870 ml 830 ml Exam Constitutional: alert, oriented Respiratory: clear to auscultation Cardiovascular: regular rate and rhythm Musculoskeletal: range of motion (decreased right knee) Results Result Diagram: 02/11/17 0438 02/11/17 0438 Results 24 hrs Laboratory Tests Test 02/10/17 12:18 02/10/17 17:36 02/10/17 21:08 02/11/17 04:38 Bedside Glucose 138 163 135 White Blood Count 22.1 H Red Blood Count 3.42 L Hemoglobin 8.8 L Hematocrit 29.0 L Mean Corpuscular Volume 84.8 Mean Corpuscular Hemoglobin 25.7 L Mean Corpuscular Hemoglobin Concent 30.3 L Red Cell Distribution Width 16.2 H Platelet Count 608 H Mean Platelet Volume 9.1 Neutrophils % 81.7 H Lymphocytes % 8.6 L Monocytes % 6.8 Eosinophils % 1.7 Basophils % 0.5 Nucleated Red Blood Cells % 0.0 Neutrophils # 18.0 H Lymphocytes # 1.9 Monocytes # 1.5 H Eosinophils # 0.4 Basophils # 0.1 Nucleated Red Blood Cells # 0.0 Sodium Level 135 Potassium Level 4.3 Chloride Level 98 Carbon Dioxide Level 26 Anion Gap 15 Blood Urea Nitrogen 29 H Creatinine 1.87 H Glucose Level 105 Calcium Level 8.6 Test 02/11/17 05:56 02/11/17 08:09 Lab Scanned Report BLOOD TRANSFUSION Bedside Glucose 126 Medications Medications Current Medications Ondansetron HCl (Zofran Inj) 4 mg Q6H PRN IV NAUSEA AND/OR VOMITING; Start 01/24/17 at 19:00 Acetaminophen (Tylenol Tab) 650 mg Q6H PRN PO PAIN LEVEL 1-3 OR FEVER Last administered on 02/02/17 08:09; Admin Dose 650 MG; Start 01/24/17 at 19:00 Docusate Sodium (Colace) 100 mg Q12H PRN PO CONSTIPATION Last administered on 02/09/17 06:59; Admin Dose 100 MG; Start 01/24/17 at 19:00 Zolpidem Tartrate (Ambien) 5 mg QHS PRN PO SLEEP Last administered on 21:17; Admin Dose 5 MG; Start 01/24/17 at 19:00 Heparin Sodium (Porcine) (Heparin (5000 Units/0.5 ml)) 5,000 unit Q12 SC Last administered on 02/11/17 08:53; Admin Dose 5,000 UNIT; Start 01/24/17 at 21:00 Diagnostic Test (Pha) (Accu-Chek) 1 ea 02 XX ; Start 01/25/17 at 02:00 Miscellaneous Information 1 ea NOTE XX ; Start 01/24/17 at 19:00 Glucose (Glutose) 15 gm Q15M PRN PO DECREASED GLUCOSE; Start 01/24/17 at 19:00 Glucose (Glutose) 22.5 gm Q15M PRN PO DECREASED GLUCOSE; Start 01/24/17 at 19: 00 Dextrose (D50w Syringe) 25 ml Q15M PRN IV DECREASED GLUCOSE; Start 01/24/17 at 19:00 Dextrose (D50w Syringe) 50 ml Q15M PRN IV DECREASED GLUCOSE; Start 01/24/17 at 19:00 Glucagon (Glucagen) 1 mg Q15M PRN IM DECREASED GLUCOSE; Start 01/24/17 at 19:00 Glucose (Glutose) 15 gm Q15M PRN BUCCAL DECREASED GLUCOSE; Start 01/24/17 at 19 :00 Acetaminophen/ Hydrocodone Bitart ([place] (5/325)) 1 tab Q4H PRN PO MODERATE PAIN LEVEL 4-6 Last administered on 02/10/17 14:30; Admin Dose 1 TAB; Start 01/24/17 at 23:00 Metoprolol Tartrate (Lopressor) 25 mg BID PO Last administered on 02/11/17 08 :56; Admin Dose 25 MG; Start 01/27/17 at 21:00 Clonidine (Catapres) 0.1 mg Q6H PRN PO SBP>170; Start 01/27/17 at 18:00 Furosemide (Lasix) 40 mg DAILY IV Last administered on 02/11/17 08:52; Admin Dose 40 MG; Start 02/01/17 at 09:00 Atorvastatin Calcium (Lipitor) 20 mg HS PO Last administered on 02/10/17 21: 00; Admin Dose 20 MG; Start 02/01/17 at 21:00 Hydralazine HCl (Apresoline) 5 mg Q6H PRN IV sbp>170; Start 02/02/17 at 18:00 Oxycodone/ Acetaminophen (Percocet (5/ 325)) 2 tab Q6H PRN PO PAIN SCALE 5-7 Last administered on 02/11/17 09:50; Admin Dose 2 TAB; Start 02/04/17 at 10: 30 Hydromorphone HCl (Dilaudid) 2 mg ONCE PRN IV with left BKA dressing change Last administered on 02/09/17 13:36; Admin Dose 2 MG; Start 02/04/17 at 10:30 Hydralazine HCl (Apresoline) 100 mg TID PO Last administered on 02/11/17 08: 56; Admin Dose 100 MG; Start 02/06/17 at 21:00 Morphine Sulfate 15 mg 15 mg BID PO Last administered on 02/11/17 08:56; Admin Dose 15 MG; Start 02/06/17 at 21:00 Dextrose/Sodium Chloride (D5-1/2ns) 1,000 ml @ 40 mls/hr Q24H IV Last administered on 02/10/17 06:24; Admin Dose 40 MLS/HR; Start 02/07/17 at 00:00 Insulin Glargine (Lantus) 15 unit QHS SC Last administered on 02/10/17 21:49 ; Admin Dose 15 UNIT; Start 02/08/17 at 21:00 Hydromorphone HCl 1 mg 1 mg Q3H PRN IV pain Last administered on 02/10/17 17: 43; Admin Dose 1 MG; Start 02/10/17 at 16:00 Vancomycin HCl 1.5 gm/Sodium Chloride 250 ml @ 83.333 mls/ hr Q24H IVPB ; Start 02/11/17 at 18:00 Ertapenem/Sodium Chloride (Invanz/NS) 100 ml @ 200 mls/hr Q24H IVPB Last administered on 02/10/17 18:31; Admin Dose 200 MLS/HR; Start 02/10/17 at 18: 30 LAINE PERRY Feb 11, 2017 10:58
[2017-02-11] MEDS: HYDROmorphONE 2 MG/ML SYG IV PRN (11:04)
[2017-02-11] MEDS: DEXTROSE 5%-0.45% NACL 1,000 ML IV SCH (12:20)
[2017-02-11 13:50] VITALS: BP 132/63; RESP 18
--- NOTE | 2017-02-11 14:42 | PN ---
Date/Time of Note Date/Time of Note DATE: 02/11/17 TIME: 14:39 Assessment/Plan VTE Prophylaxis VTE Prophylaxis Intervention: heparin Lines/Catheters IV Catheter Type (from Nrs): Peripheral IV Urinary Cath still in place: No Assessment/Plan Assessment/Plan 1. Right foot ulcer, s/p surgical debridement 02/07/2017, wound care, antibiotics 2. 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 PVD, on aspirin and statin 4. DM, lantus and ISS 5. Hypertension, controlled 6. CKD, stage 3, follow up with BMP 7. Normocytic anemia, CKD related, follow up with CBC 8. Persistent leukocytosis, from multiple wounds, antibiotics is adjusted per ID 9. DVT prophylaxis: heparin Subjective 24 Hr Interval Summary Free Text/Dictation no fever, pain is better controlled Exam/Review of Systems Vital Signs Vitals Vital Signs Date Time Temp Pulse Resp B/P Pulse Ox O2 Delivery O2 Flow Rate FiO2 02/11/17 13:50 99.3 77 18 132/63 98 02/08/17 12:50 Room Air 02/07/17 08:00 2.0 Intake and Output 02/10/17 02/10/17 02/11/17 15:00 23:00 07:00 Intake Total 1620 ml 1180 ml Output Total 750 ml 350 ml Balance 870 ml 830 ml Exam Constitutional: alert, oriented, well developed Psych: nl mood/affect, no complaints Head: atraumatic, normocephalic Eyes: EOMI, PERRL, nl conjunctiva, nl lids ENMT: nl external ears & nose, nl lips & teeth, nl nasal mucosa & septum Neck: non-tender, supple Respiratory: clear to auscultation, normal air movement, No congested cough, No crackles/rales, No diminished breath sounds, No intercostal retraction, No labored breathing, No other, No respirations, No tactile fremitus, No wheezing Cardiovascular: nl pulses, regular rate and rhythm, No S3, No S4, No bruits, No diastolic murmur, No edema, No gallop, No irregular rhythm, No jugular venous distention (JVD), No murmurs/extra sounds, No other, No rub, No systolic murmur Gastrointestinal: nl liver, spleen, non-tender, soft Extremities: other (left BKA with wound VAC, right foot wound) 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, nl mental status, nl speech, nl strength Results Result Diagram: 02/11/178 02/11/17 043 Results 24 hrs Laboratory Tests Test 02/10/17 17:36 02/10/17 21:08 02/11/17 04:38 02/11/17 05:56 Bedside Glucose 163 135 White Blood Count 22.1 H Red Blood Count 3.42 L Hemoglobin 8.8 L Hematocrit 29.0 L Mean Corpuscular Volume 84.8 Mean Corpuscular Hemoglobin 25.7 L Mean Corpuscular Hemoglobin Concent 30.3 L Red Cell Distribution Width 16.2 H Platelet Count 608 H Mean Platelet Volume 9.1 Neutrophils % 81.7 H Lymphocytes % 8.6 L Monocytes % 6.8 Eosinophils % 1.7 Basophils % 0.5 Nucleated Red Blood Cells % 0.0 Neutrophils # 18.0 H Lymphocytes # 1.9 Monocytes # 1.5 H Eosinophils # 0.4 Basophils # 0.1 Nucleated Red Blood Cells # 0.0 Sodium Level 135 Potassium Level 4.3 Chloride Level 98 Carbon Dioxide Level 26 Anion Gap 15 Blood Urea Nitrogen 29 H Creatinine 1.87 H Glucose Level 105 Calcium Level 8.6 Lab Scanned Report BLOOD TRANSFUSION Test 02/11/17 08:09 02/11/17 12:12 Bedside Glucose 126 145 Medications Medications Current Medications Ondansetron HCl (Zofran Inj) 4 mg Q6H PRN IV NAUSEA AND/OR VOMITING; Start 01/24/17 at 19:00 Acetaminophen (Tylenol Tab) 650 mg Q6H PRN PO PAIN LEVEL 1-3 OR FEVER Last administered on 02/02/17 08:09; Admin Dose 650 MG; Start 01/24/17 at 19:00 Docusate Sodium (Colace) 100 mg Q12H PRN PO CONSTIPATION Last administered on 02/09/17 06:59; Admin Dose 100 MG; Start 01/24/17 at 19:00 Zolpidem Tartrate (Ambien) 5 mg QHS PRN PO SLEEP Last administered on 21:17; Admin Dose 5 MG; Start 01/24/17 at 19:00 Heparin Sodium (Porcine) (Heparin (5000 Units/0.5 ml)) 5,000 unit Q12 SC Last administered on 02/11/17 08:53; Admin Dose 5,000 UNIT; Start 01/24/17 at 21:00 Diagnostic Test (Pha) (Accu-Chek) 1 ea 02 XX ; Start 01/25/17 at 02:00 Miscellaneous Information 1 ea NOTE XX ; Start 01/24/17 at 19:00 Glucose (Glutose) 15 gm Q15M PRN PO DECREASED GLUCOSE; Start 01/24/17 at 19:00 Glucose (Glutose) 22.5 gm Q15M PRN PO DECREASED GLUCOSE; Start 01/24/17 at 19: 00 Dextrose (D50w Syringe) 25 ml Q15M PRN IV DECREASED GLUCOSE; Start 01/24/17 at 19:00 Dextrose (D50w Syringe) 50 ml Q15M PRN IV DECREASED GLUCOSE; Start 01/24/17 at 19:00 Glucagon (Glucagen) 1 mg Q15M PRN IM DECREASED GLUCOSE; Start 01/24/17 at 19:00 Glucose (Glutose) 15 gm Q15M PRN BUCCAL DECREASED GLUCOSE; Start 01/24/17 at 19 :00 Acetaminophen/ Hydrocodone Bitart ([place] (5/325)) 1 tab Q4H PRN PO MODERATE PAIN LEVEL 4-6 Last administered on 02/10/17 14:30; Admin Dose 1 TAB; Start 01/24/17 at 23:00 Metoprolol Tartrate (Lopressor) 25 mg BID PO Last administered on 02/11/17 08 :56; Admin Dose 25 MG; Start 01/27/17 at 21:00 Clonidine (Catapres) 0.1 mg Q6H PRN PO SBP>170; Start 01/27/17 at 18:00 Furosemide (Lasix) 40 mg DAILY IV Last administered on 02/11/17 08:52; Admin Dose 40 MG; Start 02/01/17 at 09:00 Atorvastatin Calcium (Lipitor) 20 mg HS PO Last administered on 02/10/17 21: 00; Admin Dose 20 MG; Start 02/01/17 at 21:00 Hydralazine HCl (Apresoline) 5 mg Q6H PRN IV sbp>170; Start 02/02/17 at 18:00 Oxycodone/ Acetaminophen (Percocet (5/ 325)) 2 tab Q6H PRN PO PAIN SCALE 5-7 Last administered on 02/11/17 09:50; Admin Dose 2 TAB; Start 02/04/17 at 10: 30 Hydromorphone HCl (Dilaudid) 2 mg ONCE PRN IV with left BKA dressing change Last administered on 02/11/17 11:04; Admin Dose 2 MG; Start 02/04/17 at 10:30 Hydralazine HCl (Apresoline) 100 mg TID PO Last administered on 02/11/17 12: 18; Admin Dose 100 MG; Start 02/06/17 at 21:00 Morphine Sulfate 15 mg 15 mg BID PO Last administered on 02/11/17 08:56; Admin Dose 15 MG; Start 02/06/17 at 21:00 Dextrose/Sodium Chloride (D5-1/2ns) 1,000 ml @ 40 mls/hr Q24H IV Last administered on 02/11/17 12:20; Admin Dose 40 MLS/HR; Start 02/07/17 at 00:00 Insulin Glargine (Lantus) 15 unit QHS SC Last administered on 02/10/17 21:49 ; Admin Dose 15 UNIT; Start 02/08/17 at 21:00 Hydromorphone HCl 1 mg 1 mg Q3H PRN IV pain Last administered on 02/10/17 17: 43; Admin Dose 1 MG; Start 02/10/17 at 16:00 Vancomycin HCl 1.5 gm/Sodium Chloride 250 ml @ 83.333 mls/ hr Q24H IVPB ; Start 02/11/17 at 18:00 Ertapenem/Sodium Chloride (Invanz/NS) 100 ml @ 200 mls/hr Q24H IVPB Last administered on 02/10/17 18:31; Admin Dose 200 MLS/HR; Start 02/10/17 at 18: 30 CARMEL SMART MD Feb 11, 2017 14:42
--- NOTE | 2017-02-11 15:10 | CONS ---
Date/Time of Note Date/Time of Note DATE: 02/11/17 TIME: 15:06 Assessment/Plan Assessment/Plan Chief Complaint/Hosp Course IMPRESSION: 1. Congestive heart failure by chest x-ray, diastolic, likely acute on chronic by most recent echo. EF 50% 2. Hypertension-uncontrolled 3. Preoperative. -negative trop x 3/no cp/NL EF by echo. s/p debridement repeat today 4. Anemia. 5. Nonhealing lower extremity ulcerations. 6. Diabetes mellitus. 7. MR-mod-sev by echo this admit Recc: -Continue hydralazine/BB with reasonable blood pressure -Continue Lasix diuresis/fluid restriction -local wound care -Follow BS closely with adjustment of insulin therapy as necessary -Pain control Problems: Consultation Date/Type/Reason Admit Date/Time Jan 24, 2017 at 15:33 Initial Consult Date 01/26/2017 Type of Consultation: cardiology Reason for Consultation CHF Referring Provider: SELINA BAINS Exam/Review of Systems Vital Signs Vitals Vital Signs Date Time Temp Pulse Resp B/P Pulse Ox O2 Delivery O2 Flow Rate FiO2 02/11/17 13:50 99.3 77 18 132/63 98 02/08/17 12:50 Room Air 02/07/17 08:00 2.0 Intake and Output 02/10/17 02/10/17 02/11/17 15:00 23:00 07:00 Intake Total 1620 ml 1180 ml Output Total 750 ml 350 ml Balance 870 ml 830 ml Exam Review of Systems: CONSTITUTIONAL: No fevers, chills. PULMONARY: No sob CARDIOVASCULAR: No chest pain/palpitations GASTROINTESTINAL: No nausea/vomiting. GENITOURINARY: No hematuria/dysuria. MUSCULOSKELETAL: No myagias/arthalgias. PSYCHIATRIC: The patient denies depression. NEUROLOGIC: No weakness Constitutional: alert, oriented Psych: no complaints Head: normocephalic ENMT: mucosa pink and moist Neck: jvd (9 cm water), supple Respiratory: diminished breath sounds Cardiovascular: regular rate and rhythm Gastrointestinal: non-tender, soft Musculoskeletal: muscle tone (normal) Extremities: edema (none) Neurological: other (No focal deficits) Results Result Diagram: 02/11/17 0438 02/11/17 0438 Results 24 hrs Laboratory Tests Test 02/10/17 17:36 02/10/17 21:08 02/11/17 04:38 02/11/17 05:56 Bedside Glucose 163 135 White Blood Count 22.1 H Red Blood Count 3.42 L Hemoglobin 8.8 L Hematocrit 29.0 L Mean Corpuscular Volume 84.8 Mean Corpuscular Hemoglobin 25.7 L Mean Corpuscular Hemoglobin Concent 30.3 L Red Cell Distribution Width 16.2 H Platelet Count 608 H Mean Platelet Volume 9.1 Neutrophils % 81.7 H Lymphocytes % 8.6 L Monocytes % 6.8 Eosinophils % 1.7 Basophils % 0.5 Nucleated Red Blood Cells % 0.0 Neutrophils # 18.0 H Lymphocytes # 1.9 Monocytes # 1.5 H Eosinophils # 0.4 Basophils # 0.1 Nucleated Red Blood Cells # 0.0 Sodium Level 135 Potassium Level 4.3 Chloride Level 98 Carbon Dioxide Level 26 Anion Gap 15 Blood Urea Nitrogen 29 H Creatinine 1.87 H Glucose Level 105 Calcium Level 8.6 Lab Scanned Report BLOOD TRANSFUSION Test 02/11/17 08:09 02/11/17 12:12 Bedside Glucose 126 145 Medications Medications Current Medications Ondansetron HCl (Zofran Inj) 4 mg Q6H PRN IV NAUSEA AND/OR VOMITING; Start 01/24/17 at 19:00 Acetaminophen (Tylenol Tab) 650 mg Q6H PRN PO PAIN LEVEL 1-3 OR FEVER Last administered on 02/02/17 08:09; Admin Dose 650 MG; Start 01/24/17 at 19:00 Docusate Sodium (Colace) 100 mg Q12H PRN PO CONSTIPATION Last administered on 02/09/17 06:59; Admin Dose 100 MG; Start 01/24/17 at 19:00 Zolpidem Tartrate (Ambien) 5 mg QHS PRN PO SLEEP Last administered on 21:17; Admin Dose 5 MG; Start 01/24/17 at 19:00 Heparin Sodium (Porcine) (Heparin (5000 Units/0.5 ml)) 5,000 unit Q12 SC Last administered on 02/11/17 08:53; Admin Dose 5,000 UNIT; Start 01/24/17 at 21:00 Diagnostic Test (Pha) (Accu-Chek) 1 ea 02 XX ; Start 01/25/17 at 02:00 Miscellaneous Information 1 ea NOTE XX ; Start 01/24/17 at 19:00 Glucose (Glutose) 15 gm Q15M PRN PO DECREASED GLUCOSE; Start 01/24/17 at 19:00 Glucose (Glutose) 22.5 gm Q15M PRN PO DECREASED GLUCOSE; Start 01/24/17 at 19: 00 Dextrose (D50w Syringe) 25 ml Q15M PRN IV DECREASED GLUCOSE; Start 01/24/17 at 19:00 Dextrose (D50w Syringe) 50 ml Q15M PRN IV DECREASED GLUCOSE; Start 01/24/17 at 19:00 Glucagon (Glucagen) 1 mg Q15M PRN IM DECREASED GLUCOSE; Start 01/24/17 at 19:00 Glucose (Glutose) 15 gm Q15M PRN BUCCAL DECREASED GLUCOSE; Start 01/24/17 at 19 :00 Acetaminophen/ Hydrocodone Bitart ([place] (5/325)) 1 tab Q4H PRN PO MODERATE PAIN LEVEL 4-6 Last administered on 02/10/17 14:30; Admin Dose 1 TAB; Start 01/24/17 at 23:00 Metoprolol Tartrate (Lopressor) 25 mg BID PO Last administered on 02/11/17 08 :56; Admin Dose 25 MG; Start 01/27/17 at 21:00 Clonidine (Catapres) 0.1 mg Q6H PRN PO SBP>170; Start 01/27/17 at 18:00 Furosemide (Lasix) 40 mg DAILY IV Last administered on 02/11/17 08:52; Admin Dose 40 MG; Start 02/01/17 at 09:00 Atorvastatin Calcium (Lipitor) 20 mg HS PO Last administered on 02/10/17 21: 00; Admin Dose 20 MG; Start 02/01/17 at 21:00 Hydralazine HCl (Apresoline) 5 mg Q6H PRN IV sbp>170; Start 02/02/17 at 18:00 Oxycodone/ Acetaminophen (Percocet (5/ 325)) 2 tab Q6H PRN PO PAIN SCALE 5-7 Last administered on 02/11/17 09:50; Admin Dose 2 TAB; Start 02/04/17 at 10: 30 Hydromorphone HCl (Dilaudid) 2 mg ONCE PRN IV with left BKA dressing change Last administered on 02/11/17 11:04; Admin Dose 2 MG; Start 02/04/17 at 10:30 Hydralazine HCl (Apresoline) 100 mg TID PO Last administered on 02/11/17 12: 18; Admin Dose 100 MG; Start 02/06/17 at 21:00 Morphine Sulfate 15 mg 15 mg BID PO Last administered on 02/11/17 08:56; Admin Dose 15 MG; Start 02/06/17 at 21:00 Dextrose/Sodium Chloride (D5-1/2ns) 1,000 ml @ 40 mls/hr Q24H IV Last administered on 02/11/17 12:20; Admin Dose 40 MLS/HR; Start 02/07/17 at 00:00 Insulin Glargine (Lantus) 15 unit QHS SC Last administered on 02/10/17 21:49 ; Admin Dose 15 UNIT; Start 02/08/17 at 21:00 Hydromorphone HCl 1 mg 1 mg Q3H PRN IV pain Last administered on 02/10/17 17: 43; Admin Dose 1 MG; Start 02/10/17 at 16:00 Vancomycin HCl 1.5 gm/Sodium Chloride 250 ml @ 83.333 mls/ hr Q24H IVPB ; Start 02/11/17 at 18:00 Ertapenem/Sodium Chloride (Invanz/NS) 100 ml @ 200 mls/hr Q24H IVPB Last administered on 02/10/17 18:31; Admin Dose 200 MLS/HR; Start 02/10/17 at 18: 30 CLARITZA FLORES Feb 11, 2017 15:10
--- NOTE | 2017-02-11 17:10 | RADRPT ---
PROCEDURE: XR Chest. CLINICAL INDICATION: Shortness of breath. TECHNIQUE: Single frontal view. COMPARISON: 01/31/2017. FINDINGS: The lungs are clear. The heart is enlarged. There is no pleural effusion. There is no pneumothorax. IMPRESSION: 1. Cardiomegaly. 2. Clear lungs. RPTAT: QQ .Yohan Orosco MD, MD Date Time Electronically viewed and signed by .Yohan Orosco MD, on 02/11/2017 17:10 .R/
[2017-02-11] MEDS: ERTAPENEM SODIUM 1 GM in SOD CHLORIDE 0.9% 100 ML IVPB SCH (17:51)
--- NOTE | 2017-02-11 18:02 | PN ---
DATE: 02/11/2017 INFECTIOUS DISEASE PROGRESS NOTE SUBJECTIVE: No acute changes overnight. The patient is awake. Complaining of leg pain. No fevers . WBC today 22.1, H and H of 8.8 and 29, platelets 608, neutrophils 81.6. BUN 29, creatinine 1.87. MICROBIOLOGY: No cultures except nares swab that is negative for MRSA. ANTIMICROBIALS: The patient is on vancomycin and Invanz. PHYSICAL EXAMINATION: GENERAL: This is a well-developed, well-nourished elderly man who looks older than his age. The pa tient is in no distress. HEENT: Head atraumatic, normocephalic. Sclerae anicteric. Buccal mucosa dry. NECK: Supple. CHEST: Rise symmetrical. Breath sounds diminished to bases. HEART: S1, S2. ABDOMEN: Soft, bowel tones present. EXTREMITIES: With bilateral lower extremity dressings intact. Left lower extremity to wound VAC. ASSESSMENT: 1. Systemic inflammatory response syndrome with persistent leukocytosis. 2. Left lower extremity gangrene status post left below knee amputation, a rotation flap formation by myocutaneous layer on 02/03/2017 complicated by recurrent gangrene, status post incision and drai nage with graft application on 02/07/2017. 3. Diabetes. 4. Peripheral vascular disease. 5. Congestive heart failure. PLAN: The patient is clinically and hemodynamically stable. He is being followed by multiple consu ltants. We are going to order cultures to make sure he does not have underlying infectious process. We will also repeat chest x-ray in a.m. Continue present care. Dictated By: DENITA COKER TURNAROUND ENGINEER for SADAF ALVAREZ/RAMON Conf#: [id number] DID#: [id number]
--- NOTE | 2017-02-11 18:02 | PN ---
DATE: 02/11/2017 INFECTIOUS DISEASE PROGRESS NOTE SUBJECTIVE: No acute changes overnight. The patient is awake. Complaining of leg pain. No fevers . WBC today 22.1, H and H of 8.8 and 29, platelets 608, neutrophils 81.6. BUN 29, creatinine 1.87. MICROBIOLOGY: No cultures except nares swab that is negative for MRSA. ANTIMICROBIALS: The patient is on vancomycin and Invanz. PHYSICAL EXAMINATION: GENERAL: This is a well-developed, well-nourished elderly man who looks older than his age. The pa tient is in no distress. HEENT: Head atraumatic, normocephalic. Sclerae anicteric. Buccal mucosa dry. NECK: Supple. CHEST: Rise symmetrical. Breath sounds diminished to bases. HEART: S1, S2. ABDOMEN: Soft, bowel tones present. EXTREMITIES: With bilateral lower extremity dressings intact. Left lower extremity to wound VAC. ASSESSMENT: 1. Systemic inflammatory response syndrome with persistent leukocytosis. 2. Left lower extremity gangrene status post left below knee amputation, a rotation flap formation by myocutaneous layer on 02/03/2017 complicated by recurrent gangrene, status post incision and drai nage with graft application on 02/07/2017. 3. Diabetes. 4. Peripheral vascular disease. 5. Congestive heart failure. PLAN: The patient is clinically and hemodynamically stable. He is being followed by multiple consu ltants. We are going to order cultures to make sure he does not have underlying infectious process. We will also repeat chest x-ray in a.m. Continue present care. Dictated By: DENITA COKER SECURITIES RESEARCH ANALYST for SADAF ALVAREZ/RAMON Conf#: [id number] DID#: [id number]
--- NOTE | 2017-02-11 18:02 | PN ---
DATE: 02/11/2017 INFECTIOUS DISEASE PROGRESS NOTE SUBJECTIVE: No acute changes overnight. The patient is awake. Complaining of leg pain. No fevers . WBC today 22.1, H and H of 8.8 and 29, platelets 608, neutrophils 81.6. BUN 29, creatinine 1.87. MICROBIOLOGY: No cultures except nares swab that is negative for MRSA. ANTIMICROBIALS: The patient is on vancomycin and Invanz. PHYSICAL EXAMINATION: GENERAL: This is a well-developed, well-nourished elderly man who looks older than his age. The pa tient is in no distress. HEENT: Head atraumatic, normocephalic. Sclerae anicteric. Buccal mucosa dry. NECK: Supple. CHEST: Rise symmetrical. Breath sounds diminished to bases. HEART: S1, S2. ABDOMEN: Soft, bowel tones present. EXTREMITIES: With bilateral lower extremity dressings intact. Left lower extremity to wound VAC. ASSESSMENT: 1. Systemic inflammatory response syndrome with persistent leukocytosis. 2. Left lower extremity gangrene status post left below knee amputation, a rotation flap formation by myocutaneous layer on 02/03/2017 complicated by recurrent gangrene, status post incision and drai nage with graft application on 02/07/2017. 3. Diabetes. 4. Peripheral vascular disease. 5. Congestive heart failure. PLAN: The patient is clinically and hemodynamically stable. He is being followed by multiple consu ltants. We are going to order cultures to make sure he does not have underlying infectious process. We will also repeat chest x-ray in a.m. Continue present care. Dictated By: DENITA COKER TELEGRAPHIC TYPEWRITER REPAIRER for SADAF ALVAREZ/RAMON Conf#: [id number] DID#: [id number]
[2017-02-11] MEDS: VANCOMYCIN 1.5 GM in SOD CHLORIDE 0.9% 250 ML IVPB SCH (19:07)
[2017-02-11] MEDS: ATORVASTATIN 20 MG TAB PO SCH (20:31)
[2017-02-11] MEDS: INSULIN GLARGINE [LANtus] 3 ML PEN SC SCH (20:33)
[2017-02-11 20:39] VITALS: BP 143/65; RESP 18
[2017-02-12] MEDS: OXYCODONE/ACETAMINOPHEN (5/325) TAB PO PRN ×2 (00:26→06:54)
[2017-02-12] MEDS: ACCU-CHEK XX SCH (02:00)
[2017-02-12 03:05] VITALS: BP 154/76; RESP 18
[2017-02-12] MEDS: HYDROCODONE/APAP (5/325) TAB PO PRN ×2 (04:28→12:11)
[2017-02-12 07:35] VITALS: BP 134/65; RESP 17
[2017-02-12] MEDS: INSULIN ASPART [NOVOLOG] 3 ML PEN SC SCH ×7 (07:54→20:26)
[2017-02-12] MEDS: FUROSEMIDE 40 MG INJ IV SCH (08:34)
[2017-02-12] MEDS: morphine (ER) 15 MG TAB PO SCH ×2 (08:35→20:21)
[2017-02-12] MEDS: DOCUSATE SODIUM 100 MG CAP PO SCH ×2 (08:35→20:21)
[2017-02-12] MEDS: SENNA TAB PO SCH ×2 (08:35→20:21)
[2017-02-12] MEDS: METOPROLOL 25 MG TAB PO SCH ×2 (08:35→20:22)
[2017-02-12] MEDS: HEPARIN 5,000 UNIT/0.5 ML VIAL SC SCH ×2 (08:39→20:25)
--- NOTE | 2017-02-12 11:25 | CONS ---
Date/Time of Note Date/Time of Note DATE: 02/12/17 TIME: 11:21 Assessment/Plan Assessment/Plan Chief Complaint/Hosp Course 1. Mild GAIL 2. chronic right lower extremity lymphedema and cellulitis. 3. CHF, diastolic 4. hypertension, controlled 5. Anemia chronic disease. 6. DM type II, better 7. Abnormal LFT 8. Skin wounds 9. Hypoalbuminemia. 10. s/p left BKA Problems: Additional Assessment/Plan 1. D/c IV fluids 2. Optimization kidney function Consultation Date/Type/Reason Admit Date/Time Jan 24, 2017 at 15:33 Initial Consult Date 01/27/2017 Type of Consultation: nephrology Reason for Consultation Dr Jackson Referring Provider: SELINA BAINS Exam/Review of Systems Vital Signs Vitals Vital Signs Date Time Temp Pulse Resp B/P Pulse Ox O2 Delivery O2 Flow Rate FiO2 02/12/17 07:35 98.6 60 17 134/65 97 02/08/17 12:50 Room Air Intake and Output 02/11/17 02/11/17 02/12/17 15:00 23:00 07:00 Intake Total 750 ml 760 ml Output Total 600 ml 400 ml Balance 150 ml 360 ml Exam Constitutional: alert, oriented Head: atraumatic, normocephalic Respiratory: clear to auscultation Cardiovascular: regular rate and rhythm Musculoskeletal: swelling (rightankle) Results Result Diagram: 02/12/17 0417 02/11/17 0438 Results 24 hrs Laboratory Tests Test 02/11/17 12:12 02/11/17 17:48 02/11/17 20:23 02/12/17 04:17 Bedside Glucose 145 113 118 White Blood Count 17.9 H Red Blood Count 3.24 L Hemoglobin 8.2 L Hematocrit 27.1 L Mean Corpuscular Volume 83.6 Mean Corpuscular Hemoglobin 25.3 L Mean Corpuscular Hemoglobin Concent 30.3 L Red Cell Distribution Width 16.3 H Platelet Count 604 H Mean Platelet Volume 8.8 Neutrophils % 75.0 Lymphocytes % 14.1 L Monocytes % 7.8 Eosinophils % 2.1 Basophils % 0.4 Nucleated Red Blood Cells % 0.0 Neutrophils # 13.4 H Lymphocytes # 2.5 Monocytes # 1.4 H Eosinophils # 0.4 Basophils # 0.1 Nucleated Red Blood Cells # 0.0 Test 02/12/17 07:36 Bedside Glucose 106 Medications Medications Current Medications Ondansetron HCl (Zofran Inj) 4 mg Q6H PRN IV NAUSEA AND/OR VOMITING; Start 01/24/17 at 19:00 Acetaminophen (Tylenol Tab) 650 mg Q6H PRN PO PAIN LEVEL 1-3 OR FEVER Last administered on 02/02/17 08:09; Admin Dose 650 MG; Start 01/24/17 at 19:00 Zolpidem Tartrate (Ambien) 5 mg QHS PRN PO SLEEP Last administered on 21:17; Admin Dose 5 MG; Start 01/24/17 at 19:00 Heparin Sodium (Porcine) (Heparin (5000 Units/0.5 ml)) 5,000 unit Q12 SC Last administered on 02/12/17 08:39; Admin Dose 5,000 UNIT; Start 01/24/17 at 21:00 Diagnostic Test (Pha) (Accu-Chek) 1 ea 02 XX ; Start 01/25/17 at 02:00 Miscellaneous Information 1 ea NOTE XX ; Start 01/24/17 at 19:00 Glucose (Glutose) 15 gm Q15M PRN PO DECREASED GLUCOSE; Start 01/24/17 at 19:00 Glucose (Glutose) 22.5 gm Q15M PRN PO DECREASED GLUCOSE; Start 01/24/17 at 19: 00 Dextrose (D50w Syringe) 25 ml Q15M PRN IV DECREASED GLUCOSE; Start 01/24/17 at 19:00 Dextrose (D50w Syringe) 50 ml Q15M PRN IV DECREASED GLUCOSE; Start 01/24/17 at 19:00 Glucagon (Glucagen) 1 mg Q15M PRN IM DECREASED GLUCOSE; Start 01/24/17 at 19:00 Glucose (Glutose) 15 gm Q15M PRN BUCCAL DECREASED GLUCOSE; Start 01/24/17 at 19 :00 Acetaminophen/ Hydrocodone Bitart ([place] (5/325)) 1 tab Q4H PRN PO MODERATE PAIN LEVEL 4-6 Last administered on 02/12/17 04:28; Admin Dose 1 TAB; Start 01/24/17 at 23:00 Metoprolol Tartrate (Lopressor) 25 mg BID PO Last administered on 02/11/17 20 :31; Admin Dose 25 MG; Start 01/27/17 at 21:00 Clonidine (Catapres) 0.1 mg Q6H PRN PO SBP>170; Start 01/27/17 at 18:00 Furosemide (Lasix) 40 mg DAILY IV Last administered on 02/12/17 08:34; Admin Dose 40 MG; Start 02/01/17 at 09:00 Atorvastatin Calcium (Lipitor) 20 mg HS PO Last administered on 02/11/17 20: 31; Admin Dose 20 MG; Start 02/01/17 at 21:00 Hydralazine HCl (Apresoline) 5 mg Q6H PRN IV sbp>170; Start 02/02/17 at 18:00 Oxycodone/ Acetaminophen (Percocet (5/ 325)) 2 tab Q6H PRN PO PAIN SCALE 5-7 Last administered on 02/12/17 06:54; Admin Dose 2 TAB; Start 02/04/17 at 10: 30 Hydromorphone HCl (Dilaudid) 2 mg ONCE PRN IV with left BKA dressing change Last administered on 02/11/17 11:04; Admin Dose 2 MG; Start 02/04/17 at 10:30 Hydralazine HCl (Apresoline) 100 mg TID PO Last administered on 02/12/17 08: 39; Admin Dose 100 MG; Start 02/06/17 at 21:00 Morphine Sulfate 15 mg 15 mg BID PO Last administered on 02/12/17 08:35; Admin Dose 15 MG; Start 02/06/17 at 21:00 Dextrose/Sodium Chloride (D5-1/2ns) 1,000 ml @ 40 mls/hr Q24H IV Last administered on 02/11/17 12:20; Admin Dose 40 MLS/HR; Start 02/07/17 at 00:00 Insulin Glargine (Lantus) 15 unit QHS SC Last administered on 02/11/17 20:33 ; Admin Dose 15 UNIT; Start 02/08/17 at 21:00 Hydromorphone HCl 1 mg 1 mg Q3H PRN IV pain Last administered on 02/10/17 17: 43; Admin Dose 1 MG; Start 02/10/17 at 16:00 Vancomycin HCl 1.5 gm/Sodium Chloride 250 ml @ 83.333 mls/ hr Q24H IVPB Last administered on 02/11/17 19:07; Admin Dose 83.333 MLS/HR; Start 02/11/17 at 18:00 Ertapenem/Sodium Chloride (Invanz/NS) 100 ml @ 200 mls/hr Q24H IVPB Last administered on 02/11/17 17:51; Admin Dose 200 MLS/HR; Start 02/10/17 at 18: 30 Senna (Senokot) 1 tab BID PO Last administered on 02/12/17 08:35; Admin Dose 1 TAB; Start 02/12/17 at 09:00 Docusate Sodium (Colace) 100 mg BID PO Last administered on 02/12/17 08:35; Admin Dose 100 MG; Start 02/12/17 at 09:00 Lactulose (Enulose) 20 gm Q6H PRN PO CONSTIPATION; Start 02/12/17 at 07:00 Miscellaneous Information (*Rx Drug Level Order Reminder*) VANCOMYCIN TROUGH AT 1700 ONCE ONCE XX ; Start 02/13/17 at 17:00; Stop 02/13/17 at 17:01 LAINE PERRY Feb 12, 2017 11:25
--- NOTE | 2017-02-12 12:04 | CONS ---
Date/Time of Note Date/Time of Note DATE: 02/12/17 TIME: 11:56 Assessment/Plan Assessment/Plan Additional Assessment/Plan 1. Diastolic Heart Failure 2. Hypertension 3. Anemia. 4. Nonhealing lower extremity ulcerations, s/p debridement on wound vac 5. Diabetes mellitus. 6. Dyslipidemia Continue Metoprolol and hydralazine Discontinue Lasix Discontinue IV fluids Continue Antibiotics Continue Lipitor Continue Insulin Pain management as scheduled Wound care as recommended Consultation Date/Type/Reason Admit Date/Time Jan 24, 2017 at 15:33 Constitutional: improved Eyes: no complaints ENT: no complaints Respiratory: no complaints Cardiovascular: no complaints Gastrointestinal: no complaints Genitourinary: no complaints Musculoskeletal: no complaints Skin: skin lesions Neurologic: no complaints Lymphatic: no complaints Psychological: no complaints Immunologic: no complaints Past Medical History Medical History: diabetes, other (Chronic skin ulcers) Social History Alcohol Use: occasionally Smoking Status: Never smoker Exam/Review of Systems Vital Signs Vitals Vital Signs Date Time Temp Pulse Resp B/P Pulse Ox O2 Delivery O2 Flow Rate FiO2 02/12/17 07:35 98.6 60 17 134/65 97 02/08/17 12:50 Room Air Intake and Output 02/11/17 02/11/17 02/12/17 15:00 23:00 07:00 Intake Total 750 ml 760 ml Output Total 600 ml 400 ml Balance 150 ml 360 ml Exam Constitutional: alert, oriented Head: atraumatic, normocephalic Respiratory: clear to auscultation Cardiovascular: regular rate and rhythm Gastrointestinal: nl liver, spleen, non-tender, soft Extremities: other (left BKA on wound vac) Results Result Diagram: 02/12/17 0417 02/11/17 0438 Results 24 hrs Laboratory Tests Test 02/11/17 12:12 02/11/17 17:48 02/11/17 20:23 02/12/17 04:17 Bedside Glucose 145 113 118 White Blood Count 17.9 H Red Blood Count 3.24 L Hemoglobin 8.2 L Hematocrit 27.1 L Mean Corpuscular Volume 83.6 Mean Corpuscular Hemoglobin 25.3 L Mean Corpuscular Hemoglobin Concent 30.3 L Red Cell Distribution Width 16.3 H Platelet Count 604 H Mean Platelet Volume 8.8 Neutrophils % 75.0 Lymphocytes % 14.1 L Monocytes % 7.8 Eosinophils % 2.1 Basophils % 0.4 Nucleated Red Blood Cells % 0.0 Neutrophils # 13.4 H Lymphocytes # 2.5 Monocytes # 1.4 H Eosinophils # 0.4 Basophils # 0.1 Nucleated Red Blood Cells # 0.0 Test 02/12/17 07:36 Bedside Glucose 106 Medications Medications Current Medications Ondansetron HCl (Zofran Inj) 4 mg Q6H PRN IV NAUSEA AND/OR VOMITING; Start 01/24/17 at 19:00 Acetaminophen (Tylenol Tab) 650 mg Q6H PRN PO PAIN LEVEL 1-3 OR FEVER Last administered on 02/02/17 08:09; Admin Dose 650 MG; Start 01/24/17 at 19:00 Zolpidem Tartrate (Ambien) 5 mg QHS PRN PO SLEEP Last administered on 21:17; Admin Dose 5 MG; Start 01/24/17 at 19:00 Heparin Sodium (Porcine) (Heparin (5000 Units/0.5 ml)) 5,000 unit Q12 SC Last administered on 02/12/17 08:39; Admin Dose 5,000 UNIT; Start 01/24/17 at 21:00 Diagnostic Test (Pha) (Accu-Chek) 1 ea 02 XX ; Start 01/25/17 at 02:00 Miscellaneous Information 1 ea NOTE XX ; Start 01/24/17 at 19:00 Glucose (Glutose) 15 gm Q15M PRN PO DECREASED GLUCOSE; Start 01/24/17 at 19:00 Glucose (Glutose) 22.5 gm Q15M PRN PO DECREASED GLUCOSE; Start 01/24/17 at 19: 00 Dextrose (D50w Syringe) 25 ml Q15M PRN IV DECREASED GLUCOSE; Start 01/24/17 at 19:00 Dextrose (D50w Syringe) 50 ml Q15M PRN IV DECREASED GLUCOSE; Start 01/24/17 at 19:00 Glucagon (Glucagen) 1 mg Q15M PRN IM DECREASED GLUCOSE; Start 01/24/17 at 19:00 Glucose (Glutose) 15 gm Q15M PRN BUCCAL DECREASED GLUCOSE; Start 01/24/17 at 19 :00 Acetaminophen/ Hydrocodone Bitart ([place] (5/325)) 1 tab Q4H PRN PO MODERATE PAIN LEVEL 4-6 Last administered on 02/12/17 04:28; Admin Dose 1 TAB; Start 01/24/17 at 23:00 Metoprolol Tartrate (Lopressor) 25 mg BID PO Last administered on 02/11/17 20 :31; Admin Dose 25 MG; Start 01/27/17 at 21:00 Clonidine (Catapres) 0.1 mg Q6H PRN PO SBP>170; Start 01/27/17 at 18:00 Furosemide (Lasix) 40 mg DAILY IV Last administered on 02/12/17 08:34; Admin Dose 40 MG; Start 02/01/17 at 09:00 Atorvastatin Calcium (Lipitor) 20 mg HS PO Last administered on 02/11/17 20: 31; Admin Dose 20 MG; Start 02/01/17 at 21:00 Hydralazine HCl (Apresoline) 5 mg Q6H PRN IV sbp>170; Start 02/02/17 at 18:00 Oxycodone/ Acetaminophen (Percocet (5/ 325)) 2 tab Q6H PRN PO PAIN SCALE 5-7 Last administered on 02/12/17 06:54; Admin Dose 2 TAB; Start 02/04/17 at 10: 30 Hydromorphone HCl (Dilaudid) 2 mg ONCE PRN IV with left BKA dressing change Last administered on 02/11/17 11:04; Admin Dose 2 MG; Start 02/04/17 at 10:30 Hydralazine HCl (Apresoline) 100 mg TID PO Last administered on 02/12/17 08: 39; Admin Dose 100 MG; Start 02/06/17 at 21:00 Morphine Sulfate (Ms Contin (Er)) 15 mg BID PO Last administered on 02/12/17 08:35; Admin Dose 15 MG; Start 02/06/17 at 21:00 Insulin Glargine (Lantus) 15 unit QHS SC Last administered on 02/11/17 20:33 ; Admin Dose 15 UNIT; Start 02/08/17 at 21:00 Hydromorphone HCl 1 mg 1 mg Q3H PRN IV pain Last administered on 02/10/17 17: 43; Admin Dose 1 MG; Start 02/10/17 at 16:00 Vancomycin HCl 1.5 gm/Sodium Chloride 250 ml @ 83.333 mls/ hr Q24H IVPB Last administered on 02/11/17 19:07; Admin Dose 83.333 MLS/HR; Start 02/11/17 at 18:00 Ertapenem/Sodium Chloride (Invanz/NS) 100 ml @ 200 mls/hr Q24H IVPB Last administered on 02/11/17 17:51; Admin Dose 200 MLS/HR; Start 02/10/17 at 18: 30 Senna (Senokot) 1 tab BID PO Last administered on 02/12/17 08:35; Admin Dose 1 TAB; Start 02/12/17 at 09:00 Docusate Sodium (Colace) 100 mg BID PO Last administered on 02/12/17 08:35; Admin Dose 100 MG; Start 02/12/17 at 09:00 Lactulose (Enulose) 20 gm Q6H PRN PO CONSTIPATION; Start 02/12/17 at 07:00 Miscellaneous Information (*Rx Drug Level Order Reminder*) VANCOMYCIN TROUGH AT 1700 ONCE ONCE XX ; Start 02/13/17 at 17:00; Stop 02/13/17 at 17:01 MERYL BEJARANO M.D. Feb 12, 2017 12:04
[2017-02-12] MEDS: LACTULOSE 30ML CUP PO PRN ×2 (12:19→18:21)
--- NOTE | 2017-02-12 12:35 | PN ---
Date/Time of Note Date/Time of Note DATE: 02/12/17 TIME: 12:26 Assessment/Plan VTE Prophylaxis VTE Prophylaxis Intervention: heparin Lines/Catheters IV [facility] Peripheral IV Urinary Cath still in place: Yes Reason Cath still needed: urinary retention Assessment/Plan Problems: (1) Diabetes mellitus type 2 in nonobese Status: Chronic Comment: Patient has adequate blood sugar control on a somewhat complicated combination regimen. But this is stable. At discharge she will need something a little bit simpler which will endeavor to do. Please note he probably has complications of his diabetes which would include only peripheral vascular disease but nonalcoholic fatty liver disease with probable cirrhosis (please see ultrasound report) (2) Acute congestive heart failure with left ventricular diastolic dysfunction Status: Acute Comment: He has been seen and evaluated by cardiology. His medication regimen has been adjusted. He is not on an VENECIA inhibitor possibly due to his chronic kidney disease. Regardless this is appropriate to at least try given the proteinuria. I will put him on low-dose VENECIA inhibitor and follow his renal function. (3) Essential hypertension Status: Chronic Comment: He is modestly hypertensive we will add in medications. Please note the usage of an alpha jennifer is also consideration. We do not know what the status of his urinary tree and BPH is as he has had a Little the time is been here. Will start bladder training for that (4) Iron deficiency anemia Status: Chronic Comment: We will give him IV iron. Qualifiers: Iron deficiency anemia type: unspecified iron deficiency Qualified Code: D50.9 - Iron deficiency anemia, unspecified iron deficiency anemia type (5) Chronic kidney disease, stage III (moderate) Status: Chronic Comment: Noted. Carefully follow (6) LFT elevation Status: Chronic Comment: Please note this gentleman probably has some degree of nonalcoholic fatty liver disease. Consideration for HIDA scan versus MRCP Subjective 24 Hr Interval Summary Free Text/Dictation Hospital day 19. Patient is unaware of where he had had his prior left leg surgery. Limited historical details. Constitutional: no complaints (Denies fevers chills or sweats) Respiratory: no complaints Cardiovascular: no complaints Gastrointestinal: no complaints Genitourinary: no complaints Exam/Review of Systems Vital Signs Vitals Vital Signs Date Time Temp Pulse Resp B/P Pulse Ox O2 Delivery O2 Flow Rate FiO2 02/12/17 07:35 98.6 60 17 134/65 97 02/08/17 12:50 Room Air Intake and Output 02/11/17 02/11/17 02/12/17 15:00 23:00 07:00 Intake Total 750 ml 760 ml Output Total 600 ml 400 ml Balance 150 ml 360 ml Exam Constitutional: alert, oriented (Oriented to person and place and time and situation but only with prompting) Neck: non-tender, supple Respiratory: clear to auscultation, normal air movement Cardiovascular: nl pulses, regular rate and rhythm Extremities: other (Left leg is absent right leg has significant onychomycosis) Results Result Diagram: 02/12/17 0417 02/11/17 0438 Results 24 hrs Laboratory Tests Test 02/11/17 17:48 02/11/17 20:23 02/12/17 04:17 02/12/17 07:36 Bedside Glucose 113 118 106 White Blood Count 17.9 H Red Blood Count 3.24 L Hemoglobin 8.2 L Hematocrit 27.1 L Mean Corpuscular Volume 83.6 Mean Corpuscular Hemoglobin 25.3 L Mean Corpuscular Hemoglobin Concent 30.3 L Red Cell Distribution Width 16.3 H Platelet Count 604 H Mean Platelet Volume 8.8 Neutrophils % 75.0 Lymphocytes % 14.1 L Monocytes % 7.8 Eosinophils % 2.1 Basophils % 0.4 Nucleated Red Blood Cells % 0.0 Neutrophils # 13.4 H Lymphocytes # 2.5 Monocytes # 1.4 H Eosinophils # 0.4 Basophils # 0.1 Nucleated Red Blood Cells # 0.0 Test 02/12/17 11:59 Bedside Glucose 88 Medications Medications Current Medications Ondansetron HCl (Zofran Inj) 4 mg Q6H PRN IV NAUSEA AND/OR VOMITING; Start 01/24/17 at 19:00 Acetaminophen (Tylenol Tab) 650 mg Q6H PRN PO PAIN LEVEL 1-3 OR FEVER Last administered on 02/02/17 08:09; Admin Dose 650 MG; Start 01/24/17 at 19:00 Zolpidem Tartrate (Ambien) 5 mg QHS PRN PO SLEEP Last administered on 21:17; Admin Dose 5 MG; Start 01/24/17 at 19:00 Heparin Sodium (Porcine) (Heparin (5000 Units/0.5 ml)) 5,000 unit Q12 SC Last administered on 02/12/17 08:39; Admin Dose 5,000 UNIT; Start 01/24/17 at 21:00 Diagnostic Test (Pha) (Accu-Chek) 1 ea 02 XX ; Start 01/25/17 at 02:00 Miscellaneous Information 1 ea NOTE XX ; Start 01/24/17 at 19:00 Glucose (Glutose) 15 gm Q15M PRN PO DECREASED GLUCOSE; Start 01/24/17 at 19:00 Glucose (Glutose) 22.5 gm Q15M PRN PO DECREASED GLUCOSE; Start 01/24/17 at 19: 00 Dextrose (D50w Syringe) 25 ml Q15M PRN IV DECREASED GLUCOSE; Start 01/24/17 at 19:00 Dextrose (D50w Syringe) 50 ml Q15M PRN IV DECREASED GLUCOSE; Start 01/24/17 at 19:00 Glucagon (Glucagen) 1 mg Q15M PRN IM DECREASED GLUCOSE; Start 01/24/17 at 19:00 Glucose (Glutose) 15 gm Q15M PRN BUCCAL DECREASED GLUCOSE; Start 01/24/17 at 19 :00 Acetaminophen/ Hydrocodone Bitart ([place] (5/325)) 1 tab Q4H PRN PO MODERATE PAIN LEVEL 4-6 Last administered on 02/12/17 12:11; Admin Dose 1 TAB; Start 01/24/17 at 23:00 Metoprolol Tartrate (Lopressor) 25 mg BID PO Last administered on 02/11/17 20 :31; Admin Dose 25 MG; Start 01/27/17 at 21:00 Clonidine (Catapres) 0.1 mg Q6H PRN PO SBP>170; Start 01/27/17 at 18:00 Atorvastatin Calcium (Lipitor) 20 mg HS PO Last administered on 02/11/17 20: 31; Admin Dose 20 MG; Start 02/01/17 at 21:00 Hydralazine HCl (Apresoline) 5 mg Q6H PRN IV sbp>170; Start 02/02/17 at 18:00 Oxycodone/ Acetaminophen (Percocet (5/ 325)) 2 tab Q6H PRN PO PAIN SCALE 5-7 Last administered on 02/12/17 06:54; Admin Dose 2 TAB; Start 02/04/17 at 10: 30 Hydromorphone HCl (Dilaudid) 2 mg ONCE PRN IV with left BKA dressing change Last administered on 02/11/17 11:04; Admin Dose 2 MG; Start 02/04/17 at 10:30 Hydralazine HCl (Apresoline) 100 mg TID PO Last administered on 02/12/17 12: 09; Admin Dose 100 MG; Start 02/06/17 at 21:00 Morphine Sulfate (Ms Contin (Er)) 15 mg BID PO Last administered on 02/12/17 08:35; Admin Dose 15 MG; Start 02/06/17 at 21:00 Insulin Glargine (Lantus) 15 unit QHS SC Last administered on 02/11/17 20:33 ; Admin Dose 15 UNIT; Start 02/08/17 at 21:00 Hydromorphone HCl 1 mg 1 mg Q3H PRN IV pain Last administered on 02/10/17 17: 43; Admin Dose 1 MG; Start 02/10/17 at 16:00 Vancomycin HCl 1.5 gm/Sodium Chloride 250 ml @ 83.333 mls/ hr Q24H IVPB Last administered on 02/11/17 19:07; Admin Dose 83.333 MLS/HR; Start 02/11/17 at 18:00 Ertapenem/Sodium Chloride (Invanz/NS) 100 ml @ 200 mls/hr Q24H IVPB Last administered on 02/11/17 17:51; Admin Dose 200 MLS/HR; Start 02/10/17 at 18: 30 Senna (Senokot) 1 tab BID PO Last administered on 02/12/17 08:35; Admin Dose 1 TAB; Start 02/12/17 at 09:00 Docusate Sodium (Colace) 100 mg BID PO Last administered on 02/12/17 08:35; Admin Dose 100 MG; Start 02/12/17 at 09:00 Lactulose (Enulose) 20 gm Q6H PRN PO CONSTIPATION Last administered on 12:19; Admin Dose 20 GM; Start 02/12/17 at 07:00 Miscellaneous Information (*Rx Drug Level Order Reminder*) VANCOMYCIN TROUGH AT 1700 ONCE ONCE XX ; Start 02/13/17 at 17:00; Stop 02/13/17 at 17:01 MANJEET OCHOA MD Feb 12, 2017 12:35
[2017-02-12] MEDS: LISINOPRIL 5 MG TAB PO SCH (12:52)
[2017-02-12] MEDS: TERBINAFINE 250 MG TAB PO SCH ×2 (13:29→22:26)
[2017-02-12 13:58] VITALS: BP 144/71; RESP 18
[2017-02-12] MEDS: ERTAPENEM SODIUM 1 GM in SOD CHLORIDE 0.9% 100 ML IVPB SCH (17:38)
[2017-02-12] MEDS: VANCOMYCIN 1.5 GM in SOD CHLORIDE 0.9% 250 ML IVPB SCH (18:21)
--- NOTE | 2017-02-12 18:48 | CONS ---
Date/Time of Note Date/Time of Note DATE: 02/12/17 TIME: 18:43 Assessment/Plan Assessment/Plan Chief Complaint/Hosp Course ID PROGRESS NOTE CURRENT ABX: TOTAL ABX DAY # => Vanco IV + Ertapenem 24H INTERVAL SUMMARY * Feeling a bit better fever down, WBC downtrend * Urine Cx (+)GNR = pending Physical Exam Physical Exam Constitutional: VSS, NAD, awake, alert, responsive HEENT: Unremarkable Neck: Supple, full ROM Respiratory: Equal chest rise bilaterally, without dyspnea on observation Cardiovascular: nl pulses, regular rate and rhythm Gastrointestinal: Soft, NT Extremities: Warm,-> LEXT gangrene s/p BKA, DSG intact ID ASSESSMENT 66 yo M admit with: 1. Systemic inflammatory response syndrome with persistent leukocytosis. * 02/11/17 BCx (-) 2. 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 Diabetes. 4. Peripheral vascular disease. 5. Congestive heart failure. (-) MRSA Nares INVASIVES: PIV ABX ALLERGIES: KNDA CURRENT ABX: # => Vanco IV + Ertapenem ID RECOMMENDATIONS 1. Continue ABX- Await final micro . . Problems: Consultation Date/Type/Reason Admit Date/Time Jan 24, 2017 at 15:33 Initial Consult Date Type of Consultation: ID Referring Provider: SELINA BAINS Exam/Review of Systems Vital Signs Vitals Vital Signs Date Time Temp Pulse Resp B/P Pulse Ox O2 Delivery O2 Flow Rate FiO2 02/12/17 13:58 97.6 65 18 144/71 96 02/08/17 12:50 Room Air Intake and Output 02/11/17 02/11/17 02/12/17 15:00 23:00 07:00 Intake Total 750 ml 760 ml Output Total 600 ml 400 ml Balance 150 ml 360 ml Results Result Diagram: 02/12/17 0417 02/11/17 0438 Results 24 hrs Laboratory Tests Test 02/11/17 20:23 02/12/17 04:17 02/12/17 07:36 02/12/17 11:59 Bedside Glucose 118 106 88 White Blood Count 17.9 H Red Blood Count 3.24 L Hemoglobin 8.2 L Hematocrit 27.1 L Mean Corpuscular Volume 83.6 Mean Corpuscular Hemoglobin 25.3 L Mean Corpuscular Hemoglobin Concent 30.3 L Red Cell Distribution Width 16.3 H Platelet Count 604 H Mean Platelet Volume 8.8 Neutrophils % 75.0 Lymphocytes % 14.1 L Monocytes % 7.8 Eosinophils % 2.1 Basophils % 0.4 Nucleated Red Blood Cells % 0.0 Neutrophils # 13.4 H Lymphocytes # 2.5 Monocytes # 1.4 H Eosinophils # 0.4 Basophils # 0.1 Nucleated Red Blood Cells # 0.0 Test 02/12/17 16:57 Bedside Glucose 115 Medications Medications Current Medications Ondansetron HCl (Zofran Inj) 4 mg Q6H PRN IV NAUSEA AND/OR VOMITING; Start 01/24/17 at 19:00 Acetaminophen (Tylenol Tab) 650 mg Q6H PRN PO PAIN LEVEL 1-3 OR FEVER Last administered on 02/02/17 08:09; Admin Dose 650 MG; Start 01/24/17 at 19:00 Zolpidem Tartrate (Ambien) 5 mg QHS PRN PO SLEEP Last administered on 21:17; Admin Dose 5 MG; Start 01/24/17 at 19:00 Heparin Sodium (Porcine) (Heparin (5000 Units/0.5 ml)) 5,000 unit Q12 SC Last administered on 02/12/17 08:39; Admin Dose 5,000 UNIT; Start 01/24/17 at 21:00 Diagnostic Test (Pha) (Accu-Chek) 1 ea 02 XX ; Start 01/25/17 at 02:00 Miscellaneous Information 1 ea NOTE XX ; Start 01/24/17 at 19:00 Glucose (Glutose) 15 gm Q15M PRN PO DECREASED GLUCOSE; Start 01/24/17 at 19:00 Glucose (Glutose) 22.5 gm Q15M PRN PO DECREASED GLUCOSE; Start 01/24/17 at 19: 00 Dextrose (D50w Syringe) 25 ml Q15M PRN IV DECREASED GLUCOSE; Start 01/24/17 at 19:00 Dextrose (D50w Syringe) 50 ml Q15M PRN IV DECREASED GLUCOSE; Start 01/24/17 at 19:00 Glucagon (Glucagen) 1 mg Q15M PRN IM DECREASED GLUCOSE; Start 01/24/17 at 19:00 Glucose (Glutose) 15 gm Q15M PRN BUCCAL DECREASED GLUCOSE; Start 01/24/17 at 19 :00 Acetaminophen/ Hydrocodone Bitart ([place] (5/325)) 1 tab Q4H PRN PO MODERATE PAIN LEVEL 4-6 Last administered on 02/12/17 12:11; Admin Dose 1 TAB; Start 01/24/17 at 23:00 Metoprolol Tartrate (Lopressor) 25 mg BID PO Last administered on 02/11/17 20 :31; Admin Dose 25 MG; Start 01/27/17 at 21:00 Clonidine (Catapres) 0.1 mg Q6H PRN PO SBP>170; Start 01/27/17 at 18:00 Atorvastatin Calcium (Lipitor) 20 mg HS PO Last administered on 02/11/17 20: 31; Admin Dose 20 MG; Start 02/01/17 at 21:00 Hydralazine HCl (Apresoline) 5 mg Q6H PRN IV sbp>170; Start 02/02/17 at 18:00 Oxycodone/ Acetaminophen (Percocet (5/ 325)) 2 tab Q6H PRN PO PAIN SCALE 5-7 Last administered on 02/12/17 06:54; Admin Dose 2 TAB; Start 02/04/17 at 10: 30 Hydromorphone HCl (Dilaudid) 2 mg ONCE PRN IV with left BKA dressing change Last administered on 02/11/17 11:04; Admin Dose 2 MG; Start 02/04/17 at 10:30 Hydralazine HCl (Apresoline) 100 mg TID PO Last administered on 02/12/17 12: 09; Admin Dose 100 MG; Start 02/06/17 at 21:00 Morphine Sulfate (Ms Contin (Er)) 15 mg BID PO Last administered on 02/12/17 08:35; Admin Dose 15 MG; Start 02/06/17 at 21:00 Insulin Glargine (Lantus) 15 unit QHS SC Last administered on 02/11/17 20:33 ; Admin Dose 15 UNIT; Start 02/08/17 at 21:00 Hydromorphone HCl 1 mg 1 mg Q3H PRN IV pain Last administered on 02/10/17 17: 43; Admin Dose 1 MG; Start 02/10/17 at 16:00 Vancomycin HCl 1.5 gm/Sodium Chloride 250 ml @ 83.333 mls/ hr Q24H IVPB Last administered on 02/12/17 18:21; Admin Dose 83.333 MLS/HR; Start 02/11/17 at 18:00 Ertapenem/Sodium Chloride (Invanz/NS) 100 ml @ 200 mls/hr Q24H IVPB Last administered on 02/12/17 17:38; Admin Dose 200 MLS/HR; Start 02/10/17 at 18: 30 Senna (Senokot) 1 tab BID PO Last administered on 02/12/17 08:35; Admin Dose 1 TAB; Start 02/12/17 at 09:00 Docusate Sodium (Colace) 100 mg BID PO Last administered on 02/12/17 08:35; Admin Dose 100 MG; Start 02/12/17 at 09:00 Lactulose (Enulose) 20 gm Q6H PRN PO CONSTIPATION Last administered on 18:21; Admin Dose 20 GM; Start 02/12/17 at 07:00 Miscellaneous Information (*Rx Drug Level Order Reminder*) VANCOMYCIN TROUGH AT 1700 ONCE ONCE XX ; Start 02/13/17 at 17:00; Stop 02/13/17 at 17:01 Lisinopril (Zestril) 5 mg DAILY PO Last administered on 02/12/17 12:52; Admin Dose 5 MG; Start 02/12/17 at 12:30 Terbinafine HCl (Lamisil) 250 mg BID PO Last administered on 02/12/17 13:29; Admin Dose 250 MG; Start 02/12/17 at 14:00; Stop 02/19/17 at 13:59 RIKI CAMARA NP Feb 12, 2017 18:48
[2017-02-12 20:00] VITALS: BP 103/56; RESP 18
[2017-02-12] MEDS: ATORVASTATIN 20 MG TAB PO SCH (20:21)
[2017-02-12] MEDS: INSULIN GLARGINE [LANtus] 3 ML PEN SC SCH (20:25)
[2017-02-13] MEDS: LACTULOSE 30ML CUP PO PRN (00:17)
[2017-02-13] MEDS: ACCU-CHEK XX SCH (02:00)
[2017-02-13 02:45] VITALS: BP 157/77; RESP 19
[2017-02-13 07:28] VITALS: BP 154/75; RESP 18
[2017-02-13] MEDS: INSULIN ASPART [NOVOLOG] 3 ML PEN SC SCH ×7 (08:31→21:00)
[2017-02-13] MEDS: HEPARIN 5,000 UNIT/0.5 ML VIAL SC SCH ×2 (08:33→20:59)
[2017-02-13] MEDS: METOPROLOL 25 MG TAB PO SCH ×2 (08:35→20:48)
[2017-02-13] MEDS: SENNA TAB PO SCH ×2 (08:35→20:47)
[2017-02-13] MEDS: DOCUSATE SODIUM 100 MG CAP PO SCH ×2 (08:35→20:46)
[2017-02-13] MEDS: ACETAMINOPHEN 325 MG TAB PO PRN (08:35)
[2017-02-13] MEDS: TERBINAFINE 250 MG TAB PO SCH ×2 (08:35→20:46)
[2017-02-13] MEDS: LISINOPRIL 5 MG TAB PO SCH ×2 (08:36→20:47)
[2017-02-13] MEDS: morphine (ER) 15 MG TAB PO SCH ×2 (08:42→20:47)
--- NOTE | 2017-02-13 10:47 | PN ---
Date/Time of Note Date/Time of Note DATE: 02/13/17 TIME: 10:40 Assessment/Plan VTE Prophylaxis VTE Prophylaxis Intervention: heparin Lines/Catheters IV Catheter Type (from Nrs): Saline Lock Urinary Cath still in place: No Reason Cath still needed: urinary retention Assessment/Plan Problems: (1) Hyperlipidemia Status: Chronic Comment: Continue with statin therapy Qualifiers: Hyperlipidemia type: pure hypercholesterolemia Qualified Code: E78.00 - Pure hypercholesterolemia (2) Diabetes mellitus type 2 in nonobese Status: Chronic Comment: Adequate control on the current regimen. (3) Acute congestive heart failure with left ventricular diastolic dysfunction Status: Acute Comment: Titrating up on VENECIA inhibitor. Renal function is holding steady. (4) Essential hypertension Status: Chronic Comment: Need additional control which allowed us to titrate up on the VENECIA inhibitor. (5) Iron deficiency anemia Status: Chronic Comment: Receiving parenteral iron. Qualifiers: Iron deficiency anemia type: unspecified iron deficiency Qualified Code: D50.9 - Iron deficiency anemia, unspecified iron deficiency anemia type (6) Chronic kidney disease, stage III (moderate) Status: Chronic Comment: Stable, keep a close eye on this as wheezy VENECIA inhibitor (7) Chronic pain syndrome Status: Chronic Comment: Adequate control on current medication regimen (8) LFT elevation Status: Chronic Comment: Pending MRCP scan (9) Pseudomonas urinary tract infection Status: Acute Comment: This is a multiple drug-resistant organism. Patient is on ertapenem Subjective 24 Hr Interval Summary Free Text/Dictation Patient reports he is doing relatively well. Reports his pain control is fair with pain level 3 out of 10; does complain of constipation Constitutional: no complaints (No fevers chills or sweats) Respiratory: no complaints Cardiovascular: no complaints Gastrointestinal: no complaints Exam/Review of Systems Vital Signs Vitals Vital Signs Date Time Temp Pulse Resp B/P Pulse Ox O2 Delivery O2 Flow Rate FiO2 02/13/17 07:28 99.5 91 18 154/75 96 Intake and Output 02/12/17 02/12/17 02/13/17 15:00 23:00 07:00 Intake Total 280 ml 1190 ml 450 ml Output Total 400 ml 650 ml Balance 280 ml 790 ml -200 ml Exam Constitutional: alert, oriented Neck: non-tender, supple Respiratory: clear to auscultation, normal air movement Cardiovascular: nl pulses, regular rate and rhythm Gastrointestinal: nl liver, spleen, non-tender, soft Results Result Diagram: 02/12/17 0417 02/13/17 0428 Results 24 hrs Laboratory Tests Test 02/12/17 11:59 02/12/17 16:57 02/12/17 20:20 02/13/17 04:28 Bedside Glucose 88 115 99 Erythrocyte Sedimentation Rate 90 H Sodium Level 133 L Potassium Level 4.5 Chloride Level 100 Carbon Dioxide Level 24 Anion Gap 14 Blood Urea Nitrogen 33 H Creatinine 1.74 H Glucose Level 115 Calcium Level 8.7 Total Bilirubin 0.2 Direct Bilirubin 0.00 Indirect Bilirubin 0.2 Aspartate Amino Transf (AST/SGOT) 25 Alanine Aminotransferase (ALT/SGPT) 21 Alkaline Phosphatase 284 H Total Protein 6.7 Albumin 2.7 L Globulin 4.00 H Albumin/Globulin Ratio 0.67 Test 02/13/17 07:55 Bedside Glucose 143 Medications Medications Current Medications Ondansetron HCl (Zofran Inj) 4 mg Q6H PRN IV NAUSEA AND/OR VOMITING; Start 01/24/17 at 19:00 Acetaminophen (Tylenol Tab) 650 mg Q6H PRN PO PAIN LEVEL 1-3 OR FEVER Last administered on 02/13/17 08:35; Admin Dose 650 MG; Start 01/24/17 at 19:00 Zolpidem Tartrate (Ambien) 5 mg QHS PRN PO SLEEP Last administered on 21:17; Admin Dose 5 MG; Start 01/24/17 at 19:00 Heparin Sodium (Porcine) (Heparin (5000 Units/0.5 ml)) 5,000 unit Q12 SC Last administered on 02/13/17 08:33; Admin Dose 5,000 UNIT; Start 01/24/17 at 21:00 Diagnostic Test (Pha) (Accu-Chek) 1 ea 02 XX ; Start 01/25/17 at 02:00 Miscellaneous Information 1 ea NOTE XX ; Start 01/24/17 at 19:00 Glucose (Glutose) 15 gm Q15M PRN PO DECREASED GLUCOSE; Start 01/24/17 at 19:00 Glucose (Glutose) 22.5 gm Q15M PRN PO DECREASED GLUCOSE; Start 01/24/17 at 19: 00 Dextrose (D50w Syringe) 25 ml Q15M PRN IV DECREASED GLUCOSE; Start 01/24/17 at 19:00 Dextrose (D50w Syringe) 50 ml Q15M PRN IV DECREASED GLUCOSE; Start 01/24/17 at 19:00 Glucagon (Glucagen) 1 mg Q15M PRN IM DECREASED GLUCOSE; Start 01/24/17 at 19:00 Glucose (Glutose) 15 gm Q15M PRN BUCCAL DECREASED GLUCOSE; Start 01/24/17 at 19 :00 Acetaminophen/ Hydrocodone Bitart ([place] (5/325)) 1 tab Q4H PRN PO MODERATE PAIN LEVEL 4-6 Last administered on 02/12/17 12:11; Admin Dose 1 TAB; Start 01/24/17 at 23:00 Metoprolol Tartrate (Lopressor) 25 mg BID PO Last administered on 02/13/17 08 :35; Admin Dose 25 MG; Start 01/27/17 at 21:00 Clonidine (Catapres) 0.1 mg Q6H PRN PO SBP>170; Start 01/27/17 at 18:00 Atorvastatin Calcium (Lipitor) 20 mg HS PO Last administered on 02/12/17 20: 21; Admin Dose 20 MG; Start 02/01/17 at 21:00 Hydralazine HCl (Apresoline) 5 mg Q6H PRN IV sbp>170; Start 02/02/17 at 18:00 Oxycodone/ Acetaminophen (Percocet (5/ 325)) 2 tab Q6H PRN PO PAIN SCALE 5-7 Last administered on 02/12/17 06:54; Admin Dose 2 TAB; Start 02/04/17 at 10: 30 Hydromorphone HCl (Dilaudid) 2 mg ONCE PRN IV with left BKA dressing change Last administered on 02/11/17 11:04; Admin Dose 2 MG; Start 02/04/17 at 10:30 Hydralazine HCl (Apresoline) 100 mg TID PO Last administered on 02/13/17 08: 42; Admin Dose 100 MG; Start 02/06/17 at 21:00 Morphine Sulfate (Ms Contin (Er)) 15 mg BID PO Last administered on 02/13/17 08:42; Admin Dose 15 MG; Start 02/06/17 at 21:00 Insulin Glargine (Lantus) 15 unit QHS SC Last administered on 02/12/17 20:25 ; Admin Dose 15 UNIT; Start 02/08/17 at 21:00 Hydromorphone HCl 1 mg 1 mg Q3H PRN IV pain Last administered on 02/10/17 17: 43; Admin Dose 1 MG; Start 02/10/17 at 16:00 Vancomycin HCl 1.5 gm/Sodium Chloride 250 ml @ 83.333 mls/ hr Q24H IVPB Last administered on 02/12/17 18:21; Admin Dose 83.333 MLS/HR; Start 02/11/17 at 18:00 Ertapenem/Sodium Chloride (Invanz/NS) 100 ml @ 200 mls/hr Q24H IVPB Last administered on 02/12/17 17:38; Admin Dose 200 MLS/HR; Start 02/10/17 at 18: 30 Senna (Senokot) 1 tab BID PO Last administered on 02/13/17 08:35; Admin Dose 1 TAB; Start 02/12/17 at 09:00 Docusate Sodium (Colace) 100 mg BID PO Last administered on 02/13/17 08:35; Admin Dose 100 MG; Start 02/12/17 at 09:00 Lactulose (Enulose) 20 gm Q6H PRN PO CONSTIPATION Last administered on 00:17; Admin Dose 20 GM; Start 02/12/17 at 07:00 Miscellaneous Information (*Rx Drug Level Order Reminder*) VANCOMYCIN TROUGH AT 1700 ONCE ONCE XX ; Start 02/13/17 at 17:00; Stop 02/13/17 at 17:01 Lisinopril (Zestril) 5 mg DAILY PO Last administered on 02/13/17 08:36; Admin Dose 5 MG; Start 02/12/17 at 12:30 Terbinafine HCl (Lamisil) 250 mg BID PO Last administered on 02/13/17 08:35; Admin Dose 250 MG; Start 02/12/17 at 14:00; Stop 02/19/17 at 13:59 MANJEET OCHOA MD Feb 13, 2017 10:47
[2017-02-13] MEDS ORDERED: LACTULOSE 30ML CUP PO ONE (11:00)
[2017-02-13] MEDS: NA PHOSPHATE/BIPHOS 133 ML ENEMA PR ONE ×2 (11:13→11:35)
--- NOTE | 2017-02-13 11:13 | CONS ---
Date/Time of Note Date/Time of Note DATE: 02/13/17 TIME: 11:10 Assessment/Plan Assessment/Plan Chief Complaint/Hosp Course 66 y/o with # Patient has possible underlying chronic kidney disease with mild GAIL Cr trending up? hemodynamic s/p AKA. Cr stable fluctating CKD III # Rt foot ulcer s/p debridement on 02/07 # chronic lower extremity lymphedema and cellulitis. # CHF likley diastolic # hypertension, anemia. # DM # Abnormal LFT # Skin wounds # Hypoalbunemia # Bilateral lower extremity atherosclerosis and gangrene s/p BKA # UTI Plan - Cr stable 1.6-1.7, no new labs - DC Lasix per cards - On Lisnopril 5 bid - dm management per primary - ID following - Avoid nephrotoxic agents Problems: Consultation Date/Type/Reason Admit Date/Time Jan 24, 2017 at 15:33 Type of Consultation: Renal Referring Provider: SELINA BAINS 24 HR Interval Summary Free Text/Dictation Pt complaining of pain at surgical site Lisnopril uptitrated per Endo Exam/Review of Systems Vital Signs Vitals Vital Signs Date Time Temp Pulse Resp B/P Pulse Ox O2 Delivery O2 Flow Rate FiO2 02/13/17 07:28 99.5 91 18 154/75 96 Intake and Output 02/12/17 02/12/17 02/13/17 15:00 23:00 07:00 Intake Total 280 ml 1190 ml 450 ml Output Total 400 ml 650 ml Balance 280 ml 790 ml -200 ml Exam onstitutional: alert, oriented Head: atraumatic, normocephalic Respiratory: clear to auscultation Cardiovascular: regular rate and rhythm Musculoskeletal: swelling (rightankle) BKA Results Result Diagram: 02/12/17 0417 02/13/17 0428 Results 24 hrs Laboratory Tests Test 02/12/17 11:59 02/12/17 16:57 02/12/17 20:20 02/13/17 04:28 Bedside Glucose 88 115 99 Erythrocyte Sedimentation Rate 90 H Sodium Level 133 L Potassium Level 4.5 Chloride Level 100 Carbon Dioxide Level 24 Anion Gap 14 Blood Urea Nitrogen 33 H Creatinine 1.74 H Glucose Level 115 Calcium Level 8.7 Total Bilirubin 0.2 Direct Bilirubin 0.00 Indirect Bilirubin 0.2 Aspartate Amino Transf (AST/SGOT) 25 Alanine Aminotransferase (ALT/SGPT) 21 Alkaline Phosphatase 284 H Total Protein 6.7 Albumin 2.7 L Globulin 4.00 H Albumin/Globulin Ratio 0.67 Test 02/13/17 07:55 Bedside Glucose 143 Medications Medications Current Medications Ondansetron HCl (Zofran Inj) 4 mg Q6H PRN IV NAUSEA AND/OR VOMITING; Start 01/24/17 at 19:00 Acetaminophen (Tylenol Tab) 650 mg Q6H PRN PO PAIN LEVEL 1-3 OR FEVER Last administered on 02/13/17 08:35; Admin Dose 650 MG; Start 01/24/17 at 19:00 Zolpidem Tartrate (Ambien) 5 mg QHS PRN PO SLEEP Last administered on 21:17; Admin Dose 5 MG; Start 01/24/17 at 19:00 Heparin Sodium (Porcine) (Heparin (5000 Units/0.5 ml)) 5,000 unit Q12 SC Last administered on 02/13/17 08:33; Admin Dose 5,000 UNIT; Start 01/24/17 at 21:00 Diagnostic Test (Pha) (Accu-Chek) 1 ea 02 XX ; Start 01/25/17 at 02:00 Miscellaneous Information 1 ea NOTE XX ; Start 01/24/17 at 19:00 Glucose (Glutose) 15 gm Q15M PRN PO DECREASED GLUCOSE; Start 01/24/17 at 19:00 Glucose (Glutose) 22.5 gm Q15M PRN PO DECREASED GLUCOSE; Start 01/24/17 at 19: 00 Dextrose (D50w Syringe) 25 ml Q15M PRN IV DECREASED GLUCOSE; Start 01/24/17 at 19:00 Dextrose (D50w Syringe) 50 ml Q15M PRN IV DECREASED GLUCOSE; Start 01/24/17 at 19:00 Glucagon (Glucagen) 1 mg Q15M PRN IM DECREASED GLUCOSE; Start 01/24/17 at 19:00 Glucose (Glutose) 15 gm Q15M PRN BUCCAL DECREASED GLUCOSE; Start 01/24/17 at 19 :00 Acetaminophen/ Hydrocodone Bitart ([place] (5/325)) 1 tab Q4H PRN PO MODERATE PAIN LEVEL 4-6 Last administered on 02/12/17 12:11; Admin Dose 1 TAB; Start 01/24/17 at 23:00 Metoprolol Tartrate (Lopressor) 25 mg BID PO Last administered on 02/13/17 08 :35; Admin Dose 25 MG; Start 01/27/17 at 21:00 Clonidine (Catapres) 0.1 mg Q6H PRN PO SBP>170; Start 01/27/17 at 18:00 Atorvastatin Calcium (Lipitor) 20 mg HS PO Last administered on 02/12/17 20: 21; Admin Dose 20 MG; Start 02/01/17 at 21:00 Hydralazine HCl (Apresoline) 5 mg Q6H PRN IV sbp>170; Start 02/02/17 at 18:00 Oxycodone/ Acetaminophen (Percocet (5/ 325)) 2 tab Q6H PRN PO PAIN SCALE 5-7 Last administered on 02/12/17 06:54; Admin Dose 2 TAB; Start 02/04/17 at 10: 30 Hydromorphone HCl (Dilaudid) 2 mg ONCE PRN IV with left BKA dressing change Last administered on 02/11/17 11:04; Admin Dose 2 MG; Start 02/04/17 at 10:30 Hydralazine HCl (Apresoline) 100 mg TID PO Last administered on 02/13/17 08: 42; Admin Dose 100 MG; Start 02/06/17 at 21:00 Morphine Sulfate (Ms Contin (Er)) 15 mg BID PO Last administered on 02/13/17 08:42; Admin Dose 15 MG; Start 02/06/17 at 21:00 Insulin Glargine (Lantus) 15 unit QHS SC Last administered on 02/12/17 20:25 ; Admin Dose 15 UNIT; Start 02/08/17 at 21:00 Hydromorphone HCl 1 mg 1 mg Q3H PRN IV pain Last administered on 02/10/17 17: 43; Admin Dose 1 MG; Start 02/10/17 at 16:00 Vancomycin HCl 1.5 gm/Sodium Chloride 250 ml @ 83.333 mls/ hr Q24H IVPB Last administered on 02/12/17 18:21; Admin Dose 83.333 MLS/HR; Start 02/11/17 at 18:00 Ertapenem/Sodium Chloride (Invanz/NS) 100 ml @ 200 mls/hr Q24H IVPB Last administered on 02/12/17 17:38; Admin Dose 200 MLS/HR; Start 02/10/17 at 18: 30 Senna (Senokot) 1 tab BID PO Last administered on 02/13/17 08:35; Admin Dose 1 TAB; Start 02/12/17 at 09:00 Docusate Sodium (Colace) 100 mg BID PO Last administered on 02/13/17 08:35; Admin Dose 100 MG; Start 02/12/17 at 09:00 Lactulose (Enulose) 20 gm Q6H PRN PO CONSTIPATION Last administered on 00:17; Admin Dose 20 GM; Start 02/12/17 at 07:00 Miscellaneous Information (*Rx Drug Level Order Reminder*) VANCOMYCIN TROUGH AT 1700 ONCE ONCE XX ; Start 02/13/17 at 17:00; Stop 02/13/17 at 17:01 Terbinafine HCl (Lamisil) 250 mg BID PO Last administered on 02/13/17 08:35; Admin Dose 250 MG; Start 02/12/17 at 14:00; Stop 02/19/17 at 13:59 Lisinopril (Zestril) 5 mg BID PO ; Start 02/13/17 at 21:00 Tamsulosin HCl (Flomax) 0.4 mg HS PO ; Start 02/13/17 at 21:00 LUIS ANTONIO WHITLOCK MD Feb 13, 2017 11:13
--- NOTE | 2017-02-13 11:15 | CONS ---
Date/Time of Note Date/Time of Note DATE: 02/13/17 TIME: 11:11 Assessment/Plan Assessment/Plan Chief Complaint/Hosp Course ID PROGRESS NOTE CURRENT ABX: TOTAL ABX DAY # => Vanco IV + Ertapenem ==> change Ertapenem to Tobramycin IV today for MDRO PSAR 24H INTERVAL SUMMARY * Stable, low grade temp 99.3, VSS, WBC down, ESR 90 * Urine Cx (+ URINE CULTURE Final Organism 1 PSEUDOMONAS AERUGINOSA COLONY COUNT >100,000 CFU/ml PSEDOMONAS AERUGINOSA,MDRO PHONED TO [facility]EREIDA,P856,02/13/17.TT [facility]E [facility] RX --------- --- AMIKACIN 8 S AZTREONAM R CEFEPIME 16 I CEFTAZIDIME 16 I CIPROFLOXACIN >=4 R GENTAMICIN 4 S IMIPENEM >=16 R LEVOFLOXACIN >=8 R TOBRAMYCIN <=1 S PIPERACILLIN/TAZOBACTAM R Physical Exam Physical Exam Constitutional: VSS, NAD, awake, alert, responsive HEENT: Unremarkable Neck: Supple, full ROM Respiratory: Equal chest rise bilaterally, without dyspnea on observation Cardiovascular: nl pulses, regular rate and rhythm Gastrointestinal: Soft, NT Extremities: Warm,-> LEXT gangrene s/p BKA, DSG intact ID ASSESSMENT 66 yo M admit with: 1. Systemic inflammatory response syndrome with persistent leukocytosis. * 02/11/17 BCx (-) * 02/13 ESR 90 2. 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 Diabetes. 4. Peripheral vascular disease. 5. Congestive heart failure. 6. GNR complicated MDRO PSAR UTI -> Urine Cx (+ URINE CULTURE Final Organism 1 PSEUDOMONAS AERUGINOSA COLONY COUNT >100,000 CFU/ml (-) MRSA Nares INVASIVES: PIV ABX ALLERGIES: KNDA CURRENT ABX: # => Vanco IV + START TOBRA IV 02/13 (PSAR) Ertapenem -> DC 02/13 ID RECOMMENDATIONS 1. Change Ertapenem to Tobramycin to cover PSAR UTI , continue Vanco IV 2. Watch renal fx on Vanco + Aminoglycoside combo -> change Vanco to Dapto if renal fx deteriorates . . . Problems: Consultation Date/Type/Reason Admit Date/Time Jan 24, 2017 at 15:33 Type of Consultation: ID Referring Provider: SELINA BAINS Exam/Review of Systems Vital Signs Vitals Vital Signs Date Time Temp Pulse Resp B/P Pulse Ox O2 Delivery O2 Flow Rate FiO2 02/13/17 07:28 99.5 91 18 154/75 96 Intake and Output 02/12/17 02/12/17 02/13/17 15:00 23:00 07:00 Intake Total 280 ml 1190 ml 450 ml Output Total 400 ml 650 ml Balance 280 ml 790 ml -200 ml Results Result Diagram: 02/12/17 0417 02/13/17 0428 Results 24 hrs Laboratory Tests Test 02/12/17 11:59 02/12/17 16:57 02/12/17 20:20 02/13/17 04:28 Bedside Glucose 88 115 99 Erythrocyte Sedimentation Rate 90 H Sodium Level 133 L Potassium Level 4.5 Chloride Level 100 Carbon Dioxide Level 24 Anion Gap 14 Blood Urea Nitrogen 33 H Creatinine 1.74 H Glucose Level 115 Calcium Level 8.7 Total Bilirubin 0.2 Direct Bilirubin 0.00 Indirect Bilirubin 0.2 Aspartate Amino Transf (AST/SGOT) 25 Alanine Aminotransferase (ALT/SGPT) 21 Alkaline Phosphatase 284 H Total Protein 6.7 Albumin 2.7 L Globulin 4.00 H Albumin/Globulin Ratio 0.67 Test 02/13/17 07:55 Bedside Glucose 143 Medications Medications Current Medications Ondansetron HCl (Zofran Inj) 4 mg Q6H PRN IV NAUSEA AND/OR VOMITING; Start 01/24/17 at 19:00 Acetaminophen (Tylenol Tab) 650 mg Q6H PRN PO PAIN LEVEL 1-3 OR FEVER Last administered on 02/13/17t 08:35; Admin Dose 650 MG; Start 01/24/17 at 19:00 Zolpidem Tartrate (Ambien) 5 mg QHS PRN PO SLEEP Last administered on 21:17; Admin Dose 5 MG; Start 01/24/17 at 19:00 Heparin Sodium (Porcine) (Heparin (5000 Units/0.5 ml)) 5,000 unit Q12 SC Last administered on 02/13/17 08:33; Admin Dose 5,000 UNIT; Start 01/24/17 at 21:00 Diagnostic Test (Pha) (Accu-Chek) 1 ea 02 XX ; Start 01/25/17 at 02:00 Miscellaneous Information 1 ea NOTE XX ; Start 01/24/17 at 19:00 Glucose (Glutose) 15 gm Q15M PRN PO DECREASED GLUCOSE; Start 01/24/17 at 19:00 Glucose (Glutose) 22.5 gm Q15M PRN PO DECREASED GLUCOSE; Start 01/24/17 at 19: 00 Dextrose (D50w Syringe) 25 ml Q15M PRN IV DECREASED GLUCOSE; Start 01/24/17 at 19:00 Dextrose (D50w Syringe) 50 ml Q15M PRN IV DECREASED GLUCOSE; Start 01/24/17 at 19:00 Glucagon (Glucagen) 1 mg Q15M PRN IM DECREASED GLUCOSE; Start 01/24/17 at 19:00 Glucose (Glutose) 15 gm Q15M PRN BUCCAL DECREASED GLUCOSE; Start 01/24/17 at 19 :00 Acetaminophen/ Hydrocodone Bitart ([place] (5/325)) 1 tab Q4H PRN PO MODERATE PAIN LEVEL 4-6 Last administered on 02/12/17 12:11; Admin Dose 1 TAB; Start 01/24/17 at 23:00 Metoprolol Tartrate (Lopressor) 25 mg BID PO Last administered on 02/13/17 08 :35; Admin Dose 25 MG; Start 01/27/17 at 21:00 Clonidine (Catapres) 0.1 mg Q6H PRN PO SBP>170; Start 01/27/17 at 18:00 Atorvastatin Calcium (Lipitor) 20 mg HS PO Last administered on 02/12/17 20: 21; Admin Dose 20 MG; Start 02/01/17 at 21:00 Hydralazine HCl (Apresoline) 5 mg Q6H PRN IV sbp>170; Start 02/02/17 at 18:00 Oxycodone/ Acetaminophen (Percocet (5/ 325)) 2 tab Q6H PRN PO PAIN SCALE 5-7 Last administered on 02/12/17 06:54; Admin Dose 2 TAB; Start 02/04/17 at 10: 30 Hydromorphone HCl (Dilaudid) 2 mg ONCE PRN IV with left BKA dressing change Last administered on 02/11/17 11:04; Admin Dose 2 MG; Start 02/04/17 at 10:30 Hydralazine HCl (Apresoline) 100 mg TID PO Last administered on 02/13/17 08: 42; Admin Dose 100 MG; Start 02/06/17 at 21:00 Morphine Sulfate (Ms Contin (Er)) 15 mg BID PO Last administered on 02/13/17 08:42; Admin Dose 15 MG; Start 02/06/17 at 21:00 Insulin Glargine (Lantus) 15 unit QHS SC Last administered on 02/12/17 20:25 ; Admin Dose 15 UNIT; Start 02/08/17 at 21:00 Hydromorphone HCl 1 mg 1 mg Q3H PRN IV pain Last administered on 02/10/17 17: 43; Admin Dose 1 MG; Start 02/10/17 at 16:00 Vancomycin HCl 1.5 gm/Sodium Chloride 250 ml @ 83.333 mls/ hr Q24H IVPB Last administered on 02/12/17 18:21; Admin Dose 83.333 MLS/HR; Start 02/11/17 at 18:00 Ertapenem/Sodium Chloride (Invanz/NS) 100 ml @ 200 mls/hr Q24H IVPB Last administered on 02/12/17 17:38; Admin Dose 200 MLS/HR; Start 02/10/17 at 18: 30 Senna (Senokot) 1 tab BID PO Last administered on 02/13/17 08:35; Admin Dose 1 TAB; Start 02/12/17 at 09:00 Docusate Sodium (Colace) 100 mg BID PO Last administered on 02/13/17 08:35; Admin Dose 100 MG; Start 02/12/17 at 09:00 Lactulose (Enulose) 20 gm Q6H PRN PO CONSTIPATION Last administered on 00:17; Admin Dose 20 GM; Start 02/12/17 at 07:00 Miscellaneous Information (*Rx Drug Level Order Reminder*) VANCOMYCIN TROUGH AT 1700 ONCE ONCE XX ; Start 02/13/17 at 17:00; Stop 02/13/17 at 17:01 Terbinafine HCl (Lamisil) 250 mg BID PO Last administered on 02/13/17 08:35; Admin Dose 250 MG; Start 02/12/17 at 14:00; Stop 02/19/17 at 13:59 Lisinopril (Zestril) 5 mg BID PO ; Start 02/13/17 at 21:00 Tamsulosin HCl (Flomax) 0.4 mg HS PO ; Start 02/13/17 at 21:00 RIKI CAMARA NP Feb 13, 2017 11:15
--- NOTE | 2017-02-13 13:19 | CONS ---
Date/Time of Note Date/Time of Note DATE: 02/13/17 TIME: 13:18 Assessment/Plan Assessment/Plan Additional Assessment/Plan 1. Diastolic Heart Failure 2. Hypertension 3. Anemia. 4. Nonhealing lower extremity ulcerations, s/p debridement on wound vac 5. Diabetes mellitus. 6. Dyslipidemia Continue Metoprolol and hydralazine Discontinued Lasix Discontinued IV fluids Continue Antibiotics Continue Lipitor Continue Insulin Pain management as scheduled Wound care as recommended Consultation Date/Type/Reason Admit Date/Time Jan 24, 2017 at 15:33 Initial Consult Date Type of Consultation: Renal Referring Provider: SELINA BAINS Exam/Review of Systems Vital Signs Vitals Vital Signs Date Time Temp Pulse Resp B/P Pulse Ox O2 Delivery O2 Flow Rate FiO2 02/13/17 07:28 99.5 91 18 154/75 96 Intake and Output 02/12/17 02/12/17 02/13/17 15:00 23:00 07:00 Intake Total 280 ml 1190 ml 450 ml Output Total 400 ml 650 ml Balance 280 ml 790 ml -200 ml Exam Constitutional: alert, oriented Head: atraumatic, normocephalic Respiratory: clear to auscultation Cardiovascular: regular rate and rhythm Gastrointestinal: nl liver, spleen, non-tender, soft Extremities: other (left BKA on wound vac) Results Result Diagram: 02/12/17 0417 02/13/17 0428 Results 24 hrs Laboratory Tests Test 02/12/17 16:57 02/12/17 20:20 02/13/17 04:28 02/13/17 07:55 Bedside Glucose 115 99 143 Erythrocyte Sedimentation Rate 90 H Sodium Level 133 L Potassium Level 4.5 Chloride Level 100 Carbon Dioxide Level 24 Anion Gap 14 Blood Urea Nitrogen 33 H Creatinine 1.74 H Glucose Level 115 Calcium Level 8.7 Total Bilirubin 0.2 Direct Bilirubin 0.00 Indirect Bilirubin 0.2 Aspartate Amino Transf (AST/SGOT) 25 Alanine Aminotransferase (ALT/SGPT) 21 Alkaline Phosphatase 284 H Total Protein 6.7 Albumin 2.7 L Globulin 4.00 H Albumin/Globulin Ratio 0.67 Test 02/13/17 12:11 Bedside Glucose 97 Medications Medications Current Medications Ondansetron HCl (Zofran Inj) 4 mg Q6H PRN IV NAUSEA AND/OR VOMITING; Start 01/24/17 at 19:00 Acetaminophen (Tylenol Tab) 650 mg Q6H PRN PO PAIN LEVEL 1-3 OR FEVER Last administered on 02/13/17 08:35; Admin Dose 650 MG; Start 01/24/17 at 19:00 Zolpidem Tartrate (Ambien) 5 mg QHS PRN PO SLEEP Last administered on 21:17; Admin Dose 5 MG; Start 01/24/17 at 19:00 Heparin Sodium (Porcine) (Heparin (5000 Units/0.5 ml)) 5,000 unit Q12 SC Last administered on 02/13/17 08:33; Admin Dose 5,000 UNIT; Start 01/24/17 at 21:00 Diagnostic Test (Pha) (Accu-Chek) 1 ea 02 XX ; Start 01/25/17 at 02:00 Miscellaneous Information 1 ea NOTE XX ; Start 01/24/17 at 19:00 Glucose (Glutose) 15 gm Q15M PRN PO DECREASED GLUCOSE; Start 01/24/17 at 19:00 Glucose (Glutose) 22.5 gm Q15M PRN PO DECREASED GLUCOSE; Start 01/24/17 at 19: 00 Dextrose (D50w Syringe) 25 ml Q15M PRN IV DECREASED GLUCOSE; Start 01/24/17 at 19:00 Dextrose (D50w Syringe) 50 ml Q15M PRN IV DECREASED GLUCOSE; Start 01/24/17 at 19:00 Glucagon (Glucagen) 1 mg Q15M PRN IM DECREASED GLUCOSE; Start 01/24/17 at 19:00 Glucose (Glutose) 15 gm Q15M PRN BUCCAL DECREASED GLUCOSE; Start 01/24/17 at 19 :00 Acetaminophen/ Hydrocodone Bitart ([place] (5/325)) 1 tab Q4H PRN PO MODERATE PAIN LEVEL 4-6 Last administered on 02/12/17 12:11; Admin Dose 1 TAB; Start 01/24/17 at 23:00 Metoprolol Tartrate (Lopressor) 25 mg BID PO Last administered on 02/13/17 08 :35; Admin Dose 25 MG; Start 01/27/17 at 21:00 Clonidine (Catapres) 0.1 mg Q6H PRN PO SBP>170; Start 01/27/17 at 18:00 Atorvastatin Calcium (Lipitor) 20 mg HS PO Last administered on 02/12/17 20: 21; Admin Dose 20 MG; Start 02/01/17 at 21:00 Hydralazine HCl (Apresoline) 5 mg Q6H PRN IV sbp>170; Start 02/02/17 at 18:00 Oxycodone/ Acetaminophen (Percocet (5/ 325)) 2 tab Q6H PRN PO PAIN SCALE 5-7 Last administered on 02/12/17 06:54; Admin Dose 2 TAB; Start 02/04/17 at 10: 30 Hydromorphone HCl (Dilaudid) 2 mg ONCE PRN IV with left BKA dressing change Last administered on 02/11/17 11:04; Admin Dose 2 MG; Start 02/04/17 at 10:30 Hydralazine HCl (Apresoline) 100 mg TID PO Last administered on 02/13/17 08: 42; Admin Dose 100 MG; Start 02/06/17 at 21:00 Morphine Sulfate (Ms Contin (Er)) 15 mg BID PO Last administered on 02/13/17 08:42; Admin Dose 15 MG; Start 02/06/17 at 21:00 Insulin Glargine (Lantus) 15 unit QHS SC Last administered on 02/12/17 20:25 ; Admin Dose 15 UNIT; Start 02/08/17 at 21:00 Hydromorphone HCl 1 mg 1 mg Q3H PRN IV pain Last administered on 02/10/17 17: 43; Admin Dose 1 MG; Start 02/10/17 at 16:00 Vancomycin HCl/ Sodium Chloride (Vancocin/NS) 250 ml @ 83.333 mls/ hr Q24H IVPB Last administered on 02/12/17 18:21; Admin Dose 83.333 MLS/HR; Start at 18:00 Senna (Senokot) 1 tab BID PO Last administered on 02/13/17 08:35; Admin Dose 1 TAB; Start 02/12/17 at 09:00 Docusate Sodium (Colace) 100 mg BID PO Last administered on 02/13/17 08:35; Admin Dose 100 MG; Start 02/12/17 at 09:00 Lactulose (Enulose) 20 gm Q6H PRN PO CONSTIPATION Last administered on 00:17; Admin Dose 20 GM; Start 02/12/17 at 07:00 Miscellaneous Information (*Rx Drug Level Order Reminder*) VANCOMYCIN TROUGH AT 1700 ONCE ONCE XX ; Start 02/13/17 at 17:00; Stop 02/13/17 at 17:01 Terbinafine HCl (Lamisil) 250 mg BID PO Last administered on 02/13/17t 08:35; Admin Dose 250 MG; Start 02/12/17 at 14:00; Stop 02/19/17 at 13:59 Lisinopril (Zestril) 5 mg BID PO ; Start 02/13/17 at 21:00 Tamsulosin HCl 0.4 mg 0.4 mg HS PO ; Start 02/13/17 at 21:00 Meropenem/Sodium Chloride (Merrem 1 Gm/50 ml (Pmx)) 50 ml @ 100 mls/hr Q8 IVPB ; Start 02/13/17 at 14:00 MERYL BEJARANO M.D. Feb 13, 2017 13:19
[2017-02-13] MEDS: MEROPENEM 1 GM/50ML(PMX) 50 ML IVPB SCH ×2 (14:09→22:02)
[2017-02-13] MEDS: HYDROCODONE/APAP (5/325) TAB PO PRN (14:25)
--- NOTE | 2017-02-13 15:09 | RADRPT ---
PROCEDURE: MRCP without contrast. CLINICAL INDICATION: Right upper quadrant abdominal pain. TECHNIQUE: Routine MRCP was obtained without the administration of intravenous contrast. COMPARISON: None. FINDINGS: Gallbladder is unremarkable. No intra- or extra-hepatic biliary dilatation is identified. There is no filling defect or choledocholithiasis. There is no biliary stricture. The pancreatic duct is within normal limits. There is mild anasarca IMPRESSION: Negative MRCP. No biliary dilatation, choledocholithiasis, or biliary obstruction. RPTAT: EE .Zohaib Garrido MD, Date Time Electronically viewed and signed by .Zohaib Garrido MD, on 02/13/2017 15:14 .C/
[2017-02-13 15:19] VITALS: BP 104/60; RESP 18
[2017-02-13] MEDS ORDERED: DEXTROSE 5% IVPB SCH (17:00)
[2017-02-13] MEDS ORDERED: TOBRAMYCIN IVPB SCH (17:00)
[2017-02-13 19:33] VITALS: BP 106/52; RESP 20
[2017-02-13] MEDS: TAMSULOSIN (SR) 0.4 MG CAP PO SCH (20:46)
[2017-02-13] MEDS: ATORVASTATIN 20 MG TAB PO SCH (20:47)
[2017-02-13] MEDS: INSULIN GLARGINE [LANtus] 3 ML PEN SC SCH (20:59)
[2017-02-14 02:00] VITALS: BP 146/72; RESP 18
[2017-02-14] MEDS: ACCU-CHEK XX SCH (02:00)
[2017-02-14] MEDS: MEROPENEM 1 GM/50ML(PMX) 50 ML IVPB SCH ×2 (05:31→13:51)
[2017-02-14] MEDS: HYDROCODONE/APAP (5/325) TAB PO PRN (05:35)
[2017-02-14] MEDS: INSULIN ASPART [NOVOLOG] 3 ML PEN SC SCH ×7 (07:34→21:00)
[2017-02-14 07:39] VITALS: BP 110/59; RESP 17
[2017-02-14] MEDS: HEPARIN 5,000 UNIT/0.5 ML VIAL SC SCH ×2 (09:00→21:00)
[2017-02-14] MEDS: METOPROLOL 25 MG TAB PO SCH ×2 (09:00→22:24)
[2017-02-14] MEDS: TERBINAFINE 250 MG TAB PO SCH ×2 (09:00→22:23)
[2017-02-14] MEDS: LISINOPRIL 5 MG TAB PO SCH ×2 (09:00→22:23)
[2017-02-14] MEDS: SENNA TAB PO SCH ×2 (09:00→22:25)
[2017-02-14] MEDS: morphine (ER) 15 MG TAB PO SCH ×2 (09:00→22:25)
[2017-02-14] MEDS: DOCUSATE SODIUM 100 MG CAP PO SCH ×2 (09:00→22:25)
[2017-02-14] MEDS ORDERED: VANCOMYCIN 750 MG in DEXTROSE 5% 150 ML IVPB SCH (10:00)
[2017-02-14] MEDS: HYDROmorphONE 0.5 MG/0.5 ML SYG IV PRN (10:09)
--- NOTE | 2017-02-14 13:00 | CONS ---
Date/Time of Note Date/Time of Note DATE: 02/14/17 TIME: 12:56 Assessment/Plan Assessment/Plan Chief Complaint/Hosp Course IMPRESSION: 1. Congestive heart failure by chest x-ray, diastolic, likely acute on chronic by most recent echo. EF 50% 2. Hypertension-uncontrolled 3. Preoperative. -negative trop x 3/no cp/NL EF by echo. s/p debridement repeat today 4. Anemia. 5. Nonhealing lower extremity ulcerations. 6. Diabetes mellitus. 7. MR-mod-sev by echo this admit Recc: -Continue hydralazine/BB as tolerated. Also started on zestril? Will reduce doses to assure tolerates -Continue Lasix diuresis/fluid restriction -local wound care -Follow BS closely with adjustment of insulin therapy as necessary -Pain control Problems: Consultation Date/Type/Reason Admit Date/Time Jan 24, 2017 at 15:33 Initial Consult Date 01/26/2017 Type of Consultation: cardiology Reason for Consultation HTN/CHF Referring Provider: SELINA BAINS Exam/Review of Systems Vital Signs Vitals Vital Signs Date Time Temp Pulse Resp B/P Pulse Ox O2 Delivery O2 Flow Rate FiO2 02/14/17 07:39 97.8 67 17 110/59 96 Intake and Output 02/13/17 02/13/17 02/14/17 15:00 23:00 07:00 Intake Total 50 ml 659.5 ml 250 ml Output Total 700 ml 450 ml Balance 50 ml -40.5 ml -200 ml Exam Review of Systems: CONSTITUTIONAL: No fevers, chills. PULMONARY: No sob CARDIOVASCULAR: No chest pain/palpitations GASTROINTESTINAL: No nausea/vomiting. GENITOURINARY: No hematuria/dysuria. MUSCULOSKELETAL: mild pain tesha leg PSYCHIATRIC: The patient denies depression. NEUROLOGIC: No weakness Constitutional: alert, oriented Psych: no complaints Head: normocephalic ENMT: mucosa pink and moist Neck: jvd (9 cm water), supple Respiratory: diminished breath sounds Cardiovascular: regular rate and rhythm Gastrointestinal: non-tender, soft Musculoskeletal: muscle tone Extremities: edema, other (s/p LE amputation L side /RLE covered by dressing s/ p debridement) Results Result Diagram: 02/14/17 0429 02/14/17 0429 Results 24 hrs Laboratory Tests Test 02/13/17 17:05 02/13/17 17:17 02/13/17 20:53 02/14/17 04:29 Vancomycin Level Trough 23.4 *H Bedside Glucose 121 109 White Blood Count 23.6 #H Red Blood Count 3.24 L Hemoglobin 8.5 L Hematocrit 27.3 L Mean Corpuscular Volume 84.3 Mean Corpuscular Hemoglobin 26.2 L Mean Corpuscular Hemoglobin Concent 31.1 L Red Cell Distribution Width 16.2 H Platelet Count 692 H Mean Platelet Volume 8.9 Neutrophils % 80.5 H Lymphocytes % 10.2 L Monocytes % 6.3 Eosinophils % 1.9 Basophils % 0.3 Nucleated Red Blood Cells % 0.0 Neutrophils # 19.0 H Lymphocytes # 2.4 Monocytes # 1.5 H Eosinophils # 0.4 Basophils # 0.1 Nucleated Red Blood Cells # 0.0 Sodium Level 133 L Potassium Level 4.5 Chloride Level 98 Carbon Dioxide Level 24 Anion Gap 16 Blood Urea Nitrogen 34 H Creatinine 1.79 H Glucose Level 106 Calcium Level 8.3 L Test 02/14/17 07:41 02/14/17 11:33 Bedside Glucose 117 132 Medications Medications Current Medications Ondansetron HCl (Zofran Inj) 4 mg Q6H PRN IV NAUSEA AND/OR VOMITING; Start 01/24/17 at 19:00 Acetaminophen (Tylenol Tab) 650 mg Q6H PRN PO PAIN LEVEL 1-3 OR FEVER Last administered on 02/13/17 08:35; Admin Dose 650 MG; Start 01/24/17 at 19:00 Zolpidem Tartrate (Ambien) 5 mg QHS PRN PO SLEEP Last administered on 21:17; Admin Dose 5 MG; Start 01/24/17 at 19:00 Heparin Sodium (Porcine) (Heparin (5000 Units/0.5 ml)) 5,000 unit Q12 SC Last administered on 02/13/17 08:33; Admin Dose 5,000 UNIT; Start 01/24/17 at 21:00 Diagnostic Test (Pha) (Accu-Chek) 1 ea 02 XX ; Start 01/25/17 at 02:00 Miscellaneous Information 1 ea NOTE XX ; Start 01/24/17 at 19:00 Glucose (Glutose) 15 gm Q15M PRN PO DECREASED GLUCOSE; Start 01/24/17 at 19:00 Glucose (Glutose) 22.5 gm Q15M PRN PO DECREASED GLUCOSE; Start 01/24/17 at 19: 00 Dextrose (D50w Syringe) 25 ml Q15M PRN IV DECREASED GLUCOSE; Start 01/24/17 at 19:00 Dextrose (D50w Syringe) 50 ml Q15M PRN IV DECREASED GLUCOSE; Start 01/24/17 at 19:00 Glucagon (Glucagen) 1 mg Q15M PRN IM DECREASED GLUCOSE; Start 01/24/17 at 19:00 Glucose (Glutose) 15 gm Q15M PRN BUCCAL DECREASED GLUCOSE; Start 01/24/17 at 19 :00 Acetaminophen/ Hydrocodone Bitart ([place] (5/325)) 1 tab Q4H PRN PO MODERATE PAIN LEVEL 4-6 Last administered on 02/14/17 05:35; Admin Dose 1 TAB; Start 01/24/17 at 23:00 Metoprolol Tartrate (Lopressor) 25 mg BID PO Last administered on 02/13/17 20 :48; Admin Dose 25 MG; Start 01/27/17 at 21:00 Clonidine (Catapres) 0.1 mg Q6H PRN PO SBP>170; Start 01/27/17 at 18:00 Atorvastatin Calcium (Lipitor) 20 mg HS PO Last administered on 02/13/17 20: 47; Admin Dose 20 MG; Start 02/01/17 at 21:00 Hydralazine HCl (Apresoline) 5 mg Q6H PRN IV sbp>170; Start 02/02/17 at 18:00 Oxycodone/ Acetaminophen (Percocet (5/ 325)) 2 tab Q6H PRN PO PAIN SCALE 5-7 Last administered on 02/12/17 06:54; Admin Dose 2 TAB; Start 02/04/17 at 10: 30 Hydromorphone HCl (Dilaudid) 2 mg ONCE PRN IV with left BKA dressing change Last administered on 02/11/17 11:04; Admin Dose 2 MG; Start 02/04/17 at 10:30 Hydralazine HCl (Apresoline) 100 mg TID PO Last administered on 02/13/17 20: 46; Admin Dose 100 MG; Start 02/06/17 at 21:00 Morphine Sulfate (Ms Contin (Er)) 15 mg BID PO Last administered on 02/13/17 20:47; Admin Dose 15 MG; Start 02/06/17 at 21:00 Insulin Glargine (Lantus) 15 unit QHS SC Last administered on 02/12/17 20:25 ; Admin Dose 15 UNIT; Start 02/08/17 at 21:00 Hydromorphone HCl (Dilaudid) 1 mg Q3H PRN IV pain Last administered on 10:09; Admin Dose 1 MG; Start 02/10/17 at 16:00 Senna (Senokot) 1 tab BID PO Last administered on 02/13/17 20:47; Admin Dose 1 TAB; Start 02/12/17 at 09:00 Docusate Sodium (Colace) 100 mg BID PO Last administered on 02/13/17 20:46; Admin Dose 100 MG; Start 02/12/17 at 09:00 Lactulose (Enulose) 20 gm Q6H PRN PO CONSTIPATION Last administered on 00:17; Admin Dose 20 GM; Start 02/12/17 at 07:00 Terbinafine HCl (Lamisil) 250 mg BID PO Last administered on 02/13/17 20:46; Admin Dose 250 MG; Start 02/12/17 at 14:00; Stop 02/19/17 at 13:59 Lisinopril (Zestril) 5 mg BID PO Last administered on 02/13/17 20:47; Admin Dose 5 MG; Start 02/13/17 at 21:00 Tamsulosin HCl 0.4 mg 0.4 mg HS PO Last administered on 02/13/17 20:46; Admin Dose 0.4 MG; Start 02/13/17 at 21:00 Meropenem/Sodium Chloride 50 ml @ 100 mls/hr Q8 IVPB Last administered on 05:31; Admin Dose 100 MLS/HR; Start 02/13/17 at 14:00 Vancomycin HCl/ Dextrose/Water (Vancocin/D5W) 150 ml @ 75 mls/hr Q24H IVPB Last administered on 02/14/17 10:08; Admin Dose 75 MLS/HR; Start 02/14/17 at 10:00 CLARITZA FLORES Feb 14, 2017 13:00
[2017-02-14 14:00] VITALS: BP 138/70; RESP 18
--- NOTE | 2017-02-14 14:52 | CONS ---
Date/Time of Note Date/Time of Note DATE: 02/14/17 TIME: 14:47 Consult Date/Type/Reason Admit Date/Time Jan 24, 2017 at 15:33 Initial Consult Date 02/01/17 Type of Consultation: ID Ordering Provider: SELINA BAINS Objective Vital Signs Date Time Temp Pulse Resp B/P Pulse Ox O2 Delivery O2 Flow Rate FiO2 02/14/17 07:39 97.8 67 17 110/59 96 Intake and Output 02/13/17 02/13/17 02/14/17 15:00 23:00 07:00 Intake Total 50 ml 659.5 ml 250 ml Output Total 700 ml 450 ml Balance 50 ml -40.5 ml -200 ml Results/Medications Result Diagram: 02/14/17 0429 02/14/17 0429 Results 24 hrs Laboratory Tests Test 02/13/17 17:05 02/13/17 17:17 02/13/17 20:53 02/14/17 04:29 Vancomycin Level Trough 23.4 *H Bedside Glucose 121 109 White Blood Count 23.6 #H Red Blood Count 3.24 L Hemoglobin 8.5 L Hematocrit 27.3 L Mean Corpuscular Volume 84.3 Mean Corpuscular Hemoglobin 26.2 L Mean Corpuscular Hemoglobin Concent 31.1 L Red Cell Distribution Width 16.2 H Platelet Count 692 H Mean Platelet Volume 8.9 Neutrophils % 80.5 H Lymphocytes % 10.2 L Monocytes % 6.3 Eosinophils % 1.9 Basophils % 0.3 Nucleated Red Blood Cells % 0.0 Neutrophils # 19.0 H Lymphocytes # 2.4 Monocytes # 1.5 H Eosinophils # 0.4 Basophils # 0.1 Nucleated Red Blood Cells # 0.0 Sodium Level 133 L Potassium Level 4.5 Chloride Level 98 Carbon Dioxide Level 24 Anion Gap 16 Blood Urea Nitrogen 34 H Creatinine 1.79 H Glucose Level 106 Calcium Level 8.3 L Test 02/14/17 07:41 02/14/17 11:33 Bedside Glucose 117 132 Medications Current Medications Ondansetron HCl (Zofran Inj) 4 mg Q6H PRN IV NAUSEA AND/OR VOMITING; Start 01/24/17 at 19:00 Acetaminophen (Tylenol Tab) 650 mg Q6H PRN PO PAIN LEVEL 1-3 OR FEVER Last administered on 02/13/17t 08:35; Admin Dose 650 MG; Start 01/24/17 at 19:00 Zolpidem Tartrate (Ambien) 5 mg QHS PRN PO SLEEP Last administered on 21:17; Admin Dose 5 MG; Start 01/24/17 at 19:00 Heparin Sodium (Porcine) (Heparin (5000 Units/0.5 ml)) 5,000 unit Q12 SC Last administered on 02/13/17 08:33; Admin Dose 5,000 UNIT; Start 01/24/17 at 21:00 Diagnostic Test (Pha) (Accu-Chek) 1 ea 02 XX ; Start 01/25/17 at 02:00 Miscellaneous Information 1 ea NOTE XX ; Start 01/24/17 at 19:00 Glucose (Glutose) 15 gm Q15M PRN PO DECREASED GLUCOSE; Start 01/24/17 at 19:00 Glucose (Glutose) 22.5 gm Q15M PRN PO DECREASED GLUCOSE; Start 01/24/17 at 19: 00 Dextrose (D50w Syringe) 25 ml Q15M PRN IV DECREASED GLUCOSE; Start 01/24/17 at 19:00 Dextrose (D50w Syringe) 50 ml Q15M PRN IV DECREASED GLUCOSE; Start 01/24/17 at 19:00 Glucagon (Glucagen) 1 mg Q15M PRN IM DECREASED GLUCOSE; Start 01/24/17 at 19:00 Glucose (Glutose) 15 gm Q15M PRN BUCCAL DECREASED GLUCOSE; Start 01/24/17 at 19 :00 Acetaminophen/ Hydrocodone Bitart ([place] (5/325)) 1 tab Q4H PRN PO MODERATE PAIN LEVEL 4-6 Last administered on 02/14/17 05:35; Admin Dose 1 TAB; Start 01/24/17 at 23:00 Metoprolol Tartrate (Lopressor) 25 mg BID PO Last administered on 02/13/17 20 :48; Admin Dose 25 MG; Start 01/27/17 at 21:00 Clonidine (Catapres) 0.1 mg Q6H PRN PO SBP>170; Start 01/27/17 at 18:00 Atorvastatin Calcium (Lipitor) 20 mg HS PO Last administered on 02/13/17 20: 47; Admin Dose 20 MG; Start 02/01/17 at 21:00 Hydralazine HCl (Apresoline) 5 mg Q6H PRN IV sbp>170; Start 02/02/17 at 18:00 Oxycodone/ Acetaminophen (Percocet (5/ 325)) 2 tab Q6H PRN PO PAIN SCALE 5-7 Last administered on 02/12/17 06:54; Admin Dose 2 TAB; Start 02/04/17 at 10: 30 Hydromorphone HCl (Dilaudid) 2 mg ONCE PRN IV with left BKA dressing change Last administered on 02/11/17 11:04; Admin Dose 2 MG; Start 02/04/17 at 10:30 Hydralazine HCl (Apresoline) 100 mg TID PO Last administered on 02/13/17 20: 46; Admin Dose 100 MG; Start 02/06/17 at 21:00 Morphine Sulfate (Ms Contin (Er)) 15 mg BID PO Last administered on 02/13/17 20:47; Admin Dose 15 MG; Start 02/06/17 at 21:00 Insulin Glargine (Lantus) 15 unit QHS SC Last administered on 02/12/17 20:25 ; Admin Dose 15 UNIT; Start 02/08/17 at 21:00 Hydromorphone HCl (Dilaudid) 1 mg Q3H PRN IV pain Last administered on 10:09; Admin Dose 1 MG; Start 02/10/17 at 16:00 Senna (Senokot) 1 tab BID PO Last administered on 02/13/17 20:47; Admin Dose 1 TAB; Start 02/12/17 at 09:00 Docusate Sodium (Colace) 100 mg BID PO Last administered on 02/13/17 20:46; Admin Dose 100 MG; Start 02/12/17 at 09:00 Lactulose (Enulose) 20 gm Q6H PRN PO CONSTIPATION Last administered on 00:17; Admin Dose 20 GM; Start 02/12/17 at 07:00 Terbinafine HCl (Lamisil) 250 mg BID PO Last administered on 02/13/17 20:46; Admin Dose 250 MG; Start 02/12/17 at 14:00; Stop 02/19/17 at 13:59 Lisinopril (Zestril) 5 mg BID PO Last administered on 10/29/17at 20:47; Admin Dose 5 MG; Start 02/13/17 at 21:00 Tamsulosin HCl 0.4 mg 0.4 mg HS PO Last administered on 02/13/17 20:46; Admin Dose 0.4 MG; Start 02/13/17 at 21:00 Meropenem/Sodium Chloride 50 ml @ 100 mls/hr Q8 IVPB Last administered on 13:51; Admin Dose 100 MLS/HR; Start 02/13/17 at 14:00 Vancomycin HCl/ Dextrose/Water (Vancocin/D5W) 150 ml @ 75 mls/hr Q24H IVPB Last administered on 02/14/17 10:08; Admin Dose 75 MLS/HR; Start 02/14/17 at 10:00 Assessment/Plan Chief Complaint/Hosp Course SUBJECTIVE: No acute changes overnight. The patient is awake. No fevers. MICROBIOLOGY: Urine cx + PSA ANTIMICROBIALS: The patient is on vancomycin and Tobramycin. PHYSICAL EXAMINATION: GENERAL: This is a well-developed, well-nourished elderly man who looks older than his age. The patient is in no distress. HEENT: Head atraumatic, normocephalic. Sclerae anicteric. Buccal mucosa dry. NECK: Supple. CHEST: Rise symmetrical. Breath sounds diminished to bases. HEART: S1, S2. ABDOMEN: Soft, bowel tones present. EXTREMITIES: With bilateral lower extremity dressings intact. Left lower extremity to wound VAC. ASSESSMENT: 1. Systemic inflammatory response syndrome with persistent leukocytosis. 2. 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 3. Diabetes. 4. Peripheral vascular disease. 5. MDR UTI 6. A/CKD PLAN: The patient is clinically and hemodynamically stable. He is being followed by multiple consultants. We are going to change Vanco to Daptomycin to preserve renal f-n, continue local wound care per vascular team, consider hematology eval if leukocytosis persists DW staff Problems: DENITA COKER NP Feb 14, 2017 14:52
--- NOTE | 2017-02-14 15:49 | PN ---
Date/Time of Note Date/Time of Note DATE: 02/14/17 TIME: 15:43 Assessment/Plan VTE Prophylaxis VTE Prophylaxis Intervention: SCD's Lines/Catheters IV Catheter Type (from Nrsg): [place] Urinary Cath still in place: Yes Reason Cath still needed: pres ulcer contaminated by urine (will dc) Assessment/Plan Assessment/Plan 66 yo M with CKD II, DMII, venous stasis, PVD admitted nonhealing foot ulcers and lymphedema Foot ulcers: sp debridement foot ulcers 10.11, 10.23; sp L BKA 10.19 -cont wound care Acute decompensated diastolic CHF: sp dieresis. Basically net even on I/O however is down 3 kg on weights GAIL:- Trend creatinine, holding ARB DM - Basal bolus insulin/sliding scale PVD - Aspirin and statin MDR PSAR bacteriuria tobra as per ID of note, given lack of WBC improvement despite abx, it is unclear to me the benefit skin/soft tissue directed antimicrobials are offering at this time BP controlled Subjective 24 Hr Interval Summary Free Text/Dictation no complaints this AM Exam/Review of Systems Vital Signs Vitals Vital Signs Date Time Temp Pulse Resp B/P Pulse Ox O2 Delivery O2 Flow Rate FiO2 02/14/17 14:00 97.8 68 18 138/70 99 Intake and Output 02/13/17 02/13/17 02/14/17 15:00 23:00 07:00 Intake Total 50 ml 659.5 ml 250 ml Output Total 700 ml 450 ml Balance 50 ml -40.5 ml -200 ml Exam sitting up in bed resp nonlabored no abd distension no rashes no edema Results Result Diagram: 02/14/17 0429 02/14/17 0429 Results 24 hrs Laboratory Tests Test 02/13/17 17:05 02/13/17 17:17 02/13/17 20:53 02/14/17 04:29 Vancomycin Level Trough 23.4 *H Bedside Glucose 121 109 White Blood Count 23.6 #H Red Blood Count 3.24 L Hemoglobin 8.5 L Hematocrit 27.3 L Mean Corpuscular Volume 84.3 Mean Corpuscular Hemoglobin 26.2 L Mean Corpuscular Hemoglobin Concent 31.1 L Red Cell Distribution Width 16.2 H Platelet Count 692 H Mean Platelet Volume 8.9 Neutrophils % 80.5 H Lymphocytes % 10.2 L Monocytes % 6.3 Eosinophils % 1.9 Basophils % 0.3 Nucleated Red Blood Cells % 0.0 Neutrophils # 19.0 H Lymphocytes # 2.4 Monocytes # 1.5 H Eosinophils # 0.4 Basophils # 0.1 Nucleated Red Blood Cells # 0.0 Sodium Level 133 L Potassium Level 4.5 Chloride Level 98 Carbon Dioxide Level 24 Anion Gap 16 Blood Urea Nitrogen 34 H Creatinine 1.79 H Glucose Level 106 Calcium Level 8.3 L Test 02/14/17 07:41 02/14/17 11:33 Bedside Glucose 117 132 Medications Medications Current Medications Ondansetron HCl (Zofran Inj) 4 mg Q6H PRN IV NAUSEA AND/OR VOMITING; Start 01/24/17 at 19:00 Acetaminophen (Tylenol Tab) 650 mg Q6H PRN PO PAIN LEVEL 1-3 OR FEVER Last administered on 02/13/17 08:35; Admin Dose 650 MG; Start 01/24/17 at 19:00 Zolpidem Tartrate (Ambien) 5 mg QHS PRN PO SLEEP Last administered on 21:17; Admin Dose 5 MG; Start 01/24/17 at 19:00 Heparin Sodium (Porcine) (Heparin (5000 Units/0.5 ml)) 5,000 unit Q12 SC Last administered on 02/13/17 08:33; Admin Dose 5,000 UNIT; Start 01/24/17 at 21:00 Diagnostic Test (Pha) (Accu-Chek) 1 ea 02 XX ; Start 01/25/17 at 02:00 Miscellaneous Information 1 ea NOTE XX ; Start 01/24/17 at 19:00 Glucose (Glutose) 15 gm Q15M PRN PO DECREASED GLUCOSE; Start 01/24/17 at 19:00 Glucose (Glutose) 22.5 gm Q15M PRN PO DECREASED GLUCOSE; Start 01/24/17 at 19: 00 Dextrose (D50w Syringe) 25 ml Q15M PRN IV DECREASED GLUCOSE; Start 01/24/17 at 19:00 Dextrose (D50w Syringe) 50 ml Q15M PRN IV DECREASED GLUCOSE; Start 01/24/17 at 19:00 Glucagon (Glucagen) 1 mg Q15M PRN IM DECREASED GLUCOSE; Start 01/24/17 at 19:00 Glucose (Glutose) 15 gm Q15M PRN BUCCAL DECREASED GLUCOSE; Start 01/24/17 at 19 :00 Acetaminophen/ Hydrocodone Bitart ([place] (5/325)) 1 tab Q4H PRN PO MODERATE PAIN LEVEL 4-6 Last administered on 02/14/17 05:35; Admin Dose 1 TAB; Start 01/24/17 at 23:00 Metoprolol Tartrate (Lopressor) 25 mg BID PO Last administered on 02/13/17 20 :48; Admin Dose 25 MG; Start 01/27/17 at 21:00 Clonidine (Catapres) 0.1 mg Q6H PRN PO SBP>170; Start 01/27/17 at 18:00 Atorvastatin Calcium (Lipitor) 20 mg HS PO Last administered on 02/13/17 20: 47; Admin Dose 20 MG; Start 02/01/17 at 21:00 Hydralazine HCl (Apresoline) 5 mg Q6H PRN IV sbp>170; Start 02/02/17 at 18:00 Oxycodone/ Acetaminophen (Percocet (5/ 325)) 2 tab Q6H PRN PO PAIN SCALE 5-7 Last administered on 02/12/17 06:54; Admin Dose 2 TAB; Start 02/04/17 at 10: 30 Hydromorphone HCl (Dilaudid) 2 mg ONCE PRN IV with left BKA dressing change Last administered on 02/11/17 11:04; Admin Dose 2 MG; Start 02/04/17 at 10:30 Hydralazine HCl (Apresoline) 100 mg TID PO Last administered on 02/13/17 20: 46; Admin Dose 100 MG; Start 02/06/17 at 21:00 Morphine Sulfate (Ms Contin (Er)) 15 mg BID PO Last administered on 02/13/17 20:47; Admin Dose 15 MG; Start 02/06/17 at 21:00 Insulin Glargine (Lantus) 15 unit QHS SC Last administered on 02/12/17 20:25 ; Admin Dose 15 UNIT; Start 02/08/17 at 21:00 Hydromorphone HCl (Dilaudid) 1 mg Q3H PRN IV pain Last administered on 10:09; Admin Dose 1 MG; Start 02/10/17 at 16:00 Senna (Senokot) 1 tab BID PO Last administered on 02/13/17 20:47; Admin Dose 1 TAB; Start 02/12/17 at 09:00 Docusate Sodium (Colace) 100 mg BID PO Last administered on 02/13/17 20:46; Admin Dose 100 MG; Start 02/12/17 at 09:00 Lactulose (Enulose) 20 gm Q6H PRN PO CONSTIPATION Last administered on 00:17; Admin Dose 20 GM; Start 02/12/17 at 07:00 Terbinafine HCl (Lamisil) 250 mg BID PO Last administered on 02/13/17 20:46; Admin Dose 250 MG; Start 02/12/17 at 14:00; Stop 02/19/17 at 13:59 Lisinopril (Zestril) 5 mg BID PO Last administered on 02/13/17 20:47; Admin Dose 5 MG; Start 02/13/17 at 21:00 Tamsulosin HCl 0.4 mg 0.4 mg HS PO Last administered on 02/13/17 20:46; Admin Dose 0.4 MG; Start 02/13/17 at 21:00 Meropenem/Sodium Chloride 50 ml @ 100 mls/hr Q8 IVPB Last administered on 13:51; Admin Dose 100 MLS/HR; Start 02/13/17 at 14:00 Daptomycin/Sodium Chloride (Cubicin/NS) 100 ml @ 200 mls/hr Q24H IVPB ; Start 02/14/17 at 16:00 Tobramycin (Tobramycin Iv Per Pharmacy) PER PHARMACY DOSING NOTE XX ; Start at 16:00 RAJANI BAXTER MD Feb 14, 2017 15:49 17at 00:17; Admin Dose 20 GM; Start 02/12/17 at 07:00 Terbinafine HCl (Lamisil) 250 mg BID PO Last administered on 02/13/17 20:46; Admin Dose 250 MG; Start 02/12/17 at 14:00; Stop 02/19/17 at 13:59 Lisinopril (Zestril) 5 mg BID PO Last administered on 02/13/17 20:47; Admin Dose 5 MG; Start 02/13/17 at 21:00 Tamsulosin HCl 0.4 mg 0.4 mg HS PO Last administered on 02/13/17 20:46; Admin Dose 0.4 MG; Start 02/13/17 at 21:00 Meropenem/Sodium Chloride 50 ml @ 100 mls/hr Q8 IVPB Last administered on 13:51; Admin Dose 100 MLS/HR; Start 02/13/17 at 14:00 Daptomycin/Sodium Chloride (Cubicin/NS) 100 ml @ 200 mls/hr Q24H IVPB ; Start 02/14/17 at 16:00 Tobramycin (Tobramycin Iv Per Pharmacy) PER PHARMACY DOSING NOTE XX ; Start at 16:00 RAJANI BAXTER MD Feb 14, 2017 15:49
[2017-02-14] MEDS ORDERED: DAPTOMYCIN 500 MG in SOD CHLORIDE 0.9% 100 ML IVPB SCH (16:00)
[2017-02-14] MEDS ORDERED: TOBRAMYCIN IV PER PHARMACY XX SCH (16:00)
--- NOTE | 2017-02-14 17:56 | CONS ---
Date/Time of Note Date/Time of Note DATE: 02/14/17 TIME: 17:53 Assessment/Plan Assessment/Plan Chief Complaint/Hosp Course # Patient has chronic kidney disease # Rt foot ulcer s/p debridement on 02/07 # chronic lower extremity lymphedema and cellulitis.BKA LEFT # CHF likley diastolic # hypertension, anemia. # DM # Abnormal LFT # Skin wounds # Hypoalbunemia PLAN CK BMP Problems: Consultation Date/Type/Reason Admit Date/Time Jan 24, 2017 at 15:33 Initial Consult Date RENAL NO SOB S/P LEFT BKA Referring Provider: SELINA BAINS Exam/Review of Systems Vital Signs Vitals Vital Signs Date Time Temp Pulse Resp B/P Pulse Ox O2 Delivery O2 Flow Rate FiO2 02/14/17 14:00 97.8 68 18 138/70 99 Intake and Output 02/13/17 02/13/17 02/14/17 15:00 23:00 07:00 Intake Total 50 ml 659.5 ml 250 ml Output Total 700 ml 450 ml Balance 50 ml -40.5 ml -200 ml Exam Respiratory: clear to auscultation Cardiovascular: regular rate and rhythm Gastrointestinal: bowel sounds (+) Extremities: edema (+,LEFT BKA+) Results Result Diagram: 02/14/17 0429 02/14/17 0429 Results 24 hrs Laboratory Tests Test 02/13/17 20:53 02/14/17 04:29 02/14/17 07:41 02/14/17 11:33 Bedside Glucose 109 117 132 White Blood Count 23.6 #H Red Blood Count 3.24 L Hemoglobin 8.5 L Hematocrit 27.3 L Mean Corpuscular Volume 84.3 Mean Corpuscular Hemoglobin 26.2 L Mean Corpuscular Hemoglobin Concent 31.1 L Red Cell Distribution Width 16.2 H Platelet Count 692 H Mean Platelet Volume 8.9 Neutrophils % 80.5 H Lymphocytes % 10.2 L Monocytes % 6.3 Eosinophils % 1.9 Basophils % 0.3 Nucleated Red Blood Cells % 0.0 Neutrophils # 19.0 H Lymphocytes # 2.4 Monocytes # 1.5 H Eosinophils # 0.4 Basophils # 0.1 Nucleated Red Blood Cells # 0.0 Sodium Level 133 L Potassium Level 4.5 Chloride Level 98 Carbon Dioxide Level 24 Anion Gap 16 Blood Urea Nitrogen 34 H Creatinine 1.79 H Glucose Level 106 Calcium Level 8.3 L Test 02/14/17 17:35 Bedside Glucose 112 Medications Medications Current Medications Ondansetron HCl (Zofran Inj) 4 mg Q6H PRN IV NAUSEA AND/OR VOMITING; Start 01/24/17 at 19:00 Acetaminophen (Tylenol Tab) 650 mg Q6H PRN PO PAIN LEVEL 1-3 OR FEVER Last administered on 02/13/17 08:35; Admin Dose 650 MG; Start 01/24/17 at 19:00 Zolpidem Tartrate (Ambien) 5 mg QHS PRN PO SLEEP Last administered on 21:17; Admin Dose 5 MG; Start 01/24/17 at 19:00 Heparin Sodium (Porcine) (Heparin (5000 Units/0.5 ml)) 5,000 unit Q12 SC Last administered on 02/13/17 08:33; Admin Dose 5,000 UNIT; Start 01/24/17 at 21:00 Diagnostic Test (Pha) (Accu-Chek) 1 ea 02 XX ; Start 01/25/17 at 02:00 Miscellaneous Information 1 ea NOTE XX ; Start 01/24/17 at 19:00 Glucose (Glutose) 15 gm Q15M PRN PO DECREASED GLUCOSE; Start 01/24/17 at 19:00 Glucose (Glutose) 22.5 gm Q15M PRN PO DECREASED GLUCOSE; Start 01/24/17 at 19: 00 Dextrose (D50w Syringe) 25 ml Q15M PRN IV DECREASED GLUCOSE; Start 01/24/17 at 19:00 Dextrose (D50w Syringe) 50 ml Q15M PRN IV DECREASED GLUCOSE; Start 01/24/17 at 19:00 Glucagon (Glucagen) 1 mg Q15M PRN IM DECREASED GLUCOSE; Start 01/24/17 at 19:00 Glucose (Glutose) 15 gm Q15M PRN BUCCAL DECREASED GLUCOSE; Start 01/24/17 at 19 :00 Acetaminophen/ Hydrocodone Bitart ([place] (5/325)) 1 tab Q4H PRN PO MODERATE PAIN LEVEL 4-6 Last administered on 02/14/17 05:35; Admin Dose 1 TAB; Start 01/24/17 at 23:00 Metoprolol Tartrate (Lopressor) 25 mg BID PO Last administered on 02/13/17 20 :48; Admin Dose 25 MG; Start 01/27/17 at 21:00 Clonidine (Catapres) 0.1 mg Q6H PRN PO SBP>170; Start 01/27/17 at 18:00 Atorvastatin Calcium (Lipitor) 20 mg HS PO Last administered on 02/13/17 20: 47; Admin Dose 20 MG; Start 02/01/17 at 21:00 Hydralazine HCl (Apresoline) 5 mg Q6H PRN IV sbp>170; Start 02/02/17 at 18:00 Oxycodone/ Acetaminophen (Percocet (5/ 325)) 2 tab Q6H PRN PO PAIN SCALE 5-7 Last administered on 02/12/17 06:54; Admin Dose 2 TAB; Start 02/04/17 at 10: 30 Hydromorphone HCl (Dilaudid) 2 mg ONCE PRN IV with left BKA dressing change Last administered on 02/11/17 11:04; Admin Dose 2 MG; Start 02/04/17 at 10:30 Hydralazine HCl (Apresoline) 100 mg TID PO Last administered on 02/13/17 20: 46; Admin Dose 100 MG; Start 02/06/17 at 21:00 Morphine Sulfate (Ms Contin (Er)) 15 mg BID PO Last administered on 02/13/17 20:47; Admin Dose 15 MG; Start 02/06/17 at 21:00 Insulin Glargine (Lantus) 15 unit QHS SC Last administered on 02/12/17 20:25 ; Admin Dose 15 UNIT; Start 02/08/17 at 21:00 Hydromorphone HCl (Dilaudid) 1 mg Q3H PRN IV pain Last administered on 10:09; Admin Dose 1 MG; Start 02/10/17 at 16:00 Senna (Senokot) 1 tab BID PO Last administered on 02/13/17 20:47; Admin Dose 1 TAB; Start 02/12/17 at 09:00 Docusate Sodium (Colace) 100 mg BID PO Last administered on 02/13/17 20:46; Admin Dose 100 MG; Start 02/12/17 at 09:00 Lactulose (Enulose) 20 gm Q6H PRN PO CONSTIPATION Last administered on 10/29/ 17at 00:17; Admin Dose 20 GM; Start 02/12/17 at 07:00 Terbinafine HCl (Lamisil) 250 mg BID PO Last administered on 02/13/17 20:46; Admin Dose 250 MG; Start 02/12/17 at 14:00; Stop 02/19/17 at 13:59 Lisinopril (Zestril) 5 mg BID PO Last administered on 02/13/17 20:47; Admin Dose 5 MG; Start 02/13/17 at 21:00 Tamsulosin HCl 0.4 mg 0.4 mg HS PO Last administered on 02/13/17 20:46; Admin Dose 0.4 MG; Start 02/13/17 at 21:00 Daptomycin/Sodium Chloride (Cubicin/NS) 100 ml @ 200 mls/hr Q24H IVPB Last administered on 02/14/17 16:21; Admin Dose 200 MLS/HR; Start 02/14/17 at 16: 00 Tobramycin PER PHARMACY DOSING NOTE XX ; Start 02/14/17 at 16:00 Tobramycin/ Dextrose (Tobramycin/D5W) 109.5 ml @ 109.5 mls/ hr Q48H IVPB ; Start 02/15/17 at 17:00 ELHAM ANGELES MD Feb 14, 2017 17:56
[2017-02-14] MEDS: INSULIN GLARGINE [LANtus] 3 ML PEN SC SCH (21:00)
[2017-02-14 21:30] VITALS: BP 150/80; RESP 18
[2017-02-14] MEDS: ATORVASTATIN 20 MG TAB PO SCH (22:24)
[2017-02-14] MEDS: TAMSULOSIN (SR) 0.4 MG CAP PO SCH (22:25)
[2017-02-15] MEDS: ACCU-CHEK XX SCH (02:00)
[2017-02-15 02:06] VITALS: BP 141/71; RESP 18
[2017-02-15 07:29] VITALS: BP 146/71; RESP 18
[2017-02-15] MEDS: INSULIN ASPART [NOVOLOG] 3 ML PEN SC SCH ×9 (07:35→20:27)
[2017-02-15] MEDS: HYDROCODONE/APAP (5/325) TAB PO PRN (07:59)
[2017-02-15] MEDS: TERBINAFINE 250 MG TAB PO SCH ×2 (08:26→20:29)
[2017-02-15] MEDS: SENNA TAB PO SCH ×2 (08:27→20:30)
[2017-02-15] MEDS: DOCUSATE SODIUM 100 MG CAP PO SCH ×2 (08:27→20:32)
[2017-02-15] MEDS: LISINOPRIL 5 MG TAB PO SCH ×2 (08:27→20:31)
[2017-02-15] MEDS: morphine (ER) 15 MG TAB PO SCH ×2 (08:28→20:30)
[2017-02-15] MEDS: METOPROLOL 25 MG TAB PO SCH ×2 (08:28→20:31)
[2017-02-15] MEDS: HEPARIN 5,000 UNIT/0.5 ML VIAL SC SCH ×2 (08:29→20:32)
[2017-02-15 13:44] VITALS: BP 119/62; RESP 18
--- NOTE | 2017-02-15 14:33 | CONS ---
Date/Time of Note Date/Time of Note DATE: 02/15/17 TIME: 14:31 Consult Date/Type/Reason Admit Date/Time Jan 24, 2017 at 15:33 Initial Consult Date 02/01/17 Type of Consultation: ID Ordering Provider: SELINA BAINS Objective Vital Signs Date Time Temp Pulse Resp B/P Pulse Ox O2 Delivery O2 Flow Rate FiO2 02/15/17 13:44 98.9 63 18 119/62 97 Intake and Output 02/14/17 02/14/17 02/15/17 15:00 23:00 07:00 Intake Total 200 ml 100 ml 460 ml Output Total 800 ml Balance 200 ml -700 ml 460 ml Results/Medications Result Diagram: 02/15/17 0429 02/15/17 0429 Results 24 hrs Laboratory Tests Test 02/14/17 17:35 02/14/17 22:58 02/15/17 04:29 02/15/17 07:53 Bedside Glucose 112 136 164 White Blood Count 20.3 H Red Blood Count 3.16 L Hemoglobin 8.0 L Hematocrit 26.1 L Mean Corpuscular Volume 82.6 Mean Corpuscular Hemoglobin 25.3 L Mean Corpuscular Hemoglobin Concent 30.7 L Red Cell Distribution Width 16.3 H Platelet Count 627 H Mean Platelet Volume 8.9 Neutrophils % 79.3 H Lymphocytes % 10.4 L Monocytes % 6.4 Eosinophils % 2.9 Basophils % 0.4 Nucleated Red Blood Cells % 0.0 Neutrophils # 16.1 H Lymphocytes # 2.1 Monocytes # 1.3 H Eosinophils # 0.6 H Basophils # 0.1 Nucleated Red Blood Cells # 0.0 Sodium Level 134 L Potassium Level 4.3 Chloride Level 102 Carbon Dioxide Level 24 Anion Gap 12 Blood Urea Nitrogen 32 H Creatinine 1.76 H Glucose Level 113 Calcium Level 8.6 Test 02/15/17 11:50 Bedside Glucose 142 Medications Current Medications Ondansetron HCl (Zofran Inj) 4 mg Q6H PRN IV NAUSEA AND/OR VOMITING; Start 01/24/17 at 19:00 Acetaminophen (Tylenol Tab) 650 mg Q6H PRN PO PAIN LEVEL 1-3 OR FEVER Last administered on 02/13/17t 08:35; Admin Dose 650 MG; Start 01/24/17 at 19:00 Zolpidem Tartrate (Ambien) 5 mg QHS PRN PO SLEEP Last administered on 21:17; Admin Dose 5 MG; Start 01/24/17 at 19:00 Heparin Sodium (Porcine) (Heparin (5000 Units/0.5 ml)) 5,000 unit Q12 SC Last administered on 02/13/17 08:33; Admin Dose 5,000 UNIT; Start 01/24/17 at 21:00 Diagnostic Test (Pha) (Accu-Chek) 1 ea 02 XX ; Start 01/25/17 at 02:00 Miscellaneous Information 1 ea NOTE XX ; Start 01/24/17 at 19:00 Glucose (Glutose) 15 gm Q15M PRN PO DECREASED GLUCOSE; Start 01/24/17 at 19:00 Glucose (Glutose) 22.5 gm Q15M PRN PO DECREASED GLUCOSE; Start 01/24/17 at 19: 00 Dextrose (D50w Syringe) 25 ml Q15M PRN IV DECREASED GLUCOSE; Start 01/24/17 at 19:00 Dextrose (D50w Syringe) 50 ml Q15M PRN IV DECREASED GLUCOSE; Start 01/24/17 at 19:00 Glucagon (Glucagen) 1 mg Q15M PRN IM DECREASED GLUCOSE; Start 01/24/17 at 19:00 Glucose (Glutose) 15 gm Q15M PRN BUCCAL DECREASED GLUCOSE; Start 01/24/17 at 19 :00 Acetaminophen/ Hydrocodone Bitart ([place] (5/325)) 1 tab Q4H PRN PO MODERATE PAIN LEVEL 4-6 Last administered on 02/15/17 07:59; Admin Dose 1 TAB; Start 01/24/17 at 23:00 Metoprolol Tartrate (Lopressor) 25 mg BID PO Last administered on 02/15/17 08 :28; Admin Dose 25 MG; Start 01/27/17 at 21:00 Atorvastatin Calcium (Lipitor) 20 mg HS PO Last administered on 02/14/17 22: 24; Admin Dose 20 MG; Start 02/01/17 at 21:00 Oxycodone/ Acetaminophen (Percocet (5/ 325)) 2 tab Q6H PRN PO PAIN SCALE 5-7 Last administered on 02/12/17 06:54; Admin Dose 2 TAB; Start 02/04/17 at 10: 30 Hydromorphone HCl (Dilaudid) 2 mg ONCE PRN IV with left BKA dressing change Last administered on 02/11/17 11:04; Admin Dose 2 MG; Start 02/04/17 at 10:30 Hydralazine HCl (Apresoline) 100 mg TID PO Last administered on 02/15/17 08: 27; Admin Dose 100 MG; Start 02/06/17 at 21:00 Morphine Sulfate (Ms Contin (Er)) 15 mg BID PO Last administered on 02/15/17 08:28; Admin Dose 15 MG; Start 02/06/17 at 21:00 Insulin Glargine (Lantus) 15 unit QHS SC Last administered on 02/12/17 20:25 ; Admin Dose 15 UNIT; Start 02/08/17 at 21:00 Hydromorphone HCl (Dilaudid) 1 mg Q3H PRN IV pain Last administered on 10:09; Admin Dose 1 MG; Start 02/10/17 at 16:00 Senna (Senokot) 1 tab BID PO Last administered on 02/15/17 08:27; Admin Dose 1 TAB; Start 02/12/17 at 09:00 Docusate Sodium (Colace) 100 mg BID PO Last administered on 02/15/17 08:27; Admin Dose 100 MG; Start 02/12/17 at 09:00 Lactulose (Enulose) 20 gm Q6H PRN PO CONSTIPATION Last administered on 00:17; Admin Dose 20 GM; Start 02/12/17 at 07:00 Terbinafine HCl (Lamisil) 250 mg BID PO Last administered on 02/15/17 08:26; Admin Dose 250 MG; Start 02/12/17 at 14:00; Stop 02/19/17 at 13:59 Lisinopril (Zestril) 5 mg BID PO Last administered on 02/15/17 08:27; Admin Dose 5 MG; Start 02/13/17 at 21:00 Tamsulosin HCl (Flomax) 0.4 mg HS PO Last administered on 02/14/17 22:25; Admin Dose 0.4 MG; Start 02/13/17 at 21:00 Tobramycin PER PHARMACY DOSING NOTE XX ; Start 02/14/17 at 16:00 Tobramycin/ Dextrose (Tobramycin/D5W) 109.5 ml @ 109.5 mls/ hr Q48H IVPB ; Start 02/15/17 at 17:00 Assessment/Plan Chief Complaint/Hosp Course SUBJECTIVE: No acute changes overnight. No fevers. MICROBIOLOGY: Urine cx + PSA ANTIMICROBIALS: Doxycycline and Tobramycin. PHYSICAL EXAMINATION: GENERAL: This is a well-developed, well-nourished elderly man who looks older than his age. The patient is in no distress. HEENT: Head atraumatic, normocephalic. Sclerae anicteric. Buccal mucosa dry. NECK: Supple. CHEST: Rise symmetrical. Breath sounds diminished to bases. HEART: S1, S2. ABDOMEN: Soft, bowel tones present. EXTREMITIES: With bilateral lower extremity dressings intact. Left lower extremity to wound VAC. ASSESSMENT: 1. Systemic inflammatory response syndrome with persistent leukocytosis. 2. 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 3. Diabetes. 4. Peripheral vascular disease. 5. MDR UTI 6. A/CKD PLAN: Remains unchanged, leukocytosis persists, will try to get cultures of his LE wounds if able, continue abx, wound vac, vascular surgery rec-s. [facility] staff Problems: DENITA COKER NP Feb 15, 2017 14:33
--- NOTE | 2017-02-15 16:16 | PN ---
Date/Time of Note Date/Time of Note DATE: 02/15/17 TIME: 16:14 Assessment/Plan VTE Prophylaxis VTE Prophylaxis Intervention: SCD's Lines/Catheters IV Catheter Type (from Nrsg): [place] [facility] Urinary Cath still in place: No Assessment/Plan Assessment/Plan 66 yo M with CKD II, DMII, venous stasis, PVD admitted nonhealing foot ulcers and lymphedema Foot ulcers: sp debridement foot ulcers 10.11, 10.23; sp L BKA 10.19. Slated for further surgical intervention tomorrow -cont wound care. Acute decompensated diastolic CHF: sp dieresis. Basically net even on I/O however is down 3 kg on weights GAIL:- Trend creatinine, holding ARB DM - Basal bolus insulin/sliding scale PVD- Aspirin and statin MDR PSAR bacteriuria--tobra as per ID of note, given lack of WBC improvement despite abx, it is unclear to me the benefit skin/soft tissue directed antimicrobials are offering at this time therefore dapto/meropenem stopped wbcs improving since these agents were stopped BP controlled pain management consult per patient request Subjective 24 Hr Interval Summary Free Text/Dictation states pain control is inadequate Exam/Review of Systems Vital Signs Vitals Vital Signs Date Time Temp Pulse Resp B/P Pulse Ox O2 Delivery O2 Flow Rate FiO2 02/15/17 13:44 98.9 63 18 119/62 97 Intake and Output 02/14/17 02/14/17 02/15/17 15:00 23:00 07:00 Intake Total 200 ml 100 ml 460 ml Output Total 800 ml Balance 200 ml -700 ml 460 ml Exam nad no mrg lungs clear abd soft +wound vac Results Result Diagram: 02/15/17 0429 02/15/17 0429 Results 24 hrs Laboratory Tests Test 02/14/17 17:35 02/14/17 22:58 02/15/17 04:29 02/15/17 07:53 Bedside Glucose 112 136 164 White Blood Count 20.3 H Red Blood Count 3.16 L Hemoglobin 8.0 L Hematocrit 26.1 L Mean Corpuscular Volume 82.6 Mean Corpuscular Hemoglobin 25.3 L Mean Corpuscular Hemoglobin Concent 30.7 L Red Cell Distribution Width 16.3 H Platelet Count 627 H Mean Platelet Volume 8.9 Neutrophils % 79.3 H Lymphocytes % 10.4 L Monocytes % 6.4 Eosinophils % 2.9 Basophils % 0.4 Nucleated Red Blood Cells % 0.0 Neutrophils # 16.1 H Lymphocytes # 2.1 Monocytes # 1.3 H Eosinophils # 0.6 H Basophils # 0.1 Nucleated Red Blood Cells # 0.0 Sodium Level 134 L Potassium Level 4.3 Chloride Level 102 Carbon Dioxide Level 24 Anion Gap 12 Blood Urea Nitrogen 32 H Creatinine 1.76 H Glucose Level 113 Calcium Level 8.6 Test 02/15/17 11:50 Bedside Glucose 142 Medications Medications Current Medications Ondansetron HCl (Zofran Inj) 4 mg Q6H PRN IV NAUSEA AND/OR VOMITING; Start 01/24/17 at 19:00 Acetaminophen (Tylenol Tab) 650 mg Q6H PRN PO PAIN LEVEL 1-3 OR FEVER Last administered on 02/13/17 08:35; Admin Dose 650 MG; Start 01/24/17 at 19:00 Zolpidem Tartrate (Ambien) 5 mg QHS PRN PO SLEEP Last administered on 21:17; Admin Dose 5 MG; Start 01/24/17 at 19:00 Heparin Sodium (Porcine) (Heparin (5000 Units/0.5 ml)) 5,000 unit Q12 SC Last administered on 02/13/17 08:33; Admin Dose 5,000 UNIT; Start 01/24/17 at 21:00 Diagnostic Test (Pha) (Accu-Chek) 1 ea 02 XX ; Start 01/25/17 at 02:00 Miscellaneous Information 1 ea NOTE XX ; Start 01/24/17 at 19:00 Glucose (Glutose) 15 gm Q15M PRN PO DECREASED GLUCOSE; Start 01/24/17 at 19:00 Glucose (Glutose) 22.5 gm Q15M PRN PO DECREASED GLUCOSE; Start 01/24/17 at 19: 00 Dextrose (D50w Syringe) 25 ml Q15M PRN IV DECREASED GLUCOSE; Start 01/24/17 at 19:00 Dextrose (D50w Syringe) 50 ml Q15M PRN IV DECREASED GLUCOSE; Start 01/24/17 at 19:00 Glucagon (Glucagen) 1 mg Q15M PRN IM DECREASED GLUCOSE; Start 01/24/17 at 19:00 Glucose (Glutose) 15 gm Q15M PRN BUCCAL DECREASED GLUCOSE; Start 01/24/17 at 19 :00 Acetaminophen/ Hydrocodone Bitart ([place] (5/325)) 1 tab Q4H PRN PO MODERATE PAIN LEVEL 4-6 Last administered on 02/15/17 07:59; Admin Dose 1 TAB; Start 01/24/17 at 23:00 Metoprolol Tartrate (Lopressor) 25 mg BID PO Last administered on 02/15/17 08 :28; Admin Dose 25 MG; Start 01/27/17 at 21:00 Atorvastatin Calcium (Lipitor) 20 mg HS PO Last administered on 02/14/17 22: 24; Admin Dose 20 MG; Start 02/01/17 at 21:00 Oxycodone/ Acetaminophen (Percocet (5/ 325)) 2 tab Q6H PRN PO PAIN SCALE 5-7 Last administered on 02/12/17 06:54; Admin Dose 2 TAB; Start 02/04/17 at 10: 30 Hydromorphone HCl (Dilaudid) 2 mg ONCE PRN IV with left BKA dressing change Last administered on 02/11/17 11:04; Admin Dose 2 MG; Start 02/04/17 at 10:30 Hydralazine HCl (Apresoline) 100 mg TID PO Last administered on 02/15/17 08: 27; Admin Dose 100 MG; Start 02/06/17 at 21:00 Morphine Sulfate (Ms Contin (Er)) 15 mg BID PO Last administered on 02/15/17 08:28; Admin Dose 15 MG; Start 02/06/17 at 21:00 Insulin Glargine (Lantus) 15 unit QHS SC Last administered on 02/12/17 20:25 ; Admin Dose 15 UNIT; Start 02/08/17 at 21:00 Hydromorphone HCl (Dilaudid) 1 mg Q3H PRN IV pain Last administered on 10:09; Admin Dose 1 MG; Start 02/10/17 at 16:00 Senna (Senokot) 1 tab BID PO Last administered on 02/15/17 08:27; Admin Dose 1 TAB; Start 02/12/17 at 09:00 Docusate Sodium (Colace) 100 mg BID PO Last administered on 02/15/17 08:27; Admin Dose 100 MG; Start 02/12/17 at 09:00 Lactulose (Enulose) 20 gm Q6H PRN PO CONSTIPATION Last administered on 00:17; Admin Dose 20 GM; Start 02/12/17 at 07:00 Terbinafine HCl (Lamisil) 250 mg BID PO Last administered on 02/15/17 08:26; Admin Dose 250 MG; Start 02/12/17 at 14:00; Stop 02/19/17 at 13:59 Lisinopril (Zestril) 5 mg BID PO Last administered on 02/15/17 08:27; Admin Dose 5 MG; Start 02/13/17 at 21:00 Tamsulosin HCl (Flomax) 0.4 mg HS PO Last administered on 02/14/17 22:25; Admin Dose 0.4 MG; Start 02/13/17 at 21:00 Tobramycin PER PHARMACY DOSING NOTE XX ; Start 02/14/17 at 16:00 Tobramycin/ Dextrose (Tobramycin/D5W) 109.5 ml @ 109.5 mls/ hr Q48H IVPB ; Start 02/15/17 at 17:00 Doxycycline Hyclate (Vibramycin) 100 mg BID PO ; Start 02/15/17 at 21:00 RAJANI BAXTER MD Feb 15, 2017 16:16
--- NOTE | 2017-02-15 16:21 | CONS ---
Date/Time of Note Date/Time of Note DATE: 02/15/17 TIME: 16:19 Assessment/Plan Assessment/Plan Additional Assessment/Plan 1. Congestive heart failure by chest x-ray, diastolic, likely acute on chronic by most recent echo. EF 50%- better fluid status now. 2. Hypertension-con't to adjust Rx as needed. 3. Preoperative. -negative trop x 3/no cp/NL EF by echo. s/p debridement repeat - STABLE 4. Anemia- H/H stable, no bleeding 5. Nonhealing lower extremity ulcerations. 6. Diabetes mellitus. 7. MR-mod-sev by echo this admit Consultation Date/Type/Reason Admit Date/Time Jan 24, 2017 at 15:33 Type of Consultation: ID Referring Provider: SELINA BAINS 24 HR Interval Summary Free Text/Dictation NO acute events - nO CP now - off tele ROS: No fever, no chills, no nausea, no vomiting, no diarrhea/constipation No recent weight changes No chest pain, no PND, no orthopnea No dizziness, blurred vision No thirst, no heat or cold intolerance Exam/Review of Systems Vital Signs Vitals Vital Signs Date Time Temp Pulse Resp B/P Pulse Ox O2 Delivery O2 Flow Rate FiO2 02/15/17 13:44 98.9 63 18 119/62 97 Intake and Output 02/14/17 02/14/17 02/15/17 15:00 23:00 07:00 Intake Total 200 ml 100 ml 460 ml Output Total 800 ml Balance 200 ml -700 ml 460 ml Exam General: WN/WD/NAD, AOx 3 HEENT: Unicetric/atraumatic/EOMI (follows commands) NECK: JVD elevated, no thyromegaly Lymph: no lymphadenopathy HEART: regular with no S3, II/ systolic murmur at apex LUNGS: Coarse sounds ABD: soft, NT, ND, +BS : Intact Neuro: non focal SKIN: chronic changes EXT: trace edema Results Result Diagram: 02/15/179 02/15/17428 Results 24 hrs Laboratory Tests Test 02/14/17 17:35 02/14/17 22:58 02/15/17 04:29 02/15/17 07:53 Bedside Glucose 112 136 164 White Blood Count 20.3 H Red Blood Count 3.16 L Hemoglobin 8.0 L Hematocrit 26.1 L Mean Corpuscular Volume 82.6 Mean Corpuscular Hemoglobin 25.3 L Mean Corpuscular Hemoglobin Concent 30.7 L Red Cell Distribution Width 16.3 H Platelet Count 627 H Mean Platelet Volume 8.9 Neutrophils % 79.3 H Lymphocytes % 10.4 L Monocytes % 6.4 Eosinophils % 2.9 Basophils % 0.4 Nucleated Red Blood Cells % 0.0 Neutrophils # 16.1 H Lymphocytes # 2.1 Monocytes # 1.3 H Eosinophils # 0.6 H Basophils # 0.1 Nucleated Red Blood Cells # 0.0 Sodium Level 134 L Potassium Level 4.3 Chloride Level 102 Carbon Dioxide Level 24 Anion Gap 12 Blood Urea Nitrogen 32 H Creatinine 1.76 H Glucose Level 113 Calcium Level 8.6 Test 02/15/17 11:50 Bedside Glucose 142 Medications Medications Current Medications Ondansetron HCl (Zofran Inj) 4 mg Q6H PRN IV NAUSEA AND/OR VOMITING; Start 01/24/17 at 19:00 Acetaminophen (Tylenol Tab) 650 mg Q6H PRN PO PAIN LEVEL 1-3 OR FEVER Last administered on 02/13/17 08:35; Admin Dose 650 MG; Start 01/24/17 at 19:00 Zolpidem Tartrate (Ambien) 5 mg QHS PRN PO SLEEP Last administered on 21:17; Admin Dose 5 MG; Start 01/24/17 at 19:00 Heparin Sodium (Porcine) (Heparin (5000 Units/0.5 ml)) 5,000 unit Q12 SC Last administered on 02/13/17 08:33; Admin Dose 5,000 UNIT; Start 01/24/17 at 21:00 Diagnostic Test (Pha) (Accu-Chek) 1 ea 02 XX ; Start 01/25/17 at 02:00 Miscellaneous Information 1 ea NOTE XX ; Start 01/24/17 at 19:00 Glucose (Glutose) 15 gm Q15M PRN PO DECREASED GLUCOSE; Start 01/24/17 at 19:00 Glucose (Glutose) 22.5 gm Q15M PRN PO DECREASED GLUCOSE; Start 01/24/17 at 19: 00 Dextrose (D50w Syringe) 25 ml Q15M PRN IV DECREASED GLUCOSE; Start 01/24/17 at 19:00 Dextrose (D50w Syringe) 50 ml Q15M PRN IV DECREASED GLUCOSE; Start 01/24/17 at 19:00 Glucagon (Glucagen) 1 mg Q15M PRN IM DECREASED GLUCOSE; Start 01/24/17 at 19:00 Glucose (Glutose) 15 gm Q15M PRN BUCCAL DECREASED GLUCOSE; Start 01/24/17 at 19 :00 Acetaminophen/ Hydrocodone Bitart ([place] (5/325)) 1 tab Q4H PRN PO MODERATE PAIN LEVEL 4-6 Last administered on 02/15/17 07:59; Admin Dose 1 TAB; Start 01/24/17 at 23:00 Metoprolol Tartrate (Lopressor) 25 mg BID PO Last administered on 02/15/17 08 :28; Admin Dose 25 MG; Start 01/27/17 at 21:00 Atorvastatin Calcium (Lipitor) 20 mg HS PO Last administered on 02/14/17 22: 24; Admin Dose 20 MG; Start 02/01/17 at 21:00 Oxycodone/ Acetaminophen (Percocet (5/ 325)) 2 tab Q6H PRN PO PAIN SCALE 5-7 Last administered on 02/12/17 06:54; Admin Dose 2 TAB; Start 02/04/17 at 10: 30 Hydromorphone HCl (Dilaudid) 2 mg ONCE PRN IV with left BKA dressing change Last administered on 02/11/17 11:04; Admin Dose 2 MG; Start 02/04/17 at 10:30 Hydralazine HCl (Apresoline) 100 mg TID PO Last administered on 02/15/17 08: 27; Admin Dose 100 MG; Start 02/06/17 at 21:00 Morphine Sulfate (Ms Contin (Er)) 15 mg BID PO Last administered on 02/15/17 08:28; Admin Dose 15 MG; Start 02/06/17 at 21:00 Insulin Glargine (Lantus) 15 unit QHS SC Last administered on 02/12/17 20:25 ; Admin Dose 15 UNIT; Start 02/08/17 at 21:00 Hydromorphone HCl (Dilaudid) 1 mg Q3H PRN IV pain Last administered on 10:09; Admin Dose 1 MG; Start 02/10/17 at 16:00 Senna (Senokot) 1 tab BID PO Last administered on 02/15/17 08:27; Admin Dose 1 TAB; Start 02/12/17 at 09:00 Docusate Sodium (Colace) 100 mg BID PO Last administered on 02/15/17 08:27; Admin Dose 100 MG; Start 02/12/17 at 09:00 Lactulose (Enulose) 20 gm Q6H PRN PO CONSTIPATION Last administered on 00:17; Admin Dose 20 GM; Start 02/12/17 at 07:00 Terbinafine HCl (Lamisil) 250 mg BID PO Last administered on 02/15/17 08:26; Admin Dose 250 MG; Start 02/12/17 at 14:00; Stop 02/19/17 at 13:59 Lisinopril (Zestril) 5 mg BID PO Last administered on 02/15/17 08:27; Admin Dose 5 MG; Start 02/13/17 at 21:00 Tamsulosin HCl (Flomax) 0.4 mg HS PO Last administered on 02/14/17 22:25; Admin Dose 0.4 MG; Start 02/13/17 at 21:00 Tobramycin PER PHARMACY DOSING NOTE XX ; Start 02/14/17 at 16:00 Tobramycin/ Dextrose (Tobramycin/D5W) 109.5 ml @ 109.5 mls/ hr Q48H IVPB ; Start 02/15/17 at 17:00 Doxycycline Hyclate (Vibramycin) 100 mg BID PO ; Start 02/15/17 at 21:00 GISEL WELLS MD Feb 15, 2017 16:20
[2017-02-15] MEDS ORDERED: TOBRAMYCIN IVPB SCH (17:00)
[2017-02-15] MEDS ORDERED: DEXTROSE 5% IVPB SCH (17:00)
--- NOTE | 2017-02-15 17:37 | CONS ---
Date/Time of Note Date/Time of Note DATE: 02/15/17 TIME: 17:33 Assessment/Plan Assessment/Plan Chief Complaint/Hosp Course # Patient has chronic kidney disease # Rt foot ulcer s/p debridement on 02/07 # chronic lower extremity lymphedema and cellulitis.BKA LEFT # CHF likley diastolic # hypertension, anemia. # DM # Abnormal LFT # Skin wounds # Hypoalbunemia PLAN CK BMP Problems: Consultation Date/Type/Reason Admit Date/Time Jan 24, 2017 at 15:33 Initial Consult Date RENAL resting Referring Provider: SELINA BAINS 24 HR Interval Summary Constitutional: no complaints Exam/Review of Systems Vital Signs Vitals Vital Signs Date Time Temp Pulse Resp B/P Pulse Ox O2 Delivery O2 Flow Rate FiO2 02/15/17 13:44 98.9 63 18 119/62 97 Intake and Output 02/14/17 02/14/17 02/15/17 15:00 23:00 07:00 Intake Total 200 ml 100 ml 460 ml Output Total 800 ml Balance 200 ml -700 ml 460 ml Exam Neck: supple Respiratory: clear to auscultation Cardiovascular: regular rate and rhythm Gastrointestinal: bowel sounds (+), soft Extremities: edema (+) Neurological: 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 [employer]OMATIC II-XII intact Results Result Diagram: 02/15/17 0429 02/15/17 0429 Results 24 hrs Laboratory Tests Test 02/14/17 17:35 02/14/17 22:58 02/15/17 04:29 02/15/17 07:53 Bedside Glucose 112 136 164 White Blood Count 20.3 H Red Blood Count 3.16 L Hemoglobin 8.0 L Hematocrit 26.1 L Mean Corpuscular Volume 82.6 Mean Corpuscular Hemoglobin 25.3 L Mean Corpuscular Hemoglobin Concent 30.7 L Red Cell Distribution Width 16.3 H Platelet Count 627 H Mean Platelet Volume 8.9 Neutrophils % 79.3 H Lymphocytes % 10.4 L Monocytes % 6.4 Eosinophils % 2.9 Basophils % 0.4 Nucleated Red Blood Cells % 0.0 Neutrophils # 16.1 H Lymphocytes # 2.1 Monocytes # 1.3 H Eosinophils # 0.6 H Basophils # 0.1 Nucleated Red Blood Cells # 0.0 Sodium Level 134 L Potassium Level 4.3 Chloride Level 102 Carbon Dioxide Level 24 Anion Gap 12 Blood Urea Nitrogen 32 H Creatinine 1.76 H Glucose Level 113 Calcium Level 8.6 Test 02/15/17 11:50 02/15/17 17:26 Bedside Glucose 142 112 Medications Medications Current Medications Ondansetron HCl (Zofran Inj) 4 mg Q6H PRN IV NAUSEA AND/OR VOMITING; Start 01/24/17 at 19:00 Acetaminophen (Tylenol Tab) 650 mg Q6H PRN PO PAIN LEVEL 1-3 OR FEVER Last administered on 02/13/17 08:35; Admin Dose 650 MG; Start 01/24/17 at 19:00 Zolpidem Tartrate (Ambien) 5 mg QHS PRN PO SLEEP Last administered on 21:17; Admin Dose 5 MG; Start 01/24/17 at 19:00 Heparin Sodium (Porcine) (Heparin (5000 Units/0.5 ml)) 5,000 unit Q12 SC Last administered on 02/13/17 08:33; Admin Dose 5,000 UNIT; Start 01/24/17 at 21:00 Diagnostic Test (Pha) (Accu-Chek) 1 ea 02 XX ; Start 01/25/17 at 02:00 Miscellaneous Information 1 ea NOTE XX ; Start 01/24/17 at 19:00 Glucose (Glutose) 15 gm Q15M PRN PO DECREASED GLUCOSE; Start 01/24/17 at 19:00 Glucose (Glutose) 22.5 gm Q15M PRN PO DECREASED GLUCOSE; Start 01/24/17 at 19: 00 Dextrose (D50w Syringe) 25 ml Q15M PRN IV DECREASED GLUCOSE; Start 01/24/17 at 19:00 Dextrose (D50w Syringe) 50 ml Q15M PRN IV DECREASED GLUCOSE; Start 01/24/17 at 19:00 Glucagon (Glucagen) 1 mg Q15M PRN IM DECREASED GLUCOSE; Start 01/24/17 at 19:00 Glucose (Glutose) 15 gm Q15M PRN BUCCAL DECREASED GLUCOSE; Start 01/24/17 at 19 :00 Acetaminophen/ Hydrocodone Bitart ([place] (5/325)) 1 tab Q4H PRN PO MODERATE PAIN LEVEL 4-6 Last administered on 02/15/17 07:59; Admin Dose 1 TAB; Start 01/24/17 at 23:00 Metoprolol Tartrate (Lopressor) 25 mg BID PO Last administered on 02/15/17 08 :28; Admin Dose 25 MG; Start 01/27/17 at 21:00 Atorvastatin Calcium (Lipitor) 20 mg HS PO Last administered on 02/14/17 22: 24; Admin Dose 20 MG; Start 02/01/17 at 21:00 Oxycodone/ Acetaminophen (Percocet (5/ 325)) 2 tab Q6H PRN PO PAIN SCALE 5-7 Last administered on 02/12/17 06:54; Admin Dose 2 TAB; Start 02/04/17 at 10: 30 Hydromorphone HCl (Dilaudid) 2 mg ONCE PRN IV with left BKA dressing change Last administered on 02/11/17 11:04; Admin Dose 2 MG; Start 02/04/17 at 10:30 Hydralazine HCl (Apresoline) 100 mg TID PO Last administered on 02/15/17 08: 27; Admin Dose 100 MG; Start 02/06/17 at 21:00 Morphine Sulfate (Ms Contin (Er)) 15 mg BID PO Last administered on 02/15/17 08:28; Admin Dose 15 MG; Start 02/06/17 at 21:00 Insulin Glargine (Lantus) 15 unit QHS SC Last administered on 02/12/17 20:25 ; Admin Dose 15 UNIT; Start 02/08/17 at 21:00 Hydromorphone HCl (Dilaudid) 1 mg Q3H PRN IV pain Last administered on 10:09; Admin Dose 1 MG; Start 02/10/17 at 16:00 Senna (Senokot) 1 tab BID PO Last administered on 02/15/17 08:27; Admin Dose 1 TAB; Start 02/12/17 at 09:00 Docusate Sodium (Colace) 100 mg BID PO Last administered on 02/15/17 08:27; Admin Dose 100 MG; Start 02/12/17 at 09:00 Lactulose (Enulose) 20 gm Q6H PRN PO CONSTIPATION Last administered on 00:17; Admin Dose 20 GM; Start 02/12/17 at 07:00 Terbinafine HCl (Lamisil) 250 mg BID PO Last administered on 02/15/17 08:26; Admin Dose 250 MG; Start 02/12/17 at 14:00; Stop 02/19/17 at 13:59 Lisinopril (Zestril) 5 mg BID PO Last administered on 02/15/17 08:27; Admin Dose 5 MG; Start 02/13/17 at 21:00 Tamsulosin HCl (Flomax) 0.4 mg HS PO Last administered on 02/14/17 22:25; Admin Dose 0.4 MG; Start 02/13/17 at 21:00 Tobramycin PER PHARMACY DOSING NOTE XX ; Start 02/14/17 at 16:00 Tobramycin/ Dextrose (Tobramycin/D5W) 109.5 ml @ 109.5 mls/ hr Q48H IVPB Last administered on 02/15/17 17:28; Admin Dose 109.5 MLS/HR; Start 02/15/17 at 17 :00 Doxycycline Hyclate (Vibramycin) 100 mg BID PO ; Start 02/15/17 at 21:00 ELHAM ANGELES MD Feb 15, 2017 17:37
[2017-02-15 20:06] VITALS: BP 125/65; RESP 19
[2017-02-15] MEDS: DOXYCYCLINE 100 MG TAB PO SCH (20:30)
[2017-02-15] MEDS: ATORVASTATIN 20 MG TAB PO SCH (20:31)
[2017-02-15] MEDS: TAMSULOSIN (SR) 0.4 MG CAP PO SCH (20:31)
[2017-02-15] MEDS: INSULIN GLARGINE [LANtus] 3 ML PEN SC SCH (20:35)
[2017-02-16] VITALS (8 sets, daily range): BP systolic 111–144; BP diastolic 56–69; PULSE 52–62; RESP 10–20
[2017-02-16] MEDS: HYDROCODONE/APAP (5/325) TAB PO PRN (01:51)
[2017-02-16] MEDS: ACCU-CHEK XX SCH (02:00)
[2017-02-16] MEDS ORDERED: morphine 2 MG INJ IV PRN (07:00)
[2017-02-16] MEDS: HEPARIN 5,000 UNIT/0.5 ML VIAL SC SCH ×2 (07:42→21:00)
--- NOTE | 2017-02-16 07:42 | CONS ---
Date/Time of Note Date/Time of Note DATE: 02/16/17 TIME: 07:33 Assessment/Plan Assessment/Plan Additional Assessment/Plan Severe peripheral vascular disease Atherosclerotic circulatory vascular disease Elevated lipid levels Hypertension Status post left BKA Severe bilateral lower extremity lancinating pain left greater than right Phantom pain left lower extremity We will discontinue current pain control meds including morphine [place] changed to scheduled doses of methadone breakthrough doses of morphine IV and before dressing changes, add on Neurontin, trazodone and scheduled doses of Tylenol bowel regimen will be continued and adjusted as needed. Long conversation with patient concerning continue communication with pain management as well as explained to him that I cannot alleviate his pain 100%. Consultation Date/Type/Reason Admit Date/Time Jan 24, 2017 at 15:33 Hx of Present Illness 66-year-old gentleman with bilateral lower extremity severe left greater than right lancinating pain patient is status post left lower extremity below the knee amputation. He has long-standing history of arteriosclerotic circulatory vascular disease patient describes bilateral lower extremity pain is worse during dressing changes and movement again left greater than right at rest his pain is tolerable 3/10. With minimal movement 10/10 only 50% his pain is alleviated with current pain control medication including scheduled and as needed. His complaints of pain is affecting his physical function mood sleeping patterns and overall function even at rest. Denies nausea vomiting pruritus mental cloudiness or drowsiness associated with current pain medications overall severity of pain with movements severe. There is no history of purposeful over use of opioid medications patient is unkempt but does not appear to be overmedicated with current pain control medications he has had a DUI last was 30 years ago. States he drinks on a regular basis and smokes pot. He is not Axon for escalating dose of his current pain control medication only that they are not working, he is not trying to manipulate his pain control dosages or route his administration. I do not get the impression he is using his pain medications for this situational stressor, is not insisting on certain pain medications is no past history of recreational drug use other than above. Constitutional: no complaints Eyes: no complaints ENT: no complaints Respiratory: no complaints Cardiovascular: no complaints Gastrointestinal: no complaints Genitourinary: no complaints Musculoskeletal: no complaints Skin: skin lesions Neurologic: no complaints Lymphatic: no complaints Psychological: nl mood/affect, no complaints Immunologic: no complaints Past Medical History Medical History: diabetes, other (Chronic skin ulcers) Social History Alcohol Use: occasionally Smoking Status: Never smoker Exam/Review of Systems Vital Signs Vitals Vital Signs Date Time Temp Pulse Resp B/P Pulse Ox O2 Delivery O2 Flow Rate FiO2 02/16/17 01:51 98.1 70 18 134/69 96 Intake and Output 02/15/17 02/15/17 02/16/17 15:00 23:00 07:00 Intake Total 809.5 ml 1080 ml Output Total 400 ml 400 ml Balance 409.5 ml 680 ml Exam Constitutional: alert, oriented, well developed Psych: nl mood/affect, no complaints Neck: non-tender, supple Respiratory: clear to auscultation, normal air movement Cardiovascular: nl pulses, regular rate and rhythm Neurological: TILE MOLDER HAND II-XII intact, nl mental status, nl speech, nl strength Results Result Diagram: 02/16/17 0443 02/15/17 0429 Results 24 hrs Laboratory Tests Test 02/15/17 07:53 02/15/17 11:50 02/15/17 17:26 02/15/17 20:26 Bedside Glucose 164 142 112 97 Test 02/16/17 04:43 White Blood Count 16.8 H Red Blood Count 3.09 L Hemoglobin 7.9 L Hematocrit 25.8 L Mean Corpuscular Volume 83.5 Mean Corpuscular Hemoglobin 25.6 L Mean Corpuscular Hemoglobin Concent 30.6 L Red Cell Distribution Width 16.3 H Platelet Count 581 H Mean Platelet Volume 9.0 Neutrophils % 75.8 Lymphocytes % 12.7 L Monocytes % 7.2 Eosinophils % 3.2 Basophils % 0.4 Nucleated Red Blood Cells % 0.0 Neutrophils # 12.7 H Lymphocytes # 2.1 Monocytes # 1.2 H Eosinophils # 0.5 Basophils # 0.1 Nucleated Red Blood Cells # 0.0 Medications Medications Current Medications Ondansetron HCl (Zofran Inj) 4 mg Q6H PRN IV NAUSEA AND/OR VOMITING; Start 01/24/17 at 19:00 Acetaminophen (Tylenol Tab) 650 mg Q6H PRN PO PAIN LEVEL 1-3 OR FEVER Last administered on 02/13/17t 08:35; Admin Dose 650 MG; Start 01/24/17 at 19:00 Zolpidem Tartrate (Ambien) 5 mg QHS PRN PO SLEEP Last administered on 21:17; Admin Dose 5 MG; Start 01/24/17 at 19:00 Heparin Sodium (Porcine) (Heparin (5000 Units/0.5 ml)) 5,000 unit Q12 SC Last administered on 02/13/17 08:33; Admin Dose 5,000 UNIT; Start 01/24/17 at 21:00 Diagnostic Test (Pha) (Accu-Chek) 1 ea 02 XX ; Start 01/25/17 at 02:00 Miscellaneous Information 1 ea NOTE XX ; Start 01/24/17 at 19:00 Glucose (Glutose) 15 gm Q15M PRN PO DECREASED GLUCOSE; Start 01/24/17 at 19:00 Glucose (Glutose) 22.5 gm Q15M PRN PO DECREASED GLUCOSE; Start 01/24/17 at 19: 00 Dextrose (D50w Syringe) 25 ml Q15M PRN IV DECREASED GLUCOSE; Start 01/24/17 at 19:00 Dextrose (D50w Syringe) 50 ml Q15M PRN IV DECREASED GLUCOSE; Start 01/24/17 at 19:00 Glucagon (Glucagen) 1 mg Q15M PRN IM DECREASED GLUCOSE; Start 01/24/17 at 19:00 Glucose (Glutose) 15 gm Q15M PRN BUCCAL DECREASED GLUCOSE; Start 01/24/17 at 19 :00 Acetaminophen/ Hydrocodone Bitart ([place] (5/325)) 1 tab Q4H PRN PO MODERATE PAIN LEVEL 4-6 Last administered on 02/16/17 01:51; Admin Dose 1 TAB; Start at 23:00 Metoprolol Tartrate (Lopressor) 25 mg BID PO Last administered on 02/15/17 20 :31; Admin Dose 25 MG; Start 01/27/17 at 21:00 Atorvastatin Calcium (Lipitor) 20 mg HS PO Last administered on 02/15/17 20: 31; Admin Dose 20 MG; Start 02/01/17 at 21:00 Oxycodone/ Acetaminophen (Percocet (5/ 325)) 2 tab Q6H PRN PO PAIN SCALE 5-7 Last administered on 02/12/17 06:54; Admin Dose 2 TAB; Start 02/04/17 at 10: 30 Hydromorphone HCl (Dilaudid) 2 mg ONCE PRN IV with left BKA dressing change Last administered on 02/11/17 11:04; Admin Dose 2 MG; Start 02/04/17 at 10:30 Hydralazine HCl (Apresoline) 100 mg TID PO Last administered on 02/15/17 20: 31; Admin Dose 100 MG; Start 02/06/17 at 21:00 Morphine Sulfate (Ms Contin (Er)) 15 mg BID PO Last administered on 02/15/17 20:30; Admin Dose 15 MG; Start 02/06/17 at 21:00 Insulin Glargine (Lantus) 15 unit QHS SC Last administered on 02/15/17 20:35 ; Admin Dose 15 UNIT; Start 02/08/17 at 21:00 Hydromorphone HCl (Dilaudid) 1 mg Q3H PRN IV pain Last administered on 10:09; Admin Dose 1 MG; Start 02/10/17 at 16:00 Senna (Senokot) 1 tab BID PO Last administered on 02/15/17 20:30; Admin Dose 1 TAB; Start 02/12/17 at 09:00 Docusate Sodium (Colace) 100 mg BID PO Last administered on 02/15/17 20:32; Admin Dose 100 MG; Start 02/12/17 at 09:00 Lactulose (Enulose) 20 gm Q6H PRN PO CONSTIPATION Last administered on 00:17; Admin Dose 20 GM; Start 02/12/17 at 07:00 Terbinafine HCl (Lamisil) 250 mg BID PO Last administered on 02/15/17 20:29; Admin Dose 250 MG; Start 02/12/17 at 14:00; Stop 02/19/17 at 13:59 Lisinopril (Zestril) 5 mg BID PO Last administered on 02/15/17 20:31; Admin Dose 5 MG; Start 02/13/17 at 21:00 Tamsulosin HCl (Flomax) 0.4 mg HS PO Last administered on 02/15/17 20:31; Admin Dose 0.4 MG; Start 02/13/17 at 21:00 Tobramycin PER PHARMACY DOSING NOTE XX ; Start 02/14/17 at 16:00 Tobramycin/ Dextrose (Tobramycin/D5W) 109.5 ml @ 109.5 mls/ hr Q48H IVPB Last administered on 02/15/17 17:28; Admin Dose 109.5 MLS/HR; Start 02/15/17 at 17 :00 Doxycycline Hyclate (Vibramycin) 100 mg BID PO Last administered on 02/15/17 20:30; Admin Dose 100 MG; Start 02/15/17 at 21:00 DERIC RAMIREZ Feb 16, 2017 07:42
[2017-02-16] MEDS: INSULIN ASPART [NOVOLOG] 3 ML PEN SC SCH ×7 (08:00→21:00)
[2017-02-16] MEDS: TERBINAFINE 250 MG TAB PO SCH ×2 (08:40→21:00)
[2017-02-16] MEDS: DOXYCYCLINE 100 MG TAB PO SCH ×2 (08:40→21:00)
[2017-02-16] MEDS: DOCUSATE SODIUM 100 MG CAP PO SCH ×2 (08:41→21:00)
[2017-02-16] MEDS: SENNA TAB PO SCH ×2 (08:41→21:00)
[2017-02-16] MEDS: GABAPENTIN 300 MG CAP PO SCH ×3 (08:41→21:00)
[2017-02-16] MEDS: LISINOPRIL 5 MG TAB PO SCH ×2 (08:41→21:00)
[2017-02-16] MEDS: METOPROLOL 25 MG TAB PO SCH ×2 (08:41→21:00)
[2017-02-16] MEDS: METHADONE (1 MG/ML 5 ML PO UD SYG) PO SCH ×3 (08:42→18:00)
[2017-02-16] MEDS ORDERED: METHADONE 5 MG TAB PO SCH (12:00)
--- NOTE | 2017-02-16 12:50 | CONS ---
Date/Time of Note Date/Time of Note DATE: 02/16/17 TIME: 12:44 Assessment/Plan Assessment/Plan Chief Complaint/Hosp Course IMPRESSION: 1. Congestive heart failure by chest x-ray, diastolic, likely acute on chronic by most recent echo. EF 50% 2. Hypertension-uncontrolled 3. Preoperative. -negative trop x 3/no cp/NL EF by echo. s/p debridement repeat today 4. Anemia. 5. Nonhealing lower extremity ulcerations. 6. Diabetes mellitus. 7. MR-mod-sev by echo this admit Recc: -Continue hydralazine/BB/zestril as tolerated. -Continue statin -Lasix held -local wound care -Follow BS closely with adjustment of insulin therapy as necessary -Pain control Problems: Consultation Date/Type/Reason Admit Date/Time Jan 24, 2017 at 15:33 Initial Consult Date 01/26/2017 Type of Consultation: cardiology Reason for Consultation HTN Referring Provider: SELINA BAINS Exam/Review of Systems Vital Signs Vitals Vital Signs Date Time Temp Pulse Resp B/P Pulse Ox O2 Delivery O2 Flow Rate FiO2 02/16/17 08:19 98.3 63 20 144/69 98 Intake and Output 02/15/17 02/15/17 02/16/17 15:00 23:00 07:00 Intake Total 809.5 ml 1080 ml Output Total 400 ml 400 ml Balance 409.5 ml 680 ml Exam Review of Systems: CONSTITUTIONAL: No fevers, chills. PULMONARY: No sob CARDIOVASCULAR: No chest pain/palpitations GASTROINTESTINAL: No nausea/vomiting. GENITOURINARY: No hematuria/dysuria. MUSCULOSKELETAL: No myagias/arthalgias. PSYCHIATRIC: The patient denies depression. NEUROLOGIC: No weakness Constitutional: alert Psych: no complaints Head: normocephalic ENMT: mucosa pink and moist Neck: jvd (9 cm water), supple Respiratory: diminished breath sounds Cardiovascular: regular rate and rhythm Gastrointestinal: non-tender, soft Musculoskeletal: muscle tone Extremities: edema Neurological: other (No focal deficits) Results Result Diagram: 02/16/17 0443 02/15/17 0429 Results 24 hrs Laboratory Tests Test 02/15/17 17:26 02/15/17 20:26 02/16/17 04:43 02/16/17 08:39 Bedside Glucose 112 97 83 White Blood Count 16.8 H Red Blood Count 3.09 L Hemoglobin 7.9 L Hematocrit 25.8 L Mean Corpuscular Volume 83.5 Mean Corpuscular Hemoglobin 25.6 L Mean Corpuscular Hemoglobin Concent 30.6 L Red Cell Distribution Width 16.3 H Platelet Count 581 H Mean Platelet Volume 9.0 Neutrophils % 75.8 Lymphocytes % 12.7 L Monocytes % 7.2 Eosinophils % 3.2 Basophils % 0.4 Nucleated Red Blood Cells % 0.0 Neutrophils # 12.7 H Lymphocytes # 2.1 Monocytes # 1.2 H Eosinophils # 0.5 Basophils # 0.1 Nucleated Red Blood Cells # 0.0 Test 02/16/17 12:37 Bedside Glucose 72 Medications Medications Current Medications Ondansetron HCl (Zofran Inj) 4 mg Q6H PRN IV NAUSEA AND/OR VOMITING; Start 01/24/17 at 19:00 Zolpidem Tartrate (Ambien) 5 mg QHS PRN PO SLEEP Last administered on 21:17; Admin Dose 5 MG; Start 01/24/17 at 19:00 Heparin Sodium (Porcine) (Heparin (5000 Units/0.5 ml)) 5,000 unit Q12 SC Last administered on 02/13/17 08:33; Admin Dose 5,000 UNIT; Start 01/24/17 at 21:00 Diagnostic Test (Pha) (Accu-Chek) 1 ea 02 XX ; Start 01/25/17 at 02:00 Miscellaneous Information 1 ea NOTE XX ; Start 01/24/17 at 19:00 Glucose (Glutose) 15 gm Q15M PRN PO DECREASED GLUCOSE; Start 01/24/17 at 19:00 Glucose (Glutose) 22.5 gm Q15M PRN PO DECREASED GLUCOSE; Start 01/24/17 at 19: 00 Dextrose (D50w Syringe) 25 ml Q15M PRN IV DECREASED GLUCOSE; Start 01/24/17 at 19:00 Dextrose (D50w Syringe) 50 ml Q15M PRN IV DECREASED GLUCOSE; Start 01/24/17 at 19:00 Glucagon (Glucagen) 1 mg Q15M PRN IM DECREASED GLUCOSE; Start 01/24/17 at 19:00 Glucose (Glutose) 15 gm Q15M PRN BUCCAL DECREASED GLUCOSE; Start 01/24/17 at 19 :00 Metoprolol Tartrate (Lopressor) 25 mg BID PO Last administered on 02/16/17 08: 41; Admin Dose 25 MG; Start 01/27/17 at 21:00 Atorvastatin Calcium (Lipitor) 20 mg HS PO Last administered on 02/15/17 20: 31; Admin Dose 20 MG; Start 02/01/17 at 21:00 Oxycodone/ Acetaminophen (Percocet (5/ 325)) 2 tab Q6H PRN PO PAIN SCALE 5-7 Last administered on 02/12/17 06:54; Admin Dose 2 TAB; Start 02/04/17 at 10: 30 Hydralazine HCl (Apresoline) 100 mg TID PO Last administered on 02/16/17 08:41 ; Admin Dose 100 MG; Start 02/06/17 at 21:00 Insulin Glargine (Lantus) 15 unit QHS SC Last administered on 02/15/17 20:35 ; Admin Dose 15 UNIT; Start 02/08/17 at 21:00 Senna (Senokot) 1 tab BID PO Last administered on 02/16/17 08:41; Admin Dose 1 TAB; Start 02/12/17 at 09:00 Docusate Sodium (Colace) 100 mg BID PO Last administered on 02/16/17 08:41; Admin Dose 100 MG; Start 02/12/17 at 09:00 Lactulose (Enulose) 20 gm Q6H PRN PO CONSTIPATION Last administered on 00:17; Admin Dose 20 GM; Start 02/12/17 at 07:00 Terbinafine HCl (Lamisil) 250 mg BID PO Last administered on 02/16/17 08:40; Admin Dose 250 MG; Start 02/12/17 at 14:00; Stop 02/19/17 at 13:59 Lisinopril (Zestril) 5 mg BID PO Last administered on 02/16/17 08:41; Admin Dose 5 MG; Start 02/13/17 at 21:00 Tamsulosin HCl (Flomax) 0.4 mg HS PO Last administered on 02/15/17 20:31; Admin Dose 0.4 MG; Start 02/13/17 at 21:00 Tobramycin PER PHARMACY DOSING NOTE XX ; Start 02/14/17 at 16:00 Tobramycin/ Dextrose (Tobramycin/D5W) 109.5 ml @ 109.5 mls/ hr Q48H IVPB Last administered on 02/15/17 17:28; Admin Dose 109.5 MLS/HR; Start 02/15/17 at 17 :00 Doxycycline Hyclate (Vibramycin) 100 mg BID PO Last administered on 02/16/17 08:40; Admin Dose 100 MG; Start 02/15/17 at 21:00 Gabapentin (Neurontin) 300 mg TID PO Last administered on 02/16/17 08:41; Admin Dose 300 MG; Start 02/16/17 at 09:00 Trazodone HCl 50 mg 50 mg HS PO ; Start 02/16/17 at 21:00 Acetaminophen (Ofirmev 1000mg/ 100ml Iv) 100 ml @ 400 mls/hr Q6 IVPB ; Start 02/16/17 at 12:00 Morphine Sulfate (morphine) 3 mg Q4H PRN IV PAIN -01/25; Start 02/16/17 at 08: 00 Methadone HCl (Methadone Liq) 3 mg Q6 PO Last administered on 02/16/17 08:42; Admin Dose 3 MG; Start 02/16/17 at 08:00 Miscellaneous Information (*Rx Drug Level Order Reminder*) TOBRAMYCIN TROUGH AT 1600 ONCE ONCE XX ; Start 02/17/17 at 16:00; Stop 02/17/17 at 16:01 CLARITZA FLORES Feb 16, 2017 12:50
[2017-02-16] MEDS: morphine 4 MG/ML VIAL IV PRN ×2 (13:15→20:16)
[2017-02-16] MEDS: ACETAMINOPHEN 1000MG/100ML IV 100 ML IVPB SCH ×2 (13:15→17:54)
--- NOTE | 2017-02-16 13:32 | CONS ---
Date/Time of Note Date/Time of Note DATE: 02/16/17 TIME: 13:31 Consult Date/Type/Reason Admit Date/Time Jan 24, 2017 at 15:33 Initial Consult Date 02/01/17 Type of Consultation: ID Ordering Provider: SELINA BAINS Objective Vital Signs Date Time Temp Pulse Resp B/P Pulse Ox O2 Delivery O2 Flow Rate FiO2 02/16/17 08:19 98.3 63 20 144/69 98 Intake and Output 02/15/17 02/15/17 02/16/17 15:00 23:00 07:00 Intake Total 809.5 ml 1080 ml Output Total 400 ml 400 ml Balance 409.5 ml 680 ml Results/Medications Result Diagram: 02/16/17 0443 02/15/17 0429 Results 24 hrs Laboratory Tests Test 02/15/17 17:26 02/15/17 20:26 02/16/17 04:43 02/16/17 08:39 Bedside Glucose 112 97 83 White Blood Count 16.8 H Red Blood Count 3.09 L Hemoglobin 7.9 L Hematocrit 25.8 L Mean Corpuscular Volume 83.5 Mean Corpuscular Hemoglobin 25.6 L Mean Corpuscular Hemoglobin Concent 30.6 L Red Cell Distribution Width 16.3 H Platelet Count 581 H Mean Platelet Volume 9.0 Neutrophils % 75.8 Lymphocytes % 12.7 L Monocytes % 7.2 Eosinophils % 3.2 Basophils % 0.4 Nucleated Red Blood Cells % 0.0 Neutrophils # 12.7 H Lymphocytes # 2.1 Monocytes # 1.2 H Eosinophils # 0.5 Basophils # 0.1 Nucleated Red Blood Cells # 0.0 Test 02/16/17 12:37 Bedside Glucose 72 Medications Current Medications Ondansetron HCl (Zofran Inj) 4 mg Q6H PRN IV NAUSEA AND/OR VOMITING; Start 01/24/17 at 19:00 Zolpidem Tartrate (Ambien) 5 mg QHS PRN PO SLEEP Last administered on 21:17; Admin Dose 5 MG; Start 01/24/17 at 19:00 Heparin Sodium (Porcine) (Heparin (5000 Units/0.5 ml)) 5,000 unit Q12 SC Last administered on 02/13/17 08:33; Admin Dose 5,000 UNIT; Start 01/24/17 at 21:00 Diagnostic Test (Pha) (Accu-Chek) 1 ea 02 XX ; Start 01/25/17 at 02:00 Miscellaneous Information 1 ea NOTE XX ; Start 01/24/17 at 19:00 Glucose (Glutose) 15 gm Q15M PRN PO DECREASED GLUCOSE; Start 01/24/17 at 19:00 Glucose (Glutose) 22.5 gm Q15M PRN PO DECREASED GLUCOSE; Start 01/24/17 at 19: 00 Dextrose (D50w Syringe) 25 ml Q15M PRN IV DECREASED GLUCOSE; Start 01/24/17 at 19:00 Dextrose (D50w Syringe) 50 ml Q15M PRN IV DECREASED GLUCOSE; Start 01/24/17 at 19:00 Glucagon (Glucagen) 1 mg Q15M PRN IM DECREASED GLUCOSE; Start 01/24/17 at 19:00 Glucose (Glutose) 15 gm Q15M PRN BUCCAL DECREASED GLUCOSE; Start 01/24/17 at 19 :00 Metoprolol Tartrate (Lopressor) 25 mg BID PO Last administered on 02/16/17 08: 41; Admin Dose 25 MG; Start 01/27/17 at 21:00 Atorvastatin Calcium (Lipitor) 20 mg HS PO Last administered on 02/15/17 20: 31; Admin Dose 20 MG; Start 02/01/17 at 21:00 Oxycodone/ Acetaminophen (Percocet (5/ 325)) 2 tab Q6H PRN PO PAIN SCALE 5-7 Last administered on 02/12/17 06:54; Admin Dose 2 TAB; Start 02/04/17 at 10: 30 Hydralazine HCl (Apresoline) 100 mg TID PO Last administered on 02/16/17 08:41 ; Admin Dose 100 MG; Start 02/06/17 at 21:00 Insulin Glargine (Lantus) 15 unit QHS SC Last administered on 02/15/17 20:35 ; Admin Dose 15 UNIT; Start 02/08/17 at 21:00 Senna (Senokot) 1 tab BID PO Last administered on 02/16/17 08:41; Admin Dose 1 TAB; Start 02/12/17 at 09:00 Docusate Sodium (Colace) 100 mg BID PO Last administered on 02/16/17 08:41; Admin Dose 100 MG; Start 02/12/17 at 09:00 Lactulose (Enulose) 20 gm Q6H PRN PO CONSTIPATION Last administered on 00:17; Admin Dose 20 GM; Start 02/12/17 at 07:00 Terbinafine HCl (Lamisil) 250 mg BID PO Last administered on 02/16/17 08:40; Admin Dose 250 MG; Start 02/12/17 at 14:00; Stop 02/19/17 at 13:59 Lisinopril (Zestril) 5 mg BID PO Last administered on 02/16/17 08:41; Admin Dose 5 MG; Start 02/13/17 at 21:00 Tamsulosin HCl (Flomax) 0.4 mg HS PO Last administered on 02/15/17 20:31; Admin Dose 0.4 MG; Start 02/13/17 at 21:00 Tobramycin PER PHARMACY DOSING NOTE XX ; Start 02/14/17 at 16:00 Tobramycin/ Dextrose (Tobramycin/D5W) 109.5 ml @ 109.5 mls/ hr Q48H IVPB Last administered on 02/15/17 17:28; Admin Dose 109.5 MLS/HR; Start 02/15/17 at 17 :00 Doxycycline Hyclate (Vibramycin) 100 mg BID PO Last administered on 02/16/17 08:40; Admin Dose 100 MG; Start 02/15/17 at 21:00 Gabapentin (Neurontin) 300 mg TID PO Last administered on 02/16/17 08:41; Admin Dose 300 MG; Start 02/16/17 at 09:00 Trazodone HCl 50 mg 50 mg HS PO ; Start 02/16/17 at 21:00 Acetaminophen (Ofirmev 1000mg/ 100ml Iv) 100 ml @ 400 mls/hr Q6 IVPB Last administered on 02/16/17 13:15; Admin Dose 400 MLS/HR; Start 02/16/17 at 12:00 Morphine Sulfate (morphine) 3 mg Q4H PRN IV PAIN 7-01/25 Last administered on 02/16/17 13:15; Admin Dose 3 MG; Start 02/16/17 at 08:00 Methadone HCl (Methadone Liq) 3 mg Q6 PO Last administered on 02/16/17 08:42; Admin Dose 3 MG; Start 02/16/17 at 08:00 Miscellaneous Information (*Rx Drug Level Order Reminder*) TOBRAMYCIN TROUGH AT 1600 ONCE ONCE XX ; Start 02/17/17 at 16:00; Stop 02/17/17 at 16:01 Assessment/Plan Chief Complaint/Hosp Course SUBJECTIVE: No acute changes overnight. Awake, looks comfortable, afebrile MICROBIOLOGY: Urine cx + PSA ANTIMICROBIALS: Doxycycline, Tobramycin. PHYSICAL EXAMINATION: GENERAL: This is a well-developed, well-nourished elderly man who looks older than his age. The patient is in no distress. HEENT: Head atraumatic, normocephalic. Sclerae anicteric. Buccal mucosa dry. NECK: Supple. CHEST: Rise symmetrical. Breath sounds diminished to bases. HEART: S1, S2. ABDOMEN: Soft, bowel tones present. EXTREMITIES: With bilateral lower extremity dressings intact. Left lower extremity to wound VAC. ASSESSMENT: 1. Systemic inflammatory response syndrome with persistent leukocytosis. 2. 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 3. Diabetes. 4. Peripheral vascular disease. 5. MDR UTI 6. A/CKD PLAN: Remains stable, wbc slowly trending down, continue abx, wound vac, f/u vascular surgery rec-s. [facility] staff Problems: DENITA COKER NP Feb 16, 2017 13:32
--- NOTE | 2017-02-16 13:54 | PN ---
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 Slated for further surgical intervention today Acute decompensated diastolic CHF: sp dieresis. acei started by cardiology. want Cr DM - Basal bolus insulin/sliding scale PVD- Aspirin and statin MDR PSAR bacteriuria--tobra as per ID BP controlled Exam/Review of Systems Vital Signs Vitals Vital Signs Date Time Temp Pulse Resp B/P Pulse Ox O2 Delivery O2 Flow Rate FiO2 02/16/17 08:19 98.3 63 20 144/69 98 Intake and Output 02/15/17 02/15/17 02/16/17 15:00 23:00 07:00 Intake Total 809.5 ml 1080 ml Output Total 400 ml 400 ml Balance 409.5 ml 680 ml Results Result Diagram: 02/16/17 0443 02/15/17 0429 Results 24 hrs Laboratory Tests Test 02/15/17 17:26 02/15/17 20:26 02/16/17 04:43 02/16/17 08:39 Bedside Glucose 112 97 83 White Blood Count 16.8 H Red Blood Count 3.09 L Hemoglobin 7.9 L Hematocrit 25.8 L Mean Corpuscular Volume 83.5 Mean Corpuscular Hemoglobin 25.6 L Mean Corpuscular Hemoglobin Concent 30.6 L Red Cell Distribution Width 16.3 H Platelet Count 581 H Mean Platelet Volume 9.0 Neutrophils % 75.8 Lymphocytes % 12.7 L Monocytes % 7.2 Eosinophils % 3.2 Basophils % 0.4 Nucleated Red Blood Cells % 0.0 Neutrophils # 12.7 H Lymphocytes # 2.1 Monocytes # 1.2 H Eosinophils # 0.5 Basophils # 0.1 Nucleated Red Blood Cells # 0.0 Test 02/16/17 12:37 Bedside Glucose 72 Medications Medications Current Medications Ondansetron HCl (Zofran Inj) 4 mg Q6H PRN IV NAUSEA AND/OR VOMITING; Start 01/24/17 at 19:00 Zolpidem Tartrate (Ambien) 5 mg QHS PRN PO SLEEP Last administered on 21:17; Admin Dose 5 MG; Start 01/24/17 at 19:00 Heparin Sodium (Porcine) (Heparin (5000 Units/0.5 ml)) 5,000 unit Q12 SC Last administered on 02/13/17 08:33; Admin Dose 5,000 UNIT; Start 01/24/17 at 21:00 Diagnostic Test (Pha) (Accu-Chek) 1 ea 02 XX ; Start 01/25/17 at 02:00 Miscellaneous Information 1 ea NOTE XX ; Start 01/24/17 at 19:00 Glucose (Glutose) 15 gm Q15M PRN PO DECREASED GLUCOSE; Start 01/24/17 at 19:00 Glucose (Glutose) 22.5 gm Q15M PRN PO DECREASED GLUCOSE; Start 01/24/17 at 19: 00 Dextrose (D50w Syringe) 25 ml Q15M PRN IV DECREASED GLUCOSE; Start 01/24/17 at 19:00 Dextrose (D50w Syringe) 50 ml Q15M PRN IV DECREASED GLUCOSE; Start 01/24/17 at 19:00 Glucagon (Glucagen) 1 mg Q15M PRN IM DECREASED GLUCOSE; Start 01/24/17 at 19:00 Glucose (Glutose) 15 gm Q15M PRN BUCCAL DECREASED GLUCOSE; Start 01/24/17 at 19 :00 Metoprolol Tartrate (Lopressor) 25 mg BID PO Last administered on 02/16/17 08: 41; Admin Dose 25 MG; Start 01/27/17 at 21:00 Atorvastatin Calcium (Lipitor) 20 mg HS PO Last administered on 02/15/17 20: 31; Admin Dose 20 MG; Start 02/01/17 at 21:00 Oxycodone/ Acetaminophen (Percocet (5/ 325)) 2 tab Q6H PRN PO PAIN SCALE 5-7 Last administered on 02/12/17 06:54; Admin Dose 2 TAB; Start 02/04/17 at 10: 30 Hydralazine HCl (Apresoline) 100 mg TID PO Last administered on 02/16/17 08:41 ; Admin Dose 100 MG; Start 02/06/17 at 21:00 Insulin Glargine (Lantus) 15 unit QHS SC Last administered on 02/15/17 20:35 ; Admin Dose 15 UNIT; Start 02/08/17 at 21:00 Senna (Senokot) 1 tab BID PO Last administered on 02/16/17 08:41; Admin Dose 1 TAB; Start 02/12/17 at 09:00 Docusate Sodium (Colace) 100 mg BID PO Last administered on 02/16/17 08:41; Admin Dose 100 MG; Start 02/12/17 at 09:00 Lactulose (Enulose) 20 gm Q6H PRN PO CONSTIPATION Last administered on 00:17; Admin Dose 20 GM; Start 02/12/17 at 07:00 Terbinafine HCl (Lamisil) 250 mg BID PO Last administered on 02/16/17 08:40; Admin Dose 250 MG; Start 02/12/17 at 14:00; Stop 02/19/17 at 13:59 Lisinopril (Zestril) 5 mg BID PO Last administered on 02/16/17 08:41; Admin Dose 5 MG; Start 02/13/17 at 21:00 Tamsulosin HCl (Flomax) 0.4 mg HS PO Last administered on 02/15/17 20:31; Admin Dose 0.4 MG; Start 02/13/17 at 21:00 Tobramycin PER PHARMACY DOSING NOTE XX ; Start 02/14/17 at 16:00 Tobramycin/ Dextrose (Tobramycin/D5W) 109.5 ml @ 109.5 mls/ hr Q48H IVPB Last administered on 02/15/17 17:28; Admin Dose 109.5 MLS/HR; Start 02/15/17 at 17 :00 Doxycycline Hyclate (Vibramycin) 100 mg BID PO Last administered on 02/16/17 08:40; Admin Dose 100 MG; Start 02/15/17 at 21:00 Gabapentin (Neurontin) 300 mg TID PO Last administered on 02/16/17 08:41; Admin Dose 300 MG; Start 02/16/17 at 09:00 Trazodone HCl 50 mg 50 mg HS PO ; Start 02/16/17 at 21:00 Acetaminophen (Ofirmev 1000mg/ 100ml Iv) 100 ml @ 400 mls/hr Q6 IVPB Last administered on 02/16/17 13:15; Admin Dose 400 MLS/HR; Start 02/16/17 at 12:00 Morphine Sulfate (morphine) 3 mg Q4H PRN IV PAIN 7-01/25 Last administered on 02/16/17 13:15; Admin Dose 3 MG; Start 02/16/17 at 08:00 Methadone HCl (Methadone Liq) 3 mg Q6 PO Last administered on 02/16/17 08:42; Admin Dose 3 MG; Start 02/16/17 at 08:00 Miscellaneous Information (*Rx Drug Level Order Reminder*) TOBRAMYCIN TROUGH AT 1600 ONCE ONCE XX ; Start 02/17/17 at 16:00; Stop 02/17/17 at 16:01 RAJANI BAXTER MD Feb 16, 2017 13:54 RAJANI BAXTER MD Feb 16, 2017 13:54
[2017-02-16] MEDS ORDERED: morphine 4 MG/ML VIAL IV ONE (15:30)
[2017-02-16] MEDS ORDERED: HYDROmorphONE (0.2 MG/ML) 10ML SYG IV PRN (17:30)
[2017-02-16] MEDS ORDERED: PROCHLORPERAZINE 10 MG INJ IV PRN (17:30)
[2017-02-16] MEDS ORDERED: DIPHENHYDRAMINE 50 MG INJ IV PRN ×2 (17:30→22:00)
[2017-02-16] MEDS ORDERED: MEPERIDINE 25 MG INJ IV PRN ×2 (17:30→22:00)
[2017-02-16] MEDS ORDERED: ONDANSETRON 4 MG INJ IV PRN ×2 (17:30→22:00)
[2017-02-16] MEDS ORDERED: FENTAnyl 50 MCG/ML VIAL IV PRN ×4 (17:30→22:00)
--- NOTE | 2017-02-16 17:47 | HPN ---
Date/Time of Note Date/Time of Note DATE: 02/16/17 TIME: 17:47 Interval H&P Admission Note Pt. seen H&P reviewed: No system changes ASHLEY CAROLINA MD Feb 16, 2017 17:47
[2017-02-16] MEDS ORDERED: morphine 2 MG INJ IV ONE (18:00)
--- NOTE | 2017-02-16 18:46 | CONS ---
Date/Time of Note Date/Time of Note DATE: 02/16/17 TIME: 18:44 Assessment/Plan Assessment/Plan Chief Complaint/Hosp Course # Patient has chronic kidney disease # Rt foot ulcer s/p debridement on 02/07 # chronic lower extremity lymphedema and cellulitis.BKA LEFT # CHF likley diastolic # hypertension, anemia. # DM # Abnormal LFT # Skin wounds # Hypoalbunemia PLAN labs renal stable Problems: Consultation Date/Type/Reason Admit Date/Time Jan 24, 2017 at 15:33 Initial Consult Date RENAL no distress ch pain on meds Referring Provider: SELINA BAINS Exam/Review of Systems Vital Signs Vitals Vital Signs Date Time Temp Pulse Resp B/P Pulse Ox O2 Delivery O2 Flow Rate FiO2 02/16/17 14:00 98.0 75 16 118/56 98 Intake and Output 02/15/17 02/15/17 02/16/17 15:00 23:00 07:00 Intake Total 809.5 ml 1080 ml Output Total 400 ml 400 ml Balance 409.5 ml 680 ml Exam Respiratory: clear to auscultation Cardiovascular: regular rate and rhythm Gastrointestinal: bowel sounds (+), soft Extremities: edema (+bka+) Results Result Diagram: 02/16/17 0443 02/15/17 0429 Results 24 hrs Laboratory Tests Test 02/15/17 20:26 02/16/17 04:43 02/16/17 08:39 02/16/17 12:37 Bedside Glucose 97 83 72 White Blood Count 16.8 H Red Blood Count 3.09 L Hemoglobin 7.9 L Hematocrit 25.8 L Mean Corpuscular Volume 83.5 Mean Corpuscular Hemoglobin 25.6 L Mean Corpuscular Hemoglobin Concent 30.6 L Red Cell Distribution Width 16.3 H Platelet Count 581 H Mean Platelet Volume 9.0 Neutrophils % 75.8 Lymphocytes % 12.7 L Monocytes % 7.2 Eosinophils % 3.2 Basophils % 0.4 Nucleated Red Blood Cells % 0.0 Neutrophils # 12.7 H Lymphocytes # 2.1 Monocytes # 1.2 H Eosinophils # 0.5 Basophils # 0.1 Nucleated Red Blood Cells # 0.0 Test 02/16/17 16:40 Bedside Glucose 96 Medications Medications Current Medications Ondansetron HCl (Zofran Inj) 4 mg Q6H PRN IV NAUSEA AND/OR VOMITING; Start 01/24/17 at 19:00 Zolpidem Tartrate (Ambien) 5 mg QHS PRN PO SLEEP Last administered on 21:17; Admin Dose 5 MG; Start 01/24/17 at 19:00 Heparin Sodium (Porcine) (Heparin (5000 Units/0.5 ml)) 5,000 unit Q12 SC Last administered on 02/13/17 08:33; Admin Dose 5,000 UNIT; Start 01/24/17 at 21:00 Diagnostic Test (Pha) (Accu-Chek) 1 ea 02 XX ; Start 01/25/17 at 02:00 Miscellaneous Information 1 ea NOTE XX ; Start 01/24/17 at 19:00 Glucose (Glutose) 15 gm Q15M PRN PO DECREASED GLUCOSE; Start 01/24/17 at 19:00 Glucose (Glutose) 22.5 gm Q15M PRN PO DECREASED GLUCOSE; Start 01/24/17 at 19: 00 Dextrose (D50w Syringe) 25 ml Q15M PRN IV DECREASED GLUCOSE; Start 01/24/17 at 19:00 Dextrose (D50w Syringe) 50 ml Q15M PRN IV DECREASED GLUCOSE; Start 01/24/17 at 19:00 Glucagon (Glucagen) 1 mg Q15M PRN IM DECREASED GLUCOSE; Start 01/24/17 at 19:00 Glucose (Glutose) 15 gm Q15M PRN BUCCAL DECREASED GLUCOSE; Start 01/24/17 at 19 :00 Metoprolol Tartrate (Lopressor) 25 mg BID PO Last administered on 02/16/17 08: 41; Admin Dose 25 MG; Start 01/27/17 at 21:00 Atorvastatin Calcium (Lipitor) 20 mg HS PO Last administered on 02/15/17 20: 31; Admin Dose 20 MG; Start 02/01/17 at 21:00 Oxycodone/ Acetaminophen (Percocet (5/ 325)) 2 tab Q6H PRN PO PAIN SCALE 5-7 Last administered on 02/12/17 06:54; Admin Dose 2 TAB; Start 02/04/17 at 10: 30 Hydralazine HCl (Apresoline) 100 mg TID PO Last administered on 02/16/17 08:41 ; Admin Dose 100 MG; Start 02/06/17 at 21:00 Insulin Glargine (Lantus) 15 unit QHS SC Last administered on 02/15/17 20:35 ; Admin Dose 15 UNIT; Start 02/08/17 at 21:00 Senna (Senokot) 1 tab BID PO Last administered on 02/16/17 08:41; Admin Dose 1 TAB; Start 02/12/17 at 09:00 Docusate Sodium (Colace) 100 mg BID PO Last administered on 02/16/17 08:41; Admin Dose 100 MG; Start 02/12/17 at 09:00 Lactulose (Enulose) 20 gm Q6H PRN PO CONSTIPATION Last administered on 00:17; Admin Dose 20 GM; Start 02/12/17 at 07:00 Terbinafine HCl (Lamisil) 250 mg BID PO Last administered on 02/16/17 08:40; Admin Dose 250 MG; Start 02/12/17 at 14:00; Stop 02/19/17 at 13:59 Lisinopril (Zestril) 5 mg BID PO Last administered on 02/16/17 08:41; Admin Dose 5 MG; Start 02/13/17 at 21:00 Tamsulosin HCl (Flomax) 0.4 mg HS PO Last administered on 02/15/17 20:31; Admin Dose 0.4 MG; Start 02/13/17 at 21:00 Tobramycin PER PHARMACY DOSING NOTE XX ; Start 02/14/17 at 16:00 Tobramycin/ Dextrose (Tobramycin/D5W) 109.5 ml @ 109.5 mls/ hr Q48H IVPB Last administered on 02/15/17 17:28; Admin Dose 109.5 MLS/HR; Start 02/15/17 at 17 :00 Doxycycline Hyclate (Vibramycin) 100 mg BID PO Last administered on 02/16/17 08:40; Admin Dose 100 MG; Start 02/15/17 at 21:00 Gabapentin (Neurontin) 300 mg TID PO Last administered on 02/16/17 08:41; Admin Dose 300 MG; Start 02/16/17 at 09:00 Trazodone HCl 50 mg 50 mg HS PO ; Start 02/16/17 at 21:00 Acetaminophen (Ofirmev 1000mg/ 100ml Iv) 100 ml @ 400 mls/hr Q6 IVPB Last administered on 02/16/17 17:54; Admin Dose 400 MLS/HR; Start 02/16/17 at 12:00 Morphine Sulfate (morphine) 3 mg Q4H PRN IV PAIN -01/25 Last administered on 02/16/17 13:15; Admin Dose 3 MG; Start 02/16/17 at 08:00 Methadone HCl (Methadone Liq) 3 mg Q6 PO Last administered on 02/16/17 08:42; Admin Dose 3 MG; Start 02/16/17 at 08:00 Miscellaneous Information (*Rx Drug Level Order Reminder*) TOBRAMYCIN TROUGH AT 1600 ONCE ONCE XX ; Start 02/17/17 at 16:00; Stop 02/17/17 at 16:01 ELHAM ANGELES MD Feb 16, 2017 18:46
[2017-02-16] MEDS: INSULIN GLARGINE [LANtus] 3 ML PEN SC SCH (21:00)
[2017-02-16] MEDS: traZODone 50 MG TAB PO SCH (21:00)
[2017-02-16] MEDS: TAMSULOSIN (SR) 0.4 MG CAP PO SCH (21:00)
[2017-02-16] MEDS: ATORVASTATIN 20 MG TAB PO SCH (21:00)
[2017-02-16] MEDS ORDERED: ROPIVACAINE 0.5 % 30 ML VIAL ONE (21:13)
--- NOTE | 2017-02-16 21:24 | OPR ---
Date/Time of Note Date/Time of Note DATE: 02/16/17 TIME: 21:22 Operative Report Procedure Date: Feb 16, 2017 Preoperative Diagnosis RLE NONHEALING WOUND AND GANGRENE LLE NONHEALING WOUND AND GANGRENE Postoperative Diagnosis SAME Surgeon see signature line Passenger Solicitor NONE Anesthesia Type: moderate sedation, other (block) Estimated Blood Loss: minimal Transfusion none Specimen NONE Grafts/Implants none Complications none Disposition: PACU Procedure Description DATE OF OPERATION: 02/16/2017 SURGEON: Jesus Carolina MD PREOPERATIVE DIAGNOSIS: Right & left lower extremity nonhealing wound and gangrene POSTOPERATIVE DIAGNOSIS: Same ANESTHESIA: LOCAL, MODERATE SEDATION ESTIMATED BLOOD LOSS: Minimal. COMPLICATIONS: None. INDICATIONS: This is a 66-year-old male whom is noncompliant with diabetes and presented with bilateral lower extremity diabetic foot ulcers and infection. The patient had presented to outside hospital with history of 3-4weeks of bilateral lower extremity swelling, redness, pain, maggots and foul smelling odor from bilateral lower legs and left heel. 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 Subsequently, the patient has undergone multiple debridements in order try to preserve his limb. Multiple debridements of muscle, ligament, tendon, skin, and subcutaneous tissue with application of ACell grafts in order to enhance granulation tissue development, cover large wound defect and eventual limb salvage with possible grafting for wound closure. The patient has been discussed about the risks, benefits, and alternatives including but not limited to bleeding, worsening infection, limb loss, nerve injury, infection, , stroke, myocardial infarction, and multiple debridements in the near future and she has agreed to proceed. OPERATION PERFORMED: 1. Excisional sharp debridement of the right lower extremity involving skin, subcutaneous tissue, muscle, ligament, and tendon. Wound measuring 35 x 30 x 0.5cm cm in the greatest dimensions. 2. Application of 1 gram of xenograft MicroMatrix powder over the area of the right lower leg. 3. Application of one [id number] two layer xenograft sheet DESCRIPTION OF PROCEDURE: The patient was brought into the operating room table , placed in supine position. The normal bony prominences were padded. The anesthesia team had placed appropriate lines and anesthesia was induced. The patient tolerated procedure well and appropriate site was marked and confirmed. The patient's left lower extremity was then prepped and draped in usual standard sterile fashion. Preoperative antibiotics were given prior to skin incision. Using sharp scissors and a curette, excisional debridement of all necrotic tissue involving skin, subcutaneous tissue, ligament, tendon, and muscle was performed. The patient has good surrounding tissue developing on the edges with some necrotic fibrinous tissue which were all removed. The patient's previous MicroMatrix and wound sheets of xenografts had been mostly taken appropriately and adequate granulation tissue is developing. We debrided the hypergranulation tissue with excisional sharp debridement. We then applied 1 gram of xenograft MicroMatrix powder to repair and replace lost and damaged tissues. Once this aspect was completed, we went ahead and placed two-layer xenograft sheet over all the exposed areas of the lower leg to repair and replace lost and damaged tissues and the wound defect from the initial gangrene presentation. Adaptic was applied circumferentially followed by Surgilube. This was followed with moist dressing, Telfa, 4 x 4, and Kerlix dressing. The patient tolerated procedure well and was taken to the postanesthesia care unit in stable condition. Our plan will be to revisit the wound again in one two weeks JESUS CAROLINA MD Feb 16, 2017 21:24
[2017-02-16] MEDS ORDERED: PROPOFOL 20 ML ONE (21:32)
[2017-02-16] MEDS ORDERED: FENTAnyl 50 MCG/ML VIAL ONE (21:32)
[2017-02-16] MEDS ORDERED: MIDAZOLAM 1 MG/ML 2 ML INJ ONE (21:32)
[2017-02-16] MEDS ORDERED: CEFAZOLIN 1 GM INJ ONE (21:44)
[2017-02-16] MEDS ORDERED: hydrALAzine 20 MG INJ IV PRN (22:00)
[2017-02-16] MEDS ORDERED: EPHEDrine SULFATE 50 MG/5 ML SYG IV PRN (22:00)
[2017-02-16] MEDS ORDERED: MIDAZOLAM 1 MG/ML 2 ML INJ IV PRN (22:00)
[2017-02-16] MEDS ORDERED: METOCLOPRAMIDE 10 MG INJ IV PRN (22:00)
[2017-02-16] MEDS ORDERED: LABETALOL HCL 20MG INJ IV PRN (22:00)
[2017-02-16] MEDS ORDERED: OXYCODONE/ACETAMINOPHEN (5/325) TAB PO PRN ×2 (22:00)
[2017-02-17] MEDS: ACETAMINOPHEN 1000MG/100ML IV 100 ML IVPB SCH ×4 (01:33→17:15)
[2017-02-17] MEDS: METHADONE (1 MG/ML 5 ML PO UD SYG) PO SCH ×4 (01:35→17:15)
[2017-02-17] MEDS: ACCU-CHEK XX SCH (01:57)
[2017-02-17 02:49] VITALS: BP 124/63; RESP 16
[2017-02-17 07:58] VITALS: BP 131/67; RESP 16
[2017-02-17] MEDS: INSULIN ASPART [NOVOLOG] 3 ML PEN SC SCH ×7 (08:00→21:00)
[2017-02-17] MEDS: TERBINAFINE 250 MG TAB PO SCH ×2 (08:14→21:06)
[2017-02-17] MEDS: DOXYCYCLINE 100 MG TAB PO SCH ×2 (08:14→21:06)
[2017-02-17] MEDS: LISINOPRIL 5 MG TAB PO SCH ×2 (08:15→21:05)
[2017-02-17] MEDS: GABAPENTIN 300 MG CAP PO SCH ×3 (08:15→21:06)
[2017-02-17] MEDS: SENNA TAB PO SCH ×2 (08:15→21:05)
[2017-02-17] MEDS: METOPROLOL 25 MG TAB PO SCH ×2 (08:16→21:06)
[2017-02-17] MEDS: DOCUSATE SODIUM 100 MG CAP PO SCH ×2 (08:16→21:05)
[2017-02-17] MEDS: HEPARIN 5,000 UNIT/0.5 ML VIAL SC SCH ×2 (08:17→21:03)
[2017-02-17] MEDS: OXYCODONE/ACETAMINOPHEN (5/325) TAB PO PRN ×3 (08:54→21:19)
--- NOTE | 2017-02-17 13:36 | CONS ---
Date/Time of Note Date/Time of Note DATE: 02/17/17 TIME: 13:34 Assessment/Plan Assessment/Plan Chief Complaint/Hosp Course IMPRESSION: 1. Congestive heart failure by chest x-ray, diastolic, likely acute on chronic by most recent echo. EF 50% 2. Hypertension-uncontrolled 3. Preoperative. -negative trop x 3/no cp/NL EF by echo. s/p debridement repeat today 4. Anemia. 5. Nonhealing lower extremity ulcerations. 6. Diabetes mellitus. 7. MR-mod-sev by echo this admit Recc: -Continue hydralazine/BB/zestril as tolerated. -Continue statin -Lasix held/follow volume status closely -local wound care -Follow BS closely with adjustment of insulin therapy as necessary -Pain control Problems: Consultation Date/Type/Reason Admit Date/Time Jan 24, 2017 at 15:33 Initial Consult Date 01/26/2017 Type of Consultation: cardiology Reason for Consultation HTN/CHF Referring Provider: SELINA BAINS Exam/Review of Systems Vital Signs Vitals Vital Signs Date Time Temp Pulse Resp B/P Pulse Ox O2 Delivery O2 Flow Rate FiO2 02/17/17 07:58 97.4 60 16 131/67 100 02/16/17 22:21 Room Air Intake and Output 02/16/17 02/16/17 02/17/17 15:00 23:00 07:00 Intake Total 100 ml 530 ml 820 ml Output Total 530 ml 800 ml Balance 100 ml 0 ml 20 ml Exam Review of Systems: CONSTITUTIONAL: No fevers, chills. PULMONARY: No sob CARDIOVASCULAR: No chest pain/palpitations GASTROINTESTINAL: No nausea/vomiting. GENITOURINARY: No hematuria/dysuria. MUSCULOSKELETAL: mild pain in leg PSYCHIATRIC: The patient denies depression. NEUROLOGIC: No weakness Constitutional: other (sleeping) Psych: no complaints Head: normocephalic ENMT: mucosa pink and moist Neck: jvd (9 cm water), supple Respiratory: diminished breath sounds (at bases/B) Cardiovascular: regular rate and rhythm Gastrointestinal: non-tender, soft Musculoskeletal: muscle tone (normal) Extremities: edema (traceRLE covered by dressing, LLE s/p amputation) Neurological: other (No focal deficits) Results Result Diagram: 02/17/17 0430 02/17/17 0435 Results 24 hrs Laboratory Tests Test 02/16/17 16:40 02/16/17 20:20 02/17/17 04:30 02/17/17 04:35 Bedside Glucose 96 91 White Blood Count 15.0 H Red Blood Count 3.02 L Hemoglobin 7.8 L Hematocrit 25.4 L Mean Corpuscular Volume 84.1 Mean Corpuscular Hemoglobin 25.8 L Mean Corpuscular Hemoglobin Concent 30.7 L Red Cell Distribution Width 16.4 H Platelet Count 585 H Mean Platelet Volume 9.1 Neutrophils % 71.9 Lymphocytes % 15.6 Monocytes % 7.5 Eosinophils % 3.8 Basophils % 0.5 Nucleated Red Blood Cells % 0.0 Neutrophils # 10.8 H Lymphocytes # 2.3 Monocytes # 1.1 H Eosinophils # 0.6 H Basophils # 0.1 Nucleated Red Blood Cells # 0.0 Sodium Level 136 Potassium Level 4.6 Chloride Level 103 Carbon Dioxide Level 24 Anion Gap 14 Blood Urea Nitrogen 38 H Creatinine 2.15 H Glucose Level 86 Calcium Level 8.6 Test 02/17/17 08:19 02/17/17 11:53 Bedside Glucose 83 123 Medications Medications Current Medications Ondansetron HCl (Zofran Inj) 4 mg Q6H PRN IV NAUSEA AND/OR VOMITING; Start 01/24/17 at 19:00 Zolpidem Tartrate (Ambien) 5 mg QHS PRN PO SLEEP Last administered on 21:17; Admin Dose 5 MG; Start 01/24/17 at 19:00 Heparin Sodium (Porcine) (Heparin (5000 Units/0.5 ml)) 5,000 unit Q12 SC Last administered on 02/17/17 08:17; Admin Dose 5,000 UNIT; Start 01/24/17 at 21:00 Diagnostic Test (Pha) (Accu-Chek) 1 ea 02 XX ; Start 01/25/17 at 02:00 Miscellaneous Information 1 ea NOTE XX ; Start 01/24/17 at 19:00 Glucose (Glutose) 15 gm Q15M PRN PO DECREASED GLUCOSE; Start 01/24/17 at 19:00 Glucose (Glutose) 22.5 gm Q15M PRN PO DECREASED GLUCOSE; Start 01/24/17 at 19: 00 Dextrose (D50w Syringe) 25 ml Q15M PRN IV DECREASED GLUCOSE; Start 01/24/17 at 19:00 Dextrose (D50w Syringe) 50 ml Q15M PRN IV DECREASED GLUCOSE; Start 01/24/17 at 19:00 Glucagon (Glucagen) 1 mg Q15M PRN IM DECREASED GLUCOSE; Start 01/24/17 at 19:00 Glucose (Glutose) 15 gm Q15M PRN BUCCAL DECREASED GLUCOSE; Start 01/24/17 at 19 :00 Metoprolol Tartrate (Lopressor) 25 mg BID PO Last administered on 02/17/17 08: 16; Admin Dose 25 MG; Start 01/27/17 at 21:00 Atorvastatin Calcium (Lipitor) 20 mg HS PO Last administered on 02/15/17 20: 31; Admin Dose 20 MG; Start 02/01/17 at 21:00 Oxycodone/ Acetaminophen (Percocet (5/ 325)) 2 tab Q6H PRN PO PAIN SCALE 5-7 Last administered on 02/17/17 08:54; Admin Dose 2 TAB; Start 02/04/17 at 10:30 Hydralazine HCl (Apresoline) 100 mg TID PO Last administered on 02/17/17 13:08 ; Admin Dose 100 MG; Start 02/06/17 at 21:00 Insulin Glargine (Lantus) 15 unit QHS SC Last administered on 02/15/17 20:35 ; Admin Dose 15 UNIT; Start 02/08/17 at 21:00 Senna (Senokot) 1 tab BID PO Last administered on 02/17/17 08:15; Admin Dose 1 TAB; Start 02/12/17 at 09:00 Docusate Sodium (Colace) 100 mg BID PO Last administered on 02/17/17 08:16; Admin Dose 100 MG; Start 02/12/17 at 09:00 Lactulose (Enulose) 20 gm Q6H PRN PO CONSTIPATION Last administered on 00:17; Admin Dose 20 GM; Start 02/12/17 at 07:00 Terbinafine HCl (Lamisil) 250 mg BID PO Last administered on 02/17/17 08:14; Admin Dose 250 MG; Start 02/12/17 at 14:00; Stop 02/19/17 at 13:59 Lisinopril (Zestril) 5 mg BID PO Last administered on 02/17/17 08:15; Admin Dose 5 MG; Start 02/13/17 at 21:00 Tamsulosin HCl (Flomax) 0.4 mg HS PO Last administered on 02/15/17 20:31; Admin Dose 0.4 MG; Start 02/13/17 at 21:00 Tobramycin PER PHARMACY DOSING NOTE XX ; Start 02/14/17 at 16:00 Tobramycin/ Dextrose (Tobramycin/D5W) 109.5 ml @ 109.5 mls/ hr Q48H IVPB Last administered on 02/15/17 17:28; Admin Dose 109.5 MLS/HR; Start 02/15/17 at 17 :00 Doxycycline Hyclate (Vibramycin) 100 mg BID PO Last administered on 02/17/17 08:14; Admin Dose 100 MG; Start 02/15/17 at 21:00 Gabapentin (Neurontin) 300 mg TID PO Last administered on 02/17/17 13:07; Admin Dose 300 MG; Start 02/16/17 at 09:00 Trazodone HCl 50 mg 50 mg HS PO ; Start 02/16/17 at 21:00 Acetaminophen (Ofirmev 1000mg/ 100ml Iv) 100 ml @ 400 mls/hr Q6 IVPB Last administered on 02/17/17 12:04; Admin Dose 400 MLS/HR; Start 02/16/17 at 12:00 Morphine Sulfate (morphine) 3 mg Q4H PRN IV PAIN 7-01/25 Last administered on 02/16/17 20:16; Admin Dose 3 MG; Start 02/16/17 at 08:00 Methadone HCl (Methadone Liq) 3 mg Q6 PO Last administered on 02/17/17 12:03; Admin Dose 3 MG; Start 02/16/17 at 08:00 Miscellaneous Information (*Rx Drug Level Order Reminder*) TOBRAMYCIN TROUGH AT 1600 ONCE ONCE XX ; Start 02/17/17 at 16:00; Stop 02/17/17 at 16:01 CLARITZA FLORES 2, 2017 13:36
[2017-02-17 14:00] VITALS: BP 125/69; RESP 16
--- NOTE | 2017-02-17 14:26 | CONS ---
Date/Time of Note Date/Time of Note DATE: 02/17/17 TIME: 14:25 Consult Date/Type/Reason Admit Date/Time Jan 24, 2017 at 15:33 Initial Consult Date 02/01/17 Type of Consultation: ID Ordering Provider: SELINA BAINS Objective Vital Signs Date Time Temp Pulse Resp B/P Pulse Ox O2 Delivery O2 Flow Rate FiO2 02/17/17 07:58 97.4 60 16 131/67 100 02/16/17 22:21 Room Air Intake and Output 02/16/17 02/16/17 02/17/17 15:00 23:00 07:00 Intake Total 100 ml 530 ml 820 ml Output Total 530 ml 800 ml Balance 100 ml 0 ml 20 ml Results/Medications Result Diagram: 02/17/17 0430 02/17/17 0435 Results 24 hrs Laboratory Tests Test 02/16/17 16:40 02/16/17 20:20 02/17/17 04:30 02/17/17 04:35 Bedside Glucose 96 91 White Blood Count 15.0 H Red Blood Count 3.02 L Hemoglobin 7.8 L Hematocrit 25.4 L Mean Corpuscular Volume 84.1 Mean Corpuscular Hemoglobin 25.8 L Mean Corpuscular Hemoglobin Concent 30.7 L Red Cell Distribution Width 16.4 H Platelet Count 585 H Mean Platelet Volume 9.1 Neutrophils % 71.9 Lymphocytes % 15.6 Monocytes % 7.5 Eosinophils % 3.8 Basophils % 0.5 Nucleated Red Blood Cells % 0.0 Neutrophils # 10.8 H Lymphocytes # 2.3 Monocytes # 1.1 H Eosinophils # 0.6 H Basophils # 0.1 Nucleated Red Blood Cells # 0.0 Sodium Level 136 Potassium Level 4.6 Chloride Level 103 Carbon Dioxide Level 24 Anion Gap 14 Blood Urea Nitrogen 38 H Creatinine 2.15 H Glucose Level 86 Calcium Level 8.6 Test 02/17/17 08:19 02/17/17 11:53 Bedside Glucose 83 123 Medications Current Medications Ondansetron HCl (Zofran Inj) 4 mg Q6H PRN IV NAUSEA AND/OR VOMITING; Start 01/24/17 at 19:00 Zolpidem Tartrate (Ambien) 5 mg QHS PRN PO SLEEP Last administered on t 21:17; Admin Dose 5 MG; Start 01/24/17 at 19:00 Heparin Sodium (Porcine) (Heparin (5000 Units/0.5 ml)) 5,000 unit Q12 SC Last administered on 02/17/17 08:17; Admin Dose 5,000 UNIT; Start 01/24/17 at 21:00 Diagnostic Test (Pha) (Accu-Chek) 1 ea 02 XX ; Start 01/25/17 at 02:00 Miscellaneous Information 1 ea NOTE XX ; Start 01/24/17 at 19:00 Glucose (Glutose) 15 gm Q15M PRN PO DECREASED GLUCOSE; Start 01/24/17 at 19:00 Glucose (Glutose) 22.5 gm Q15M PRN PO DECREASED GLUCOSE; Start 01/24/17 at 19: 00 Dextrose (D50w Syringe) 25 ml Q15M PRN IV DECREASED GLUCOSE; Start 01/24/17 at 19:00 Dextrose (D50w Syringe) 50 ml Q15M PRN IV DECREASED GLUCOSE; Start 01/24/17 at 19:00 Glucagon (Glucagen) 1 mg Q15M PRN IM DECREASED GLUCOSE; Start 01/24/17 at 19:00 Glucose (Glutose) 15 gm Q15M PRN BUCCAL DECREASED GLUCOSE; Start 01/24/17 at 19 :00 Metoprolol Tartrate (Lopressor) 25 mg BID PO Last administered on 02/17/17 08: 16; Admin Dose 25 MG; Start 01/27/17 at 21:00 Atorvastatin Calcium (Lipitor) 20 mg HS PO Last administered on 02/15/17 20: 31; Admin Dose 20 MG; Start 02/01/17 at 21:00 Oxycodone/ Acetaminophen (Percocet (5/ 325)) 2 tab Q6H PRN PO PAIN SCALE 5-7 Last administered on 02/17/17 08:54; Admin Dose 2 TAB; Start 02/04/17 at 10:30 Hydralazine HCl (Apresoline) 100 mg TID PO Last administered on 02/17/17 13:08 ; Admin Dose 100 MG; Start 02/06/17 at 21:00 Insulin Glargine (Lantus) 15 unit QHS SC Last administered on 02/15/17 20:35 ; Admin Dose 15 UNIT; Start 02/08/17 at 21:00 Senna (Senokot) 1 tab BID PO Last administered on 02/17/17 08:15; Admin Dose 1 TAB; Start 02/12/17 at 09:00 Docusate Sodium (Colace) 100 mg BID PO Last administered on 02/17/17 08:16; Admin Dose 100 MG; Start 02/12/17 at 09:00 Lactulose (Enulose) 20 gm Q6H PRN PO CONSTIPATION Last administered on 00:17; Admin Dose 20 GM; Start 02/12/17 at 07:00 Terbinafine HCl (Lamisil) 250 mg BID PO Last administered on 02/17/17 08:14; Admin Dose 250 MG; Start 02/12/17 at 14:00; Stop 02/19/17 at 13:59 Lisinopril (Zestril) 5 mg BID PO Last administered on 02/17/17 08:15; Admin Dose 5 MG; Start 02/13/17 at 21:00 Tamsulosin HCl (Flomax) 0.4 mg HS PO Last administered on 02/15/17 20:31; Admin Dose 0.4 MG; Start 02/13/17 at 21:00 Tobramycin PER PHARMACY DOSING NOTE XX ; Start 02/14/17 at 16:00 Tobramycin/ Dextrose (Tobramycin/D5W) 109.5 ml @ 109.5 mls/ hr Q48H IVPB Last administered on 02/15/17 17:28; Admin Dose 109.5 MLS/HR; Start 02/15/17 at 17 :00 Doxycycline Hyclate (Vibramycin) 100 mg BID PO Last administered on 02/17/17 08:14; Admin Dose 100 MG; Start 02/15/17 at 21:00 Gabapentin (Neurontin) 300 mg TID PO Last administered on 02/17/17 13:07; Admin Dose 300 MG; Start 02/16/17 at 09:00 Trazodone HCl 50 mg 50 mg HS PO ; Start 02/16/17 at 21:00 Acetaminophen (Ofirmev 1000mg/ 100ml Iv) 100 ml @ 400 mls/hr Q6 IVPB Last administered on 02/17/17 12:04; Admin Dose 400 MLS/HR; Start 02/16/17 at 12:00 Morphine Sulfate (morphine) 3 mg Q4H PRN IV PAIN 7-01/25 Last administered on 02/16/17 20:16; Admin Dose 3 MG; Start 02/16/17 at 08:00 Methadone HCl (Methadone Liq) 3 mg Q6 PO Last administered on 02/17/17 12:03; Admin Dose 3 MG; Start 02/16/17 at 08:00 Miscellaneous Information (*Rx Drug Level Order Reminder*) TOBRAMYCIN TROUGH AT 1600 ONCE ONCE XX ; Start 02/17/17 at 16:00; Stop 02/17/17 at 16:01 Assessment/Plan Chief Complaint/Hosp Course SUBJECTIVE: No acute changes overnight, sleeping, looks comfortable, afebrile MICROBIOLOGY: Urine cx + PSA ANTIMICROBIALS: Doxycycline, Tobramycin. PHYSICAL EXAMINATION: GENERAL: This is a well-developed, well-nourished elderly man who looks older than his age. The patient is in no distress. HEENT: Head atraumatic, normocephalic. Sclerae anicteric. Buccal mucosa dry. NECK: Supple. CHEST: Rise symmetrical. Breath sounds diminished to bases. HEART: S1, S2. ABDOMEN: Soft, bowel tones present. EXTREMITIES: With bilateral lower extremity dressings intact. Left lower extremity to wound VAC. ASSESSMENT: 1. Systemic inflammatory response syndrome with persistent leukocytosis. 2. 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 3. Diabetes. 4. Peripheral vascular disease. 5. MDR UTI 6. A/CKD PLAN: Remains stable, continue abx, wound care per vascular surgery rec-s. staff Problems: DENITA COKER NP Feb 17, 2017 14:26
--- NOTE | 2017-02-17 17:02 | PN ---
Date/Time of Note Date/Time of Note DATE: 02/17/17 TIME: 16:42 Assessment/Plan VTE Prophylaxis VTE Prophylaxis Intervention: SCD's Lines/Catheters IV [facility] Saline Lock Urinary Cath still in place: No Assessment/Plan Assessment/Plan 66 yo M with CKD II, DMII, venous stasis, PVD admitted nonhealing foot ulcers and lymphedema Foot ulcers: sp debridement foot ulcers 10.11, 10.23, 11.1; sp L BKA 10.19. Acute decompensated diastolic CHF: sp dieresis. acei started by cardiology. watch Cr DM - Basal bolus insulin/sliding scale PVD- Aspirin and statin MDR PSAR bacteriuria--tobra as per ID BP controlled Subjective 24 Hr Interval Summary Free Text/Dictation pt getting blood drawn at time of my evaluation Exam/Review of Systems Vital Signs Vitals Vital Signs Date Time Temp Pulse Resp B/P Pulse Ox O2 Delivery O2 Flow Rate FiO2 02/17/17 14:00 97.2 16 125/69 99 02/17/17 07:58 60 02/16/17 22:21 Room Air Intake and Output 02/16/17 02/16/17 02/17/17 15:00 23:00 07:00 Intake Total 100 ml 530 ml 820 ml Output Total 530 ml 800 ml Balance 100 ml 0 ml 20 ml Exam nad resp nonlabored no abd distension no edema no rashes Results Result Diagram: 02/17/17 0430 02/17/17 0435 Results 24 hrs Laboratory Tests Test 02/16/17 20:20 02/17/17 04:30 02/17/17 04:35 02/17/17 08:19 Bedside Glucose 91 83 White Blood Count 15.0 H Red Blood Count 3.02 L Hemoglobin 7.8 L Hematocrit 25.4 L Mean Corpuscular Volume 84.1 Mean Corpuscular Hemoglobin 25.8 L Mean Corpuscular Hemoglobin Concent 30.7 L Red Cell Distribution Width 16.4 H Platelet Count 585 H Mean Platelet Volume 9.1 Neutrophils % 71.9 Lymphocytes % 15.6 Monocytes % 7.5 Eosinophils % 3.8 Basophils % 0.5 Nucleated Red Blood Cells % 0.0 Neutrophils # 10.8 H Lymphocytes # 2.3 Monocytes # 1.1 H Eosinophils # 0.6 H Basophils # 0.1 Nucleated Red Blood Cells # 0.0 Sodium Level 136 Potassium Level 4.6 Chloride Level 103 Carbon Dioxide Level 24 Anion Gap 14 Blood Urea Nitrogen 38 H Creatinine 2.15 H Glucose Level 86 Calcium Level 8.6 Test 02/17/17 11:53 Bedside Glucose 123 Medications Medications Current Medications Ondansetron HCl (Zofran Inj) 4 mg Q6H PRN IV NAUSEA AND/OR VOMITING; Start 01/24/17 at 19:00 Zolpidem Tartrate (Ambien) 5 mg QHS PRN PO SLEEP Last administered on 21:17; Admin Dose 5 MG; Start 01/24/17 at 19:00 Heparin Sodium (Porcine) (Heparin (5000 Units/0.5 ml)) 5,000 unit Q12 SC Last administered on 02/17/17 08:17; Admin Dose 5,000 UNIT; Start 01/24/17 at 21:00 Diagnostic Test (Pha) (Accu-Chek) 1 ea 02 XX ; Start 01/25/17 at 02:00 Miscellaneous Information 1 ea NOTE XX ; Start 01/24/17 at 19:00 Glucose (Glutose) 15 gm Q15M PRN PO DECREASED GLUCOSE; Start 01/24/17 at 19:00 Glucose (Glutose) 22.5 gm Q15M PRN PO DECREASED GLUCOSE; Start 01/24/17 at 19: 00 Dextrose (D50w Syringe) 25 ml Q15M PRN IV DECREASED GLUCOSE; Start 01/24/17 at 19:00 Dextrose (D50w Syringe) 50 ml Q15M PRN IV DECREASED GLUCOSE; Start 01/24/17 at 19:00 Glucagon (Glucagen) 1 mg Q15M PRN IM DECREASED GLUCOSE; Start 01/24/17 at 19:00 Glucose (Glutose) 15 gm Q15M PRN BUCCAL DECREASED GLUCOSE; Start 01/24/17 at 19 :00 Metoprolol Tartrate (Lopressor) 25 mg BID PO Last administered on 02/17/17 08: 16; Admin Dose 25 MG; Start 01/27/17 at 21:00 Atorvastatin Calcium (Lipitor) 20 mg HS PO Last administered on 02/15/17 20: 31; Admin Dose 20 MG; Start 02/01/17 at 21:00 Oxycodone/ Acetaminophen (Percocet (5/ 325)) 2 tab Q6H PRN PO PAIN SCALE 5-7 Last administered on 02/17/17 15:28; Admin Dose 2 TAB; Start 02/04/17 at 10:30 Hydralazine HCl (Apresoline) 100 mg TID PO Last administered on 02/17/17 13:08 ; Admin Dose 100 MG; Start 02/06/17 at 21:00 Insulin Glargine (Lantus) 15 unit QHS SC Last administered on 02/15/17 20:35 ; Admin Dose 15 UNIT; Start 02/08/17 at 21:00 Senna (Senokot) 1 tab BID PO Last administered on 02/17/17 08:15; Admin Dose 1 TAB; Start 02/12/17 at 09:00 Docusate Sodium (Colace) 100 mg BID PO Last administered on 02/17/17 08:16; Admin Dose 100 MG; Start 02/12/17 at 09:00 Lactulose (Enulose) 20 gm Q6H PRN PO CONSTIPATION Last administered on 00:17; Admin Dose 20 GM; Start 02/12/17 at 07:00 Terbinafine HCl (Lamisil) 250 mg BID PO Last administered on 02/17/17 08:14; Admin Dose 250 MG; Start 02/12/17 at 14:00; Stop 02/19/17 at 13:59 Lisinopril (Zestril) 5 mg BID PO Last administered on 02/17/17 08:15; Admin Dose 5 MG; Start 02/13/17 at 21:00 Tamsulosin HCl (Flomax) 0.4 mg HS PO Last administered on 02/15/17 20:31; Admin Dose 0.4 MG; Start 02/13/17 at 21:00 Tobramycin PER PHARMACY DOSING NOTE XX ; Start 02/14/17 at 16:00 Tobramycin/ Dextrose (Tobramycin/D5W) 109.5 ml @ 109.5 mls/ hr Q48H IVPB Last administered on 02/15/17 17:28; Admin Dose 109.5 MLS/HR; Start 02/15/17 at 17 :00 Doxycycline Hyclate (Vibramycin) 100 mg BID PO Last administered on 02/17/17 08:14; Admin Dose 100 MG; Start 02/15/17 at 21:00 Gabapentin (Neurontin) 300 mg TID PO Last administered on 02/17/17 13:07; Admin Dose 300 MG; Start 02/16/17 at 09:00 Trazodone HCl 50 mg 50 mg HS PO ; Start 02/16/17 at 21:00 Acetaminophen (Ofirmev 1000mg/ 100ml Iv) 100 ml @ 400 mls/hr Q6 IVPB Last administered on 02/17/17 12:04; Admin Dose 400 MLS/HR; Start 02/16/17 at 12:00 Morphine Sulfate (morphine) 3 mg Q4H PRN IV PAIN -01/25 Last administered on 02/16/17 20:16; Admin Dose 3 MG; Start 02/16/17 at 08:00 Methadone HCl (Methadone Liq) 3 mg Q6 PO Last administered on 02/17/17 12:03; Admin Dose 3 MG; Start 02/16/17 at 08:00 RAJANI BAXTER MD Feb 17, 2017 16:52
--- NOTE | 2017-02-17 19:35 | CONS ---
Date/Time of Note Date/Time of Note DATE: 02/17/17 TIME: 19:32 Assessment/Plan Assessment/Plan Chief Complaint/Hosp Course # Patient has chronic kidney disease W GAIL ON TOBRA # Rt foot ulcer s/p debridement # chronic lower extremity lymphedema and cellulitis BETTER .BKA LEFT # CHF likley diastolicBETTER # hypertension, anemia. # DM # Abnormal LFT # Skin wounds # Hypoalbunemia PLAN labs renal URINE LYTES AVOID NEPHROTOXIC DRUGS IV FLUID Problems: Consultation Date/Type/Reason Admit Date/Time Jan 24, 2017 at 15:33 Initial Consult Date RENAL S/P DEBRIDEMENT ON TOBRAMYCIN AND DOXY HIGH BUN AND CR Type of Consultation: ID Referring Provider: SELINA BAINS Exam/Review of Systems Vital Signs Vitals Vital Signs Date Time Temp Pulse Resp B/P Pulse Ox O2 Delivery O2 Flow Rate FiO2 02/17/17 14:00 97.2 16 125/69 99 02/17/17 07:58 60 02/16/17 22:21 Room Air Intake and Output 02/16/17 02/16/17 02/17/17 15:00 23:00 07:00 Intake Total 100 ml 530 ml 820 ml Output Total 530 ml 800 ml Balance 100 ml 0 ml 20 ml Exam Respiratory: clear to auscultation Cardiovascular: regular rate and rhythm Gastrointestinal: bowel sounds (+), soft Extremities: other (LEFT BKA AND RT LOWER EX DRESSING+) Results Result Diagram: 02/17/17 0430 02/17/17 0435 Results 24 hrs Laboratory Tests Test 02/16/17 20:20 02/17/17 04:30 02/17/17 04:35 02/17/17 08:19 Bedside Glucose 91 83 White Blood Count 15.0 H Red Blood Count 3.02 L Hemoglobin 7.8 L Hematocrit 25.4 L Mean Corpuscular Volume 84.1 Mean Corpuscular Hemoglobin 25.8 L Mean Corpuscular Hemoglobin Concent 30.7 L Red Cell Distribution Width 16.4 H Platelet Count 585 H Mean Platelet Volume 9.1 Neutrophils % 71.9 Lymphocytes % 15.6 Monocytes % 7.5 Eosinophils % 3.8 Basophils % 0.5 Nucleated Red Blood Cells % 0.0 Neutrophils # 10.8 H Lymphocytes # 2.3 Monocytes # 1.1 H Eosinophils # 0.6 H Basophils # 0.1 Nucleated Red Blood Cells # 0.0 Sodium Level 136 Potassium Level 4.6 Chloride Level 103 Carbon Dioxide Level 24 Anion Gap 14 Blood Urea Nitrogen 38 H Creatinine 2.15 H Glucose Level 86 Calcium Level 8.6 Test 02/17/17 11:53 02/17/17 15:52 02/17/17 17:05 Bedside Glucose 123 138 Tobramycin Level Trough 4.0 *H Medications Medications Current Medications Ondansetron HCl (Zofran Inj) 4 mg Q6H PRN IV NAUSEA AND/OR VOMITING; Start 01/24/17 at 19:00 Zolpidem Tartrate (Ambien) 5 mg QHS PRN PO SLEEP Last administered on 21:17; Admin Dose 5 MG; Start 01/24/17 at 19:00 Heparin Sodium (Porcine) (Heparin (5000 Units/0.5 ml)) 5,000 unit Q12 SC Last administered on 02/17/17 08:17; Admin Dose 5,000 UNIT; Start 01/24/17 at 21:00 Diagnostic Test (Pha) (Accu-Chek) 1 ea 02 XX ; Start 01/25/17 at 02:00 Miscellaneous Information 1 ea NOTE XX ; Start 01/24/17 at 19:00 Glucose (Glutose) 15 gm Q15M PRN PO DECREASED GLUCOSE; Start 01/24/17 at 19:00 Glucose (Glutose) 22.5 gm Q15M PRN PO DECREASED GLUCOSE; Start 01/24/17 at 19: 00 Dextrose (D50w Syringe) 25 ml Q15M PRN IV DECREASED GLUCOSE; Start 01/24/17 at 19:00 Dextrose (D50w Syringe) 50 ml Q15M PRN IV DECREASED GLUCOSE; Start 01/24/17 at 19:00 Glucagon (Glucagen) 1 mg Q15M PRN IM DECREASED GLUCOSE; Start 01/24/17 at 19:00 Glucose (Glutose) 15 gm Q15M PRN BUCCAL DECREASED GLUCOSE; Start 01/24/17 at 19 :00 Metoprolol Tartrate (Lopressor) 25 mg BID PO Last administered on 02/17/17 08: 16; Admin Dose 25 MG; Start 01/27/17 at 21:00 Atorvastatin Calcium (Lipitor) 20 mg HS PO Last administered on 02/15/17 20: 31; Admin Dose 20 MG; Start 02/01/17 at 21:00 Oxycodone/ Acetaminophen (Percocet (5/ 325)) 2 tab Q6H PRN PO PAIN SCALE 5-7 Last administered on 02/17/17 15:28; Admin Dose 2 TAB; Start 02/04/17 at 10:30 Hydralazine HCl (Apresoline) 100 mg TID PO Last administered on 02/17/17 13:08 ; Admin Dose 100 MG; Start 02/06/17 at 21:00 Insulin Glargine (Lantus) 15 unit QHS SC Last administered on 02/15/17 20:35 ; Admin Dose 15 UNIT; Start 02/08/17 at 21:00 Senna (Senokot) 1 tab BID PO Last administered on 02/17/17 08:15; Admin Dose 1 TAB; Start 02/12/17 at 09:00 Docusate Sodium (Colace) 100 mg BID PO Last administered on 02/17/17 08:16; Admin Dose 100 MG; Start 02/12/17 at 09:00 Lactulose (Enulose) 20 gm Q6H PRN PO CONSTIPATION Last administered on 00:17; Admin Dose 20 GM; Start 02/12/17 at 07:00 Terbinafine HCl (Lamisil) 250 mg BID PO Last administered on 02/17/17 08:14; Admin Dose 250 MG; Start 02/12/17 at 14:00; Stop 02/19/17 at 13:59 Lisinopril (Zestril) 5 mg BID PO Last administered on 02/17/17 08:15; Admin Dose 5 MG; Start 02/13/17 at 21:00 Tamsulosin HCl (Flomax) 0.4 mg HS PO Last administered on 02/15/17 20:31; Admin Dose 0.4 MG; Start 02/13/17 at 21:00 Tobramycin (Tobramycin Iv Per Pharmacy) PER PHARMACY DOSING NOTE XX ; Start at 16:00 Doxycycline Hyclate (Vibramycin) 100 mg BID PO Last administered on 02/17/17 08:14; Admin Dose 100 MG; Start 02/15/17 at 21:00 Gabapentin (Neurontin) 300 mg TID PO Last administered on 02/17/17 13:07; Admin Dose 300 MG; Start 02/16/17 at 09:00 Trazodone HCl 50 mg 50 mg HS PO ; Start 02/16/17 at 21:00 Acetaminophen (Ofirmev 1000mg/ 100ml Iv) 100 ml @ 400 mls/hr Q6 IVPB Last administered on 02/17/17 17:15; Admin Dose 400 MLS/HR; Start 02/16/17 at 12:00 Morphine Sulfate (morphine) 3 mg Q4H PRN IV PAIN -01/25 Last administered on 02/16/17 20:16; Admin Dose 3 MG; Start 02/16/17 at 08:00 Methadone HCl (Methadone Liq) 3 mg Q6 PO Last administered on 02/17/17 17:15; Admin Dose 3 MG; Start 02/16/17 at 08:00 ELHAM ANGELES MD Feb 17, 2017 19:35
[2017-02-17] MEDS ORDERED: SOD CHLORIDE 0.45% 1,000 ML IV SCH (20:00)
[2017-02-17 20:25] VITALS: BP 127/68; RESP 18
[2017-02-17] MEDS: INSULIN GLARGINE [LANtus] 3 ML PEN SC SCH (21:03)
[2017-02-17] MEDS: traZODone 50 MG TAB PO SCH (21:05)
[2017-02-17] MEDS: ATORVASTATIN 20 MG TAB PO SCH (21:06)
[2017-02-17] MEDS: TAMSULOSIN (SR) 0.4 MG CAP PO SCH (21:06)
[2017-02-18] MEDS: ACETAMINOPHEN 1000MG/100ML IV 100 ML IVPB SCH ×4 (01:44→17:09)
[2017-02-18] MEDS: METHADONE (1 MG/ML 5 ML PO UD SYG) PO SCH ×4 (01:45→17:09)
[2017-02-18] MEDS: ACCU-CHEK XX SCH (01:45)
[2017-02-18 02:42] VITALS: BP 124/64; RESP 18
--- NOTE | 2017-02-18 05:45 | PN ---
Date/Time of Note Date/Time of Note DATE: 02/18/17 TIME: 05:40 Assessment/Plan Lines/Catheters IV Catheter Type (from [facility]): Saline Lock Little in Place (from [facility]): No Assessment/Plan Chief Complaint/Hosp Course -Bilateral lower extremity atherosclerosis and gangrene: It seems the patients noncompliance of diabetes and poor hygiene presents with bilateral lower extremity diabetic foot ulcers and severe gangrene infection. He had presented to outside hospital with history of 3-4weeks of bilateral lower extremity swelling, redness, pain, maggots and foul smelling odor from bilateral lower legs and left heel. Subsequently, the patient was identified to have gas gangrene and underwent multiple debridements, as he wanted us to try and salvage his lower extremities. Patient has undergone multiple debridements since then in order try to preserve his limb. -S/P Multiple debridements of RLE and application ACell grafts in order to enhance granulation tissue development and eventual limb salvage and grafting for wound closure. -S/P Left BKA-with wound vac placement -Continue VAC change on MWF with our wound care team. Monitoring granulation tissue developement as it has improved and good rebleeding occuring during dressing vac changes. Some area that will need to be debrided. Will schedule for LLE debridement in the coming few days -Will change dressing of RLE in 10 days -Recommend Case Management to arrange for a group home for the patient and to be able to followup with our wound care clinic as he is homeless and does not have a dedicated insurance plan. May arrange patient to followup with [facility] -Optimize vascular status (BP meds, sugar control, cholesterol, diet, antiplatelets) -Discussed plan, findings and management with the patient and he understands and agreed to proceed -Thank you for allowing us to partake in the care of your patient, please call with any questions Problems: Subjective 24 Hr Interval Summary no new vascular events overnight Exam/Review of Systems Vital Signs Vitals Vital Signs Date Time Temp Pulse Resp B/P Pulse Ox O2 Delivery O2 Flow Rate FiO2 02/18/17 02:42 98.3 60 18 124/64 98 02/16/17 22:21 Room Air Intake and Output 02/17/17 02/17/17 02/18/17 15:00 23:00 07:00 Intake Total 100 ml 1380 ml 800 ml Output Total 600 ml 650 ml Balance 100 ml 780 ml 150 ml Exam Free Text/Dictation A&Ox3 CTAB S1S2 present soft NTND BS+ RLE: palpable femoral pulse, motor/sensory intact, cap refill 3 seconds, dressing intact and dry, edema improved LLE: palpable femoral pulse, BKA-stump with wound vac intact Results Result Diagram: 02/17/17 0430 02/17/17 0435 ASHLEY CAROLINA MD Feb 18, 2017 05:45
[2017-02-18 07:20] VITALS: BP 135/73; RESP 16
[2017-02-18] MEDS: INSULIN ASPART [NOVOLOG] 3 ML PEN SC SCH ×7 (08:00→21:00)
[2017-02-18] MEDS: HEPARIN 5,000 UNIT/0.5 ML VIAL SC SCH ×2 (08:39→21:48)
[2017-02-18] MEDS: SENNA TAB PO SCH ×3 (09:00→21:00)
[2017-02-18] MEDS: METOPROLOL 25 MG TAB PO SCH ×2 (09:00→21:46)
[2017-02-18] MEDS: DOCUSATE SODIUM 100 MG CAP PO SCH ×3 (09:00→21:00)
[2017-02-18] MEDS: TERBINAFINE 250 MG TAB PO SCH ×2 (09:05→21:46)
[2017-02-18] MEDS: LISINOPRIL 5 MG TAB PO SCH (09:06)
[2017-02-18] MEDS: DOXYCYCLINE 100 MG TAB PO SCH ×2 (09:06→21:46)
[2017-02-18] MEDS: GABAPENTIN 300 MG CAP PO SCH ×3 (09:06→21:46)
--- NOTE | 2017-02-18 12:33 | CONS ---
Date/Time of Note Date/Time of Note DATE: 02/18/17 TIME: 12:31 Assessment/Plan Assessment/Plan Chief Complaint/Hosp Course 1. Mild GAIL with hyponatremia 2. chronic right lower extremity lymphedema and cellulitis. 3. CHF, diastolic 4. hypertension, controlled 5. Anemia chronic disease. 6. DM type II, controlled 7. Abnormal LFT 8. Skin wounds 9. Hypoalbuminemia. 10. s/p left BKA Problems: Additional Assessment/Plan 1. D.c IV fluids 2. Optimization of kidney function Consultation Date/Type/Reason Admit Date/Time Jan 24, 2017 at 15:33 Initial Consult Date 01/27/2017 Type of Consultation: nephrology Reason for Consultation Dr Jackson Referring Provider: SELINA BIANS 24 HR Interval Summary Constitutional: no complaints Exam/Review of Systems Vital Signs Vitals Vital Signs Date Time Temp Pulse Resp B/P Pulse Ox O2 Delivery O2 Flow Rate FiO2 02/18/17 07:20 97.6 59 16 135/73 98 02/16/17 22:21 Room Air Intake and Output 02/17/17 02/17/17 02/18/17 15:00 23:00 07:00 Intake Total 100 ml 1380 ml 900 ml Output Total 600 ml 650 ml Balance 100 ml 780 ml 250 ml Exam Constitutional: alert, oriented Neck: supple Respiratory: clear to auscultation Gastrointestinal: soft Extremities: edema Results Result Diagram: 02/17/17 0430 02/18/17 0430 Results 24 hrs Laboratory Tests Test 02/17/17 15:52 02/17/17 17:05 02/17/17 20:57 02/18/17 04:30 Tobramycin Level Trough 4.0 *H Bedside Glucose 138 136 Sodium Level 134 L Potassium Level 4.9 Chloride Level 99 Carbon Dioxide Level 25 Anion Gap 15 Blood Urea Nitrogen 51 H Creatinine 2.50 H Glucose Level 96 Calcium Level 8.0 L Test 02/18/17 08:19 02/18/17 11:53 Bedside Glucose 103 84 Medications Medications Current Medications Ondansetron HCl (Zofran Inj) 4 mg Q6H PRN IV NAUSEA AND/OR VOMITING; Start 01/24/17 at 19:00 Zolpidem Tartrate (Ambien) 5 mg QHS PRN PO SLEEP Last administered on t 21:17; Admin Dose 5 MG; Start 01/24/17 at 19:00 Heparin Sodium (Porcine) (Heparin (5000 Units/0.5 ml)) 5,000 unit Q12 SC Last administered on 02/18/17 08:39; Admin Dose 5,000 UNIT; Start 01/24/17 at 21:00 Diagnostic Test (Pha) (Accu-Chek) 1 ea 02 XX ; Start 01/25/17 at 02:00 Miscellaneous Information 1 ea NOTE XX ; Start 01/24/17 at 19:00 Glucose (Glutose) 15 gm Q15M PRN PO DECREASED GLUCOSE; Start 01/24/17 at 19:00 Glucose (Glutose) 22.5 gm Q15M PRN PO DECREASED GLUCOSE; Start 01/24/17 at 19: 00 Dextrose (D50w Syringe) 25 ml Q15M PRN IV DECREASED GLUCOSE; Start 01/24/17 at 19:00 Dextrose (D50w Syringe) 50 ml Q15M PRN IV DECREASED GLUCOSE; Start 01/24/17 at 19:00 Glucagon (Glucagen) 1 mg Q15M PRN IM DECREASED GLUCOSE; Start 01/24/17 at 19:00 Glucose (Glutose) 15 gm Q15M PRN BUCCAL DECREASED GLUCOSE; Start 01/24/17 at 19 :00 Metoprolol Tartrate (Lopressor) 25 mg BID PO Last administered on 02/17/17 21: 06; Admin Dose 25 MG; Start 01/27/17 at 21:00 Atorvastatin Calcium (Lipitor) 20 mg HS PO Last administered on 02/17/17 21:06 ; Admin Dose 20 MG; Start 02/01/17 at 21:00 Oxycodone/ Acetaminophen (Percocet (5/ 325)) 2 tab Q6H PRN PO PAIN SCALE 5-7 Last administered on 02/17/17 21:19; Admin Dose 2 TAB; Start 02/04/17 at 10:30 Hydralazine HCl (Apresoline) 100 mg TID PO Last administered on 02/18/17 09:04 ; Admin Dose 100 MG; Start 02/06/17 at 21:00 Insulin Glargine (Lantus) 15 unit QHS SC Last administered on 02/17/17 21:03; Admin Dose 15 UNIT; Start 02/08/17 at 21:00 Senna (Senokot) 1 tab BID PO Last administered on 02/17/17 21:05; Admin Dose 1 TAB; Start 02/12/17 at 09:00 Docusate Sodium (Colace) 100 mg BID PO Last administered on 02/17/17 21:05; Admin Dose 100 MG; Start 02/12/17 at 09:00 Lactulose (Enulose) 20 gm Q6H PRN PO CONSTIPATION Last administered on 00:17; Admin Dose 20 GM; Start 02/12/17 at 07:00 Terbinafine HCl (Lamisil) 250 mg BID PO Last administered on 02/18/17 09:05; Admin Dose 250 MG; Start 02/12/17 at 14:00; Stop 02/19/17 at 13:59 Lisinopril (Zestril) 5 mg BID PO Last administered on 02/18/17 09:06; Admin Dose 5 MG; Start 02/13/17 at 21:00 Tamsulosin HCl (Flomax) 0.4 mg HS PO Last administered on 02/17/17 21:06; Admin Dose 0.4 MG; Start 02/13/17 at 21:00 Tobramycin (Tobramycin Iv Per Pharmacy) PER PHARMACY DOSING NOTE XX ; Start at 16:00; Status Future Hold Doxycycline Hyclate (Vibramycin) 100 mg BID PO Last administered on 02/18/17 09:06; Admin Dose 100 MG; Start 02/15/17 at 21:00 Gabapentin (Neurontin) 300 mg TID PO Last administered on 02/18/17 12:20; Admin Dose 300 MG; Start 02/16/17 at 09:00 Trazodone HCl 50 mg 50 mg HS PO Last administered on 02/17/17 21:05; Admin Dose 50 MG; Start 02/16/17 at 21:00 Acetaminophen (Ofirmev 1000mg/ 100ml Iv) 100 ml @ 400 mls/hr Q6 IVPB Last administered on 02/18/17 12:19; Admin Dose 400 MLS/HR; Start 02/16/17 at 12:00 Morphine Sulfate (morphine) 3 mg Q4H PRN IV PAIN -01/25 Last administered on 02/16/17 20:16; Admin Dose 3 MG; Start 02/16/17 at 08:00 Methadone HCl 3 mg 3 mg Q6 PO Last administered on 02/18/17 12:20; Admin Dose 3 MG; Start 02/16/17 at 08:00 Sodium Chloride (1/2 NS) 1,000 ml @ 50 mls/hr Q20H IV Last administered on 20:55; Admin Dose 50 MLS/HR; Start 02/17/17 at 20:00; Stop 02/19/17 at 19 :59 LAINE PERRY Feb 18, 2017 12:33
--- NOTE | 2017-02-18 13:52 | PN ---
Date/Time of Note Date/Time of Note DATE: 02/18/17 TIME: 13:50 Assessment/Plan VTE Prophylaxis VTE Prophylaxis Intervention: SCD's Lines/Catheters IV Catheter Type (from Nrsg): Peripheral IV Urinary Cath still in place: No Assessment/Plan Assessment/Plan 66 yo M with CKD II, DMII, venous stasis, PVD admitted nonhealing foot ulcers and lymphedema Foot ulcers: sp debridement foot ulcers 10.11, 10.23, 11.1; sp L BKA 10.19. Acute decompensated diastolic CHF: sp dieresis. acei started by cardiology. watch Cr Cr higher, will decrease acei DM - Basal bolus insulin/sliding scale PVD- Aspirin and statin MDR PSAR bacteriuria--tobra as per ID BP controlled anticipate dc in AM once CM able to confirm woundvac for B&C Subjective 24 Hr Interval Summary Free Text/Dictation Notes reviewed. No further inpatient surgical intervention planned at this time Exam/Review of Systems Vital Signs Vitals Vital Signs Date Time Temp Pulse Resp B/P Pulse Ox O2 Delivery O2 Flow Rate FiO2 02/18/17 07:20 97.6 59 16 135/73 98 02/16/17 22:21 Room Air Intake and Output 02/17/17 02/17/17 02/18/17 15:00 23:00 07:00 Intake Total 100 ml 1380 ml 900 ml Output Total 600 ml 650 ml Balance 100 ml 780 ml 250 ml Exam sleeping resp nonlabored no gross abd distension no edema LEs wrapped Results Result Diagram: 02/17/17 0430 02/18/17 0430 Results 24 hrs Laboratory Tests Test 02/17/17 15:52 02/17/17 17:05 02/17/17 20:57 02/18/17 04:30 Tobramycin Level Trough 4.0 *H Bedside Glucose 138 136 Sodium Level 134 L Potassium Level 4.9 Chloride Level 99 Carbon Dioxide Level 25 Anion Gap 15 Blood Urea Nitrogen 51 H Creatinine 2.50 H Glucose Level 96 Calcium Level 8.0 L Test 02/18/17 08:10 02/18/17 08:19 02/18/17 11:53 Urine Random Creatinine 37.15 Urine Random Sodium 14 L Urine Protein/Creatinine Ratio 0.99 Urine Total Protein 37.0 H Bedside Glucose 103 84 Medications Medications Current Medications Ondansetron HCl (Zofran Inj) 4 mg Q6H PRN IV NAUSEA AND/OR VOMITING; Start 01/24/17 at 19:00 Zolpidem Tartrate (Ambien) 5 mg QHS PRN PO SLEEP Last administered on 21:17; Admin Dose 5 MG; Start 01/24/17 at 19:00 Heparin Sodium (Porcine) (Heparin (5000 Units/0.5 ml)) 5,000 unit Q12 SC Last administered on 02/18/17 08:39; Admin Dose 5,000 UNIT; Start 01/24/17 at 21:00 Diagnostic Test (Pha) (Accu-Chek) 1 ea 02 XX ; Start 01/25/17 at 02:00 Miscellaneous Information 1 ea NOTE XX ; Start 01/24/17 at 19:00 Glucose (Glutose) 15 gm Q15M PRN PO DECREASED GLUCOSE; Start 01/24/17 at 19:00 Glucose (Glutose) 22.5 gm Q15M PRN PO DECREASED GLUCOSE; Start 01/24/17 at 19: 00 Dextrose (D50w Syringe) 25 ml Q15M PRN IV DECREASED GLUCOSE; Start 01/24/17 at 19:00 Dextrose (D50w Syringe) 50 ml Q15M PRN IV DECREASED GLUCOSE; Start 01/24/17 at 19:00 Glucagon (Glucagen) 1 mg Q15M PRN IM DECREASED GLUCOSE; Start 01/24/17 at 19:00 Glucose (Glutose) 15 gm Q15M PRN BUCCAL DECREASED GLUCOSE; Start 01/24/17 at 19 :00 Metoprolol Tartrate (Lopressor) 25 mg BID PO Last administered on 02/17/17 21: 06; Admin Dose 25 MG; Start 01/27/17 at 21:00 Atorvastatin Calcium (Lipitor) 20 mg HS PO Last administered on 02/17/17 21:06 ; Admin Dose 20 MG; Start 02/01/17 at 21:00 Oxycodone/ Acetaminophen (Percocet (5/ 325)) 2 tab Q6H PRN PO PAIN SCALE 5-7 Last administered on 02/17/17 21:19; Admin Dose 2 TAB; Start 02/04/17 at 10:30 Hydralazine HCl (Apresoline) 100 mg TID PO Last administered on 02/18/17 09:04 ; Admin Dose 100 MG; Start 02/06/17 at 21:00 Insulin Glargine (Lantus) 15 unit QHS SC Last administered on 02/17/17 21:03; Admin Dose 15 UNIT; Start 02/08/17 at 21:00 Senna (Senokot) 1 tab BID PO Last administered on 02/17/17 21:05; Admin Dose 1 TAB; Start 02/12/17 at 09:00 Docusate Sodium (Colace) 100 mg BID PO Last administered on 02/17/17 21:05; Admin Dose 100 MG; Start 02/12/17 at 09:00 Lactulose (Enulose) 20 gm Q6H PRN PO CONSTIPATION Last administered on 00:17; Admin Dose 20 GM; Start 02/12/17 at 07:00 Terbinafine HCl (Lamisil) 250 mg BID PO Last administered on 02/18/17 09:05; Admin Dose 250 MG; Start 02/12/17 at 14:00; Stop 02/19/17 at 13:59 Lisinopril (Zestril) 5 mg BID PO Last administered on 02/18/17 09:06; Admin Dose 5 MG; Start 02/13/17 at 21:00 Tamsulosin HCl (Flomax) 0.4 mg HS PO Last administered on 02/17/17 21:06; Admin Dose 0.4 MG; Start 02/13/17 at 21:00 Tobramycin (Tobramycin Iv Per Pharmacy) PER PHARMACY DOSING NOTE XX ; Start at 16:00; Status Future Hold Doxycycline Hyclate (Vibramycin) 100 mg BID PO Last administered on 02/18/17 09:06; Admin Dose 100 MG; Start 02/15/17 at 21:00 Gabapentin (Neurontin) 300 mg TID PO Last administered on 02/18/17 12:20; Admin Dose 300 MG; Start 02/16/17 at 09:00 Trazodone HCl 50 mg 50 mg HS PO Last administered on 02/17/17 21:05; Admin Dose 50 MG; Start 02/16/17 at 21:00 Acetaminophen (Ofirmev 1000mg/ 100ml Iv) 100 ml @ 400 mls/hr Q6 IVPB Last administered on 02/18/17 12:19; Admin Dose 400 MLS/HR; Start 02/16/17 at 12:00 Morphine Sulfate (morphine) 3 mg Q4H PRN IV PAIN 7-01/25 Last administered on 02/16/17 20:16; Admin Dose 3 MG; Start 02/16/17 at 08:00 Methadone HCl (Methadone Liq) 3 mg Q6 PO Last administered on 02/18/17 12:20; Admin Dose 3 MG; Start 02/16/17 at 08:00 RAJANI BAXTER MD Feb 18, 2017 13:52
--- NOTE | 2017-02-18 14:14 | CONS ---
Date/Time of Note Date/Time of Note DATE: 02/18/17 TIME: 14:13 Consult Date/Type/Reason Admit Date/Time Jan 24, 2017 at 15:33 Initial Consult Date 02/01/17 Type of Consultation: ID Ordering Provider: SELINA BANIS Objective Vital Signs Date Time Temp Pulse Resp B/P Pulse Ox O2 Delivery O2 Flow Rate FiO2 02/18/17 07:20 97.6 59 16 135/73 98 02/16/17 22:21 Room Air Intake and Output 02/17/17 02/17/17 02/18/17 15:00 23:00 07:00 Intake Total 100 ml 1380 ml 900 ml Output Total 600 ml 650 ml Balance 100 ml 780 ml 250 ml Results/Medications Result Diagram: 02/17/17 0430 02/18/17 0430 Results 24 hrs Laboratory Tests Test 02/17/17 15:52 02/17/17 17:05 02/17/17 20:57 02/18/17 04:30 Tobramycin Level Trough 4.0 *H Bedside Glucose 138 136 Sodium Level 134 L Potassium Level 4.9 Chloride Level 99 Carbon Dioxide Level 25 Anion Gap 15 Blood Urea Nitrogen 51 H Creatinine 2.50 H Glucose Level 96 Calcium Level 8.0 L Test 02/18/17 08:10 02/18/17 08:19 02/18/17 11:53 Urine Random Creatinine 37.15 Urine Random Sodium 14 L Urine Protein/Creatinine Ratio 0.99 Urine Total Protein 37.0 H Bedside Glucose 103 84 Medications Current Medications Ondansetron HCl (Zofran Inj) 4 mg Q6H PRN IV NAUSEA AND/OR VOMITING; Start 01/24/17 at 19:00 Zolpidem Tartrate (Ambien) 5 mg QHS PRN PO SLEEP Last administered on 21:17; Admin Dose 5 MG; Start 01/24/17 at 19:00 Heparin Sodium (Porcine) (Heparin (5000 Units/0.5 ml)) 5,000 unit Q12 SC Last administered on 02/18/17 08:39; Admin Dose 5,000 UNIT; Start 01/24/17 at 21:00 Diagnostic Test (Pha) (Accu-Chek) 1 ea 02 XX ; Start 01/25/17 at 02:00 Miscellaneous Information 1 ea NOTE XX ; Start 01/24/17 at 19:00 Glucose (Glutose) 15 gm Q15M PRN PO DECREASED GLUCOSE; Start 01/24/17 at 19:00 Glucose (Glutose) 22.5 gm Q15M PRN PO DECREASED GLUCOSE; Start 01/24/17 at 19: 00 Dextrose (D50w Syringe) 25 ml Q15M PRN IV DECREASED GLUCOSE; Start 01/24/17 at 19:00 Dextrose (D50w Syringe) 50 ml Q15M PRN IV DECREASED GLUCOSE; Start 01/24/17 at 19:00 Glucagon (Glucagen) 1 mg Q15M PRN IM DECREASED GLUCOSE; Start 01/24/17 at 19:00 Glucose (Glutose) 15 gm Q15M PRN BUCCAL DECREASED GLUCOSE; Start 01/24/17 at 19 :00 Metoprolol Tartrate (Lopressor) 25 mg BID PO Last administered on 02/17/17 21: 06; Admin Dose 25 MG; Start 01/27/17 at 21:00 Atorvastatin Calcium (Lipitor) 20 mg HS PO Last administered on 02/17/17 21:06 ; Admin Dose 20 MG; Start 02/01/17 at 21:00 Oxycodone/ Acetaminophen (Percocet (5/ 325)) 2 tab Q6H PRN PO PAIN SCALE 5-7 Last administered on 02/17/17 21:19; Admin Dose 2 TAB; Start 02/04/17 at 10:30 Hydralazine HCl (Apresoline) 100 mg TID PO Last administered on 02/18/17 09:04 ; Admin Dose 100 MG; Start 02/06/17 at 21:00 Insulin Glargine (Lantus) 15 unit QHS SC Last administered on 02/17/17 21:03; Admin Dose 15 UNIT; Start 02/08/17 at 21:00 Senna (Senokot) 1 tab BID PO Last administered on 02/17/17 21:05; Admin Dose 1 TAB; Start 02/12/17 at 09:00 Docusate Sodium (Colace) 100 mg BID PO Last administered on 02/17/17 21:05; Admin Dose 100 MG; Start 02/12/17 at 09:00 Lactulose (Enulose) 20 gm Q6H PRN PO CONSTIPATION Last administered on 00:17; Admin Dose 20 GM; Start 02/12/17 at 07:00 Terbinafine HCl (Lamisil) 250 mg BID PO Last administered on 02/18/17 09:05; Admin Dose 250 MG; Start 02/12/17 at 14:00; Stop 02/19/17 at 13:59 Tamsulosin HCl (Flomax) 0.4 mg HS PO Last administered on 02/17/17 21:06; Admin Dose 0.4 MG; Start 02/13/17 at 21:00 Tobramycin (Tobramycin Iv Per Pharmacy) PER PHARMACY DOSING NOTE XX ; Start at 16:00; Status Future Hold Doxycycline Hyclate (Vibramycin) 100 mg BID PO Last administered on 02/18/17 09:06; Admin Dose 100 MG; Start 02/15/17 at 21:00 Gabapentin (Neurontin) 300 mg TID PO Last administered on 02/18/17 12:20; Admin Dose 300 MG; Start 02/16/17 at 09:00 Trazodone HCl 50 mg 50 mg HS PO Last administered on 02/17/17 21:05; Admin Dose 50 MG; Start 02/16/17 at 21:00 Acetaminophen (Ofirmev 1000mg/ 100ml Iv) 100 ml @ 400 mls/hr Q6 IVPB Last administered on 02/18/17 12:19; Admin Dose 400 MLS/HR; Start 02/16/17 at 12:00 Morphine Sulfate (morphine) 3 mg Q4H PRN IV PAIN 7-1010 Last administered on 02/16/17 20:16; Admin Dose 3 MG; Start 02/16/17 at 08:00 Methadone HCl (Methadone Liq) 3 mg Q6 PO Last administered on 02/18/17 12:20; Admin Dose 3 MG; Start 02/16/17 at 08:00 Lisinopril (Zestril) 2.5 mg DAILY PO ; Start 02/19/17 at 09:00 Assessment/Plan Chief Complaint/Hosp Course SUBJECTIVE: No acute changes overnight, sleeping, looks comfortable, afebrile MICROBIOLOGY: Urine cx + PSA ANTIMICROBIALS: Doxycycline, s/p Tobramycin. PHYSICAL EXAMINATION: GENERAL: This is a well-developed, well-nourished elderly man who looks older than his age. The patient is in no distress. HEENT: Head atraumatic, normocephalic. Sclerae anicteric. Buccal mucosa dry. NECK: Supple. CHEST: Rise symmetrical. Breath sounds diminished to bases. HEART: S1, S2. ABDOMEN: Soft, bowel tones present. EXTREMITIES: With bilateral lower extremity dressings intact. Left lower extremity to wound VAC. ASSESSMENT: 1. Systemic inflammatory response syndrome with persistent leukocytosis. 2. 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 3. Diabetes. 4. Peripheral vascular disease. 5. MDR UTI 6. A/CKD PLAN: Remains unchanged, with worsening renal f-n, Tobramycin dc'd, will repeat urine cx, continue Doxycycline, wound care per vascular surgery rec-s. DW staff Problems: DENITA COKER NP Feb 18, 2017 14:14
[2017-02-18 14:16] VITALS: BP 127/67; RESP 16
[2017-02-18] MEDS: COLLAGENASE 30 GM TUBE TOP SCH (15:30)
[2017-02-18 20:55] VITALS: BP 139/73; RESP 18
[2017-02-18] MEDS: ATORVASTATIN 20 MG TAB PO SCH (21:46)
[2017-02-18] MEDS: traZODone 50 MG TAB PO SCH (21:46)
[2017-02-18] MEDS: TAMSULOSIN (SR) 0.4 MG CAP PO SCH (21:47)
[2017-02-18] MEDS: INSULIN GLARGINE [LANtus] 3 ML PEN SC SCH (21:56)
[2017-02-19] MEDS: ACETAMINOPHEN 1000MG/100ML IV 100 ML IVPB SCH ×2 (00:01→05:41)
[2017-02-19] MEDS: METHADONE (1 MG/ML 5 ML PO UD SYG) PO SCH ×3 (00:13→12:39)
[2017-02-19] MEDS: ACCU-CHEK XX SCH (02:00)
[2017-02-19 02:09] VITALS: BP 143/70; RESP 19
[2017-02-19 07:49] VITALS: BP 149/76; RESP 17
[2017-02-19] MEDS: INSULIN ASPART [NOVOLOG] 3 ML PEN SC SCH ×4 (08:00→12:39)
[2017-02-19] MEDS: TERBINAFINE 250 MG TAB PO SCH (08:22)
[2017-02-19] MEDS: SENNA TAB PO SCH (08:22)
[2017-02-19] MEDS: GABAPENTIN 300 MG CAP PO SCH ×2 (08:22→12:37)
[2017-02-19] MEDS: DOXYCYCLINE 100 MG TAB PO SCH (08:22)
[2017-02-19] MEDS: DOCUSATE SODIUM 100 MG CAP PO SCH (08:22)
[2017-02-19] MEDS: METOPROLOL 25 MG TAB PO SCH (08:23)
[2017-02-19] MEDS: HEPARIN 5,000 UNIT/0.5 ML VIAL SC SCH (08:25)
[2017-02-19] MEDS ORDERED: LISINOPRIL 5 MG TAB PO SCH (09:00)
[2017-02-19] MEDS: COLLAGENASE 30 GM TUBE TOP SCH (09:00)
[2017-02-19] MEDS: OXYCODONE/ACETAMINOPHEN (5/325) TAB PO PRN (10:46)
--- NOTE | 2017-02-19 11:57 | DS ---
Date/Time of Note Date/Time of Note DATE: 02/19/17 TIME: 11:54 Discharge Summary Admission/Discharge Info Admit Date/Time Jan 24, 2017 at 15:33 Discharge Date/Time Discharge Diagnosis Bilateral lower extremity atherosclerosis and gangrene, peripheral vascular disease, onychomycosis, chronic pain, DM2, acute on chronic renal insufficiency , hypertension, hyperlipidemia Patient Condition: Stable Consults vascular surgery, infectious disease, nephrology, cardiology, palliative care Procedures 10.11 TTE Conclusions 1. Lower limits of normal systolic function. Mild concentric left ventricular hypertrophy. Mild left ventricular systolic dysfunction. Ejection fraction is visually estimated at 50 %. Abnormal Diastolic Function. These segments of the LV are hypokinetic apex. 2. There is moderate enlargement of left atrium. 3. Mild mitral leaflet calcification. Mild mitral annular calcification. Moderate to severe mitral valve regurgitation. 4. Aortic sclerosis without stenosis. Mild aortic valve regurgitation. 5. Normal appearance of the tricuspid valve. Estimated peak PA systolic pressure 72 mmHg. There is mild to moderate tricuspid regurgitation. 6. Pulmonic valve not well visualized. There is mild to moderate pulmonic regurgitation. SURGICAL PROCEDURES 10.11 1. Excisional sharp debridement of the left lower extremity involving skin, subcutaneous tissue, muscle, ligament, and tendon. Wound measuring 40 x 28 x 1cm cm in the greatest dimensions. 2. Application of 3 grams of xenograft MicroMatrix powder over the area of the right lower leg. 3. Application of one [id number] two layer xenograft sheets measuring 4. Application of one 7x10cm two layer xenograft sheets measuring 10.19 1. Left below knee amputation. 2. Rotational flap formation of myocutaneous layer. 10.23 1. Excisional sharp debridement of the right lower extremity involving skin, subcutaneous tissue, muscle, ligament, and tendon. Wound measuring 35 x 30 x 0.5cm cm in the greatest dimensions. 2. Application of 2 grams of xenograft MicroMatrix powder over the area of the right lower leg. 3. Application of one [id number] one layer xenograft sheet 4. Application of one 7x10cm one layer xenograft sheet 11.1 1. Excisional sharp debridement of the right lower extremity involving skin, subcutaneous tissue, muscle, ligament, and tendon. Wound measuring 35 x 30 x 0.5cm cm in the greatest dimensions. 2. Application of 1 gram of xenograft MicroMatrix powder over the area of the right lower leg. 3. Application of one [id number] two layer xenograft sheet Hx of Present Illness Patient is a 66-year-old diabetic male with history of chronic ulcers to bilateral legs who presents with 2 weeks of increased pain to bilateral legs. He describes chronic drainage from the wounds. He has been followed by Dr. Carolina, who saw the patient in clinic today and sent him to the ER for admission for skin graft. The patient has had 2 prior surgeries for skin grafts. Patient denies history of CHF or cirrhosis. Hospital Course 66 yo M with CKD, DMII, venous stasis, PVD admitted for nonhealing foot ulcers and lymphedema. 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 Pt underwent debridement followed by BKA of LLE with wound vac placement and multiple debridement of RLE. Attempts were made to optimize vascular disease risk factors by starting pt on asa, statin, BP meds, and insulin for his DM2. Pt with acute on chronic renal insufficiency, thought to be 2/2 acei initiation v tobramycin given for bacteriuria v other. Pt discharged with PO doxy per ID rec. Pt will be follow by vascular surgery in the wound care clinic. Pt should be seen by new PCP in 7 days for ChemP and BP check. copy of dc summary included in boarding care transfer packet and personally faxed to new PCP Follow-up Plan APC/wound care/vascular surgeon within 10 days PCP within 7 days for BP check and chemistry profile and consideration for referral to automobile painter Primary Care Provider Dr Sean Casillas [id number] [place] [address] Fax Number Pending Labs Laboratory Tests Test 02/18/17 17:07 02/18/17 21:55 02/19/17 04:12 02/19/17 06:00 Bedside Glucose 119mg/dL (70-220) 122mg/dL (70-220) Sodium Level 133mmol/L (135-144) Potassium Level 5.0mmol/L (3.5-5.1) Chloride Level 100mmol/L (97-110) Carbon Dioxide Level 25mmol/L (21-31) Anion Gap 13 (8-16) Blood Urea Nitrogen 61mg/dl (7-20) Creatinine 2.58mg/dl (0.61-1.24) Glucose Level 102mg/dl (70-220) Calcium Level 8.5mg/dl (8.4-10.2) Urine Color YELLOW (YELLOW) Urine Clarity CLEAR (CLEAR) Urine pH 6.0 (5.0-9.0) Urine Specific [place] 1.008 (1.003-1.030) Urine Ketones NEGATIVEmg/dL (NEGATIVE) Urine Nitrite NEGATIVEmg/dL (NEGATIVE) Urine Bilirubin NEGATIVEmg/dL (NEGATIVE) Urine Urobilinogen NEGATIVEmg/dL (NEGATIVE) Urine Leukocyte Esterase 1+Dolores/ul (NEGATIVE) Urine Microscopic RBC 10/HPF (0-5) Urine Microscopic WBC 9/HPF (0-5) Urine Hemoglobin NEGATIVEmg/dL (NEGATIVE) Urine Glucose NEGATIVEmg/dL (NEGATIVE) Urine Total Protein NEGATIVEmg/dl (NEGATIVE) Test 02/19/17 08:19 Bedside Glucose 132mg/dL (70-220) Copies To: CC: ASHLEY CAROLINA MD, ELLEN MD Feb 19, 2017 11:57
--- NOTE | 2017-02-19 11:57 | DS ---
Date/Time of Note Date/Time of Note DATE: 02/19/17 TIME: 11:54 Discharge Summary Admission/Discharge Info Admit Date/Time Jan 24, 2017 at 15:33 Discharge Date/Time Discharge Diagnosis Bilateral lower extremity atherosclerosis and gangrene, peripheral vascular disease, onychomycosis, chronic pain, DM2, acute on chronic renal insufficiency , hypertension, hyperlipidemia Patient Condition: Stable Consults vascular surgery, infectious disease, nephrology, cardiology, palliative care Procedures 10.11 TTE Conclusions 1. Lower limits of normal systolic function. Mild concentric left ventricular hypertrophy. Mild left ventricular systolic dysfunction. Ejection fraction is visually estimated at 50 %. Abnormal Diastolic Function. These segments of the LV are hypokinetic apex. 2. There is moderate enlargement of left atrium. 3. Mild mitral leaflet calcification. Mild mitral annular calcification. Moderate to severe mitral valve regurgitation. 4. Aortic sclerosis without stenosis. Mild aortic valve regurgitation. 5. Normal appearance of the tricuspid valve. Estimated peak PA systolic pressure 72 mmHg. There is mild to moderate tricuspid regurgitation. 6. Pulmonic valve not well visualized. There is mild to moderate pulmonic regurgitation. SURGICAL PROCEDURES 10.11 1. Excisional sharp debridement of the left lower extremity involving skin, subcutaneous tissue, muscle, ligament, and tendon. Wound measuring 40 x 28 x 1cm cm in the greatest dimensions. 2. Application of 3 grams of xenograft MicroMatrix powder over the area of the right lower leg. 3. Application of one [id number] two layer xenograft sheets measuring 4. Application of one 7x10cm two layer xenograft sheets measuring 10.19 1. Left below knee amputation. 2. Rotational flap formation of myocutaneous layer. 10.23 1. Excisional sharp debridement of the right lower extremity involving skin, subcutaneous tissue, muscle, ligament, and tendon. Wound measuring 35 x 30 x 0.5cm cm in the greatest dimensions. 2. Application of 2 grams of xenograft MicroMatrix powder over the area of the right lower leg. 3. Application of one [id number] one layer xenograft sheet 4. Application of one 7x10cm one layer xenograft sheet 11.1 1. Excisional sharp debridement of the right lower extremity involving skin, subcutaneous tissue, muscle, ligament, and tendon. Wound measuring 35 x 30 x 0.5cm cm in the greatest dimensions. 2. Application of 1 gram of xenograft MicroMatrix powder over the area of the right lower leg. 3. Application of one [id number] two layer xenograft sheet Hx of Present Illness Patient is a 66-year-old diabetic male with history of chronic ulcers to bilateral legs who presents with 2 weeks of increased pain to bilateral legs. He describes chronic drainage from the wounds. He has been followed by Dr. Carolina, who saw the patient in clinic today and sent him to the ER for admission for skin graft. The patient has had 2 prior surgeries for skin grafts. Patient denies history of CHF or cirrhosis. Hospital Course 66 yo M with CKD, DMII, venous stasis, PVD admitted for nonhealing foot ulcers and lymphedema. 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 Pt underwent debridement followed by BKA of LLE with wound vac placement and multiple debridement of RLE. Attempts were made to optimize vascular disease risk factors by starting pt on asa, statin, BP meds, and insulin for his DM2. Pt with acute on chronic renal insufficiency, thought to be 2/2 acei initiation v tobramycin given for bacteriuria v other. Pt discharged with PO doxy per ID rec. Pt will be follow by vascular surgery in the wound care clinic. Pt should be seen by new PCP in 7 days for ChemP and BP check. copy of dc summary included in boarding care transfer packet and personally faxed to new PCP Follow-up Plan APC/wound care/vascular surgeon within 10 days PCP within 7 days for BP check and chemistry profile and consideration for referral to monotyper Primary Care Provider Dr Sean Casillas [id number] [place] [address] Fax Number Pending Labs Laboratory Tests Test 02/18/17 17:07 02/18/17 21:55 02/19/17 04:12 02/19/17 06:00 Bedside Glucose 119mg/dL (70-220) 122mg/dL (70-220) Sodium Level 133mmol/L (135-144) Potassium Level 5.0mmol/L (3.5-5.1) Chloride Level 100mmol/L (97-110) Carbon Dioxide Level 25mmol/L (21-31) Anion Gap 13 (8-16) Blood Urea Nitrogen 61mg/dl (7-20) Creatinine 2.58mg/dl (0.61-1.24) Glucose Level 102mg/dl (70-220) Calcium Level 8.5mg/dl (8.4-10.2) Urine Color YELLOW (YELLOW) Urine Clarity CLEAR (CLEAR) Urine pH 6.0 (5.0-9.0) Urine Specific [place] 1.008 (1.003-1.030) Urine Ketones NEGATIVEmg/dL (NEGATIVE) Urine Nitrite NEGATIVEmg/dL (NEGATIVE) Urine Bilirubin NEGATIVEmg/dL (NEGATIVE) Urine Urobilinogen NEGATIVEmg/dL (NEGATIVE) Urine Leukocyte Esterase 1+Dolores/ul (NEGATIVE) Urine Microscopic RBC 10/HPF (0-5) Urine Microscopic WBC 9/HPF (0-5) Urine Hemoglobin NEGATIVEmg/dL (NEGATIVE) Urine Glucose NEGATIVEmg/dL (NEGATIVE) Urine Total Protein NEGATIVEmg/dl (NEGATIVE) Test 02/19/17 08:19 Bedside Glucose 132mg/dL (70-220) Copies To: CC: ASHLEY CAROLINA MD, ELLEN MD Feb 19, 2017 11:57
--- NOTE | 2017-02-19 11:57 | DS ---
Date/Time of Note Date/Time of Note DATE: 02/19/17 TIME: 11:54 Discharge Summary Admission/Discharge Info Admit Date/Time Jan 24, 2017 at 15:33 Discharge Date/Time Discharge Diagnosis Bilateral lower extremity atherosclerosis and gangrene, peripheral vascular disease, onychomycosis, chronic pain, DM2, acute on chronic renal insufficiency , hypertension, hyperlipidemia Patient Condition: Stable Consults vascular surgery, infectious disease, nephrology, cardiology, palliative care Procedures 10.11 TTE Conclusions 1. Lower limits of normal systolic function. Mild concentric left ventricular hypertrophy. Mild left ventricular systolic dysfunction. Ejection fraction is visually estimated at 50 %. Abnormal Diastolic Function. These segments of the LV are hypokinetic apex. 2. There is moderate enlargement of left atrium. 3. Mild mitral leaflet calcification. Mild mitral annular calcification. Moderate to severe mitral valve regurgitation. 4. Aortic sclerosis without stenosis. Mild aortic valve regurgitation. 5. Normal appearance of the tricuspid valve. Estimated peak PA systolic pressure 72 mmHg. There is mild to moderate tricuspid regurgitation. 6. Pulmonic valve not well visualized. There is mild to moderate pulmonic regurgitation. SURGICAL PROCEDURES 10.11 1. Excisional sharp debridement of the left lower extremity involving skin, subcutaneous tissue, muscle, ligament, and tendon. Wound measuring 40 x 28 x 1cm cm in the greatest dimensions. 2. Application of 3 grams of xenograft MicroMatrix powder over the area of the right lower leg. 3. Application of one [id number] two layer xenograft sheets measuring 4. Application of one 7x10cm two layer xenograft sheets measuring 10.19 1. Left below knee amputation. 2. Rotational flap formation of myocutaneous layer. 10.23 1. Excisional sharp debridement of the right lower extremity involving skin, subcutaneous tissue, muscle, ligament, and tendon. Wound measuring 35 x 30 x 0.5cm cm in the greatest dimensions. 2. Application of 2 grams of xenograft MicroMatrix powder over the area of the right lower leg. 3. Application of one [id number] one layer xenograft sheet 4. Application of one 7x10cm one layer xenograft sheet 11.1 1. Excisional sharp debridement of the right lower extremity involving skin, subcutaneous tissue, muscle, ligament, and tendon. Wound measuring 35 x 30 x 0.5cm cm in the greatest dimensions. 2. Application of 1 gram of xenograft MicroMatrix powder over the area of the right lower leg. 3. Application of one [id number] two layer xenograft sheet Hx of Present Illness Patient is a 66-year-old diabetic male with history of chronic ulcers to bilateral legs who presents with 2 weeks of increased pain to bilateral legs. He describes chronic drainage from the wounds. He has been followed by Dr. Carolina, who saw the patient in clinic today and sent him to the ER for admission for skin graft. The patient has had 2 prior surgeries for skin grafts. Patient denies history of CHF or cirrhosis. Hospital Course 66 yo M with CKD, DMII, venous stasis, PVD admitted for nonhealing foot ulcers and lymphedema. 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 Pt underwent debridement followed by BKA of LLE with wound vac placement and multiple debridement of RLE. Attempts were made to optimize vascular disease risk factors by starting pt on asa, statin, BP meds, and insulin for his DM2. Pt with acute on chronic renal insufficiency, thought to be 2/2 acei initiation v tobramycin given for bacteriuria v other. Pt discharged with PO doxy per ID rec. Pt will be follow by vascular surgery in the wound care clinic. Pt should be seen by new PCP in 7 days for ChemP and BP check. copy of dc summary included in boarding care transfer packet and personally faxed to new PCP Follow-up Plan APC/wound care/vascular surgeon within 10 days PCP within 7 days for BP check and chemistry profile and consideration for referral to apron operator Primary Care Provider Dr Sean Casillas [id number] [place] [address] Fax Number Pending Labs Laboratory Tests Test 02/18/17 17:07 02/18/17 21:55 02/19/17 04:12 02/19/17 06:00 Bedside Glucose 119mg/dL (70-220) 122mg/dL (70-220) Sodium Level 133mmol/L (135-144) Potassium Level 5.0mmol/L (3.5-5.1) Chloride Level 100mmol/L (97-110) Carbon Dioxide Level 25mmol/L (21-31) Anion Gap 13 (8-16) Blood Urea Nitrogen 61mg/dl (7-20) Creatinine 2.58mg/dl (0.61-1.24) Glucose Level 102mg/dl (70-220) Calcium Level 8.5mg/dl (8.4-10.2) Urine Color YELLOW (YELLOW) Urine Clarity CLEAR (CLEAR) Urine pH 6.0 (5.0-9.0) Urine Specific [place] 1.008 (1.003-1.030) Urine Ketones NEGATIVEmg/dL (NEGATIVE) Urine Nitrite NEGATIVEmg/dL (NEGATIVE) Urine Bilirubin NEGATIVEmg/dL (NEGATIVE) Urine Urobilinogen NEGATIVEmg/dL (NEGATIVE) Urine Leukocyte Esterase 1+Dolores/ul (NEGATIVE) Urine Microscopic RBC 10/HPF (0-5) Urine Microscopic WBC 9/HPF (0-5) Urine Hemoglobin NEGATIVEmg/dL (NEGATIVE) Urine Glucose NEGATIVEmg/dL (NEGATIVE) Urine Total Protein NEGATIVEmg/dl (NEGATIVE) Test 02/19/17 08:19 Bedside Glucose 132mg/dL (70-220) Copies To: CC: ASHLEY CAROLINA MD, ELLEN MD Feb 19, 2017 11:57
--- NOTE | 2017-02-19 12:13 | PDOCDIS ---
Discharge Instructions DIAGNOSIS Discharge Diagnosis Bilateral lower extremity atherosclerosis and gangrene, peripheral vascular disease, onychomycosis, chronic pain, DM2, acute on chronic renal insufficiency , hypertension, hyperlipidemia CONDITION Patient Condition: Stable HOME CARE INSTRUCTIONS: Special Diet: CCHO FOLLOW UP/APPOINTMENTS Follow-up Plan APC/wound care/vascular surgeon within 10 days Contact info phone # [phone] address: [address] [address] PCP within 7 days for BP check and chemistry profile and consideration for referral to wet chemistry analyst contact info Dr Sean Casillas [address] [place] [address] Fax Number RAJANI BAXTER MD Feb 19, 2017 12:13
--- NOTE | 2017-02-19 12:13 | PDOCDIS ---
Discharge Instructions DIAGNOSIS Discharge Diagnosis Bilateral lower extremity atherosclerosis and gangrene, peripheral vascular disease, onychomycosis, chronic pain, DM2, acute on chronic renal insufficiency , hypertension, hyperlipidemia CONDITION Patient Condition: Stable HOME CARE INSTRUCTIONS: Special Diet: CCHO FOLLOW UP/APPOINTMENTS Follow-up Plan APC/wound care/vascular surgeon within 10 days Contact info phone # [phone] address: [address] [address] PCP within 7 days for BP check and chemistry profile and consideration for referral to rn radiation contact info Dr Sean Casillas [address] [place] [address] Fax Number RAJANI BAXTER MD Feb 19, 2017 12:13
--- NOTE | 2017-02-19 12:13 | PDOCDIS ---
Discharge Instructions DIAGNOSIS Discharge Diagnosis Bilateral lower extremity atherosclerosis and gangrene, peripheral vascular disease, onychomycosis, chronic pain, DM2, acute on chronic renal insufficiency , hypertension, hyperlipidemia CONDITION Patient Condition: Stable HOME CARE INSTRUCTIONS: Special Diet: CCHO FOLLOW UP/APPOINTMENTS Follow-up Plan APC/wound care/vascular surgeon within 10 days Contact info phone # [phone] address: [address] [address] PCP within 7 days for BP check and chemistry profile and consideration for referral to car top bolter contact info Dr Sean Casillas [id number] [place] [address] Fax Number RAJAIN BAXTER MD Feb 19, 2017 12:13
--- NOTE | 2017-02-19 12:37 | CONS ---
Date/Time of Note Date/Time of Note DATE: 02/19/17 TIME: 12:36 Assessment/Plan Assessment/Plan Chief Complaint/Hosp Course 1. Mild GAIL with hyponatremia 2. chronic right lower extremity lymphedema and cellulitis. 3. CHF, diastolic 4. hypertension, controlled 5. Anemia chronic disease. 6. DM type II, controlled 7. Abnormal LFT 8. Skin wounds 9. Hypoalbuminemia. 10. s/p left BKA Problems: Additional Assessment/Plan 1. Optimization of kidney function 2. Hyponatremia is same 3. BUN and Cr is worse Consultation Date/Type/Reason Admit Date/Time Jan 24, 2017 at 15:33 Initial Consult Date 01/27/2017 Type of Consultation: nephro Reason for Consultation Dr Jackson Referring Provider: SELINA BAINS Exam/Review of Systems Vital Signs Vitals Vital Signs Date Time Temp Pulse Resp B/P Pulse Ox O2 Delivery O2 Flow Rate FiO2 02/19/17 07:49 98.3 68 17 149/76 94 02/16/17 22:21 Room Air Intake and Output 02/18/17 02/18/17 02/19/17 15:00 23:00 07:00 Intake Total 450 ml 840 ml 600 ml Output Total 550 ml 300 ml Balance 450 ml 290 ml 300 ml Exam Constitutional: alert, oriented Respiratory: diminished breath sounds Cardiovascular: regular rate and rhythm Musculoskeletal: swelling Results Result Diagram: 02/17/17 0430 02/19/17 0412 Results 24 hrs Laboratory Tests Test 02/18/17 17:07 02/18/17 21:55 02/19/17 04:12 02/19/17 06:00 Bedside Glucose 119 122 Sodium Level 133 L Potassium Level 5.0 Chloride Level 100 Carbon Dioxide Level 25 Anion Gap 13 Blood Urea Nitrogen 61 H Creatinine 2.58 H Glucose Level 102 Calcium Level 8.5 Urine Color YELLOW Urine Clarity CLEAR Urine pH 6.0 Urine Specific [place] 1.008 Urine Ketones NEGATIVE Urine Nitrite NEGATIVE Urine Bilirubin NEGATIVE Urine Urobilinogen NEGATIVE Urine Leukocyte Esterase 1+ H Urine Microscopic RBC 10 H Urine Microscopic WBC 9 H Urine Hemoglobin NEGATIVE Urine Glucose NEGATIVE Urine Total Protein NEGATIVE Test 02/19/17 08:19 02/19/17 12:17 Bedside Glucose 132 126 Medications Medications Current Medications Ondansetron HCl (Zofran Inj) 4 mg Q6H PRN IV NAUSEA AND/OR VOMITING; Start 01/24/17 at 19:00 Zolpidem Tartrate (Ambien) 5 mg QHS PRN PO SLEEP Last administered on 21:17; Admin Dose 5 MG; Start 01/24/17 at 19:00 Heparin Sodium (Porcine) (Heparin (5000 Units/0.5 ml)) 5,000 unit Q12 SC Last administered on 02/19/17 08:25; Admin Dose 5,000 UNIT; Start 01/24/17 at 21:00 Diagnostic Test (Pha) (Accu-Chek) 1 ea 02 XX ; Start 01/25/17 at 02:00 Miscellaneous Information 1 ea NOTE XX ; Start 01/24/17 at 19:00 Glucose (Glutose) 15 gm Q15M PRN PO DECREASED GLUCOSE; Start 01/24/17 at 19:00 Glucose (Glutose) 22.5 gm Q15M PRN PO DECREASED GLUCOSE; Start 01/24/17 at 19: 00 Dextrose (D50w Syringe) 25 ml Q15M PRN IV DECREASED GLUCOSE; Start 01/24/17 at 19:00 Dextrose (D50w Syringe) 50 ml Q15M PRN IV DECREASED GLUCOSE; Start 01/24/17 at 19:00 Glucagon (Glucagen) 1 mg Q15M PRN IM DECREASED GLUCOSE; Start 01/24/17 at 19:00 Glucose (Glutose) 15 gm Q15M PRN BUCCAL DECREASED GLUCOSE; Start 01/24/17 at 19 :00 Metoprolol Tartrate (Lopressor) 25 mg BID PO Last administered on 02/19/17 08: 23; Admin Dose 25 MG; Start 01/27/17 at 21:00 Atorvastatin Calcium (Lipitor) 20 mg HS PO Last administered on 02/18/17 21:46 ; Admin Dose 20 MG; Start 02/01/17 at 21:00 Oxycodone/ Acetaminophen (Percocet (5/ 325)) 2 tab Q6H PRN PO PAIN SCALE 5-7 Last administered on 02/19/17 10:46; Admin Dose 2 TAB; Start 02/04/17 at 10:30 Hydralazine HCl (Apresoline) 100 mg TID PO Last administered on 02/19/17 08:22 ; Admin Dose 100 MG; Start 02/06/17 at 21:00 Insulin Glargine (Lantus) 15 unit QHS SC Last administered on 02/18/17 21:56; Admin Dose 15 UNIT; Start 02/08/17 at 21:00 Senna (Senokot) 1 tab BID PO Last administered on 02/19/17 08:22; Admin Dose 1 TAB; Start 02/12/17 at 09:00 Docusate Sodium (Colace) 100 mg BID PO Last administered on 02/19/17 08:22; Admin Dose 100 MG; Start 02/12/17 at 09:00 Lactulose (Enulose) 20 gm Q6H PRN PO CONSTIPATION Last administered on 00:17; Admin Dose 20 GM; Start 02/12/17 at 07:00 Terbinafine HCl (Lamisil) 250 mg BID PO Last administered on 02/19/17 08:22; Admin Dose 250 MG; Start 02/12/17 at 14:00; Stop 02/19/17 at 13:59 Tamsulosin HCl (Flomax) 0.4 mg HS PO Last administered on 02/18/17 21:47; Admin Dose 0.4 MG; Start 02/13/17 at 21:00 Tobramycin (Tobramycin Iv Per Pharmacy) PER PHARMACY DOSING NOTE XX ; Start at 16:00; Status Future Hold Doxycycline Hyclate (Vibramycin) 100 mg BID PO Last administered on 02/19/17 08:22; Admin Dose 100 MG; Start 02/15/17 at 21:00 Gabapentin (Neurontin) 300 mg TID PO Last administered on 02/19/17 08:22; Admin Dose 300 MG; Start 02/16/17 at 09:00 Trazodone HCl 50 mg 50 mg HS PO Last administered on 02/18/17 21:46; Admin Dose 50 MG; Start 02/16/17 at 21:00 Acetaminophen (Ofirmev 1000mg/ 100ml Iv) 100 ml @ 400 mls/hr Q6 IVPB Last administered on 02/19/17 00:01; Admin Dose 400 MLS/HR; Start 02/16/17 at 12:00 Morphine Sulfate (morphine) 3 mg Q4H PRN IV PAIN -01/25 Last administered on 02/16/17 20:16; Admin Dose 3 MG; Start 02/16/17 at 08:00 Methadone HCl (Methadone Liq) 3 mg Q6 PO Last administered on 02/19/17 05:38; Admin Dose 3 MG; Start 02/16/17 at 08:00 Lisinopril (Zestril) 2.5 mg DAILY PO Last administered on 02/19/17 08:23; Admin Dose 2.5 MG; Start 02/19/17 at 09:00 Collagenase (Santyl) 1 applic DAILY TOP ; Start 02/18/17 at 15:30 LAINE PERRY Feb 19, 2017 12:37
--- NOTE | 2017-02-19 13:10 | CONS ---
Date/Time of Note Date/Time of Note DATE: 02/19/17 TIME: 13:05 Assessment/Plan Assessment/Plan Additional Assessment/Plan 1. Diastolic Heart Failure 2. Hypertension 3. Anemia. 4. Nonhealing lower extremity ulcerations, s/p debridement on wound vac 5. Diabetes mellitus. 6. Dyslipidemia 7. Renal failure started on Norvasc Stopped Lisinopril Continue Metoprolol and hydralazine Continue Antibiotics Continue Lipitor Continue Insulin Pain management as scheduled Wound care as recommended Consultation Date/Type/Reason Admit Date/Time Jan 24, 2017 at 15:33 Constitutional: no complaints Eyes: no complaints ENT: no complaints Respiratory: no complaints Cardiovascular: no complaints Gastrointestinal: no complaints Genitourinary: no complaints Musculoskeletal: no complaints Skin: skin lesions Neurologic: no complaints Lymphatic: no complaints Psychological: no complaints Immunologic: no complaints Past Medical History Medical History: diabetes, other (Chronic skin ulcers) Social History Alcohol Use: occasionally Smoking Status: Never smoker Exam/Review of Systems Vital Signs Vitals Vital Signs Date Time Temp Pulse Resp B/P Pulse Ox O2 Delivery O2 Flow Rate FiO2 02/19/17 07:49 98.3 68 17 149/76 94 02/16/17 22:21 Room Air Intake and Output 02/18/17 02/18/17 02/19/17 15:00 23:00 07:00 Intake Total 450 ml 840 ml 600 ml Output Total 550 ml 300 ml Balance 450 ml 290 ml 300 ml Exam Constitutional: alert, oriented Head: atraumatic, normocephalic Respiratory: clear to auscultation Cardiovascular: regular rate and rhythm Gastrointestinal: nl liver, spleen, non-tender, soft Extremities: other (left BKA on wound vac) Results Result Diagram: 02/17/17 0430 02/19/17 0412 Results 24 hrs Laboratory Tests Test 02/18/17 17:07 02/18/17 21:55 02/19/17 04:12 02/19/17 06:00 Bedside Glucose 119 122 Sodium Level 133 L Potassium Level 5.0 Chloride Level 100 Carbon Dioxide Level 25 Anion Gap 13 Blood Urea Nitrogen 61 H Creatinine 2.58 H Glucose Level 102 Calcium Level 8.5 Urine Color YELLOW Urine Clarity CLEAR Urine pH 6.0 Urine Specific [place] 1.008 Urine Ketones NEGATIVE Urine Nitrite NEGATIVE Urine Bilirubin NEGATIVE Urine Urobilinogen NEGATIVE Urine Leukocyte Esterase 1+ H Urine Microscopic RBC 10 H Urine Microscopic WBC 9 H Urine Hemoglobin NEGATIVE Urine Glucose NEGATIVE Urine Total Protein NEGATIVE Test 02/19/17 08:19 02/19/17 12:17 Bedside Glucose 132 126 Medications Medications Current Medications Ondansetron HCl (Zofran Inj) 4 mg Q6H PRN IV NAUSEA AND/OR VOMITING; Start 01/24/17 at 19:00 Zolpidem Tartrate (Ambien) 5 mg QHS PRN PO SLEEP Last administered on 21:17; Admin Dose 5 MG; Start 01/24/17 at 19:00 Heparin Sodium (Porcine) (Heparin (5000 Units/0.5 ml)) 5,000 unit Q12 SC Last administered on 02/19/17 08:25; Admin Dose 5,000 UNIT; Start 01/24/17 at 21:00 Diagnostic Test (Pha) (Accu-Chek) 1 ea 02 XX ; Start 01/25/17 at 02:00 Miscellaneous Information 1 ea NOTE XX ; Start 01/24/17 at 19:00 Glucose (Glutose) 15 gm Q15M PRN PO DECREASED GLUCOSE; Start 01/24/17 at 19:00 Glucose (Glutose) 22.5 gm Q15M PRN PO DECREASED GLUCOSE; Start 01/24/17 at 19: 00 Dextrose (D50w Syringe) 25 ml Q15M PRN IV DECREASED GLUCOSE; Start 01/24/17 at 19:00 Dextrose (D50w Syringe) 50 ml Q15M PRN IV DECREASED GLUCOSE; Start 01/24/17 at 19:00 Glucagon (Glucagen) 1 mg Q15M PRN IM DECREASED GLUCOSE; Start 01/24/17 at 19:00 Glucose (Glutose) 15 gm Q15M PRN BUCCAL DECREASED GLUCOSE; Start 01/24/17 at 19 :00 Metoprolol Tartrate (Lopressor) 25 mg BID PO Last administered on 02/19/17 08: 23; Admin Dose 25 MG; Start 01/27/17 at 21:00 Atorvastatin Calcium (Lipitor) 20 mg HS PO Last administered on 02/18/17 21:46 ; Admin Dose 20 MG; Start 02/01/17 at 21:00 Oxycodone/ Acetaminophen (Percocet (5/ 325)) 2 tab Q6H PRN PO PAIN SCALE 5-7 Last administered on 02/19/17 10:46; Admin Dose 2 TAB; Start 02/04/17 at 10:30 Hydralazine HCl (Apresoline) 100 mg TID PO Last administered on 02/19/17 12:37 ; Admin Dose 100 MG; Start 02/06/17 at 21:00 Insulin Glargine (Lantus) 15 unit QHS SC Last administered on 02/18/17 21:56; Admin Dose 15 UNIT; Start 02/08/17 at 21:00 Senna (Senokot) 1 tab BID PO Last administered on 02/19/17 08:22; Admin Dose 1 TAB; Start 02/12/17 at 09:00 Docusate Sodium (Colace) 100 mg BID PO Last administered on 02/19/17 08:22; Admin Dose 100 MG; Start 02/12/17 at 09:00 Lactulose (Enulose) 20 gm Q6H PRN PO CONSTIPATION Last administered on 00:17; Admin Dose 20 GM; Start 02/12/17 at 07:00 Terbinafine HCl (Lamisil) 250 mg BID PO Last administered on 02/19/17 08:22; Admin Dose 250 MG; Start 02/12/17 at 14:00; Stop 02/19/17 at 13:59 Tamsulosin HCl (Flomax) 0.4 mg HS PO Last administered on 02/18/17 21:47; Admin Dose 0.4 MG; Start 02/13/17 at 21:00 Tobramycin (Tobramycin Iv Per Pharmacy) PER PHARMACY DOSING NOTE XX ; Start at 16:00; Status Future Hold Doxycycline Hyclate (Vibramycin) 100 mg BID PO Last administered on 02/19/17 08:22; Admin Dose 100 MG; Start 02/15/17 at 21:00 Gabapentin (Neurontin) 300 mg TID PO Last administered on 02/19/17 12:37; Admin Dose 300 MG; Start 02/16/17 at 09:00 Trazodone HCl 50 mg 50 mg HS PO Last administered on 02/18/17 21:46; Admin Dose 50 MG; Start 02/16/17 at 21:00 Acetaminophen (Ofirmev 1000mg/ 100ml Iv) 100 ml @ 400 mls/hr Q6 IVPB Last administered on 02/19/17 00:01; Admin Dose 400 MLS/HR; Start 02/16/17 at 12:00 Morphine Sulfate (morphine) 3 mg Q4H PRN IV PAIN 7-01/25 Last administered on 02/16/17 20:16; Admin Dose 3 MG; Start 02/16/17 at 08:00 Methadone HCl (Methadone Liq) 3 mg Q6 PO Last administered on 02/19/17 12:39; Admin Dose 3 MG; Start 02/16/17 at 08:00 Lisinopril (Zestril) 2.5 mg DAILY PO Last administered on 02/19/17 08:23; Admin Dose 2.5 MG; Start 02/19/17 at 09:00 Collagenase (Santyl) 1 applic DAILY TOP ; Start 02/18/17 at 15:30 MERYL BEJARANO M.D. Feb 19, 2017 13:10
[2017-02-19] MEDS ORDERED: AMLODIPINE 10 MG TAB PO SCH (13:30)
[2017-02-19] MEDS ORDERED: TRAZ50TA18 PO (14:00)
[2017-02-19] MEDS ORDERED: DOCU-216 PO (14:00)
[2017-02-19] MEDS ORDERED: SENN-53 PO (14:00)
[2017-02-19] MEDS ORDERED: DOXY100T2 PO (14:00)
[2017-02-19] MEDS ORDERED: ATOR20TA65 PO (14:00)
[2017-02-19] MEDS ORDERED: METO-448 PO (14:00)
[2017-02-19] MEDS ORDERED: LANT3I SC (14:00)
[2017-02-19] MEDS ORDERED: NOVO3I SC (14:00)
[2017-02-19] MEDS ORDERED: HYDR-3672 PO (14:00)
[2017-02-19] MEDS ORDERED: AMLO-147 PO (14:00)
[2017-02-19] MEDS ORDERED: GABA300C16 PO (14:00)
[2017-02-19] MEDS ORDERED: TAMS-14 PO (14:00)
--- NOTE | 2017-02-19 14:13 | CONS ---
Date/Time of Note Date/Time of Note DATE: 02/19/17 TIME: 14:11 Consult Date/Type/Reason Admit Date/Time Jan 24, 2017 at 15:33 Initial Consult Date 02/01/17 Type of Consultation: ID Ordering Provider: SELINA BAINS Objective Vital Signs Date Time Temp Pulse Resp B/P Pulse Ox O2 Delivery O2 Flow Rate FiO2 02/19/17 07:49 98.3 68 17 149/76 94 02/16/17 22:21 Room Air Intake and Output 02/18/17 02/18/17 02/19/17 15:00 23:00 07:00 Intake Total 450 ml 840 ml 600 ml Output Total 550 ml 300 ml Balance 450 ml 290 ml 300 ml Results/Medications Result Diagram: 02/17/17 0430 02/19/17 0412 Results 24 hrs Laboratory Tests Test 02/18/17 17:07 02/18/17 21:55 02/19/17 04:12 02/19/17 06:00 Bedside Glucose 119 122 Sodium Level 133 L Potassium Level 5.0 Chloride Level 100 Carbon Dioxide Level 25 Anion Gap 13 Blood Urea Nitrogen 61 H Creatinine 2.58 H Glucose Level 102 Calcium Level 8.5 Urine Color YELLOW Urine Clarity CLEAR Urine pH 6.0 Urine Specific [place] 1.008 Urine Ketones NEGATIVE Urine Nitrite NEGATIVE Urine Bilirubin NEGATIVE Urine Urobilinogen NEGATIVE Urine Leukocyte Esterase 1+ H Urine Microscopic RBC 10 H Urine Microscopic WBC 9 H Urine Hemoglobin NEGATIVE Urine Glucose NEGATIVE Urine Total Protein NEGATIVE Test 02/19/17 08:19 02/19/17 12:17 Bedside Glucose 132 126 Medications Current Medications Ondansetron HCl (Zofran Inj) 4 mg Q6H PRN IV NAUSEA AND/OR VOMITING; Start 01/24/17 at 19:00 Zolpidem Tartrate (Ambien) 5 mg QHS PRN PO SLEEP Last administered on 21:17; Admin Dose 5 MG; Start 01/24/17 at 19:00 Heparin Sodium (Porcine) (Heparin (5000 Units/0.5 ml)) 5,000 unit Q12 SC Last administered on 02/19/17 08:25; Admin Dose 5,000 UNIT; Start 01/24/17 at 21:00 Diagnostic Test (Pha) (Accu-Chek) 1 ea 02 XX ; Start 01/25/17 at 02:00 Miscellaneous Information 1 ea NOTE XX ; Start 01/24/17 at 19:00 Glucose (Glutose) 15 gm Q15M PRN PO DECREASED GLUCOSE; Start 01/24/17 at 19:00 Glucose (Glutose) 22.5 gm Q15M PRN PO DECREASED GLUCOSE; Start 01/24/17 at 19: 00 Dextrose (D50w Syringe) 25 ml Q15M PRN IV DECREASED GLUCOSE; Start 01/24/17 at 19:00 Dextrose (D50w Syringe) 50 ml Q15M PRN IV DECREASED GLUCOSE; Start 01/24/17 at 19:00 Glucagon (Glucagen) 1 mg Q15M PRN IM DECREASED GLUCOSE; Start 01/24/17 at 19:00 Glucose (Glutose) 15 gm Q15M PRN BUCCAL DECREASED GLUCOSE; Start 01/24/17 at 19 :00 Metoprolol Tartrate (Lopressor) 25 mg BID PO Last administered on 02/19/17 08: 23; Admin Dose 25 MG; Start 01/27/17 at 21:00 Atorvastatin Calcium (Lipitor) 20 mg HS PO Last administered on 02/18/17 21:46 ; Admin Dose 20 MG; Start 02/01/17 at 21:00 Oxycodone/ Acetaminophen (Percocet (5/ 325)) 2 tab Q6H PRN PO PAIN SCALE 5-7 Last administered on 02/19/17 10:46; Admin Dose 2 TAB; Start 02/04/17 at 10:30 Hydralazine HCl (Apresoline) 100 mg TID PO Last administered on 02/19/17 12:37 ; Admin Dose 100 MG; Start 02/06/17 at 21:00 Insulin Glargine (Lantus) 15 unit QHS SC Last administered on 02/18/17 21:56; Admin Dose 15 UNIT; Start 02/08/17 at 21:00 Senna (Senokot) 1 tab BID PO Last administered on 02/19/17 08:22; Admin Dose 1 TAB; Start 02/12/17 at 09:00 Docusate Sodium (Colace) 100 mg BID PO Last administered on 02/19/17 08:22; Admin Dose 100 MG; Start 02/12/17 at 09:00 Lactulose (Enulose) 20 gm Q6H PRN PO CONSTIPATION Last administered on 00:17; Admin Dose 20 GM; Start 02/12/17 at 07:00 Tamsulosin HCl (Flomax) 0.4 mg HS PO Last administered on 02/18/17 21:47; Admin Dose 0.4 MG; Start 02/13/17 at 21:00 Tobramycin (Tobramycin Iv Per Pharmacy) PER PHARMACY DOSING NOTE XX ; Start at 16:00; Status Future Hold Doxycycline Hyclate (Vibramycin) 100 mg BID PO Last administered on 02/19/17 08:22; Admin Dose 100 MG; Start 02/15/17 at 21:00 Gabapentin (Neurontin) 300 mg TID PO Last administered on 02/19/17 12:37; Admin Dose 300 MG; Start 02/16/17 at 09:00 Trazodone HCl 50 mg 50 mg HS PO Last administered on 02/18/17 21:46; Admin Dose 50 MG; Start 02/16/17 at 21:00 Acetaminophen (Ofirmev 1000mg/ 100ml Iv) 100 ml @ 400 mls/hr Q6 IVPB Last administered on 02/19/17 00:01; Admin Dose 400 MLS/HR; Start 02/16/17 at 12:00 Morphine Sulfate (morphine) 3 mg Q4H PRN IV PAIN Last administered on 02/16/17 20:16; Admin Dose 3 MG; Start 02/16/17 at 08:00 Methadone HCl (Methadone Liq) 3 mg Q6 PO Last administered on 02/19/17 12:39; Admin Dose 3 MG; Start 02/16/17 at 08:00 Collagenase (Santyl) 1 applic DAILY TOP ; Start 02/18/17 at 15:30 Amlodipine Besylate (Norvasc) 10 mg DAILY PO ; Start 02/19/17 at 13:30 Assessment/Plan Chief Complaint/Hosp Course SUBJECTIVE: No acute changes overnight, awake, looks comfortable ANTIMICROBIALS: Doxycycline, s/p Tobramycin. PHYSICAL EXAMINATION: GENERAL: This is a well-developed, well-nourished elderly man who looks older than his age. The patient is in no distress. HEENT: Head atraumatic, normocephalic. Sclerae anicteric. Buccal mucosa dry. NECK: Supple. CHEST: Rise symmetrical. Breath sounds diminished to bases. HEART: S1, S2. ABDOMEN: Soft, bowel tones present. EXTREMITIES: With bilateral lower extremity dressings intact. Left lower extremity to wound VAC. ASSESSMENT: 1. Systemic inflammatory response syndrome with persistent leukocytosis. 2. 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 3. Diabetes. 4. Peripheral vascular disease. 5. MDR UTI 6. A/CKD PLAN: Remains unchanged, repeat urine cx neg, will dc isolation, continue present care, wound care per vascular surgery rec-s. DW staff Problems: DENITA COKER NP Feb 19, 2017 14:13
== END 2017-02-19 14:30 | disposition home or self-care (01) | DRG 239 ==
LOC: E/R 12:14 → PP2 15:33
PROVIDERS: ADMIT Internal Medicine; ATTEND Internal Medicine
PROC: 0HRLXK3 Replacement of Left Lower Leg Skin with Nonautologous Tissue Substitute, Full Thickness, External Approach (ICD-10-PCS; 2017-01-26)
PROC: 0YBN0ZZ Excision of Left Foot, Open Approach (ICD-10-PCS; 2017-01-26)
PROC: 0LBP0ZZ Excision of Left Lower Leg Tendon, Open Approach (ICD-10-PCS; 2017-01-26)
PROC: 0Y6J0Z2 Detachment at Left Lower Leg, Mid, Open Approach (ICD-10-PCS; principal; 2017-02-03)
PROC: 0KXT0ZZ Transfer Left Lower Leg Muscle, Open Approach (ICD-10-PCS; 2017-02-03)
PROC: 0HRKXK3 Replacement of Right Lower Leg Skin with Nonautologous Tissue Substitute, Full Thickness, External Approach (ICD-10-PCS; 2017-02-07)
PROC: 0LBN0ZZ Excision of Right Lower Leg Tendon, Open Approach (ICD-10-PCS; 2017-02-07)
PROC: 0HRKXK3 Replacement of Right Lower Leg Skin with Nonautologous Tissue Substitute, Full Thickness, External Approach (ICD-10-PCS; 2017-02-16)
PROC: 0LBN0ZZ Excision of Right Lower Leg Tendon, Open Approach (ICD-10-PCS; 2017-02-16)
DX: E11.52 Type 2 diabetes mellitus with diabetic peripheral angiopathy with gangrene (principal); I50.33 Acute on chronic diastolic (congestive) heart failure; N17.9 Acute kidney failure, unspecified; I13.0 Hypertensive heart and chronic kidney disease with heart failure and stage 1 through stage 4 chronic kidney disease, or unspecified chronic kidney disease; N39.0 Urinary tract infection, site not specified; I70.263 Atherosclerosis of native arteries of extremities with gangrene, bilateral legs; L97.828 Non-pressure chronic ulcer of other part of left lower leg with other specified severity; L97.818 Non-pressure chronic ulcer of other part of right lower leg with other specified severity; E87.1 Hypo-osmolality and hyponatremia; E11.22 Type 2 diabetes mellitus with diabetic chronic kidney disease; E11.621 Type 2 diabetes mellitus with foot ulcer; L97.529 Non-pressure chronic ulcer of other part of left foot with unspecified severity; L97.519 Non-pressure chronic ulcer of other part of right foot with unspecified severity; K74.60 Unspecified cirrhosis of liver; E88.09 Other disorders of plasma-protein metabolism, not elsewhere classified; G54.6 Phantom limb syndrome with pain; N18.3 Chronic kidney disease, stage 3 (moderate); B96.5 Pseudomonas (aeruginosa) (mallei) (pseudomallei) as the cause of diseases classified elsewhere; Z16.24 Resistance to multiple antibiotics; B35.1 Tinea unguium; E78.5 Hyperlipidemia, unspecified; G89.4 Chronic pain syndrome; D50.9 Iron deficiency anemia, unspecified; D63.1 Anemia in chronic kidney disease; Z59.0 Homelessness
CPT/HCPCS: 36415; 36430; 71010; 74181; 76705; 80048; 80053; 80061; 80200; 80202; 81001; 81003; 82570; 82728; 82962; 83036; 83540; 83735; 83880; 84100; 84155; 84300; 84484; 85025; 85610; 85651; 85730; 86592; 86704; 86709; 86803; 86850; 86900; 86901; 86920; 87040; 87081; 87086; 87340; 88307; 89190; 93005; 93306; 96365; 96366; 96368; 96375; 97110; 97162; 97530; J1940; J0131; J0171; J0360; J0690; J1170; J1335; J1644; J1815; J2185; J2250; J2270; J2543; J2795; J3010; J3260; J3370; J7040; J7042; J7050; P9016; Q4118; Q4166